=== PATIENT | male | born 1945 | race Two or more races ===

== ENCOUNTER 2020-07-13 09:01 | Emergency (ER) | payer MEDICARE, MEDICAID, SELFPAY ==
[2020-07-13 09:29] VITALS: BP 163/50; PULSE 65; RESP 15; TEMP 36.7; O2SAT 96; BMI 26.6
--- NOTE | 2020-07-13 09:41 | XR_ITS ---
EXAMINATION: XR CHEST CLINICAL INFORMATION: Dizziness, headache, cough COMPARISON: Chest radiographs 03/25/2019, 03/11/2019, 10/22/2018 TECHNIQUE: Portable upright AP view of the chest was obtained. FINDINGS: Patient is slightly lordotically positioned. The lungs appear clear with no vascular congestion, airspace consolidation, or definite groundglass opacity. There is tapering at the cardiac apex similar to prior studies likely related to areolar tissue. The cardiac and hilar contours are similar to previous exams. No acute bony abnormality. XR/XR chest 1V IMPRESSION: Unremarkable examination.
--- NOTE | 2020-07-13 09:41 | CT_ITS ---
EXAMINATION: CT HEAD WITHOUT CONTRAST CLINICAL INFORMATION: Dizziness and headache x 2 days COMPARISON: None TECHNIQUE: Contiguous axial imaging was performed from the skull base to vertex without intravenous administration of contrast. This CT examination was performed using dose optimization techniques as appropriate, variously including the following: *Automated exposure control *Adjustment of mA and/or kV according to patient size (this includes techniques or standardized protocols for targeted exams where dose is matched to indication/reason for exam; i.e. extremities or head) *Use of iterative reconstruction technique DLP: 642 mGy-cm FINDINGS: There is no evidence of acute intracranial hemorrhage or territorial infarction. No abnormal mass effect or midline shift is seen. Rodriguez to white matter differentiation is well preserved. No extra-axial fluid collections are identified. The lateral ventricles are symmetrical in size and configuration with mild enlargement. The osseous structures and soft tissues are normal. The mastoid air cells and visualized portions of the paranasal sinuses are well aerated. CT/CT head/brain wo con IMPRESSION: No acute intracranial process seen.
[2020-07-13] MEDS: Acetaminophen 325 MG TABLET 650 MG PO (10:09)
--- NOTE | 2020-07-13 10:27 | ED_ITS ---
HPI - Dizziness General Chief Complaint: Dizziness Stated Complaint: GÓMEZ,BODY ACHES,COUGH Time Seen by Provider: 07/13/20 09:24 Source: patient Mode of arrival: ambulatory Limitations: language barrier (Estonian speaking) History of Present Illness HPI Narrative: 74yoM c PMHx of DM, asthma and renal failure requiring dialysis which he reports has resolved x 9 years presenting to the ED c c/o dizziness, headache and intermittent productive cough x 2 days. denies recent fall, changes in vision, nausea / vomiting, chest pain, shortness of breath, palpitations, abdominal pain, diarrhea, urinary symptoms or leg swelling. Patient denies any other symptoms complaints or concerns at this time. Denies recent travel or sick contacts. Related Data Previous Rx's Medication Instructions Recorded acetaminophen [Tylenol] 650 mg PO Q6H PRN #14 tab 07/13/20 azithromycin See Rx Instructions .ROUTE 07/13/20 .COMPLEX #6 tab cyclobenzaprine 10 mg PO TID PRN #10 tab 07/13/20 Allergies Allergy/AdvReac Type Severity Reaction Status Date / Time No Known Allergies Allergy Unverified 06/04/20 14:47 [No Known Allergies*] Review of Systems Review of Systems: Constitutional : No Weight loss, No Fever, No Chills, No Night Sweats, No Fatigue, No Malaise ENT/Mouth : No Hearing loss, No Ear Pain, No Nasal Congestion, No Sinus Pain, No Hoarseness, No sore throat, No Rhinorrhea, No Swallowing Difficulty Eyes: No Eye Pain, No Swelling, No Redness, No Foreign Body, No Discharge, No Vision Changes Cardiovascular : No Chest Pain, No SOB, No Dyspnea on Exertion, No Orthopnea, No Edema, No Palpitations Respiratory : + Cough, + Sputum, No Wheezing, No Smoke Exposure, No Dyspnea Gastrointestinal : No Nausea, No Vomiting, No Diarrhea, No Constipation, No abdominal Pain, No Hematochezia, No Melena Genitourinary : no irregular bleeding, No Dysuria, No Urinary Frequency, No Hematuria, No Urinary Incontinence, No Urgency, No Flank Pain, No Urinary Flow Changes, No Hesitancy Musculoskeletal : No joint pain, No Myalgias, No Joint Swelling Skin : No Skin Lesions, No rash Neuro : No Weakness, No Numbness, No Paresthesias, No Loss of Consciousness, + Dizziness, + Headache Psych : No Anxiety/Panic, No Depression, No SI/HI/AH/VH, No Social Issues, Heme/Lymph: No Bruising, No Bleeding,No Lymphadenopathy Endocrine : No Polyuria, No Polydipsia, No Temperature Intolerance Yes all other systems are reviewed and are negative [facility] Past Medical History Attestation statement: The following information was validated with the patient. Medical History Asthma History of renal dialysis IDDM (insulin dependent diabetes mellitus) Renal failure Social History Social History Smoking Status: Never smoker Use of substances other than those prescribed or required for medical reasons: No Advance Directives: No Advance Directives Information Provided: No Physical Exam Vital Signs: Vital Signs: Vital Signs Temp Pulse Resp BP Pulse Ox 07/13/20 16:02 98.1 F 57 18 161/57 H 98 07/13/20 13:55 97.8 F 65 16 153/59 H 07/13/20 09:29 98.0 F 65 15 163/50 H 96 Body Mass Index 26.6 vital signs have been reviewed as normal and appeared to be correct. Blood pressure normal. Heart rate normal. Respiration rate normal. Temperature normal. Oxygen saturation normal. Appearance: Alert. Oriented X3. No acute distress. Head: Normal external exam. Normocephalic. Atraumatic. Able to rotate head bilaterally. Eyes: PERRLA. EOMI. No nystagmus noted. Conjunctiva and sclera normal. Eyelids normal. Corneal reflex normal. ENT: EAC normal. TM's Normal. Hearing normal. Pharynx normal. Uvula midline. tongue midline. Moist mucous membranes. No trismus noted. No drooling noted. No muffled voice noted. Neck: Normal inspection. Neck supple. FROM. No adenopathy. Thyroid Normal. No meningeal signs. No neck mass noted. CVS: Normal heart rate and rhythm. Heart sound normal. No murmurs noted. Pulses normal throughout. Respiratory: No respiratory distress. Painless inspiration. Breath sounds normal. No wheezes/rales/rhonchi noted. Chest nontender. No accessory muscle usage noted or decreased air movement noted. Abdomen: Soft and nontender. Bowel sounds normal in all 4 quadrants. No distention noted. No organomegaly noted. No visible injury noted. Back: No CVA tenderness. Full range of motion noted. Skin: Skin warm and dry. Normal skin color. Normal skin turgor. No rashes/lesions/lacerations noted. Extremities: No lower extremity edema. Extremities exhibit normal range of motion. Extremities nontender. Able to shrug shoulders bilaterally and keep up against resistance. Neuro: Oriented X 3. No motor deficit. No sensory deficit. Reflexes normal. Moving all extremities. No focal motor deficits. Cranial nerves II-XI intact bilaterally. Facial strength normal. Normal cognition. Speech normal. Gait normal. Strength 5/5 throughout. No pronator drift. No tremor noted. No fasciculations noted. Muscle tone normal throughout. No asterixis noted. Prqjhc-xs-[id number] test normal. Heel to montano test normal. Tandem gait normal. Does not sway with eyes open. Round bur test negative. Rapid alternating movement upper extremity normal. Rapid alternating movement lower extremity normal. Escobar d drop from overhead-Mrs. face. No rigidity noted. NIHSS score 0. Course Course Course Narrative: 9:40am 74yoM c PMHx of DM, asthma and renal failure requiring dialysis which he reports has resolved x 9 years presenting to the ED c c/o dizziness, headache and intermittent productive cough x 2 days. denies recent fall, changes in vision, nausea / vomiting, chest pain, shortness of breath, palpitations, abdominal pain, diarrhea, urinary symptoms or leg swelling. Patient denies any other symptoms complaints or concerns at this time. Denies recent travel or sick contacts. - Concern for CVA vs orthostatic hypotension vs ACS vs Electrolyte abnormality. - Plan: Labs, Orthostatic vitals, EKG, CT scan of brain, chest x-ray. Provide Tylenol for the patient's headache as he requested then re-evaluate. Reevaluation(s) Reevaluation #1: patient has an elevated troponin at 10.8 therefore a repeat troponin was ordered for 3 hours later although patient refused when they went to draw the troponin 3 hours later and is requesting to leave against medical advice. All other labs are within normal limits. EKG normal sinus rhythm no acute ischemic changes. Chest x-ray and CT scan of brain all within normal limits. Will discharge patient against medical advice and DC home with symptomatic treatment along with instructions return if any new or worsening symptoms to follow with primary care provider. Patient understands agrees the plan. Time: 16:10 [facility] Medical Records Attestation: I reviewed the patient's medical records. Lab Data Attestation: I reviewed the patient's lab results. Result diagrams: 07/13/20 11:33 07/13/20 11:33 Labs: Lab Results 07/13/20 07/13/20 07/13/20 Range/Units 11:33 11:33 11:33 WBC 8.3 (4.8-10.8) X10*3/uL RBC 4.42 L (4.60-5.80) X10*6/uL Hgb 14.8 (14.0-18.0) g/dl Hct 43.3 (42-52) % MCV 98.0 (80-98) fL MCH 33.5 H (27.0-33.0) pg MCHC 34.2 (31.0-36.0) g/dl RDW 12.8 (11.0-16.0) % Plt Count 138 L (160-400) X10*3/uL MPV 9.8 (9.4-12.4) fL Immature Gran % (Auto) 0.4 (0.0-0.4) % Neut % (Auto) 80.7 H (45-73) % Lymph % (Auto) 12.3 L (20-40) % [place] % (Auto) 5.8 (2-11) % Eos % (Auto) 0.6 (0-4) % Baso % (Auto) 0.2 (0-2) % Lymph # (Auto) 1.0 L (1.2-4.9) X10*3/uL [place] # (Auto) 0.5 (0.1-1.2) X10*3/uL Eos # (Auto) 0.1 (0.0-0.4) X10*3/uL Baso # (Auto) 0.0 (0.0-0.2) X10*3/uL Abs Immat Gran (auto) 0.03 (0.00-0.03) X10*3/uL Absolute Neuts (auto) 6.7 (2.0-8.3) X10*3/uL Absolute Nucleated RBC 0.000 (0.0-0.012) X10*3/uL Nucleated RBC % (auto) 0.0 (0.0-0.2) /100WBC PT 13.0 (10.8-13.0) SEC INR 1.1 (0.9-1.1) Sodium 138 (135-145) mmol/L Potassium 4.9 (3.3-5.1) mmol/l Chloride 107 (96-108) mmol/L Carbon Dioxide 23 (22-29) mmol/L Anion Gap 13 (12-20) BUN 21 H (9-16) mg/dL Creatinine 1.30 (0.5-1.4) mg/dL Estim Creat Clear Calc 42.7 Estimated GFR 54 Random Glucose 93 (60-115) mg/dL Calcium 8.6 (8.4-10.2) mg/dL Magnesium (1.6-2.6) mg/dL Total Bilirubin 0.6 (0.0-1.0) mg/dL Direct Bilirubin 0.2 (0.0-0.5) mg/dL AST 27 (5-37) U/L ALT 34 (0-40) U/L Alkaline Phosphatase 61 (39-117) U/L Troponin I High Sens (<3.5-35.0) ng/L B-Natriuretic Peptide (<100) pg/mL Total Protein 6.6 (6.5-8.0) g/dL Albumin 4.4 (3.5-5.0) g/dL 07/13/20 07/13/20 Range/Units 11:33 11:33 WBC (4.8-10.8) X10*3/uL RBC (4.60-5.80) X10*6/uL Hgb (14.0-18.0) g/dl Hct (42-52) % MCV (80-98) fL MCH (27.0-33.0) pg MCHC (31.0-36.0) g/dl RDW (11.0-16.0) % Plt Count (160-400) X10*3/uL MPV (9.4-12.4) fL Immature Gran % (Auto) (0.0-0.4) % Neut % (Auto) (45-73) % Lymph % (Auto) (20-40) % [place] % (Auto) (2-11) % Eos % (Auto) (0-4) % Baso % (Auto) (0-2) % Lymph # (Auto) (1.2-4.9) X10*3/uL [place] # (Auto) (0.1-1.2) X10*3/uL Eos # (Auto) (0.0-0.4) X10*3/uL Baso # (Auto) (0.0-0.2) X10*3/uL Abs Immat Gran (auto) (0.00-0.03) X10*3/uL Absolute Neuts (auto) (2.0-8.3) X10*3/uL Absolute Nucleated RBC (0.0-0.012) X10*3/uL Nucleated RBC % (auto) (0.0-0.2) /100WBC PT (10.8-13.0) SEC INR (0.9-1.1) Sodium (135-145) mmol/L Potassium (3.3-5.1) mmol/l Chloride (96-108) mmol/L Carbon Dioxide (22-29) mmol/L Anion Gap (12-20) BUN (9-16) mg/dL Creatinine (0.5-1.4) mg/dL Estim Creat Clear Calc Estimated GFR Random Glucose (60-115) mg/dL Calcium (8.4-10.2) mg/dL Magnesium 2.0 (1.6-2.6) mg/dL Total Bilirubin (0.0-1.0) mg/dL Direct Bilirubin (0.0-0.5) mg/dL AST (5-37) U/L ALT (0-40) U/L Alkaline Phosphatase (39-117) U/L Troponin I High Sens 10.8 (<3.5-35.0) ng/L B-Natriuretic Peptide 125 H (<100) pg/mL Total Protein (6.5-8.0) g/dL Albumin (3.5-5.0) g/dL Imaging Data Chest x-ray: Attestation: I personally reviewed and interpreted this imaging study as follows: Radiologist's impression: FINDINGS: Patient is slightly lordotically positioned. The lungs appear clear with no vascular congestion, airspace consolidation, or definite groundglass opacity. There is tapering at the cardiac apex similar to prior studies likely related to areolar tissue. The cardiac and hilar contours are similar to previous exams. No acute bony abnormality. XR/XR chest 1V IMPRESSION: Unremarkable examination. CT scan - head: Attestation: I personally reviewed and interpreted this imaging study as follows: Radiologist's impression: FINDINGS: There is no evidence of acute intracranial hemorrhage or territorial infarction. No abnormal mass effect or midline shift is seen. Rodriguez to white matter differentiation is well preserved. No extra-axial fluid collections are identified. The lateral ventricles are symmetrical in size and configuration with mild enlargement. The osseous structures and soft tissues are normal. The mastoid air cells and visualized portions of the paranasal sinuses are well aerated. CT/CT head/brain wo con IMPRESSION: No acute intracranial process seen. ECG Data Attestation: I personally reviewed and interpreted this ECG as follows: ECG interpretation date: 07/13/20 ECG interpretation time: 10:53 Prior ECG tracings: available for review Interpretation: Sinus bradycardia with 1st degree AV block with a normal VT interval with a normal QRS and normal QT / QTC interval. No acute ischemic changes. Similar when compared to 03/25/2019 EKG. Discharge Plan Discharge Clinical Impression: Dizziness, Bronchitis, Headache, Nausea, Elevated troponin Patient Disposition: Left Against Medical Advice Instructions: Acute Headache (ED), Dizziness (ED), Against Medical Advice (ED), High Troponin Levels (ED) Additional Instructions: Bas?ndonos en laci s?ntomas e historia, hemos enviado un COVID-19. Aunque bardales resultado es PENDIENTE en kenya momento. LOS RESULTADOS deben regresar en un plazo de 72 horas. En kenya momento se le contactar? con resultados NEGATIVOS O POSITIVOS. -Por favor, espere hasta que nos pongamos en contacto con usted para laci resultados. En kenya momento usted estar? bryan para el jerica. Por favor, planifique la cuarentena autom?li por un m?ximo de 14 d?as. No te expongas a los dem?s. No puedes ir a trabajar. Si las pruebas vuelven negativas, puede volver a las actividades siempre y cuando ya no tenga s?ntomas riaz al menos 3 d?as. Por favor, siga las instrucciones en fr?o y l?vese las arturo con frecuencia. Puede kayleigh Tylenol seg?n las instrucciones del biber?n para el dolor o la fiebre. Paciente atendido en el servicio de urgencias el 03/13/2020 y debe ser eximido del trabajo hasta los resultados negativos de la prueba Y hasta que hayan pasado 72 horas sin s?ntomas Y hayan pasado al menos 10 d?as desde que aparecieron los s?ntomas por primera vez o desde la ?ltima exposici?n al paciente positivo COVID-19 Directrices de los CDC para el aislamiento en el hogar: - Mant?ngase alejado de los dem?s - USAR DAPHNE MASCARA si usted est? enfermo Y ESTANCIA HOGAR - C?brase la boca y la nariz con un pa?uelo de papel al toser o estornudar. Deseche los pa?uelos en daphne papelera forrada y l?vese las arturo inmediatamente con agua y jab?n riaz al menos 20 segundos. Si no hay agua y jab?n disp onibles, limpie las arturo con desinfectante de arturo a base de alcohol que contenga al menos 60% de alcohol. - L?mpiarse las arturo a menudo con agua y jab?n riaz al menos 20 segundos - Evite tocarse los ojos, la nariz y la boca con las arturo sin odilon - No comparta platos, vasos, tazas, utensilios para comer, toallas o ropa de cama con otras personas en bardales hogar. Despu?s de usar estos art?culos, l?velos bryan con agua y jab?n o p?ngalos en el lav[place]illas. - Limpie las superficies de alto contacto en bardales ?stan de aislamiento ( habitaci?n de enfermos y ba?o) todos los d?as; permitir que el cuidador limpie y desinfecte las superficies de alto contacto en otras ?reas del hogar. Limpie el ?stan o el art?culo con agua y jab?n u otro detergente si est? sucio. Luego, usa un desinfectante dom?stico. - Limitar el contacto con mascotas y animales: Si debe cuidar de daphne mascota, l?vese las arturo antes y despu?s de interactuar con ellos). Based on your symptoms and history we have sent a COVID-19. Although your RESULT IS PENDING at this time. RESULTS should return within 72 hours. At this time you will be contacted with either NEGATIVE OR POSITIVE results. -Please wait until we contact you for your results. At this time you will be okay for discharge. Please plan for self quarantine for up to 14 days. Do not expose yourself to others. You may not go to work. If test ing does come back negative you may return to activities as long as you are no longer having any symptoms for at least 3 days. Please continue to follow cold instructions and wash your hands frequently. You may take Tylenol as directed on the bottle for pain or fever. Patient seen in the emergency department on 07/13/2020 and should be excused from work until negative test results AND until 72 hours without any symptoms AND at least 10 days have passed since symptoms first appeared or since last exposure to COVID-19 positive patient CDC Guidelines for home isolation: - Stay away from others - WEAR A MASK if you are sick AND STAY HOME - Cover your mouth and nose with a tissue when you cough or sneeze. Dispose of tissues in a lined trash can and wash your hands immediately with soap and water for at least 20 seconds. If soap and water are not available, clean hands with alcohol-based hand blogs manager that contains at least 60% alcohol. - Clean your hands often with soap and water for at least 20 seconds - Avoid touching your eyes, nose and mouth with unwashed hands - Do not share dishes, drinking glasses, cups, eating utensils, towels, or bedding with other people in your home. After using these items, wash them thoroughly with soap and water or put in the oncology rep specialist. - Clean high-touch surfaces in your isolation area ( sick room and bathroom) every day; let a caregiver clean and disinfect high-touch surfaces in other areas of the home. Clean the area or item with soap and water or another detergent if it is dirty. Then, use a household disinfectant. - Limit contact with pets and animals: If you must care for a pet, wash your hands before and after interacting with them). Prescriptions: New azithromycin 250 mg tablet See Rx Instructions .ROUTE .COMPLEX Qty: 6 RF: 0 cyclobenzaprine 10 mg tablet 10 mg PO TID PRN (Reason: muscle spasm) Qty: 10 RF: 0 acetaminophen [Tylenol] 325 mg tablet 650 mg PO Q6H PRN (Reason: fever or pain) Qty: 14 RF: 0 Referrals: Jessie Smith MD [Primary Care Provider] - 2 days Print Language: Estonian
--- NOTE | 2020-07-13 10:32 | ECG_ITS ---
Test Reason : WEAKNESS Blood Pressure : / mmHG Vent. Rate : 057 BPM Atrial Rate : 057 BPM P-R Int : 256 ms QRS Dur : 096 ms QT Int : 436 ms P-R-T Axes : 058 -01 027 degrees QTc Int : 424 ms Sinus bradycardia with 1st degree A-V block Minimal voltage criteria for LVH, may be normal variant Borderline ECG When compared with ECG of 25-MAR-2019 13:23, No significant change was found Referred By: Aruna Aquino Electronically Signed By:YAEL GONZALEZ MD
[2020-07-13 11:38] LABS: MANUAL DIFF FLAG NO
[2020-07-13 11:41] LABS: Basophils Percent Auto 0.2 % (0-2); Eosinophils Absolute Auto 0.1 X10*3/uL (0.0-0.4); Eosinophils Percent Auto 0.6 % (0-4); Hematocrit 43.3 % (42-52); Hemoglobin 14.8 g/dl (14.0-18.0); Imm Gran Abs Auto 0.03 X10*3/uL (0.00-0.03); Imm Gran Pct Auto 0.4 % (0.0-0.4); Lymphocytes Percent Auto 12.3 % (20-40); Mean Corpuscular HGB Conc 34.2 g/dl (31.0-36.0); Mean Corpuscular Hemoglobin 33.5 pg (27.0-33.0); Mean Platelet Volume 9.8 fL (9.4-12.4); Monocytes Absolute Auto 0.5 X10*3/uL (0.1-1.2); Monocytes Percent Auto 5.8 % (2-11); Neutrophils Absolute Auto 6.7 X10*3/uL (2.0-8.3); Neutrophils Percent Auto 80.7 % (45-73); Platelet Count 138 X10*3/uL (160-400); Red Blood Count 4.42 X10*6/uL (4.60-5.80); Red Cell Distribution Width 12.8 % (11.0-16.0); White Blood Count 8.3 X10*3/uL (4.8-10.8)
[2020-07-13 11:45] LABS: INTERNATIONAL NORM RATIO 1.1 (0.9-1.1)
[2020-07-13 12:13] LABS: B Type Natriuretic Peptide 125 pg/mL (<100); Troponin-I High Sensitivity 10.8 ng/L (<3.5-35.0)
[2020-07-13 12:19] LABS: Alanine Aminotransferase 34 U/L (0-40); Albumin Level 4.4 g/dL (3.5-5.0); Alkaline Phosphatase 61 U/L (39-117); Anion Gap 13 (12-20); Aspartate Amino Transferase 27 U/L (5-37); Bilirubin Direct 0.2 mg/dL (0.0-0.5); Bilirubin Total 0.6 mg/dL (0.0-1.0); Blood Urea Nitrogen 21 mg/dL (9-16); Calcium 8.6 mg/dL (8.4-10.2); Carbon Dioxide 23 mmol/L (22-29); Chloride 107 mmol/L (96-108); Creatinine Clr Calc Pharmacy 42.7; Estimated Glomerular Filt Rate 54; Glucose Random 93 mg/dL (60-115); Potassium 4.9 mmol/l (3.3-5.1); Sodium 138 mmol/L (135-145); Total Protein 6.6 g/dL (6.5-8.0)
[2020-07-13] MEDS: 0.9 % Sodium Chloride 1,000 ML 999 ML IVCONT (13:29)
[2020-07-13 13:55] VITALS: BP 153/59; BP 154/56; PULSE 57; PULSE 65; RESP 16; TEMP 36.6
[2020-07-13 16:02] VITALS: BP 161/57; PULSE 57; RESP 18; TEMP 36.7; O2SAT 98
== END 2020-07-13 16:20 | disposition left against medical advice (07) ==
PROVIDERS: Physician Assistant Medical; Emergency Provider Emergency Medicine; PCP Family Medicine
DX: J20.9 Acute bronchitis, unspecified (principal); R42 Dizziness and giddiness; R79.89 Other specified abnormal findings of blood chemistry; E11.9 Type 2 diabetes mellitus without complications; R05 Cough; Z20.828 Contact with and (suspected) exposure to other viral communicable diseases
CPT/HCPCS: 36415; 70450; 71045; 80048; 80076; 83735; 83880; 84484; 85025; 85610; 87635; 93005; 96360; 99284

== ENCOUNTER 2020-08-05 13:42 | Emergency (ER) | payer MEDICARE, MEDICAID, SELFPAY ==
[2020-08-05 13:49] VITALS: BP 135/89; BP 138/52; PULSE 72; PULSE 74; RESP 16; TEMP 36.8; O2SAT 96; O2SAT 98; BMI 27.6
--- NOTE | 2020-08-05 13:52 | XR_ITS ---
EXAMINATION: XR CHEST CLINICAL INFORMATION: Cough. COMPARISON: 07/13/2020 chest radiograph. TECHNIQUE: Frontal view of the chest was obtained. FINDINGS: Previously seen pleural reflection at the left lung base is less pronounced. The lungs are otherwise clear. There is persistent mild elevation of the right hemidiaphragm without significant change. The heart and mediastinal structures are unremarkable. Mild thoracic scoliosis and multilevel degenerative changes are unchanged. XR/XR chest 1V IMPRESSION: No acute cardiopulmonary process.
[2020-08-05 14:46] LABS: Influenza A PCR NEGATIVE (Negative); Influenza B PCR NEGATIVE (Negative); Resp Syncy Virus RNA Qual PCR NEGATIVE (Negative); SARS COV2 PCR INHOUSE NEGATIVE (Negative)
--- NOTE | 2020-08-05 15:01 | ED_ITS ---
HPI - General Adult General Chief complaint: Fever Stated complaint: COUGH,FEVER 96.8 Time Seen by Provider: 08/05/20 13:52 Source: patient Mode of arrival: ambulatory Limitations: no limitations History of Present Illness HPI narrative: PATIENT PRESENTS TO THE ED FOR VIRAL-LIKE SYNDROME since yesterday. PATIENT STATES COUGHING, WHITE PHLEGM, BODY ACHES, CHILLS, night sweats AND SUBJECTIVE FEVER. PATIENT DENIES ANY CHEST PAIN, SHORTNESS OF BREATH, calf pain, pain on inspiration, coughing up blood OR SWELLING OF LOWER EXTREMITies. PATIENT UNKNOWN OF EXPOSURE TO COVID. Related Data Previous Rx's Medication Instructions Recorded acetaminophen [Tylenol] 650 mg PO Q6H PRN #14 tab 07/13/20 azithromycin See Rx Instructions .ROUTE 07/13/20 .COMPLEX #6 tab cyclobenzaprine 10 mg PO TID PRN #10 tab 07/13/20 insulin glargine 100 unit/mL (3 22 unit SUBCUT DAILY 30 Days #15 ml 07/31/20 mL) subcutaneous pen Allergies Allergy/AdvReac Type Severity Reaction Status Date / Time No Known Allergies Allergy Unverified 06/04/20 14:47 [No Known Allergies*] Review of Systems Review of Systems: Yes all other systems are reviewed and are negative Constitutional: Constitutional: Reports as per HPI, Reports no additional constitutional complaints, Reports body ache(s), Reports chills, Reports fatigue, Reports fever(s) ( SUBJECTIVE) and Reports malaise Eyes: Eyes: Reports as per HPI and Reports no additional eye complaints ENT: Reports system reviewed and no additional complaints, except as documented and Reports as per HPI Cardiovascular: Cardiovascular: Denies chest pain, Denies chest pain at rest, Denies dyspnea, Denies dyspnea on exertion, Denies orthopnea and Denies paroxysmal nocturnal dyspnea Respiratory: Respiratory: Reports as per HPI, Reports cough, Reports excessive phlegm production (WHITE), Denies dyspnea and Denies dyspnea on exertion Gastrointestinal: Gastrointestinal: Reports as per HPI and Reports no additional gastrointestinal complaints Musculoskeletal: Musculoskeletal: Reports no additional musculoskeletal comp laints and Reports as per HPI Neurologic: Reports system reviewed and no additional complaints, except as documented, Reports as per HPI and Reports Abnormal speech present Psychiatric: Psychiatric: Reports no additional psychiatric complaints and Reports as per HPI Endocrine: Endocrine: Reports fatigue [facility] Past Medical History Medical History (Updated 08/05/20 @ 15:15 by VIVIANE Lopez) Asthma Diabetes type 2, controlled History of renal dialysis IDDM (insulin dependent diabetes mellitus) Renal failure Social History Social History Alcohol intake: former Smoking Status: Former smoker Advance Directives: No Advance Directives Information Provided: No Physical Exam Vital Signs: Vital Signs: Last Vital Signs Temp 98.2 F 08/05/20 13:49 Pulse 74 08/05/20 13:49 Resp 16 08/05/20 13:49 BP 138/52 L 08/05/20 13:49 Pulse Ox 98 08/05/20 13:49 Body Mass Index 27.6 Const: General: cooperative, healthy appearing, comfortable, no acute distress, well developed, alert and awake HENMT: Head: Yes normal to inspection, No No palpable skull fracture present, No Ibanez's sign, No contusion, No hematoma, No laceration, No palpable skull fracture and No raccoon eyes Eyes: General: appearance normal, both eyes and all related structures Neck: Neck: Yes normal visual inspection and Yes full ROM Chest: Chest palpation & inspection: normal inspection of the chest and normal palpation of entire chest wall Resp: Effort & Inspection: normal respiratory effort, able to speak in complete sentences, normal respiratory pattern, no audible wheezes and no cough Auscultation: clear to auscultation bilaterally, no crackles, no rales, no rhonchi and no wheezes Cardio: Jugular venous distension: no JVD Heart sounds: S1 normal heart sound present and S2 normal heart sound present GI: Inspection: Yes normal to inspection and No abdominal wall ecchymosis Palpation (GI): Soft to palpation, not firm, nontender, no guarding and not rigid : General: No CVA tenderness and Yes no CVA tenderness Back/Spine/Pelvis: Back: no CVA tenderness, No CVA tenderness and No back tenderness Skin: General skin exam: no rashes or lesions noted Neuro: General: patient oriented x3, gait normal, tone normal and CN's II-XI intact bilaterally Cranial nerves: Yes CN's II-XII intact bilaterally Speech: Abnormal speech present Extrem: Other: LOWER EXTREMITY NEGATIVE FOR ANY PITTING EDEMA, CALF TENDERNESS, REDNESS, OR SWELLING. General: Yes normal to inspection and Yes full ROM Psych: Appearance: grossly normal, well kempt and not disheveled Course Course Course Narrative: PATIENT DOES NOT WANT ANY BLOOD WORK. PATIENT JUST WANTS TO BE TESTED FOR COVID-19. NOT SUSPECTING CARDIAC ETIOLOGY or PE PRESENTLY IN THE ED. PATIENT STATES HE HAS NOT BEEN ON DIALYSIS FOR 7 YEARS AND KIDNEY FUNCTION IS NORMAL. HISTORY PHYSICAL EXAM INDICATES MORE VIRAL SYNDROME. WILL HAVE CHEST X-RAY TO RULE OUT PNEUMONIA. PATIENT ALSO HAVE COVID AND FLU SWAB SENT. PATIENT IS NOT TOXIC APPEARING Reevaluation(s) Reevaluation #1: PATIENT'S CHEST X-RAY CAME BACK NORMAL. PATIENT FLU AND COVID RESsults CAME BACK NEGATIVE. PATIENT INFORMED ALTHOUGH HIS COVID SWAB IS NEGATIVE THAT DOES NOT MEAN HE DOES NOT HAVE COVID. PATIENT'S WAS INFORMED SYMPTOMS JUST STARTED YESTERDAY AND VERY EARLY so he may not have a high enough viral load. PATIENT INFORMED IF he CONTINUE TO HAVE symptoms or worsened HE SHOULD ISOLATE AND GET RETESTED. PATIENT INFORMED if he is HAVING CHEST PAIN, SHORTNESS OF BREATH, COUGHING UP BLOOD, or WEAKNESS HE SHOULD RETURN TO THE ED IMMEDIATELY. Time: 15:11 Medical Decision Making MDM Narrative Medical decision making narrative: VIRAL SYNDROME Lab Data Labs: Lab Results 08/05/20 Range/Units 14:03 Coronavirus (PCR) NEGATIVE (Negative) Influenza Type A (PCR) NEGATIVE (Negative) Influenza Type B (PCR) NEGATIVE (Negative) RSV RNA Qual (PCR) NEGATIVE (Negative) Discharge Plan Discharge Clinical Impression: Acute viral syndrome, URI (upper respiratory infection) Patient Disposition: Home, Self-Care Instructions: Upper Respiratory Infection (ED), Viral Syndrome (ED) Additional Instructions: RETURN TO THE ED IMMEDIATELY FOR ANY WEAKNESS, CHEST PAIN, SHORTNESS OF BREATH, COUGHING UP BLOOD, INTRACTABLE FEVER, CHILLS, SWELLING OF LOWER EXTREMITIES, CALF PAIN, OR ANY OTHER CONCERNING SYMPTOMS. INITIAL COVID SWAB RESULTS ARE NEGATIVE. IF YOU CONTINUE TO HAVE SYMPTOMS OR THEY WORSEN PLEASE PRACTICE SELF- ISOLATION AND GET RETESTED IF INDICATED. PLEASE FOLLOW-UP WITH THE PCP Prescriptions: No Action Lantus Solostar U-100 Insulin 100 unit/mL (3 mL) insulin pen 22 unit subcut DAILY 30 Days Qty: 15 RF: 4 azithromycin 250 mg tablet See Rx Instructions .ROUTE .COMPLEX Qty: 6 RF: 0 cyclobenzaprine 10 mg tablet 10 mg PO TID PRN (Reason: muscle spasm) Qty: 10 RF: 0 acetaminophen [Tylenol] 325 mg tablet 650 mg PO Q6H PRN (Reason: fever or pain) Qty: 14 RF: 0 Interventions: ED Discharge Assessment Last Done: 08/05/20 16:24 Discharge Date/Time: 08/05/20 16:24 Print Language: Peruvian
== END 2020-08-05 16:24 | disposition home or self-care (01) ==
PROVIDERS: Physician Assistant; Emergency Provider Emergency Medicine
DX: J06.9 Acute upper respiratory infection, unspecified (principal); B34.9 Viral infection, unspecified; R50.9 Fever, unspecified; R05 Cough; Z20.828 Contact with and (suspected) exposure to other viral communicable diseases; Z79.899 Other long term (current) drug therapy
CPT/HCPCS: 0241U; 71045; 99283

== ENCOUNTER → 2020-09-09 13:02 | Outpatient (BNVA) | payer MEDICARE, MEDICAID, SELFPAY | PROVIDERS: PCP Family Medicine; Referring Provider Family Medicine; Visit Provider Surgery | DX: K59.09 Other constipation (principal) | CPT/HCPCS: 99212 ==

== ENCOUNTER → 2020-11-09 12:53 | Outpatient (BNVA) | payer MEDICARE, SELFPAY | PROVIDERS: PCP Family Medicine; Visit Provider Internal Medicine Endocrinology, Diabetes & Metabolism | DX: E11.21 Type 2 diabetes mellitus with diabetic nephropathy (principal); E11.42 Type 2 diabetes mellitus with diabetic polyneuropathy; Z79.4 Long term (current) use of insulin; E78.5 Hyperlipidemia, unspecified; I10 Essential (primary) hypertension | CPT/HCPCS: 82947; 99212 ==

== ENCOUNTER → 2021-01-13 12:59 | Outpatient (BNVA) | payer MEDICARE, SELFPAY | PROVIDERS: PCP Family Medicine; Visit Provider Urology | DX: N40.1 Benign prostatic hyperplasia with lower urinary tract symptoms (principal); R35.1 Nocturia | CPT/HCPCS: 81002; 99212 ==

== ENCOUNTER → 2021-02-03 13:01 | Outpatient (BNVA) | payer MEDICARE, SELFPAY | PROVIDERS: PCP Family Medicine; Visit Provider Nurse Practitioner Gerontology | DX: E11.21 Type 2 diabetes mellitus with diabetic nephropathy (principal); I10 Essential (primary) hypertension; Z79.4 Long term (current) use of insulin | CPT/HCPCS: 82947; 99212 ==

== ENCOUNTER → 2021-02-17 12:55 | Outpatient (BNVA) | payer MEDICARE, SELFPAY | PROVIDERS: PCP Family Medicine; Visit Provider Internal Medicine Endocrinology, Diabetes & Metabolism | DX: E11.21 Type 2 diabetes mellitus with diabetic nephropathy (principal); E11.42 Type 2 diabetes mellitus with diabetic polyneuropathy; I10 Essential (primary) hypertension; E78.5 Hyperlipidemia, unspecified; Z79.4 Long term (current) use of insulin | CPT/HCPCS: 82947; 99212 ==

== ENCOUNTER 2021-04-01 13:24 | Outpatient (REF) | payer MEDICARE, SELFPAY ==
--- NOTE | ~2021-04-01 | XR_ITS ---
EXAMINATION: XR FOOT, LEFT CLINICAL INFORMATION: Left foot pain. COMPARISON: Left foot radiographs dated 04/04/2017 TECHNIQUE: AP, lateral, and oblique views of the left foot. FINDINGS: First metatarsophalangeal hallux valgus angulation is unchanged. First metatarsophalangeal and hallux sesamoid joint space narrowing with marginal osteophytes, unchanged. No osseous erosion. Plantar calcaneal spur. 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 Redemonstration of a plantar calcaneal spur.
[2021-04-01 14:21] LABS: Imm Gran Abs Auto 0.03 X10*3/uL (0.00-0.03); Imm Gran Pct Auto 0.5 % (0.0-0.4); Mean Platelet Volume 10.3 fL (9.4-12.4)
[2021-04-01 14:23] LABS: Basophils Percent Auto 0.3 % (0-2); Eosinophils Absolute Auto 0.1 X10*3/uL (0.0-0.4); Eosinophils Percent Auto 1.4 % (0-4); Hematocrit 39.7 % (42-52); Hemoglobin 13.7 g/dl (14.0-18.0); Lymphocytes Absolute Auto 1.5 X10*3/uL (1.2-4.9); Lymphocytes Percent Auto 26.3 % (20-40); Mean Corpuscular HGB Conc 34.5 g/dl (31.0-36.0); Mean Corpuscular Hemoglobin 33.2 pg (27.0-33.0); Mean Corpuscular Volume 96.1 fL (80-98); Monocytes Absolute Auto 0.5 X10*3/uL (0.1-1.2); Monocytes Percent Auto 7.8 % (2-11); Neutrophils Absolute Auto 3.7 X10*3/uL (2.0-8.3); Neutrophils Percent Auto 63.7 % (45-73); Platelet Count 140 X10*3/uL (160-400); Red Blood Count 4.13 X10*6/uL (4.60-5.80); White Blood Count 5.8 X10*3/uL (4.8-10.8)
[2021-04-01 14:27] LABS: MANUAL DIFF FLAG NO
[2021-04-01 14:45] LABS: Anion Gap 13 (12-20); Blood Urea Nitrogen 30 mg/dL (9-16); Calcium 8.8 mg/dL (8.4-10.2); Carbon Dioxide 23 mmol/L (22-29); Chloride 114 mmol/L (96-108); Estimated Glomerular Filt Rate 36; Potassium 5.4 mmol/L (3.3-5.1); Sodium 145 mmol/L (135-145)
== END 2021-04-01 13:25 | disposition home or self-care (01) ==
LOC: HO.LAB 13:24
PROVIDERS: Absent Provider Family Medicine; PCP Family Medicine; Visit Provider Internal Medicine Nephrology
DX: I12.9 Hypertensive chronic kidney disease with stage 1 through stage 4 chronic kidney disease, or unspecified chronic kidney disease (principal); N18.32 Chronic kidney disease, stage 3b; M79.672 Pain in left foot
CPT/HCPCS: 36415; 73630; 80051; 82310; 82565; 84520; 85025

== ENCOUNTER 2021-07-12 13:02 | Outpatient (REF) | payer MEDICARE, SELFPAY ==
[2021-07-12 14:11] LABS: Alanine Aminotransferase 23 U/L (0-40); Albumin Level 4.6 g/dL (3.5-5.0); Alkaline Phosphatase 68 U/L (39-117); Anion Gap 13 (12-20); Aspartate Amino Transferase 22 U/L (5-37); Bilirubin Total 0.7 mg/dL (0.0-1.0); Blood Urea Nitrogen 21 mg/dL (9-16); Calcium 10.2 mg/dL (8.4-10.2); Carbon Dioxide 27 mmol/L (22-29); Chloride 105 mmol/L (96-108); Cholesterol 112 mg/dL; Estimated Glomerular Filt Rate 41; Glucose Fasting 113 mg/dL (60-99); HDL Cholesterol 43 mg/dL; LDL Cholesterol Calculated 50 mg/dl; Sodium 140 mmol/L (135-145); Total Protein 6.9 g/dL (6.5-8.0); Triglycerides 96 mg/dL
[2021-07-12 14:31] LABS: Prostate Specific Antigen 3.09 ng/mL (<0.05-4.0); Thyroid Stimulating Hormone 0.94 uIU/mL (0.32-4.0)
[2021-07-12 14:33] LABS: Free T4 (Free Thyroxine) 0.96 ng/dL (0.71-1.85)
[2021-07-12 14:38] LABS: Vitamin B12 297 pg/mL (200-900)
[2021-07-13 06:12] LABS: LDL Cholesterol Direct 43 mg/dL (<100)
== END 2021-07-12 13:03 | disposition home or self-care (01) ==
LOC: HO.LAB 13:02
PROVIDERS: Urology; Visit Provider Internal Medicine Endocrinology, Diabetes & Metabolism
DX: Z12.5 Encounter for screening for malignant neoplasm of prostate (principal); N40.0 Benign prostatic hyperplasia without lower urinary tract symptoms; E11.21 Type 2 diabetes mellitus with diabetic nephropathy
CPT/HCPCS: 36415; 80053; 80061; 82607; 83721; 84153; 84439; 84443

== ENCOUNTER → 2021-07-14 13:27 | Outpatient (BNVA) | payer MEDICARE, SELFPAY | PROVIDERS: PCP Family Medicine; Visit Provider Urology ==

== ENCOUNTER → 2021-07-21 13:08 | Outpatient (BNVA) | payer MEDICARE, SELFPAY | PROVIDERS: PCP Family Medicine; Visit Provider Nurse Practitioner Gerontology | DX: E11.42 Type 2 diabetes mellitus with diabetic polyneuropathy (principal); E11.21 Type 2 diabetes mellitus with diabetic nephropathy; E78.5 Hyperlipidemia, unspecified; I10 Essential (primary) hypertension; Z79.4 Long term (current) use of insulin | CPT/HCPCS: 82947; 83036; 99212 ==

== ENCOUNTER 2021-07-23 12:50 | Outpatient (REF) | payer MEDICARE, SELFPAY ==
[2021-07-23 14:50] LABS: Microalbum/Creatinine Ratio Ur 159.3 ug/mg cr
== END 2021-07-23 12:51 | disposition home or self-care (01) ==
LOC: HO.LAB 12:50
PROVIDERS: PCP Family Medicine; Visit Provider Nurse Practitioner Gerontology
DX: E11.21 Type 2 diabetes mellitus with diabetic nephropathy (principal)
CPT/HCPCS: 82043

== ENCOUNTER → 2021-09-22 12:57 | Outpatient (BNVA) | payer MEDICARE, SELFPAY | PROVIDERS: PCP Family Medicine; Visit Provider Urology | DX: Z13.89 Encounter for screening for other disorder (principal) | CPT/HCPCS: Q3014 ==

== ENCOUNTER 2021-11-08 14:28 | Emergency (ER) | payer MEDICARE, SELFPAY ==
--- NOTE | ~2021-11-08 | XR_ITS ---
EXAMINATION: LEFT FOOT AND ANKLE X-RAYS CLINICAL INFORMATION: Pain COMPARISON: Left foot x-ray March 2021 TECHNIQUE: 3 views of the left foot and 3 views of the left ankle FINDINGS: Left foot: There is hallux valgus deformity and mild arthritis at the first MTP joint. No fracture or dislocation is seen. There is a plantar calcaneal spur. Left ankle: Bone alignment is normal. No acute fracture or dislocation is seen. There is question of trauma to the ankle. The ankle mortise is normal. There is soft tissue ossification in the interosseous ligament. XR/XR ankle LT 2V IMPRESSION: Left foot: Hallux valgus deformity and arthritis at the first MTP joint. Plantar calcaneal spur. Left ankle: Question of old trauma otherwise unremarkable exam.
--- NOTE | ~2021-11-08 | XR_ITS ---
EXAMINATION: LEFT FOOT AND ANKLE X-RAYS CLINICAL INFORMATION: Pain COMPARISON: Left foot x-ray March 2021 TECHNIQUE: 3 views of the left foot and 3 views of the left ankle FINDINGS: Left foot: There is hallux valgus deformity and mild arthritis at the first MTP joint. No fracture or dislocation is seen. There is a plantar calcaneal spur. Left ankle: Bone alignment is normal. No acute fracture or dislocation is seen. There is question of trauma to the ankle. The ankle mortise is normal. There is soft tissue ossification in the interosseous ligament. XR/XR foot LT 2V IMPRESSION: Left foot: Hallux valgus deformity and arthritis at the first MTP joint. Plantar calcaneal spur. Left ankle: Question of old trauma otherwise unremarkable exam.
[2021-11-08 15:28] VITALS: BP 154/67; PULSE 64; RESP 18; TEMP 36.3; O2SAT 97; BMI 26.0
--- NOTE | 2021-11-08 16:33 | ED.EXTPRO ---
HPI - Extremity Problem General Chief complaint: Extremity Injury, Lower Stated complaint: l foot pain Time Seen by Provider: 11/08/21 16:30 Source: patient Mode of arrival: ambulatory Limitations: no limitations History of Present Illness HPI Narrative: Patient history of diabetes CKD complaining of pain in the left greater toe for last 3 days no injury this slight swelling of the greater toe. Patient does have history of arthritis no history of known gout Related Data Home Medications Medication Instructions Recorded Confirmed albuterol sulfate 90 mcg/actuation 2 puff INHALATION Q4-6H PRN 09/09/20 07/21/21 aerosol inhaler (Ventolin HFA) atorvastatin 10 mg tablet 10 mg PO BEDTIME 09/09/20 07/21/21 aspirin 81 mg tablet,delayed 81 mg PO QAM 07/14/21 07/21/21 release bictegravir 50 mg-emtricitabine 1 tab PO BEDTIME 07/14/21 07/21/21 200 mg-tenofovir alafenam 25 mg tablet (Biktarvy) blood sugar diagnostic (FreeStyle #10 ea 07/14/21 07/21/21 Lite Strips) cholecalciferol (vitamin D3) 25 25 mcg PO QAM 07/14/21 07/21/21 mcg (1,000 unit) tablet lancets 33 gauge (TRUEplus Lancets) #100 ea 07/14/21 07/21/21 Previous Rx's Medication Instructions Recorded acetaminophen 325 mg tablet 650 mg PO Q6H PRN #14 tab 07/13/20 (Tylenol) azithromycin 250 mg tablet See Rx Instructions .ROUTE 07/13/20 .COMPLEX #6 tab cyclobenzaprine 10 mg tablet 10 mg PO TID PRN #10 tab 07/13/20 docusate sodium 100 mg capsule 100 mg PO DAILY #30 cap 09/09/20 (Colace) psyllium husk 3.4 gram/5.4 gram 1 tbsp PO DAILY #660 g 09/09/20 oral powder (Metamucil) insulin syringe-needle U-100 0.5 #200 ea 02/17/21 mL 31 gauge x 5/16 (BD Insulin Syringe Ultra-Fine) doxazosin 4 mg tablet 4 mg PO BEDTIME 90 Days #90 tab 09/22/21 losartan 25 mg tablet 25 mg PO DAILY 90 Days #90 tab 10/05/21 dulaglutide 3 mg/0.5 mL 3 mg (0.5 mL) SUBCUT QWEEK 90 Days 10/25/21 subcutaneous pen injector #6.5 ml (Trulicity) insulin glargine 100 unit/mL 20 unit (0.2 mL) SUBCUT BID 90 10/29/21 subcutaneous solution (Lantus Days #40 ml U-100 Insulin) acetaminophen 300 mg-codeine 30 mg 1 tab PO Q8H PRN #20 tab 11/08/21 tablet Allergies Allergy/AdvReac Type Severity Reaction Status Date / Time No Known Allergies Allergy Verified 09/22/21 12:58 [No Known Allergies*] Review of Systems Review of Systems: Yes all other systems are reviewed and are negative PMFSH Past Medical History Medical History Asthma BPH (benign prostatic hyperplasia) BPH loc w urin obs/LUTS Chronic constipation Diabetes type 2, controlled Diabetes type 2, controlled Diabetic nephropathy associated with type 2 diabetes mellitus Diabetic polyneuropathy associated with type 2 diabetes mellitus Dyslipidemia History of renal dialysis HIV (human immunodeficiency virus infection) Hypertension IDDM (insulin dependent diabetes mellitus) 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 Tenderness left MTP joint slight erythema good range of movement of the ankle joint and L MTP joint MDM - Extremity (Nontraumatic) MDM Narrative Medical decision making narrative: X-ray negative for any acute pathology clinically patient has gout patient refused to take prednisone as that will increase his blood sugar , could not give him colchicine and NSAID because of kidney problems. Will discharge patient on Tylenol No. 3 Discharge Plan Discharge Clinical Impression: Gout Patient Disposition: Home, Self-Care Instructions: Gout (ED) Additional Instructions: Take pain medication as prescribed Follow with the kidney specialist Prescriptions: New acetaminophen-codeine 300-30 mg tablet 1 tab PO Q8H PRN (Reason: pain) Qty: 20 0RF No Action losartan 25 mg tablet 25 mg PO DAILY 90 Days Qty: 90 1RF Trulicity 3 mg/0.5 mL pen injector 3 mg subcut QWEEK 90 Days Qty: 6.5 1RF Rx Instructions: dose increased. Lantus U-100 Insulin 100 unit/mL solution 20 unit subcut BID 90 Days Qty: 40 1RF azithromycin 250 mg tablet See Rx Instructions .ROUTE .COMPLEX Qty: 6 0RF Rx Instructions: take 500 mg today (day 1), then 250 mg for 4 days (days 2-5) cyclobenzaprine 10 mg tablet 10 mg PO TID PRN (Reason: muscle spasm) Qty: 10 0RF acetaminophen [Tylenol] 325 mg tablet 650 mg PO Q6H PRN (Reason: fever or pain) Qty: 14 0RF atorvastatin 10 mg tablet 10 mg PO BEDTIME 0RF docusate sodium [Colace] 100 mg capsule 100 mg PO DAILY Qty: 30 2RF Metamucil 3.4 gram/5.4 gram powder 1 tbsp PO DAILY Qty: 660 2RF Rx Instructions: mix into at least 8 oz of water or juice before administering albuterol sulfate [Ventolin HFA] 90 mcg/actuation HFA aerosol inhaler 2 puff inhalation Q4-6H PRN0RF (DME) insulin syringe-needle U-100 [BD Insulin Syringe Ultra-Fine] 0.5 mL 31 gauge x 5/16 syringe See Rx Instructions .ROUTE .MEDSUPPLY Qty: 200 3RF Rx Instructions: Twice a day (DME) FreeStyle Lite Strips Strip See Rx Instructions ea Not Applicable TID Qty: 10 0RF Rx Instructions: As directed aspirin 81 mg tablet,delayed release (DR/EC) 81 mg PO QAM 0RF cholecalciferol (vitamin D3) 25 mcg (1,000 unit) tablet 25 mcg PO QAM 0RF (DME) lancets [TRUEplus Lancets] 33 gauge misc See Rx Instructions ea Not Applicable TID Qty: 100 0RF Rx Instructions: As directed Biktarvy 50-200-25 mg tablet 1 tab PO BEDTIME 0RF doxazosin 4 mg tablet 4 mg PO BEDTIME 90 Days Qty: 90 3RF Interventions: ED Discharge Assessment Last Done: 11/08/21 16:59 Discharge Date/Time: 11/08/21 17:00 Print Language: Citizen [place]
[2021-11-08] MEDS: traMADoL HCL 50 MG TABLET PO (16:41)
--- NOTE | 2021-11-08 16:48 | PC.NURSE ---
administered meds with the use of medical center director . patient stated I don't want to take prenisone because it makes my sugar to high patient refused prednisone . Provider aware .
== END 2021-11-08 17:00 | disposition home or self-care (01) ==
PROVIDERS: Emergency Provider Internal Medicine; PCP Family Medicine
DX: M10.9 Gout, unspecified (principal); M79.672 Pain in left foot; I12.9 Hypertensive chronic kidney disease with stage 1 through stage 4 chronic kidney disease, or unspecified chronic kidney disease; E11.22 Type 2 diabetes mellitus with diabetic chronic kidney disease; N18.9 Chronic kidney disease, unspecified; Z79.899 Other long term (current) drug therapy; Z79.4 Long term (current) use of insulin
CPT/HCPCS: 73600; 73620; 99283

== ENCOUNTER → 2021-11-17 13:04 | Outpatient (BNVA) | payer MEDICARE, SELFPAY | PROVIDERS: PCP Family Medicine; Visit Provider Nurse Practitioner Gerontology | DX: E11.21 Type 2 diabetes mellitus with diabetic nephropathy (principal); E11.42 Type 2 diabetes mellitus with diabetic polyneuropathy; I10 Essential (primary) hypertension; E78.5 Hyperlipidemia, unspecified; Z79.4 Long term (current) use of insulin | CPT/HCPCS: 82947; 83036; 95250; 99212 ==

== ENCOUNTER → 2021-12-01 12:58 | Outpatient (BNVA) | payer MEDICARE, SELFPAY | PROVIDERS: PCP Family Medicine; Visit Provider Nurse Practitioner Gerontology | DX: E11.21 Type 2 diabetes mellitus with diabetic nephropathy (principal); E11.42 Type 2 diabetes mellitus with diabetic polyneuropathy; E78.5 Hyperlipidemia, unspecified; I10 Essential (primary) hypertension; Z79.4 Long term (current) use of insulin | CPT/HCPCS: Q3014 ==

== ENCOUNTER 2022-05-07 02:09 | Emergency (ER) | payer MEDICARE, SELFPAY ==
--- NOTE | ~2022-05-07 | XR_ITS ---
EXAMINATION: XR CHEST CLINICAL INFORMATION: Chest pain COMPARISON: 08/05/2020 TECHNIQUE: Frontal view of the chest was obtained. FINDINGS: Cardiac leads overlie the chest. The lungs are well expanded. There is no focal consolidation, edema, or effusion. No pneumothorax. The cardiomediastinal silhouette is within normal limits. No acute osseous abnormality. Degenerative changes at both shoulders. XR/XR chest 1V IMPRESSION: No acute pulmonary finding.
[2022-05-07 02:14] VITALS: BP 180/96; PULSE 90; O2SAT 99
[2022-05-07 02:25] VITALS: BP 180/67; PULSE 52; RESP 15; TEMP 36.9; O2SAT 97; BMI 22.6
--- NOTE | 2022-05-07 03:05 | ECG_ITS ---
Test Reason : CHEST PAIIN Blood Pressure : / mmHG Vent. Rate : 050 BPM Atrial Rate : 050 BPM P-R Int : 392 ms QRS Dur : 104 ms QT Int : 474 ms P-R-T Axes : 054 010 049 degrees QTc Int : 432 ms Sinus bradycardia with 1st degree A-V block Otherwise normal ECG When compared with ECG of 13-JUL-2020 10:53, No significant change was found Referred By: Matias Riddle Electronically Signed By:COOKIE PABON
[2022-05-07 03:24] LABS: Basophils Percent Auto 0.3 % (0-2); Mean Corpuscular HGB Conc 34.5 g/dl (31.0-36.0); Mean Corpuscular Hemoglobin 32.3 pg (27.0-33.0); PLT CLUMP 1; SCAN SMEAR FLAG 1
[2022-05-07 03:26] LABS: Eosinophils Absolute Auto 0.1 X10*3/uL (0.0-0.4); Hematocrit 35.1 % (42.0-52.0); Hemoglobin 12.1 g/dl (14.0-18.0); Imm Gran Abs Auto 0.07 X10*3/uL (0.00-0.03); Imm Gran Pct Auto 1.2 % (0.0-0.4); Lymphocytes Absolute Auto 1.3 X10*3/uL (1.2-4.9); Lymphocytes Percent Auto 21.7 % (20-40); Mean Corpuscular Volume 93.6 fL (80.0-98.0); Mean Platelet Volume 9.5 fL (9.4-12.4); Monocytes Absolute Auto 0.6 X10*3/uL (0.1-1.2); Monocytes Percent Auto 9.6 % (2-11); Neutrophils Percent Auto 65.2 % (45-73); Red Blood Count 3.75 X10*6/uL (4.60-5.80); Red Cell Distribution Width 13.8 % (11.0-16.0)
[2022-05-07 03:28] LABS: MANUAL DIFF FLAG NO; Platelet Count 121 X10*3/uL (160-400); White Blood Count 6.1 X10*3/uL (4.8-10.8)
[2022-05-07 03:32] LABS: INTERNATIONAL NORM RATIO 1.1 (0.9-1.1); Prothrombin Time 13.2 SEC (10.0-13.1)
[2022-05-07 03:40] LABS: Alanine Aminotransferase 21 U/L (0-40); Albumin Level 3.7 g/dL (3.5-5.0); Alkaline Phosphatase 56 U/L (39-117); Anion Gap 13 (12-20); Aspartate Amino Transferase 16 U/L (5-37); Bilirubin Total 0.6 mg/dL (0.0-1.0); Blood Urea Nitrogen 23 mg/dL (9-16); Calcium 8.3 mg/dL (8.4-10.2); Carbon Dioxide 24 mmol/L (22-29); Chloride 108 mmol/L (96-108); Estimated Glomerular Filt Rate 47; Glucose Random 143 mg/dL (60-115); Potassium 4.2 mmol/L (3.3-5.1); Sodium 141 mmol/L (135-145); Total Protein 5.6 g/dL (6.5-8.0)
[2022-05-07 03:43] LABS: Troponin-I High Sensitivity 17.9 ng/L (<3.5-35.0)
--- NOTE | 2022-05-07 03:53 | ED.CHESTPAIN ---
HPI - Chest Pain General Chief Complaint: Chest Pain Stated Complaint: cp Time Seen by Provider: 05/07/22 03:05 Source: patient Mode of arrival: EMS Limitations: no limitations History of Present Illness HPI narrative: Patient's with hx of diabetes hypertension notice mid sternal chest tightness feeling for last 2 days got worse at 19:00 today also complaining of increased depression not suicidal has a poor sleep no prior history of coronary artery disease also patient has been coughing , mostly dry Related Data Home Medications Medication Instructions Recorded Confirmed albuterol sulfate 90 mcg/actuation 2 puff inhalation Q4-6H PRN 09/09/20 12/01/21 aerosol inhaler (Ventolin HFA) atorvastatin 10 mg tablet 10 mg PO BEDTIME 09/09/20 12/01/21 aspirin 81 mg tablet,delayed 81 mg PO QAM 07/14/21 12/01/21 release bictegravir 50 mg-emtricitabine 1 tab PO BEDTIME 07/14/21 12/01/21 200 mg-tenofovir alafenam 25 mg tablet (Biktarvy) blood sugar diagnostic (FreeStyle #10 ea 07/14/21 12/01/21 Lite Strips) cholecalciferol (vitamin D3) 25 25 mcg PO QAM 07/14/21 12/01/21 mcg (1,000 unit) tablet lancets 33 gauge (TRUEplus Lancets) #100 ea 07/14/21 12/01/21 Previous Rx's Medication Instructions Recorded acetaminophen 325 mg tablet 650 mg PO Q6H PRN fever or pain 07/13/20 (Tylenol) #14 tabs azithromycin 250 mg tablet See Rx Instructions PO .COMPLEX #6 07/13/20 tabs cyclobenzaprine 10 mg tablet 10 mg PO TID PRN muscle spasm #10 07/13/20 tabs docusate sodium 100 mg capsule 100 mg PO DAILY #30 caps 09/09/20 (Colace) psyllium husk 3.4 gram/5.4 gram 1 tbsp PO DAILY #660 grams 09/09/20 oral powder (Metamucil) doxazosin 4 mg tablet 4 mg PO BEDTIME 90 days #90 tabs 09/22/21 acetaminophen 300 mg-codeine 30 mg 1 tab PO Q8H PRN pain #20 tabs 11/08/21 tablet insulin glargine 100 unit/mL 18 unit (0.18 mL) subcut BID 90 12/01/21 subcutaneous solution (Lantus days #40 mL U-100 Insulin) blood-glucose meter (FreeStyle #1 ea 12/03/21 Lite Meter kit) insulin syringe-needle U-100 0.5 #200 ea 02/02/22 mL 31 gauge x 5/16 (BD Insulin Syringe Ultra-Fine) losartan 25 mg tablet 25 mg PO DAILY 90 days #90 tabs 03/25/22 dulaglutide 3 mg/0.5 mL 3 mg (0.5 mL) subcut QWEEK 90 days 04/15/22 subcutaneous pen injector #6.5 mL (Trulicity) lorazepam 1 mg tablet (Ativan) 1 mg PO BEDTIME PRN sleep #10 tabs 05/07/22 Allergies Allergy/AdvReac Type Severity Reaction Status Date / Time No Known Allergies Allergy Verified 05/07/22 02:14 [No Known Allergies*] Review of Systems Review of Systems: Yes all other systems are reviewed and are negative PMFSH Past Medical History Medical History Asthma BPH (benign prostatic hyperplasia) BPH loc w urin obs/LUTS Chronic constipation Diabetes type 2, controlled Diabetes type 2, controlled Diabetic nephropathy associated with type 2 diabetes mellitus Diabetic polyneuropathy associated with type 2 diabetes mellitus Dyslipidemia History of renal dialysis HIV (human immunodeficiency virus infection) Hypertension IDDM (insulin dependent diabetes mellitus) 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 Nocturia Renal failure Surgical History History of appendectomy History of colonoscopy History of foot surgery Family History Family History Son History of diabetes mellitus Social History Social History Household Members: None Alcohol intake: former Patient Tobacco Use Status: Former Tobacco user Use of substances other than those prescribed or required for medical reasons: No Advance Directives: No Physical Exam Vital Signs: Vital Signs: Last Vital Signs Temp 97.7 F 05/07/22 05:00 Pulse 52 05/07/22 05:00 Resp 20 05/07/22 05:00 BP 163/60 H 05/07/22 05:00 Pulse Ox 93 05/07/22 05:00 O2 Del Method 05/07/22 05:00 BMI result Body Mass Index 22.6 Appearance: Alert. Oriented X3. No acute distress. Eyes: No pallor/ icterus ENT: Pharynx normal. Oral Mucosa moist Neck: Normal inspection. Neck supple. CVS: Normal heart rate and rhythm. Pulses normal. Respiratory: No respiratory distress. Equal air entry bilateral, no wheezing/rales/rhonchi Abdomen: Soft and nontender. Bowel sounds are present, no mass palpable, no CVA tenderness Skin: Skin warm and dry. Normal skin color. Normal skin turgor. Extremities: No lower extremity edema. No calf tenderness Neuro: Oriented X 3. No motor deficit. No sensory deficit. MDM - Chest Pain MDM Narrative Medical decision making narrative: Patient with anxiety with atypical chest pain 2 sets of cardiac enzymes negative EKG without any ischemic change will discharge patient home patient felt better after Ativan Medical Records Data Attestation: I reviewed the patient's medical records. Lab Data Attestation: I reviewed the patient's lab results. Result diagrams: 05/07/22 03:17 05/07/22 03:17 Labs: Lab Results 05/07/22 05/07/22 05/07/22 Range/Units 03:17 03:17 03:17 WBC 6.1 (4.8-10.8) X10*3/uL RBC 3.75 L (4.60-5.80) X10*6/uL Hgb 12.1 L (14.0-18.0) g/dl Hct 35.1 L (42.0-52.0) % MCV 93.6 (80.0-98.0) fL MCH 32.3 (27.0-33.0) pg MCHC 34.5 (31.0-36.0) g/dl RDW 13.8 (11.0-16.0) % Plt Count 121 L (160-400) X10*3/uL MPV 9.5 (9.4-12.4) fL Immature Gran % (Auto) 1.2 H (0.0-0.4) % Neut % (Auto) 65.2 (45-73) % Lymph % (Auto) 21.7 (20-40) % Stewart % (Auto) 9.6 (2-11) % Eos % (Auto) 2.0 (0-4) % Baso % (Auto) 0.3 (0-2) % Lymph # (Auto) 1.3 (1.2-4.9) X10*3/uL Stewart # (Auto) 0.6 (0.1-1.2) X10*3/uL Eos # (Auto) 0.1 (0.0-0.4) X10*3/uL Baso # (Auto) 0.0 (0.0-0.2) X10*3/uL Abs Immat Gran (auto) 0.07 H (0.00-0.03) X10*3/uL Absolute Neuts (auto) 4.0 (2.0-8.3) x10*3/uL Absolute Nucleated RBC 0.000 (0.0-0.012) X10*3/uL Nucleated RBC % (auto) 0.0 (0.0-0.2) /100WBC PT 13.2 H (10.0-13.1) SEC INR 1.1 (0.9-1.1) Sodium 141 (135-145) mmol/L Potassium 4.2 (3.3-5.1) mmol/L Chloride 108 (96-108) mmol/L Carbon Dioxide 24 (22-29) mmol/L Anion Gap 13 (12-20) BUN 23 H (9-16) mg/dL Creatinine 1.46 H (0.5-1.4) mg/dL Estim Creat Clear Calc 38.0 Estimated GFR 47 Random Glucose 143 H D (60-115) mg/dL Calcium 8.3 L D (8.4-10.2) mg/dL Total Bilirubin 0.6 (0.0-1.0) mg/dL AST 16 (5-37) U/L ALT 21 (0-40) U/L Alkaline Phosphatase 56 (39-117) U/L Troponin I High Sens (<3.5-35.0) ng/L Total Protein 5.6 L (6.5-8.0) g/dL Albumin 3.7 (3.5-5.0) g/dL COVID-19 ([facility]) (Negative) COVID-19 Clin Com 05/07/22 05/07/22 05/07/22 Range/Units 03:17 04:34 04:34 WBC (4.8-10.8) X10*3/uL RBC (4.60-5.80) X10*6/uL Hgb (14.0-18.0) g/dl Hct (42.0-52.0) % MCV (80.0-98.0) fL MCH (27.0-33.0) pg MCHC (31.0-36.0) g/dl RDW (11.0-16.0) % Plt Count (160-400) X10*3/uL MPV (9.4-12.4) fL Immature Gran % (Auto) (0.0-0.4) % Neut % (Auto) (45-73) % Lymph % (Auto) (20-40) % Stewart % (Auto) (2-11) % Eos % (Auto) (0-4) % Baso % (Auto) (0-2) % Lymph # (Auto) (1.2-4.9) X10*3/uL Stewart # (Auto) (0.1-1.2) X10*3/uL Eos # (Auto) (0.0-0.4) X10*3/uL Baso # (Auto) (0.0-0.2) X10*3/uL Abs Immat Gran (auto) (0.00-0.03) X10*3/uL Absolute Neuts (auto) (2.0-8.3) x10*3/uL Absolute Nucleated RBC (0.0-0.012) X10*3/uL Nucleated RBC % (auto) (0.0-0.2) /100WBC PT (10.0-13.1) SEC INR (0.9-1.1) Sodium (135-145) mmol/L Potassium (3.3-5.1) mmol/L Chloride (96-108) mmol/L Carbon Dioxide (22-29) mmol/L Anion Gap (12-20) BUN (9-16) mg/dL Creatinine (0.5-1.4) mg/dL Estim Creat Clear Calc Estimated GFR Random Glucose (60-115) mg/dL Calcium (8.4-10.2) mg/dL Total Bilirubin (0.0-1.0) mg/dL AST (5-37) U/L ALT (0-40) U/L Alkaline Phosphatase (39-117) U/L Troponin I High Sens 17.9 16.9 (<3.5-35.0) ng/L Total Protein (6.5-8.0) g/dL Albumin (3.5-5.0) g/dL COVID-19 ([facility]) Negative (Negative) COVID-19 Clin Com See Note ECG Data ECG #1: Attestation: I personally reviewed and interpreted this ECG as follows: Interpretation: Sinus bradycardia heart rate 50 beats per minute normal axis first-degree heart block no acute ST wave changes no acute ischemia Discharge Plan Discharge Clinical Impression: Chest pain, Anxiety Patient Disposition: Home, Self-Care Instructions: Chest Pain (ED), Anxiety (ED) Additional Instructions: Continue to take baby aspirin Medication to relax and sleep in the night time Follow with PCP Prescriptions: New lorazepam [Ativan] 1 mg tablet 1 mg PO BEDTIME PRN (Reason: sleep) Qty: 10 0RF No Action (DME) blood-glucose meter [FreeStyle Lite Meter] Kit See Rx Instructions .Route Qty: 1 0RF Rx Instructions: As directed (DME) insulin syringe-needle U-100 [BD Insulin Syringe Ultra-Fine] 0.5 mL 31 gauge x 5/16 syringe See Rx Instructions .ROUTE .MEDSUPPLY Qty: 200 3RF Rx Instructions: Twice a day losartan 25 mg tablet 25 mg PO DAILY 90 Days Qty: 90 1RF Trulicity 3 mg/0.5 mL pen injector 3 mg subcut QWEEK 90 Days Qty: 6.5 1RF Rx Instructions: dose increased. azithromycin 250 mg tablet See Rx Instructions .ROUTE .COMPLEX Qty: 6 0RF Rx Instructions: take 500 mg today (day 1), then 250 mg for 4 days (days 2-5) cyclobenzaprine 10 mg tablet 10 mg PO TID PRN (Reason: muscle spasm) Qty: 10 0RF acetaminophen [Tylenol] 325 mg tablet 650 mg PO Q6H PRN (Reason: fever or pain) Qty: 14 0RF acetaminophen-codeine 300-30 mg tablet 1 tab PO Q8H PRN (Reason: pain) Qty: 20 0RF atorvastatin 10 mg tablet 10 mg PO BEDTIME docusate sodium [Colace] 100 mg capsule 100 mg PO DAILY Qty: 30 2RF Metamucil 3.4 gram/5.4 gram powder 1 tbsp PO DAILY Qty: 660 2RF Rx Instructions: mix into at least 8 oz of water or juice before administering albuterol sulfate [Ventolin HFA] 90 mcg/actuation HFA aerosol inhaler 2 puff inhalation Q4-6H PRN (DME) FreeStyle Lite Strips Strip See Rx Instructions Not Applicable TID Qty: 10 Rx Instructions: As directed aspirin 81 mg tablet,delayed release (DR/EC) 81 mg PO QAM cholecalciferol (vitamin D3) 25 mcg (1,000 unit) tablet 25 mcg PO QAM (DME) lancets [TRUEplus Lancets] 33 gauge misc See Rx Instructions Not Applicable TID Qty: 100 Rx Instructions: As directed Biktarvy 50-200-25 mg tablet 1 tab PO BEDTIME doxazosin 4 mg tablet 4 mg PO BEDTIME 90 Days Qty: 90 3RF Lantus U-100 Insulin 100 unit/mL solution 18 unit subcut BID 90 Days Qty: 40 1RF Interventions: ED Discharge Assessment Last Done: 05/07/22 05:51 Discharge Date/Time: 05/07/22 06:00 Print Language: Georgian
[2022-05-07] MEDS: Albuterol/Iprat 2.5/0.5MG 3 ML AMPUL.NEB INHALE (04:40)
[2022-05-07 04:42] VITALS: PULSE 52; RESP 21; O2SAT 96
[2022-05-07 04:53] LABS: COVID-19 Test Negative (Negative)
[2022-05-07 04:57] LABS: Troponin-I High Sensitivity 16.9 ng/L (<3.5-35.0)
[2022-05-07 05:00] VITALS: BP 163/60; PULSE 52; RESP 20; TEMP 36.5; O2SAT 93
[2022-05-07] MEDS: LORazepam 1 MG TABLET PO (05:02)
== END 2022-05-07 06:00 | disposition home or self-care (01) ==
PROVIDERS: Emergency Provider Internal Medicine; PCP Family Medicine
DX: R07.9 Chest pain, unspecified (principal); F41.9 Anxiety disorder, unspecified; Z20.822 Contact with and (suspected) exposure to COVID-19; E11.9 Type 2 diabetes mellitus without complications; I10 Essential (primary) hypertension; E78.5 Hyperlipidemia, unspecified; B20 Human immunodeficiency virus [HIV] disease; Z87.891 Personal history of nicotine dependence; Z79.4 Long term (current) use of insulin; Z79.899 Other long term (current) drug therapy; Z79.02 Long term (current) use of antithrombotics/antiplatelets; Z79.82 Long term (current) use of aspirin
CPT/HCPCS: 36415; 71045; 80053; 84484; 85025; 85610; 87635; 93005; 94640; 99284

== ENCOUNTER 2022-08-20 20:17 | Inpatient (IN) | payer OTHER, SELFPAY ==
--- NOTE | ~2022-08-20 | US_ITS ---
EXAMINATION: US VENOUS ULTRASOUND WITH DOPPLER LOWER EXTREMITY, LEFT CLINICAL INFORMATION: Swelling, erythema, rule out DVT COMPARISON: None TECHNIQUE: Ultrasound of the deep veins is performed from the hip to the calf with compression sonography and color and pulse Doppler assessment. Spectral analysis with color-flow imaging is performed. FINDINGS: There is normal venous compression and respiratory variation and augmented flow. The visualized common femoral vein, superficial femoral vein, profunda femoral vein, popliteal vein, and the trifurcation region shows no evidence of deep venous thrombosis. There is turbulent flow in the deep femoral vein, of uncertain clinical significance. There is no significant popliteal fossa cyst. US/US venous duplex LE LT IMPRESSION: No DVT identified in the left lower extremity. If the patient's symptoms persist, followup ultrasound in 5 days 7 days might be of value to exclude proximal propagation from a non-visualized calf vein
--- NOTE | ~2022-08-20 | MR_ITS ---
EXAMINATION: MRI OF THE LEFT FOOT WITH AND WITHOUT CONTRAST CLINICAL INFORMATION: Second toe ulcer. Question osteomyelitis. COMPARISON: Radiograph dated 08/20/2022 TECHNIQUE: Multiplanar MR imaging was obtained through the left foot on a 1.5 Niru magnet before and after intravenous administration of 7.5 mL Gadavist. FINDINGS: At the distal margin of the 2nd toe distal phalanx, there is an ill-defined soft tissue ulceration measuring approximately 1 x 1.5 cm in area (AP x transverse) extending to the depth of the bone at the distal phalanx. The distal phalanx is diffusely edematous with complete replacement of normal fat signal intensity on T1-weighted images as well as diffuse enhancement, consistent with osteomyelitis. There is marked flexion of the 2nd toe distal phalanx at the DIP joint. No surrounding abscess is identified. There is [id number] osteoarthritis of the 1st MTP joint with nonuniform cartilage loss, marginal osteophytes, and subchondral cystic change as well as hallux valgus. There is lateral subluxation of the sesamoids at the 1st metatarsal head. Minimal osteoarthritis is evident within the other MTP joints and interphalangeal joints. Imaged portion of the midfoot appears relatively well-preserved. No fractures or stress reactions. There is diffuse fatty replacement of the intrinsic foot musculature with increased signal intensity on T2-weighted images, most typical of denervation change related to diabetic neuropathy. There is diffuse soft tissue swelling with subcutaneous edema, most pronounced dorsally. MR/MR foot LT wo/w con IMPRESSION: 1. Soft tissue ulceration at the distal margin of the 2nd toe distal phalanx with underlying osteomyelitis of the 2nd toe distal phalanx. No abscess. 2. 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
--- NOTE | ~2022-08-20 | US_ITS ---
EXAMINATION: US ARTERIAL DUPLEX LOWER EXTREMITY LEFT CLINICAL INFORMATION: Ulcer. Evaluate for peripheral vascular disease. COMPARISON: Radiographs of the foot from 08/20/2022 TECHNIQUE: Duplex Doppler imaging of major vessels of left lower extremities performed using a high-resolution linear 12 MHz transducer. Grayscale images and color Doppler images with spectral waveforms are reviewed. FINDINGS: The Doppler imaging examination is performed from level of the common femoral artery to the posterior tibial and peroneal arteries at the mid to lower leg. There is visible atherosclerotic plaque of the femoral artery. No evidence of occlusion of the femoral or popliteal artery. The evaluation of the smaller vessels below the knee is more difficult. Normal triphasic waveforms are observed within the common femoral, profunda femoris, superficial femoral and popliteal arteries. However, the waveforms are above baseline (monophasic) in the posterior tibial and peroneal arteries. The peak systolic velocities (cm/s) are measured as follows: Common femoral artery, 155 Proximal profunda femoris artery, 158 Proximal SFA, 129 Mid SFA, 160 Distal SFA, 167 cm/s, then increasing to 323 cm/s (image 18/35), thereafter 96 cm/s Popliteal, 125 Posterior tibial, 58 cm/s at mid leg and 81 cm/s distally Peroneal 130 cm/s proximal leg, 48 cm/s at mid leg and 66 cm/s distally US/US arterial duplex LE LT IMPRESSION: * There is atherosclerosis of the femoral artery and velocity elevation is observed in the distal SFA, consistent with presence of a hemodynamically significant distal SFA stenosis. * No significant findings within the popliteal artery, which has triphasic waveform and no significant stenosis. * The monophasic waveforms of the peroneal and posterior tibial arteries are consistent with hemodynamically significant stenosis below the level of the knee. For a more complete anatomic assessment of the peripheral vessels, CT angiography-runoff examination could be performed. Alternatively, to further evaluate the severity of peripheral vascular disease, PEG measurements and pulse volume recordings may be obtained at a dedicated vascular lab.
--- NOTE | ~2022-08-20 | IR_ITS ---
PROCEDURE: IR INSERTION OF TUNNEL CATHETER CLINICAL INFORMATION: Foot infection. Long-term IV antibiotic requirement. COMPARISON: None TECHNIQUE: Procedure and risks and benefits including bleeding, infection and pneumothorax were discussed with the patient through an dust operator and informed consent was obtained. All elements of maximal sterile barrier technique followed including use of cap, mask, sterile gown, sterile gloves, a sterile full body drape and hand hygiene. Also followed skin preparation with 2% chlorhexidine for cutaneous antisepsis, and sterile ultrasound preparation with sterile gel and probe cover when applicable. The right neck and upper chest were prepped and draped in the usual sterile fashion. The skin and soft tissues of the right lower neck were anesthetized with 1% lidocaine plain. A small incision was made. Using ultrasound guidance and a 5 [place] micropuncture system, right internal jugular vein access was obtained. Over a 0.018 wire, a 5 [place] dilator was positioned in the SVC. The skin and soft tissues of the right upper anterior chest were anesthetized with 1% lidocaine plain. A small incision was made. A subcutaneous tunnel from the chest to the neck incision was anesthetized with 1% lidocaine plain. Using a tunneler, a 5 [place] single-lumen ProLine catheter was tunneled from the chest to the neck incision. A 0.018 guidewire was advanced through the 5 [place] dilator into the SVC. 5 [place] dilator was exchanged for a small peel-away sheath. Using bent wire technique, catheter length was estimated and the catheter was cut. Catheter length is 23 cm. The catheter was fed through the peel-away sheath. The neck incision was closed using a 4-0 absorbable subcuticular suture. The chest incision was closed using a 3-0 absorbable mattress suture. The port had good blood return, flushed easily and was flushed with 5 mL heparin 100 unit per mL solution. Real-time ultrasound guidance was used to document vein patency and for needle entry. A formal ultrasound picture was recorded. Conscious sedation time 20 minutes. Conscious sedation was provided by a registered nurse under my direct supervision with continuous hemodynamic monitoring and 20 minute [id number] contact. The patient received Versed 0.5 mg and fentanyl 25 mcg intravenously during the procedure. TOTAL SEDATION TIME: 20 minutes DAP: 119 cGy-cm2 FLUOROSCOPY TIME: 0.4 minutes IMAGES: One saved fluoroscopic image and one saved ultrasound image. FINDINGS: There is a right internal jugular ProLine catheter with tip projecting over the SVC. IR/IR cvc insert central tunnel IMPRESSION: Right internal jugular 5 [place] single-lumen ProLine catheter placement.
--- NOTE | ~2022-08-20 | XR_ITS ---
EXAMINATION: XR FOOT, LEFT CLINICAL INFORMATION: Second toe ulcer, rule out osteomyelitis COMPARISON: 11/08/2021 TECHNIQUE: AP, lateral, and oblique views of the left foot. FINDINGS: There is soft tissue swelling at the tip of the second digit with underlying cortical irregularity/erosion at the tip of the distal phalanx, suspicious for osteomyelitis. Articular alignment throughout the foot is anatomic. No acute fracture is seen. Plantar calcaneal spur is noted. Redemonstrated degenerative change at the first MTP joint with hallux valgus deformity. XR/XR foot LT 2V IMPRESSION: Soft tissue swelling at the tip of the second digit with underlying cortical irregularity/erosion at the tip of the distal phalanx, suspicious for osteomyelitis.
--- NOTE | ~2022-08-20 | XR_ITS ---
EXAMINATION: XR CHEST CLINICAL INFORMATION: Dyspnea. COMPARISON: Chest radiograph 05/07/2022. TECHNIQUE: Frontal view of the chest was obtained. FINDINGS: Normal appearance of the cardiomediastinal structures. Pleura diffuse pulmonary vascular indistinctness is noted. No focal pulmonary consolidation is identified. Diffuse osteopenia. No lobar consolidation. XR/XR chest 1V IMPRESSION: Finding suspicious for mild pulmonary vascular congestion. No focal pulmonary consolidation.
--- NOTE | ~2022-08-20 | IR_ITS ---
PROCEDURE: IR INSERTION OF TUNNEL CATHETER CLINICAL INFORMATION: Foot infection. Long-term IV antibiotic requirement. COMPARISON: None TECHNIQUE: Procedure and risks and benefits including bleeding, infection and pneumothorax were discussed with the patient through an hot strip finisher and informed consent was obtained. All elements of maximal sterile barrier technique followed including use of cap, mask, sterile gown, sterile gloves, a sterile full body drape and hand hygiene. Also followed skin preparation with 2% chlorhexidine for cutaneous antisepsis, and sterile ultrasound preparation with sterile gel and probe cover when applicable. The right neck and upper chest were prepped and draped in the usual sterile fashion. The skin and soft tissues of the right lower neck were anesthetized with 1% lidocaine plain. A small incision was made. Using ultrasound guidance and a 5 [place] micropuncture system, right internal jugular vein access was obtained. Over a 0.018 wire, a 5 [place] dilator was positioned in the SVC. The skin and soft tissues of the right upper anterior chest were anesthetized with 1% lidocaine plain. A small incision was made. A subcutaneous tunnel from the chest to the neck incision was anesthetized with 1% lidocaine plain. Using a tunneler, a 5 [place] single-lumen ProLine catheter was tunneled from the chest to the neck incision. A 0.018 guidewire was advanced through the 5 [place] dilator into the SVC. 5 [place] dilator was exchanged for a small peel-away sheath. Using bent wire technique, catheter length was estimated and the catheter was cut. Catheter length is 23 cm. The catheter was fed through the peel-away sheath. The neck incision was closed using a 4-0 absorbable subcuticular suture. The chest incision was closed using a 3-0 absorbable mattress suture. The port had good blood return, flushed easily and was flushed with 5 mL heparin 100 unit per mL solution. Real-time ultrasound guidance was used to document vein patency and for needle entry. A formal ultrasound picture was recorded. Conscious sedation time 20 minutes. Conscious sedation was provided by a registered nurse under my direct supervision with continuous hemodynamic monitoring and 20 minute [id number] contact. The patient received Versed 0.5 mg and fentanyl 25 mcg intravenously during the procedure. TOTAL SEDATION TIME: 20 minutes DAP: 119 cGy-cm2 FLUOROSCOPY TIME: 0.4 minutes IMAGES: One saved fluoroscopic image and one saved ultrasound image. FINDINGS: There is a right internal jugular ProLine catheter with tip projecting over the SVC. IR/IR us guide venous access IMPRESSION: Right internal jugular 5 [place] single-lumen ProLine catheter placement.
[2022-08-20 20:36] VITALS: BP 197/74; BP 200/80; PULSE 65; PULSE 66; RESP 17; TEMP 37.2; O2SAT 100; O2SAT 98; BMI 24.2
--- NOTE | 2022-08-20 21:05 | ED.LOWEXIN ---
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 Patient states the pain started gradually 5 days prior. He did not have any injury. He states the pain is a constant dull ache which is 7/10 at its worst. He states this is 1st episode of this type of pain. He states that he was applying an ointment to his leg but this did not improve his pain. He did not take any other pain medications. He denied fever, but he does report chills. He denied rhinorrhea, sore throat, cough, chest pain, shortness of breath, dyspnea exertion, nausea, vomiting or diarrhea. Past medical history obtained from endocrinology note 12/01/2021: DM2 hypothyroidism, HIV, hypertension, hyperlipidemia, left ventricular hypertrophy, carotid artery stenosis status post left carotid endarterectomy, cognitive disorder. CKD, He was on dialysis after rhabdomyolysis , was on HD for 5 years. Micro and macrovascular complications: Nephropathy, PVD, CVA Patient was seen in the emergency department on 11/08/2021 for left great toe pain consistent with gout. MD complaint: other (Left lower extremity pain) Type of Injury: other (Denies injury) Severity: moderate Severity scale (1-10): 7 Relieving factors: nothing Exacerbating factors: nothing Related Data Home Medications Medication Instructions Recorded Confirmed albuterol sulfate 90 mcg/actuation 2 puff inhalation Q4-6H PRN 09/09/20 12/01/21 aerosol inhaler (Ventolin HFA) atorvastatin 10 mg tablet 10 mg PO BEDTIME 09/09/20 12/01/21 aspirin 81 mg tablet,delayed 81 mg PO QAM 07/14/21 12/01/21 release bictegravir 50 mg-emtricitabine 1 tab PO BEDTIME 07/14/21 12/01/21 200 mg-tenofovir alafenam 25 mg tablet (Biktarvy) blood sugar diagnostic (FreeStyle #10 ea 07/14/21 12/01/21 Lite Strips) cholecalciferol (vitamin D3) 25 25 mcg PO QAM 07/14/21 12/01/21 mcg (1,000 unit) tablet lancets 33 gauge (TRUEplus Lancets) #100 ea 07/14/21 12/01/21 Previous Rx's Medication Instructions Recorded acetaminophen 325 mg tablet 650 mg PO Q6H PRN fever or pain 07/13/20 (Tylenol) #14 tabs azithromycin 250 mg tablet See Rx Instructions PO .COMPLEX #6 07/13/20 tabs cyclobenzaprine 10 mg tablet 10 mg PO TID PRN muscle spasm #10 07/13/20 tabs docusate sodium 100 mg capsule 100 mg PO DAILY #30 caps 09/09/20 (Colace) psyllium husk 3.4 gram/5.4 gram 1 tbsp PO DAILY #660 grams 09/09/20 oral powder (Metamucil) doxazosin 4 mg tablet 4 mg PO BEDTIME 90 days #90 tabs 09/22/21 acetaminophen 300 mg-codeine 30 mg 1 tab PO Q8H PRN pain #20 tabs 11/08/21 tablet blood-glucose meter (FreeStyle #1 ea 12/03/21 Lite Meter kit) insulin syringe-needle U-100 0.5 #200 ea 02/02/22 mL 31 gauge x 5/16 (BD Insulin Syringe Ultra-Fine) losartan 25 mg tablet 25 mg PO DAILY 90 days #90 tabs 03/25/22 dulaglutide 3 mg/0.5 mL 3 mg (0.5 mL) subcut QWEEK 90 days 04/15/22 subcutaneous pen injector #6.5 mL (Trulicity) lorazepam 1 mg tablet (Ativan) 1 mg PO BEDTIME PRN sleep #10 tabs 05/07/22 insulin glargine 100 unit/mL 18 unit (0.18 mL) subcut BID 90 06/20/22 subcutaneous solution (Lantus days #40 mL U-100 Insulin) Allergies Allergy/AdvReac Type Severity Reaction Status Date / Time No Known Allergies Allergy Verified 05/07/22 02:14 [No Known Allergies*] Review of Systems Review of Systems: Yes all other systems are reviewed and are negative [facility] Past Medical History [facility] Narrative: Social history: Patient states that he is . He lives alone. He was a former tobacco user but stop smoking 10 years prior. He denies alcohol use. He denies drug use. Medical History Asthma BPH (benign prostatic hyperplasia) BPH loc w urin obs/LUTS Chronic constipation Diabetes type 2, controlled Diabetes type 2, controlled Diabetic nephropathy associated with type 2 diabetes mellitus Diabetic polyneuropathy associated with type 2 diabetes mellitus Dyslipidemia History of renal dialysis HIV (human immunodeficiency virus infection) Hypertension IDDM (insulin dependent diabetes mellitus) residential (current) use of insulin Nocturia Renal failure Surgical History History of appendectomy History of colonoscopy History of foot surgery Family History Family History Son History of diabetes mellitus Social History Social History Household Members: None Alcohol intake: never Patient Tobacco Use Status: Former Tobacco user Smoked in Last 30 Days: No Use of substances other than those prescribed or required for medical reasons: No Advance Directives: No Advance Directives Information Provided: No Physical Exam Vital Signs: Vital Signs: Last Vital Signs Temp 98.9 F 08/20/22 20:36 Pulse 69 08/20/22 21:28 Resp 17 08/20/22 20:36 BP 153/64 H 08/20/22 21:28 Pulse Ox 98 08/20/22 21:28 O2 Del Method 08/20/22 21:28 BMI result Body Mass Index 24.2 Const: General: cooperative and no acute distress Orientation/consciousness: oriented to person and oriented to place Limitations: no limitations HEENT: Head: Yes normal to inspection, Yes normocephalic and Yes atraumatic Ears: external ears normal General nose exam: Normal external nose present Face and sinus: Yes normal facial exam Mouth: Normal oral and palatal mucosa present Throat: Yes posterior oropharynx normal Eyes: General: appearance normal, both eyes and all related structures Pupils: Equal, round and reactive pupils present Neck: Neck: Yes normal visual inspection, Yes no lymphadenopathy, Yes trachea midline and Yes supple Chest: Chest palpation & inspection: normal inspection of the chest and normal palpation of entire chest wall Resp: Effort & Inspection: normal respiratory effort and able to speak in complete sentences Auscultation: clear to auscultation bilaterally Cardio: Rate: regular rate Rhythm: regular rhythm Heart sounds: S1 normal heart sound present, S2 normal heart sound present and no murmurs GI: Inspection: Yes normal to inspection Palpation (GI): Soft to palpation, nontender and no guarding Auscultation: normal bowel sounds : General: Yes no CVA tenderness Back/Spine/Pelvis: Back: no CVA tenderness Skin: General skin exam: no rashes or lesions noted Neuro: General: oriented to person and oriented to place Cranial nerves: Yes CN's II-XII intact bilaterally and Yes Equal, round and reactive pupils present Cognition (Neuro): normal cognition Motor exam (neuro): 5/5 motor strength present throughout Extrem: Other: Patient's left arm has an AV fistula, patient previous dialysis patient. Patient's left foot is erythematous, warm to the touch and swollen compared to the right from the foot to the mid calf. The patient does have a ulcer to the dorsal surface of the distal phalanx of the 2nd toe. Please see images. Psych: Appearance: grossly normal Speech and movement: Normal speech and movement present Affect: normal affect Attitude: cooperative Thought process: Normal thought process present Thought content: Normal thought content present Course Course Course Narrative: 76-year-old male with history of diabetes mellitus with peripheral neuropathy , peripheral vascular disease, HIV who presents emergency department for evaluation of 5 days of left lower extremity pain, swelling and discoloration. Vital signs revealed an elevated blood pressure of 197/74 otherwise unremarkable. Physical examination is concerning for cellulitis of the left lower extremity from the foot to the mid ankle, patient also has breakdown the skin and an ulcer to the dorsal aspect of the distal phalanx of the 2nd toe which is most likely the source of his infection. Nursing notes report that the patient has had a DVT in the past but patient denies this. I did order laboratory evaluation to include CBC, CMP, ESR, CRP, lactic acid, lipase, PT/INR, PTT, blood cultures x2. I will obtain an x-ray to evaluate for possible osteomyelitis with I will also obtain a lower extremity duplex ultrasound to evaluate for DVT. Patient was ordered to get cefazolin 2 g IV. 2319: Laboratory evaluation: WBC normal 9300, platelets low 141,000-chronic. ESR normal 11. CRP normal at 0.43. BUN and creatinine 36 and 1.91-above baseline. COVID-19 and influenza negative. Radiology evaluation: Left foot x-ray-on my review the is concerned for osteomyelitis of the and 2nd toe distal phalanx, radiology reading pending. Duplex ultrasound left lower extremity no DVT, question decreased flow through profundal pain. I will discuss admission with the covering hospitalist. 2347: Radiology reading of the patient's left foot x-rays as follows: IMPRESSION: Soft tissue swelling at the tip of the second digit with underlying cortical irregularity/erosion at the tip of the distal phalanx, suspicious for osteomyelitis. ?Dictated By: Sonu Rosa MD I did discuss admission over tiger text with the covering hospitalist, Dr. Carroll and the patient will be admitted for further treatment. Medications Administered Discontinued Medications Generic Name Dose Route Start Last Admin Trade Name Freq PRN Reason Stop Dose Admin Sodium Chloride 1,000 mls @ 999 mls/hr 08/20/22 21:00 08/20/22 21:35 Ns IV 08/20/22 22:00 999 mls/hr .Q1H1M STA Administration Cefazolin Sodium 2 gm/ Sodium 50 mls @ 100 mls/hr 08/20/22 21:07 08/20/22 22:33 Chloride IV 08/20/22 21:36 Infused ONCE ONE Infusion Morphine Sulfate 4 mg 08/20/22 21:00 08/20/22 21:32 Morphine Sulfate 4 Mg/Ml Cartridge IVPUSH 08/20/22 21:01 4 mg ONCE STA Administration Protocol MDM - Extremity Injury (Lower) Lab Data Result diagrams: 08/20/22 21:36 08/20/22 21:36 Labs: Lab Results 08/20/22 08/20/22 08/20/22 Range/Units 21:36 21:36 21:36 WBC 9.3 (4.8-10.8) X10*3/uL RBC 3.99 L (4.60-5.80) X10*6/uL Hgb 13.0 L (14.0-18.0) g/dl Hct 37.8 L (42.0-52.0) % MCV 94.7 (80.0-98.0) fL MCH 32.6 (27.0-33.0) pg MCHC 34.4 (31.0-36.0) g/dl RDW 13.2 (11.0-16.0) % Plt Count 141 L (160-400) X10*3/uL MPV 10.4 (9.4-12.4) fL Immature Gran % (Auto) 0.3 (0.0-0.4) % Neut % (Auto) 71.0 (45-73) % Lymph % (Auto) 17.2 L (20-40) % [place] % (Auto) 8.5 (2-11) % Eos % (Auto) 2.7 (0-4) % Baso % (Auto) 0.3 (0-2) % Lymph # (Auto) 1.6 (1.2-4.9) X10*3/uL [place] # (Auto) 0.8 (0.1-1.2) X10*3/uL Eos # (Auto) 0.3 (0.0-0.4) X10*3/uL Baso # (Auto) 0.0 (0.0-0.2) X10*3/uL Abs Immat Gran (auto) 0.03 (0.00-0.03) X10*3/uL Absolute Neuts (auto) 6.6 (2.0-8.3) x10*3/uL Absolute Nucleated RBC 0.000 (0.0-0.012) X10*3/uL Nucleated RBC % (auto) 0.0 (0.0-0.2) /100WBC ESR 11 (0-15) MM/HR PT 13.0 (10.0-13.1) SEC INR 1.1 (0.9-1.1) APTT 31.8 (26.0-36.4) SEC Sodium (135-145) mmol/L Potassium (3.3-5.1) mmol/L Chloride (96-108) mmol/L Carbon Dioxide (22-29) mmol/L Anion Gap (12-20) BUN (9-16) mg/dL Creatinine (0.5-1.4) mg/dL Estim Creat Clear Calc Estimated GFR Random Glucose (60-115) mg/dL Lactic Acid (0.5-2.0) mmol/L Calcium (8.4-10.2) mg/dL AST (5-37) U/L ALT (0-40) U/L Alkaline Phosphatase (39-117) U/L Total Creatine Kinase (38-174) U/L C-Reactive Protein (< or = 0.50) mg/dL Total Protein (6.5-8.0) g/dL Albumin (3.5-5.0) g/dL Lipase (8-78) U/L COVID-19 ([facility]ENCE) (Negative) COVID-19 Clin Com Influenza Type A (DEBBIE) (Negative) Influenza Type B (DEBBIE) (Negative) Influenza A & B Note 08/20/22 08/20/22 08/20/22 Range/Units 21:36 21:36 21:36 WBC (4.8-10.8) X10*3/uL RBC (4.60-5.80) X10*6/uL Hgb (14.0-18.0) g/dl Hct (42.0-52.0) % MCV (80.0-98.0) fL MCH (27.0-33.0) pg MCHC (31.0-36.0) g/dl RDW (11.0-16.0) % Plt Count (160-400) X10*3/uL MPV (9.4-12.4) fL Immature Gran % (Auto) (0.0-0.4) % Neut % (Auto) (45-73) % Lymph % (Auto) (20-40) % [place] % (Auto) (2-11) % Eos % (Auto) (0-4) % Baso % (Auto) (0-2) % Lymph # (Auto) (1.2-4.9) X10*3/uL [place] # (Auto) (0.1-1.2) X10*3/uL Eos # (Auto) (0.0-0.4) X10*3/uL Baso # (Auto) (0.0-0.2) X10*3/uL Abs Immat Gran (auto) (0.00-0.03) X10*3/uL Absolute Neuts (auto) (2.0-8.3) x10*3/uL Absolute Nucleated RBC (0.0-0.012) X10*3/uL Nucleated RBC % (auto) (0.0-0.2) /100WBC ESR (0-15) MM/HR PT (10.0-13.1) SEC INR (0.9-1.1) APTT (26.0-36.4) SEC Sodium 143 (135-145) mmol/L Potassium 4.7 (3.3-5.1) mmol/L Chloride 109 H (96-108) mmol/L Carbon Dioxide 21 L (22-29) mmol/L Anion Gap 18 (12-20) BUN 36 H D (9-16) mg/dL Creatinine 1.91 H (0.5-1.4) mg/dL Estim Creat Clear Calc 29.2 Estimated GFR 34 Random Glucose 146 H (60-115) mg/dL Lactic Acid 1.2 (0.5-2.0) mmol/L Calcium 9.0 D (8.4-10.2) mg/dL AST 20 (5-37) U/L ALT 18 (0-40) U/L Alkaline Phosphatase 78 D (39-117) U/L Total Creatine Kinase 73 (38-174) U/L C-Reactive Protein 0.43 (< or = 0.50) mg/dL Total Protein 6.3 L (6.5-8.0) g/dL Albumin 4.0 (3.5-5.0) g/dL Lipase 56 (8-78) U/L COVID-19 ([facility]) (Negative) COVID-19 Clin Com Influenza Type A (DEBBIE) Negative (Negative) Influenza Type B (DEBBIE) Negative (Negative) Influenza A & B Note See Note 08/20/22 Range/Units 21:36 WBC (4.8-10.8) X10*3/uL RBC (4.60-5.80) X10*6/uL Hgb (14.0-18.0) g/dl Hct (42.0-52.0) % MCV (80.0-98.0) fL MCH (27.0-33.0) pg MCHC (31.0-36.0) g/dl RDW (11.0-16.0) % Plt Count (160-400) X10*3/uL MPV (9.4-12.4) fL Immature Gran % (Auto) (0.0-0.4) % Neut % (Auto) (45-73) % Lymph % (Auto) (20-40) % [place] % (Auto) (2-11) % Eos % (Auto) (0-4) % Baso % (Auto) (0-2) % Lymph # (Auto) (1.2-4.9) X10*3/uL [place] # (Auto) (0.1-1.2) X10*3/uL Eos # (Auto) (0.0-0.4) X10*3/uL Baso # (Auto) (0.0-0.2) X10*3/uL Abs Immat Gran (auto) (0.00-0.03) X10*3/uL Absolute Neuts (auto) (2.0-8.3) x10*3/uL Absolute Nucleated RBC (0.0-0.012) X10*3/uL Nucleated RBC % (auto) (0.0-0.2) /100WBC ESR (0-15) MM/HR PT (10.0-13.1) SEC INR (0.9-1.1) APTT (26.0-36.4) SEC Sodium (135-145) mmol/L Potassium (3.3-5.1) mmol/L Chloride (96-108) mmol/L Carbon Dioxide (22-29) mmol/L Anion Gap (12-20) BUN (9-16) mg/dL Creatinine (0.5-1.4) mg/dL Estim Creat Clear Calc Estimated GFR Random Glucose (60-115) mg/dL Lactic Acid (0.5-2.0) mmol/L Calcium (8.4-10.2) mg/dL AST (5-37) U/L ALT (0-40) U/L Alkaline Phosphatase (39-117) U/L Total Creatine Kinase (38-174) U/L C-Reactive Protein (< or = 0.50) mg/dL Total Protein (6.5-8.0) g/dL Albumin (3.5-5.0) g/dL Lipase (8-78) U/L COVID-19 ([facility]ENCE) Negative (Negative) COVID-19 Clin Com See Note Influenza Type A (DEBBIE) (Negative) Influenza Type B (DEBBIE) (Negative) Influenza A & B Note
[2022-08-20 21:28] VITALS: BP 153/64; PULSE 69; O2SAT 98
[2022-08-20] MEDS: Morphine Sulfate 4 MG/ML CARTRIDGE IVPUSH (21:32)
[2022-08-20] MEDS: 0.9 % Sodium Chloride 1,000 ML 999 ML IV (21:35)
[2022-08-20 21:46] LABS: MANUAL DIFF FLAG NO
[2022-08-20 21:50] LABS: Basophils Percent Auto 0.3 % (0-2); Eosinophils Absolute Auto 0.3 X10*3/uL (0.0-0.4); Eosinophils Percent Auto 2.7 % (0-4); Hematocrit 37.8 % (42.0-52.0); Imm Gran Abs Auto 0.03 X10*3/uL (0.00-0.03); Imm Gran Pct Auto 0.3 % (0.0-0.4); Lymphocytes Absolute Auto 1.6 X10*3/uL (1.2-4.9); Lymphocytes Percent Auto 17.2 % (20-40); Mean Corpuscular HGB Conc 34.4 g/dl (31.0-36.0); Mean Corpuscular Hemoglobin 32.6 pg (27.0-33.0); Mean Corpuscular Volume 94.7 fL (80.0-98.0); Mean Platelet Volume 10.4 fL (9.4-12.4); Monocytes Absolute Auto 0.8 X10*3/uL (0.1-1.2); Monocytes Percent Auto 8.5 % (2-11); Neutrophils Absolute Auto 6.6 x10*3/uL (2.0-8.3); Platelet Count 141 X10*3/uL (160-400); Red Blood Count 3.99 X10*6/uL (4.60-5.80); Red Cell Distribution Width 13.2 % (11.0-16.0); White Blood Count 9.3 X10*3/uL (4.8-10.8)
[2022-08-20 21:57] LABS: INTERNATIONAL NORM RATIO 1.1 (0.9-1.1)
[2022-08-20 22:00] LABS: Partial Thromboplastin Time 31.8 SEC (26.0-36.4)
[2022-08-20 22:04] LABS: COVID-19 Test Negative (Negative); IDNOW Serial# 16C4AD1C; IDNOW Serial# BCCEAD1C; Influenza A Negative (Negative); Influenza B2 Negative (Negative); Lactic Acid 1.2 mmol/L (0.5-2.0)
[2022-08-20 22:09] LABS: Alanine Aminotransferase 18 U/L (0-40); Alkaline Phosphatase 78 U/L (39-117); Anion Gap 18 (12-20); Aspartate Amino Transferase 20 U/L (5-37); Blood Urea Nitrogen 36 mg/dL (9-16); C Reactive Protein 0.43 mg/dL (< or = 0.50); Carbon Dioxide 21 mmol/L (22-29); Chloride 109 mmol/L (96-108); Creatinine Clr Calc Pharmacy 29.2; Estimated Glomerular Filt Rate 34; Glucose Random 146 mg/dL (60-115); Lipase 56 U/L (8-78); Potassium 4.7 mmol/L (3.3-5.1); Sodium 143 mmol/L (135-145); Total Protein 6.3 g/dL (6.5-8.0)
[2022-08-20 23:00] LABS: Erythrocyte Sedimentation Rate 11 MM/HR (0-15)
--- NOTE | 2022-08-20 23:26 | PC.NURSE ---
pt resting comfortably on left side at this time
[2022-08-20 23:53] LABS: Bilirubin Total 0.3 mg/dL (0.0-1.0)
[2022-08-21] VITALS (7 sets, daily range): BP systolic 143–167; BP diastolic 49–76; PULSE 44–65; RESP 11–20; TEMP 36.1–36.8; O2SAT 96–98; BMI 25.0
--- NOTE | 2022-08-21 00:03 | P.HPHOSP_ITS ---
History of Present Illness Date of Service: 08/21/22 Chief Complaint: left foot wound This is a 76-year-old male with pertinent history of insulin-dependent diabetes mellitus, chronic kidney disease, HIV, generalized anxiety disorder, essential hypertension, mixed hyperlipidemia who presents to the ER for evaluation of left toe pain, swelling and discharge x5 days. Patient denies any trauma to the foot. States has been having constant pain, worse with ambulation and no relieving factors. Never had similar complaints before. Also has been having associated fever and chills with intermittent purulent discharge from the left toe. Patient denied chest discomfort, palpitations, shortness of breath, abdominal pain, changes in urinary or bowel habits. Patient states he is compliant with his medications for chronic medical conditions. HIV with unknown viral load/CD4 count. In the emergency department, x-ray was concerning for osteomyelitis. Review of Systems Constitutional: Constitutional: Reports chills and Reports fever(s) Cardiovascular: Cardiovascular: Reports no additional cardiovascular complaints Respiratory: Respiratory: Reports no additional respiratory complaints Gastrointestinal: Gastrointestinal: Reports no additional gastrointestinal complaints Genitourinary: Genitourinary: Reports no additional male genitourinary complaints Musculoskeletal: Musculoskeletal: Reports arthralgias and Reports joint swelling [facility] Medical History (Updated 08/21/22 @ 00:13 by Kristian Carroll MD) Asthma BPH (benign prostatic hyperplasia) BPH loc w urin obs/LUTS Chronic constipation Diabetes type 2, controlled Diabetes type 2, controlled Diabetic nephropathy associated with type 2 diabetes mellitus Diabetic polyneuropathy associated with type 2 diabetes mellitus Dyslipidemia History of renal dialysis HIV (human immunodeficiency virus infection) Hypertension IDDM (insulin dependent diabetes mellitus) 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 Nocturia Renal failure Family History Son History of diabetes mellitus Surgical History History of appendectomy History of colonoscopy History of foot surgery Social History Household Members: None Alcohol intake: never Patient Tobacco Use Status: Former Tobacco user Smoked in Last 30 Days: No Use of substances other than those prescribed or required for medical reasons: No Advance Directives: No Advance Directives Information Provided: No Meds Allergies Allergy/AdvReac Type Severity Reaction Status Date / Time No Known Allergies Allergy Verified 05/07/22 02:14 [No Known Allergies*] Active Medications: Current Medications Acetaminophen (Acetaminophen 325 Mg Tablet) 650 mg PO Q6H PRN PRN Reason: Pain, Mild (Pain Scale 1-3) Dextrose (Dextrose 50 % 25 Gm/50 Ml Syringe) 25 gm IVPUSH Q15M PRN; Protocol PRN Reason: per Hypoglycemia Standing Ord. Enoxaparin Sodium (Enoxaparin Sodium 40 Mg/0.4 Ml Syringe) 40 mg SUBCUT Q24H FRED Glucose (Glucose Gel 15 Gm Gel..Gram.) 15 gm PO Q15M PRN; Protocol PRN Reason: per Hypoglycemia Standing Ord. Vancomycin HCl 1,500 mg/ (Sodium Chloride) 500 mls @ 333.333 mls/hr IV ONCE ONE Stop: 08/21/22 01:25 Cefepime HCl 1 gm/ Sodium (Chloride) 50 mls @ 100 mls/hr IV Q12H [facility] Insulin Glargine (Insulin Glargine,Hum.Rec.Anlog 100 Unit/Ml 10 Ml Vial) 15 unit SUBCUT ONCE ONE Stop: 08/21/22 00:01 Insulin Human Lispro (Insulin Lispro 100 Unit/Ml 3 Ml Vial) 0 unit SUBCUT QIDACHS [facility]; Protocol Melatonin (Melatonin 3 Mg Tablet) 6 mg PO BEDTIME PRN PRN Reason: Insomnia Morphine Sulfate (Morphine Sulfate 4 Mg/Ml Cartridge) 4 mg IVPUSH Q4H PRN; Protocol PRN Reason: Pain, Severe (Pain Scale 7-10) Ondansetron HCl (Ondansetron Hcl 4 Mg/2 Ml Vial) 4 mg IVPUSH Q8H PRN PRN Reason: Nausea and Vomiting Pharmacy Consult (Consult Rx Perform Med Rec) 1 each MISCELLANE ONCE PRN PRN Reason: Consult order Pharmacy Consult (Consult Rx Vancomycin Dosing) 1 each MISCELLANE DAILY PRN PRN Reason: Consult order Sodium Chloride (0.9 % Sodium Chloride Flush 3 Ml Syringe) 3 ml IVFLUSH QSHIFT [facility] Home Medications Medication Instructions Recorded Confirmed Last Taken Type albuterol sulfate 90 mcg/actuation 2 puff inhalation Q4-6H PRN Pain 09/09/20 08/20/22 Unknown History aerosol inhaler (Ventolin HFA) atorvastatin 10 mg tablet 10 mg PO BEDTIME 09/09/20 08/20/22 Unknown History aspirin 81 mg tablet,delayed 81 mg PO QAM 07/14/21 08/20/22 Unknown History release bictegravir 50 mg-emtricitabine 1 tab PO BEDTIME 07/14/21 08/20/22 Unknown History 200 mg-tenofovir alafenam 25 mg tablet (Biktarvy) blood sugar diagnostic (FreeStyle #10 ea 07/14/21 12/01/21 Unknown History Lite Strips) cholecalciferol (vitamin D3) 25 25 mcg PO QAM 07/14/21 08/20/22 Unknown History mcg (1,000 unit) tablet lancets 33 gauge (TRUEplus Lancets) #100 ea 07/14/21 12/01/21 Unknown History Physical Exam Vital Signs and Narrative: Vital Signs: Last Vital Signs Temp 98.9 F 08/20/22 20:36 Pulse 69 08/20/22 21:28 Resp 17 08/20/22 20:36 BP 153/64 H 08/20/22 21:28 Pulse Ox 98 08/20/22 21:28 O2 Del Method 08/20/22 21:28 BMI result Body Mass Index 24.2 Middle-aged male lying in bed in no distress Neck supple, no JVD Regular rate and rhythm, S1-S2 heard Regular breath sounds bilaterally, no wheezing or crackles appreciated Abdomen soft nontender, no guarding, no rigidity Patient is awake, alert and oriented to self, place, time and person ; no focal motor deficit Extremity: See pictures below Psych: Normal mood No pedal edema Extrem: Other: Patient's left arm has an AV fistula, patient previous dialysis patient. Patient's left foot is erythematous, warm to the touch and swollen compared to the right from the foot to the mid calf. The patient does have a ulcer to the dorsal surface of the distal phalanx of the 2nd toe. Please see images. Results Labs CBC and Chem 7: 08/20/22 21:36 08/20/22 21:36 Labs: Laboratory Results - last 24 hr 08/20/22 08/20/22 08/20/22 21:36 21:36 21:36 MCV 94.7 MCH 32.6 MCHC 34.4 RDW 13.2 Plt Count 141 L MPV 10.4 Immature Gran % (Auto) 0.3 Neut % (Auto) 71.0 Lymph % (Auto) 17.2 L [place] % (Auto) 8.5 Eos % (Auto) 2.7 Baso % (Auto) 0.3 Lymph # (Auto) 1.6 [place] # (Auto) 0.8 Eos # (Auto) 0.3 Baso # (Auto) 0.0 Abs Immat Gran (auto) 0.03 Absolute Neuts (auto) 6.6 Absolute Nucleated RBC 0.000 Nucleated RBC % (auto) 0.0 ESR 11 PT 13.0 INR 1.1 APTT 31.8 Anion Gap Estim Creat Clear Calc Estimated GFR Random Glucose Lactic Acid Calcium Total Bilirubin AST ALT Alkaline Phosphatase Total Creatine Kinase C-Reactive Protein Total Protein Albumin Lipase COVID-19 (TERENCE) COVID-19 Clin Com Influenza Type A (DEBBIE) Influenza Type B (DEBBIE) Influenza A & B Note 08/20/22 08/20/22 08/20/22 21:36 21:36 21:36 MCV MCH MCHC RDW Plt Count MPV Immature Gran % (Auto) Neut % (Auto) Lymph % (Auto) [place] % (Auto) Eos % (Auto) Baso % (Auto) Lymph # (Auto) [place] # (Auto) Eos # (Auto) Baso # (Auto) Abs Immat Gran (auto) Absolute Neuts (auto) Absolute Nucleated RBC Nucleated RBC % (auto) ESR PT INR APTT Anion Gap 18 Estim Creat Clear Calc 29.2 Estimated GFR 34 Random Glucose 146 H Lactic Acid 1.2 Calcium 9.0 D Total Bilirubin 0.3 AST 20 ALT 18 Alkaline Phosphatase 78 D Total Creatine Kinase 73 C-Reactive Protein 0.43 Total Protein 6.3 L Albumin 4.0 Lipase 56 COVID-19 (TERENCE) COVID-19 Clin Com Influenza Type A (DEBBIE) Negative Influenza Type B (DEBBIE) Negative Influenza A & B Note See Note 08/20/22 21:36 MCV MCH MCHC RDW Plt Count MPV Immature Gran % (Auto) Neut % (Auto) Lymph % (Auto) [place] % (Auto) Eos % (Auto) Baso % (Auto) Lymph # (Auto) [place] # (Auto) Eos # (Auto) Baso # (Auto) Abs Immat Gran (auto) Absolute Neuts (auto) Absolute Nucleated RBC Nucleated RBC % (auto) ESR PT INR APTT Anion Gap Estim Creat Clear Calc Estimated GFR Random Glucose Lactic Acid Calcium Total Bilirubin AST ALT Alkaline Phosphatase Total Creatine Kinase C-Reactive Protein Total Protein Albumin Lipase COVID-19 (TERENCE) Negative COVID-19 Clin Com See Note Influenza Type A (DEBBIE) Influenza Type B (DEBBIE) Influenza A & B Note Imaging Radiologist's Impressions: Impressions Venous Duplex 08/20/22 22:20 IMPRESSION: No DVT identified in the left lower extremity. If the patient's symptoms persist, followup ultrasound in 5 days 7 days might be of value to exclude proximal propagation from a non-visualized calf vein Foot X-Ray 08/20/22 22:48 IMPRESSION: Soft tissue swelling at the tip of the second digit with underlying cortical irregularity/erosion at the tip of the distal phalanx, suspicious for osteomyelitis. 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 #. Left leg cellulitis with concern for left 2nd toe osteomyelitis -will obtain MRI of the left foot. Initiating IV empiric broad-spectrum antibiotics. Consulting Infectious Disease, appreciate assistance. Follow blood cultures #. Insulin-dependent type 2 diabetes mellitus -reduce home basal regimen. Initiate Accu-Cheks with sliding scale insulin before meals and at bedtime #. HIV -continue Biktarvy #. Elevated creatinine -acute kidney injury stage I on chronic kidney disease versus progression of CKD. -resuscitated with IV crystalloids in the ER. Monitor creatinine and urine output. Avoid nephrotoxins #. BPH -continue doxazosin #. Essential hypertension -on losartan #. Peripheral vascular disease -on aspirin and statin Med rec pending DVT prophylaxis: Lovenox 30 mg daily Diet: Diabetic diet Full code Admit as inpatient and will require two night minimum hospital stay for IV antibiotics. Quality Stroke Does the patient have a stroke diagnosis?: No VTE Prior VTE?: No VTE Risk Level:: Medical - moderate - high VTE Device Contraindication: Treatment Not Indicated VTE Drug Contraindication: N/A - Med Ordered
--- NOTE | 2022-08-21 01:30 | PC.NURSE ---
this rn called pharmacy for verification of medications
[2022-08-21] MEDS: Insulin Glargine,Hum.rec.anlog 100 UNIT/ML 10 ML VIAL 15 UNIT SUBCUT (01:53)
[2022-08-21] MEDS: Enoxaparin Sodium 30 MG/0.3 ML SYRINGE SUBCUT ×2 (01:53→21:05)
--- NOTE | 2022-08-21 01:58 | PC.NURSE ---
this rn attempted to medicate pt according to mar. iv infiltrated. iv removed at this time
--- NOTE | 2022-08-21 01:59 | PC.NURSE ---
pt is content fluids was given, and urinal for the urine to be colllected, also a tuna sandwich was given,
[2022-08-21 02:00] LABS: Appearance Urine Clear; Color Urine Yellow; Glucose Urine UA Negative (Negative); Leukocyte Esterase Urine Negative (Negative); Nitrite Urine Negative (Negative); PH 5.5 (5.0-9.0); Specific Gravity - Urine 1.015 (1.005-1.025); UMIC TRIGGER UACC YES; Urine Blood Negative (Negative); Urine Ketones Negative (Negative); Urine Protein 100 (2+) mg/dL (Neg-Trace)
[2022-08-21 02:05] LABS: Bacteria Urine None Seen (None Seen); Hyaline Casts Urine 0-2 /LPF (0-2); RBC Urine 0-2 /HPF (0-2); Squamous Epithelial Cell Urine 0-2 /HPF (0-2); WBC Urine 0-5 /HPF (0-5)
--- NOTE | 2022-08-21 02:09 | PC.NURSE ---
iv antibiotics and fluids behind. verification from pharmacy delayed. once medications verified. IV infiltrated
[2022-08-21] MEDS: cefEPime HCl 1 GM in 0.9 % Sodium Chloride 50 ML IV ×2 (02:24→14:34)
[2022-08-21] MEDS: 0.9 % Sodium Chloride Flush 3 ML SYRINGE IVFLUSH ×3 (02:24→21:00)
[2022-08-21 06:13] LABS: MANUAL DIFF FLAG NO
[2022-08-21 06:21] LABS: Basophils Percent Auto 0.5 % (0-2); Eosinophils Absolute Auto 0.3 X10*3/uL (0.0-0.4); Eosinophils Percent Auto 4.3 % (0-4); Hematocrit 38.9 % (42.0-52.0); Imm Gran Abs Auto 0.02 X10*3/uL (0.00-0.03); Imm Gran Pct Auto 0.3 % (0.0-0.4); Lymphocytes Absolute Auto 1.8 X10*3/uL (1.2-4.9); Lymphocytes Percent Auto 28.2 % (20-40); Mean Corpuscular HGB Conc 33.4 g/dl (31.0-36.0); Mean Corpuscular Hemoglobin 32.6 pg (27.0-33.0); Mean Corpuscular Volume 97.5 fL (80.0-98.0); Mean Platelet Volume 10.8 fL (9.4-12.4); Monocytes Absolute Auto 0.7 X10*3/uL (0.1-1.2); Monocytes Percent Auto 11.6 % (2-11); Neutrophils Absolute Auto 3.5 x10*3/uL (2.0-8.3); Neutrophils Percent Auto 55.1 % (45-73); Platelet Count 139 X10*3/uL (160-400); Red Blood Count 3.99 X10*6/uL (4.60-5.80); Red Cell Distribution Width 13.2 % (11.0-16.0); White Blood Count 6.3 X10*3/uL (4.8-10.8)
[2022-08-21 06:46] LABS: Anion Gap 17 (12-20); Blood Urea Nitrogen 31 mg/dL (9-16); Calcium 8.3 mg/dL (8.4-10.2); Carbon Dioxide 19 mmol/L (22-29); Chloride 112 mmol/L (96-108); Creatinine Clr Calc Pharmacy 34.4; Estimated Glomerular Filt Rate 42; Glucose Random 124 mg/dL (60-115); Potassium 4.5 mmol/L (3.3-5.1); Sodium 143 mmol/L (135-145)
[2022-08-21 07:52] LABS: Glucose, Whole Blood 122 mg/dL (60-115)
--- NOTE | 2022-08-21 09:06 | PHA.MEDREC ---
Pharmacy Consult ? Medication Reconciliation Pharmacy has completed the medication reconciliation.
[2022-08-21] MEDS: Aspirin Enteric Coated 81 MG TABLET.DR PO (10:21)
[2022-08-21] MEDS: Losartan Potassium 25 MG TABLET PO (10:23)
[2022-08-21] MEDS: Docusate Sodium 100 MG CAPSULE PO (10:23)
[2022-08-21] MEDS: Insulin Glargine,Hum.rec.anlog 100 UNIT/ML 10 ML VIAL 18 UNIT SUBCUT ×2 (10:23→20:59)
[2022-08-21] MEDS: Cholecalciferol (Vitamin D3) 25 MCG TABLET PO (10:23)
--- NOTE | 2022-08-21 10:24 | PHA.PROG ---
Admission Date/Time: August 20, 2022 23:54 Indication: Skin Weight in k.5 kg Adjusted body weight in K.48 [place] body weight in K.8 Obesity Dosing Indication % IBW: not obese Serum Creatinine - Last 168 Hours 08/20/22 08/21/22 21:36 06:08 Creatinine 1.91 H 1.62 H Estimated CrCl and GFR - Last 168 Hours 08/20/22 08/21/22 21:36 06:08 Estim Creat Clear Calc 29.2 34.4 Estimated GFR 34 42 Vancomycin Loading Dose: 1750 mg Current Vancomycin Dosing Regimen: 1000 mg Q24H Vancomycin Monitoring using AUC goal of 400 - 600 range with trough as surrogate marker: 552 mg/L/hr Date and Time for next Vancomycin Level to be drawn: 08/23 @0500 Pharmacist Comments on Vancomycin Plan: Patient received proper load. Q24H dosing due to patients age. Will follow up with level 08/23 @0500. Pharmacy to monitor renal function daily Vancomycin dosing will take advantage of [employer] as a clinical decision support tool that uses Bayesian modeling to calculate individual patient's pharmacokinetic parameters and forecast the patient's drug concentration time course with the target goal AUC 24 range of 400 - 600 mg/L/hr.
[2022-08-21 11:22] LABS: Glucose, Whole Blood 122 mg/dL (60-115)
--- NOTE | 2022-08-21 14:57 | PM.EVENT ---
Event Note Date of Service: 08/21/22 Event Note: day hospitalist update S toe pain controlled O Temp Pulse Resp BP Pulse Ox O2 Del Method 97.0 F 54 20 167/71 H 97 08/21/22 08:00 08/21/22 08:00 08/21/22 08:00 08/21/22 08:00 08/21/22 08:00 08/21/22 08:00 Gen: in no acute distress HEENT: sclera anicteric, moist mucus membranes Neck: supple Lungs: clear to auscultation bilaterally Heart: regular rate and rhythm, no murmurs Abd: soft, non-tender, non-distended Ext: no edema Skin: warm/well-perfused, ulcer to the dorsal surface of the distal phalanx of the 2nd toe Neuro: alert and oriented x3, no focal findings Psych: appropriate affect A/P d#1 76yo M with DM2, CKD3, HIV, BPH, HTN presenting with L toe pain/swelling/discharge x5d, concern of osteomyelitis # L foot DM ulcer with infection concerning for osteomyelitis - MRI tomorrow, continue vanco + cefepime, follor BCx, ID consultation # PAD - Vascular Surgery consult. continue ASA + statin # RONAK/CKD3 - improved with IV fluids. avoid nephrotoxins # HTN - continue losartan # HIV - continue Biktarvy # DM2 - basal-bolus insulin # BPH -continue doxazosin # VTE ppx: LMWH # dispo: anticipate home with VNA In my clinical judgment, the patient requires continued inpatient hospitalization for the following reasons: IV ABX
[2022-08-21 15:49] LABS: Glucose, Whole Blood 89 mg/dL (60-115)
[2022-08-21 19:47] LABS: Glucose, Whole Blood 87 mg/dL (60-115)
[2022-08-21] MEDS: Doxazosin Mesylate 2 MG TABLET 4 MG PO (20:58)
[2022-08-21] MEDS: Bictegrav/Emtricit/Tenofov Ala TABLET 1 TAB PO (20:59)
[2022-08-21] MEDS: Atorvastatin Calcium 10 MG TABLET PO (20:59)
[2022-08-22] MEDS: cefEPime HCl 1 GM in 0.9 % Sodium Chloride 50 ML IV ×2 (01:57→14:44)
[2022-08-22 04:00] VITALS: BP 164/75; PULSE 67; RESP 20; TEMP 36.3; O2SAT 97
[2022-08-22] MEDS: vancomycin HCL 1,000 MG in 0.9 % Sodium Chloride 250 ML 270 MG IV (06:18)
[2022-08-22] MEDS: 0.9 % Sodium Chloride Flush 3 ML SYRINGE IVFLUSH ×2 (06:23→16:28)
[2022-08-22 07:37] LABS: Glucose, Whole Blood 68 mg/dL (60-115)
[2022-08-22 08:00] VITALS: BP 166/73; PULSE 64; RESP 18; TEMP 36.2; O2SAT 98
[2022-08-22 08:04] LABS: Anion Gap 11 (12-20); Blood Urea Nitrogen 19 mg/dL (9-16); Calcium 8.9 mg/dL (8.4-10.2); Carbon Dioxide 24 mmol/L (22-29); Chloride 111 mmol/L (96-108); Creatinine Clr Calc Pharmacy 48.1; Estimated Glomerular Filt Rate > 60; Glucose Random 64 mg/dL (60-115); Potassium 4.2 mmol/L (3.3-5.1); Sodium 142 mmol/L (135-145)
--- NOTE | 2022-08-22 10:08 | MHC.CM.PN ---
Addendum entered by Dinorah Kaminski RN 08/22/22 10:14: THIS RECREATIONAL VEHICLE REPAIRER ASKED PATIENT IF HE HAS A HCP DOCUMENTATION. HCP EXPLAINED HE DENIES HAVING ONE AND DENIES WANTING TO COMPLETE ONE Original Note: CASE MANAGEMENT ASSESSMENT DONE WITH HELP FROM [employer]. PATIENT LIVES ALONE. HE HAS BEEN COVID VACCINATED X 4 RELIES ON A WALKER FOR AMBULATING. 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 HE IS ASKING TO GO HOME. IMM 08/22 IN CHART
--- NOTE | 2022-08-22 10:16 | HE.PHANOTE ---
CHELLY CAREY CONTINUE CURRENT DOSE, NEXT TROUGH DUE 12-6 @0500 Fidelina
[2022-08-22] MEDS: Aspirin Enteric Coated 81 MG TABLET.DR PO (11:02)
[2022-08-22] MEDS: Cholecalciferol (Vitamin D3) 25 MCG TABLET PO (11:03)
[2022-08-22] MEDS: Insulin Glargine,Hum.rec.anlog 100 UNIT/ML 10 ML VIAL 18 UNIT SUBCUT ×2 (11:03→21:12)
[2022-08-22] MEDS: Losartan Potassium 25 MG TABLET PO (11:03)
[2022-08-22] MEDS: Docusate Sodium 100 MG CAPSULE PO (11:03)
[2022-08-22 11:32] LABS: Glucose, Whole Blood 82 mg/dL (60-115)
--- NOTE | 2022-08-22 12:12 | HO.PM.IMPN ---
Subjective Subjective Date of Service: 08/22/22 Interval History: This history was taken in [place] from the patient. No fever/chills Toe pain controlled US shows arterial occlusive disease Review of Systems Review of Systems: Yes all other systems are reviewed and are negative Physical Exam Vital Signs: Vital Signs: Last Vital Signs Temp 97.2 F 08/22/22 08:00 Pulse 64 08/22/22 08:00 Resp 18 08/22/22 08:00 BP 166/73 H 08/22/22 08:00 Pulse Ox 98 08/22/22 08:00 O2 Del Method 08/22/22 08:00 BMI result Body Mass Index 25.0 Gen: in no acute distress HEENT: sclera anicteric, moist mucus membranes Neck: supple Lungs: clear to auscultation bilaterally Heart: regular rate and rhythm, no murmurs Abd: soft, non-tender, non-distended Ext: no edema Skin: warm/well-perfused, ulcer to the dorsal surface of the distal phalanx of the 2nd toe Neuro: alert and oriented x3, no focal findings Psych: appropriate affect Objective Data Active Medications Acetaminophen (Acetaminophen 325 Mg Tablet) 650 mg PO Q6H PRN PRN Reason: Pain, Mild (Pain Scale 1-3) Aspirin (Aspirin Enteric Coated 81 Mg Tablet.) 81 mg PO DAILY [facility] Last Admin: 08/22/22 11:02 Dose: 81 mg Documented By: JACQUELINE Atorvastatin Calcium (Atorvastatin Calcium 10 Mg Tablet) 10 mg PO BEDTIME [facility] Last Admin: 08/21/22 20:59 Dose: 10 mg Documented By: CLAY Bictegravir/Emtricitabine/Tenofovir (Bictegrav/Emtricit/Tenofov Ala Tablet) 1 tab PO BEDTIME [facility] Last Admin: 08/21/22 20:59 Dose: 1 tab Documented By: CLAY Dextrose (Dextrose 50 % 25 Gm/50 Ml Syringe) 25 gm IVPUSH Q15M PRN; Protocol PRN Reason: per Hypoglycemia Standing Ord. Docusate Sodium (Docusate Sodium 100 Mg Capsule) 100 mg PO DAILY [facility] Last Admin: 08/22/22 11:03 Dose: 100 mg Documented By: JACQUELINE Doxazosin Mesylate (Doxazosin Mesylate 2 Mg Tablet) 4 mg PO BEDTIME [facility]; Protocol Last Admin: 08/21/22 20:58 Dose: 4 mg Documented By: CLAY Enoxaparin Sodium (Enoxaparin Sodium 30 Mg/0.3 Ml Syringe) 30 mg SUBCUT 2200 [facility] Last Admin: 08/21/22 21:05 Dose: 30 mg Documented By: CLAY Glucose (Glucose Gel 15 Gm Gel..Gram.) 15 gm PO Q15M PRN; Protocol PRN Reason: per Hypoglycemia Standing Ord. Cefepime HCl 1 gm/ Sodium (Chloride) 50 mls @ 100 mls/hr IV Q12H [facility] Last Infusion: 08/22/22 02:45 Dose: 0 mls/hr Documented By: CLAY Vancomycin HCl 1,000 mg/ (Sodium Chloride) 270 mls @ 270 mls/hr IV Q24H [facility] Last Infusion: 08/22/22 07:27 Dose: 0 mls/hr Documented By: CLAY Insulin Glargine (Insulin Glargine,Hum.Rec.Anlog 100 Unit/Ml 10 Ml Vial) 18 unit SUBCUT BID [facility] Last Admin: 08/22/22 11:03 Dose: 18 unit Documented By: JACQUELINE Insulin Human Lispro (Insulin Lispro 100 Unit/Ml 3 Ml Vial) 0 unit SUBCUT QIDACHS [facility]; Protocol Last Admin: 08/22/22 11:05 Dose: Not Given Documented By: JOHN Non-Admin Reason: No Insulin Coverage Lorazepam (Lorazepam 1 Mg Tablet) 1 mg PO BEDTIME PRN PRN Reason: sleep Losartan Potassium (Losartan Potassium 25 Mg Tablet) 25 mg PO DAILY [facility]; Protocol Last Admin: 08/22/22 11:03 Dose: 25 mg Documented By: JACQUELINE Melatonin (Melatonin 3 Mg Tablet) 6 mg PO BEDTIME PRN PRN Reason: Insomnia Morphine Sulfate (Morphine Sulfate 4 Mg/Ml Cartridge) 4 mg IVPUSH Q4H PRN; Protocol PRN Reason: Pain, Severe (Pain Scale 7-10) Ondansetron HCl (Ondansetron Hcl 4 Mg/2 Ml Vial) 4 mg IVPUSH Q8H PRN PRN Reason: Nausea and Vomiting Pharmacy Consult (Consult Rx Perform Med Rec) 1 each MISCELLANE ONCE PRN PRN Reason: Consult order Pharmacy Consult (Consult Rx Vancomycin Dosing) 1 each MISCELLANE DAILY PRN PRN Reason: Consult order Sodium Chloride (0.9 % Sodium Chloride Flush 3 Ml Syringe) 3 ml IVFLUSH QSHIFT [facility] Last Admin: 08/22/22 06:23 Dose: 3 ml Documented By: CLAY Vitamin D (Cholecalciferol (Vitamin D3) 25 Mcg Tablet) 25 mcg PO DAILY [facility] Last Admin: 08/22/22 11:03 Dose: 25 mcg Documented By: JACQUELINE Labs CBC & Chem 7: 08/21/22 06:08 08/22/22 06:06 Labs: Laboratory Results - last 24 hr 08/21/22 08/21/22 08/22/22 15:37 19:30 06:06 Anion Gap 11 L Estim Creat Clear Calc 48.1 Estimated GFR > 60 POC Glucose 89 87 Random Glucose 64 D Calcium 8.9 D 08/22/22 08/22/22 07:32 11:23 Anion Gap Estim Creat Clear Calc Estimated GFR POC Glucose 68 82 Random Glucose Calcium Microbiology Microbiology Results: Microbiology 08/20/22 21:36 Blood Culture - Preliminary Blood - Venous No growth after 24 hours. 08/20/22 21:36 Blood Culture - Preliminary Blood - Venous No growth after 24 hours. Assessment and Plan (1) Diabetic toe ulcer: Status: Acute (2) Osteomyelitis of second toe of left foot: Status: Acute Plan d#2 76yo M with DM2, CKD3, HIV, BPH, HTN presenting with L toe pain/swelling/discharge x5d, concern of osteomyelitis # L foot DM ulcer with infection concerning for osteomyelitis - MRI today, d#2 vanco + cefepime, follow BCx, ID consultation pending # PAD - Vascular Surgery consult pending. suspect will need antiogram.? continue ASA + statin for now # RONAK/CKD3 - RONAK resolved with IV fluids. avoid nephrotoxins # HTN - continue losartan # HIV - continue Biktarvy # DM2 - basal-bolus insulin # BPH -continue doxazosin # VTE ppx: LMWH # dispo: anticipate home with VNA eventually In my clinical judgment, the patient requires continued inpatient hospitalization for the following reasons: IV ABX, vascular surgery consultation Quality Stroke Does the patient have a stroke diagnosis?: No VTE Prior VTE?: No VTE Risk Level:: Medical - moderate - high VTE Device Contraindication: Treatment Not Indicated VTE Drug Contraindication: N/A - Med Ordered
[2022-08-22 15:29] VITALS: BP 178/64; PULSE 64; RESP 20; TEMP 36.3; O2SAT 95
--- NOTE | 2022-08-22 15:31 | P.CNID_ITS ---
History of Present Illness Data of Consult Service Date: 08/22/22 Requesting physician: Amarjit Reynolds Primary Care Provider: Unknown Physician HPI Reason for consult: left second toe ulcer He presents with five days discomfort left second toe and redness and clear drainage. He has no fever or chills and denies injury. XR shows erosion tip concern for osteomyelitis. He has ESR of 11. Review of Systems Review of Systems: Yes all other systems are reviewed and are negative PMFSH Past Medical History Medical History Asthma BPH (benign prostatic hyperplasia) BPH loc w urin obs/LUTS Chronic constipation Diabetes type 2, controlled Diabetes type 2, controlled Diabetic nephropathy associated with type 2 diabetes mellitus Diabetic polyneuropathy associated with type 2 diabetes mellitus Dyslipidemia History of renal dialysis HIV (human immunodeficiency virus infection) Hypertension IDDM (insulin dependent diabetes mellitus) [facility] (current) use of insulin Nocturia Renal failure Family History Family History Son History of diabetes mellitus Family history: reviewed and not pertinent Surgical History Surgical History History of appendectomy History of colonoscopy History of foot surgery Social History Social History Household Members: None Housing: Apartment Do you presently have visiting nurse or other home services: No Alcohol intake: never Patient Tobacco Use Status: Former Tobacco user e-Cigarette/Vaping Use: Never Used Second Hand Smoke Exposure: No service: No Current occupational status: retired [employer] Allergies Allergy/AdvReac Type Severity Reaction Status Date / Time No Known Allergies Allergy Verified 05/07/22 02:14 [No Known Allergies*] Active Medications: Current Medications Acetaminophen (Acetaminophen 325 Mg Tablet) 650 mg PO Q6H PRN PRN Reason: Pain, Mild (Pain Scale 1-3) Aspirin (Aspirin Enteric Coated 81 Mg Tablet.) 81 mg PO DAILY [facility] Last Admin: 08/22/22 11:02 Dose: 81 mg Atorvastatin Calcium (Atorvastatin Calcium 10 Mg Tablet) 10 mg PO BEDTIME [facility] Last Admin: 08/21/22 20:59 Dose: 10 mg Bictegravir/Emtricitabine/Tenofovir (Bictegrav/Emtricit/Tenofov Ala Tablet) 1 tab PO BEDTIME [facility] Last Admin: 08/21/22 20:59 Dose: 1 tab Dextrose (Dextrose 50 % 25 Gm/50 Ml Syringe) 25 gm IVPUSH Q15M PRN; Protocol PRN Reason: per Hypoglycemia Standing Ord. Docusate Sodium (Docusate Sodium 100 Mg Capsule) 100 mg PO DAILY [facility] Last Admin: 08/22/22 11:03 Dose: 100 mg Doxazosin Mesylate (Doxazosin Mesylate 2 Mg Tablet) 4 mg PO BEDTIME [facility]; Protocol Last Admin: 08/21/22 20:58 Dose: 4 mg Enoxaparin Sodium (Enoxaparin Sodium 30 Mg/0.3 Ml Syringe) 30 mg SUBCUT 2200 [facility] Last Admin: 08/21/22 21:05 Dose: 30 mg Glucose (Glucose Gel 15 Gm Gel..Gram.) 15 gm PO Q15M PRN; Protocol PRN Reason: per Hypoglycemia Standing Ord. Cefepime HCl 1 gm/ Sodium (Chloride) 50 mls @ 100 mls/hr IV Q12H [facility] Last Admin: 08/22/22 14:44 Dose: 100 mls/hr Vancomycin HCl 1,000 mg/ (Sodium Chloride) 270 mls @ 270 mls/hr IV Q24H [facility] Last Infusion: 08/22/22 07:27 Dose: Infused Insulin Glargine (Insulin Glargine,Hum.Rec.Anlog 100 Unit/Ml 10 Ml Vial) 18 unit SUBCUT BID [facility] Last Admin: 08/22/22 11:03 Dose: 18 unit Insulin Human Lispro (Insulin Lispro 100 Unit/Ml 3 Ml Vial) 0 unit SUBCUT QIDACHS [facility]; Protocol Last Admin: 08/22/22 11:05 Dose: Not Given Lorazepam (Lorazepam 1 Mg Tablet) 1 mg PO BEDTIME PRN PRN Reason: sleep Losartan Potassium (Losartan Potassium 25 Mg Tablet) 25 mg PO DAILY [facility]; Protocol Last Admin: 08/22/22 11:03 Dose: 25 mg Melatonin (Melatonin 3 Mg Tablet) 6 mg PO BEDTIME PRN PRN Reason: Insomnia Morphine Sulfate (Morphine Sulfate 4 Mg/Ml Cartridge) 4 mg IVPUSH Q4H PRN; Protocol PRN Reason: Pain, Severe (Pain Scale 7-10) Ondansetron HCl (Ondansetron Hcl 4 Mg/2 Ml Vial) 4 mg IVPUSH Q8H PRN PRN Reason: Nausea and Vomiting Pharmacy Consult (Consult Rx Perform Med Rec) 1 each MISCELLANE ONCE PRN PRN Reason: Consult order Pharmacy Consult (Consult Rx Vancomycin Dosing) 1 each MISCELLANE DAILY PRN PRN Reason: Consult order Sodium Chloride (0.9 % Sodium Chloride Flush 3 Ml Syringe) 3 ml IVFLUSH QSHIFT [facility] Last Admin: 08/22/22 06:23 Dose: 3 ml Vitamin D (Cholecalciferol (Vitamin D3) 25 Mcg Tablet) 25 mcg PO DAILY [facility] Last Admin: 08/22/22 11:03 Dose: 25 mcg Home Medications Medication Instructions Recorded Confirmed Last Taken Type albuterol sulfate 90 mcg/actuation 2 puff inhalation Q4-6H PRN Pain 09/09/20 08/20/22 Unknown History aerosol inhaler (Ventolin HFA) atorvastatin 10 mg tablet 10 mg PO BEDTIME 09/09/20 08/20/22 Unknown History aspirin 81 mg tablet,delayed 81 mg PO QAM 07/14/21 08/20/22 Unknown History release bictegravir 50 mg-emtricitabine 1 tab PO BEDTIME 07/14/21 08/20/22 Unknown History 200 mg-tenofovir alafenam 25 mg tablet (Biktarvy) blood sugar diagnostic (FreeStyle #10 ea 07/14/21 12/01/21 Unknown History Lite Strips) cholecalciferol (vitamin D3) 25 25 mcg PO QAM 07/14/21 08/20/22 Unknown History mcg (1,000 unit) tablet lancets 33 gauge (TRUEplus Lancets) #100 ea 07/14/21 12/01/21 Unknown History Physical Exam Vital Signs: Vital Signs: Last Vital Signs Temp 97.2 F 08/22/22 08:00 Pulse 64 08/22/22 08:00 Resp 18 08/22/22 08:00 BP 166/73 H 08/22/22 08:00 Pulse Ox 98 08/22/22 08:00 O2 Del Method 08/22/22 08:00 BMI result Body Mass Index 25.0 Const: General: cooperative HEENT: Head: Yes normal to inspection Face and sinus: Yes normal facial exam Mouth: Normal oral and palatal mucosa present Teeth and gingiva: dentition normal Eyes: General: appearance normal, both eyes and all related structures Pupils: Equal, round and reactive pupils present Resp: Effort & Inspection: normal respiratory effort Cardio: Rate: regular rate Rhythm: regular rhythm GI: Palpation (GI): Soft to palpation and nontender : General: Yes no CVA tenderness Back/Spine/Pelvis: Back: no CVA tenderness Skin: General skin exam: no rashes or lesions noted Neuro: General: moves all extremities Cranial nerves: Yes Equal, round and reactive pupils present Extrem: Other: tip second toe swelling and mild open red area at tip Psych: Appearance: grossly normal Results Labs CBC & Chem 7: 08/21/22 06:08 08/22/22 06:06 Labs: BMP 08/22/22 06:06 Sodium 142 Potassium 4.2 Chloride 111 H Carbon Dioxide 24 BUN 19 H Creatinine 1.16 Calcium 8.9 D Microbiology Microbiology Results: Microbiology 08/20/22 21:36 Blood - Venous Blood Culture - Preliminary No growth after 24 hours. 08/20/22 21:36 Blood - Venous Blood Culture - Preliminary No growth after 24 hours. Assessment and Plan (1) Diabetic toe ulcer: Qualifiers: Laterality: left Non-pressure ulcer stage: with fat layer exposed Status: Acute (2) HIV (human immunodeficiency virus infection): Status: Acute stable and continue HHART (3) CKD (chronic kidney disease): Status: Acute (4) Osteomyelitis of second toe of left foot: Status: Acute He has probable osteomyelitis but looks as though it is at least subacute since ESR is only 11 and no WBC elevation or fever. Plan Continue Vancomycin and Cefepime/ Await cultures Probable IV Ertapenem for six weeks or Doxycycline 100 mg bid for two months if amputation of affected toe not desired. Vascular to see
[2022-08-22 16:08] LABS: Glucose, Whole Blood 65 mg/dL (60-115)
[2022-08-22 19:18] VITALS: BP 149/57; PULSE 68; RESP 20; TEMP 36.2; O2SAT 95
[2022-08-22 19:48] LABS: Glucose, Whole Blood 115 mg/dL (60-115)
[2022-08-22] MEDS: Doxazosin Mesylate 2 MG TABLET 4 MG PO (21:06)
[2022-08-22] MEDS: Atorvastatin Calcium 10 MG TABLET PO (21:06)
[2022-08-22] MEDS: Enoxaparin Sodium 30 MG/0.3 ML SYRINGE SUBCUT (21:07)
[2022-08-22] MEDS: Bictegrav/Emtricit/Tenofov Ala TABLET 1 TAB PO (21:13)
[2022-08-23] MEDS: cefEPime HCl 1 GM in 0.9 % Sodium Chloride 50 ML IV ×2 (02:35→14:20)
[2022-08-23] MEDS: 0.9 % Sodium Chloride Flush 3 ML SYRINGE IVFLUSH ×3 (02:37→14:20)
[2022-08-23 04:00] VITALS: BP 171/74; PULSE 57; RESP 17; TEMP 37.2; O2SAT 96
[2022-08-23] MEDS: vancomycin HCL 1,000 MG in 0.9 % Sodium Chloride 250 ML 270 MG IV (06:11)
[2022-08-23 07:07] LABS: Vancomycin Trough 8.3 mcg/mL (10.0-20.0)
--- NOTE | 2022-08-23 07:23 | HE.PHANOTE ---
CHELLY CAREY INCREASING DOSE TO 1250MG Q24 H. SINCE TODAYS DOSE WAS HUNG BEFORE DOSE WAS CHANGED, GIVING 500MG X1. NEXT LEVEL 08/25 @0500 Johnny
[2022-08-23 07:35] LABS: Creatinine Clr Calc Pharmacy 43.6; Estimated Glomerular Filt Rate 54
[2022-08-23 07:38] LABS: Glucose, Whole Blood 87 mg/dL (60-115)
[2022-08-23 08:00] VITALS: BP 162/68; PULSE 67; RESP 18; TEMP 36.2; O2SAT 98
[2022-08-23] MEDS: Aspirin Enteric Coated 81 MG TABLET.DR PO (08:18)
[2022-08-23] MEDS: Docusate Sodium 100 MG CAPSULE PO (08:18)
[2022-08-23] MEDS: Cholecalciferol (Vitamin D3) 25 MCG TABLET PO (08:18)
[2022-08-23] MEDS: Losartan Potassium 25 MG TABLET PO (08:18)
[2022-08-23] MEDS: vancomycin HCL 500 MG in 0.9 % Sodium Chloride 100 ML 110 MG IV (08:19)
[2022-08-23] MEDS: Insulin Glargine,Hum.rec.anlog 100 UNIT/ML 10 ML VIAL 18 UNIT SUBCUT ×2 (08:31→20:12)
--- NOTE | 2022-08-23 11:16 | P.PNIM_ITS ---
Subjective Subjective Date of Service: 08/23/22 Interval History: Pain controlled no fever Review of Systems Review of Systems: Yes all other systems are reviewed and are negative Physical Exam Vital Signs: Vital Signs: Last Vital Signs Temp 97.2 F 08/23/22 08:00 Pulse 67 08/23/22 08:00 Resp 18 08/23/22 08:00 BP 162/68 H 08/23/22 08:00 Pulse Ox 98 08/23/22 08:00 O2 Del Method 08/23/22 08:00 BMI result Body Mass Index 25.0 Gen: in no acute distress HEENT: sclera anicteric, moist mucus membranes Neck: supple Lungs: clear to auscultation bilaterally Heart: regular rate and rhythm, no murmurs Abd: soft, non-tender, non-distended Ext: no edema Skin: warm/well-perfused, ulcer to the dorsal surface of the distal phalanx of the 2nd toe Neuro: alert and oriented x3, no focal findings Psych: appropriate affect Objective Data Active Medications Acetaminophen (Acetaminophen 325 Mg Tablet) 650 mg PO Q6H PRN PRN Reason: Pain, Mild (Pain Scale 1-3) Aspirin (Aspirin Enteric Coated 81 Mg Tablet.) 81 mg PO DAILY [facility] Last Admin: 08/23/22 08:18 Dose: 81 mg Documented By: CLAY Atorvastatin Calcium (Atorvastatin Calcium 10 Mg Tablet) 10 mg PO BEDTIME [facility] Last Admin: 08/22/22 21:06 Dose: 10 mg Documented By: JAZMINE Bictegravir/Emtricitabine/Tenofovir (Bictegrav/Emtricit/Tenofov Ala Tablet) 1 tab PO BEDTIME [facility] Last Admin: 08/22/22 21:13 Dose: 1 tab Documented By: JAZMINE Dextrose (Dextrose 50 % 25 Gm/50 Ml Syringe) 25 gm IVPUSH Q15M PRN; Protocol PRN Reason: per Hypoglycemia Standing Ord. Docusate Sodium (Docusate Sodium 100 Mg Capsule) 100 mg PO DAILY [facility] Last Admin: 08/23/22 08:18 Dose: 100 mg Documented By: CLAY Doxazosin Mesylate (Doxazosin Mesylate 2 Mg Tablet) 4 mg PO BEDTIME [facility]; Protocol Last Admin: 08/22/22 21:06 Dose: 4 mg Documented By: JAZMINE Enoxaparin Sodium (Enoxaparin Sodium 30 Mg/0.3 Ml Syringe) 30 mg SUBCUT 2200 [facility] Last Admin: 08/22/22 21:07 Dose: 30 mg Documented By: JAZMINE Glucose (Glucose Gel 15 Gm Gel..Gram.) 15 gm PO Q15M PRN; Protocol PRN Reason: per Hypoglycemia Standing Ord. Cefepime HCl 1 gm/ Sodium (Chloride) 50 mls @ 100 mls/hr IV Q12H [facility] Last Infusion: 08/23/22 06:22 Dose: 0 mls/hr Documented By: JAZMINE Vancomycin HCl 1,250 mg/ (Sodium Chloride) 250 mls @ 166.667 mls/hr IV Q24H [facility] Insulin Glargine (Insulin Glargine,Hum.Rec.Anlog 100 Unit/Ml 10 Ml Vial) 18 un it SUBCUT BID [facility] Last Admin: 08/23/22 08:31 Dose: 18 unit Documented By: CLAY Insulin Human Lispro (Insulin Lispro 100 Unit/Ml 3 Ml Vial) 0 unit SUBCUT QIDACHS [facility]; Protocol Last Admin: 08/23/22 08:25 Dose: Not Given Documented By: CLAY Non-Admin Reason: No Insulin Coverage Lorazepam (Lorazepam 1 Mg Tablet) 1 mg PO BEDTIME PRN PRN Reason: sleep Losartan Potassium (Losartan Potassium 25 Mg Tablet) 25 mg PO DAILY [facility]; Protocol Last Admin: 08/23/22 08:18 Dose: 25 mg Documented By: CLAY Melatonin (Melatonin 3 Mg Tablet) 6 mg PO BEDTIME PRN PRN Reason: Insomnia Morphine Sulfate (Morphine Sulfate 4 Mg/Ml Cartridge) 4 mg IVPUSH Q4H PRN; Protocol PRN Reason: Pain, Severe (Pain Scale 7-10) Ondansetron HCl (Ondansetron Hcl 4 Mg/2 Ml Vial) 4 mg IVPUSH Q8H PRN PRN Reason: Nausea and Vomiting Pharmacy Consult (Consult Rx Perform Med Rec) 1 each MISCELLANE ONCE PRN PRN Reason: Consult order Pharmacy Consult (Consult Rx Vancomycin Dosing) 1 each MISCELLANE DAILY PRN PRN Reason: Consult order Sodium Chloride (0.9 % Sodium Chloride Flush 3 Ml Syringe) 3 ml IVFLUSH QSHIFT [facility] Last Admin: 08/23/22 07:19 Dose: 3 ml Documented By: CLAY Vitamin D (Cholecalciferol (Vitamin D3) 25 Mcg Tablet) 25 mcg PO DAILY [facility] Last Admin: 08/23/22 08:18 Dose: 25 mcg Documented By: CLAY Labs CBC & Chem 7: 08/21/22 06:08 08/23/22 05:52 Labs: Laboratory Results - last 24 hr 08/22/22 08/22/22 08/22/22 11:23 15:34 19:22 Estim Creat Clear Calc Estimated GFR POC Glucose 82 65 115 Vancomycin Trough 08/23/22 08/23/22 08/23/22 05:52 05:52 07:32 Estim Creat Clear Calc 43.6 Estimated GFR 54 POC Glucose 87 Vancomycin Trough 8.3 L Impressions Foot MRI 08/22/22 20:40 IMPRESSION: 1. Soft tissue ulceration at the distal margin of the 2nd toe distal phalanx with underlying osteomyelitis of the 2nd toe distal phalanx. No abscess. 2. 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 Microbiology Microbiology Results: Microbiology 08/20/22 21:36 Blood Culture - Preliminary Blood - Venous No growth after 48 hours. 08/20/22 21:36 Blood Culture - Preliminary Blood - Venous No growth after 48 hours. Assessment and Plan (1) Diabetic toe ulcer: Status: Acute (2) Osteomyelitis of second toe of left foot: Status: Acute Plan d#3 76yo M with DM2, CKD3, HIV, BPH, HTN presenting with L toe pain/swelling/discharge x5d, found to have osteomyelitis # L foot DM ulcer with osteomyelitis - d#3 vanco + cefepime, follow BCx, ID consulted, to discuss with Vasc Surgery re: amputation for source control vs 6 wk of IV therapy # PAD - Vascular Surgery consult pending. suspect will need angiogram tomorrow.? continue ASA + statin # RONAK/CKD3 - RONAK resolved with IV fluids. avoid nephrotoxins # HTN - continue losartan # HIV - continue Biktarvy # DM2 - basal-bolus insulin # BPH -continue doxazosin # VTE ppx: LMWH # dispo: anticipate home with VNA eventually In my clinical judgment, the patient requires continued inpatient hospitalization for the following reasons: IV ABX, vascular surgery consultation Quality Stroke Does the patient have a stroke diagnosis?: No VTE Prior VTE?: No VTE Risk Level:: Medical - moderate - high VTE Device Contraindication: Treatment Not Indicated VTE Drug Contraindication: N/A - Med Ordered
[2022-08-23 11:33] LABS: Glucose, Whole Blood 94 mg/dL (60-115)
--- NOTE | 2022-08-23 13:07 | P.CONGS_ITS ---
History of Present Illness Consult details Consult date: 08/23/22 Reason for consult: wound care Narrative: Very pleasant 76-year-old gentleman with a history of diabetes and chronic kidney disease presents with nonhealing left 2nd toe ulcer. This has been going on for some time. He now presents for vascular evaluation. Of note on admission he had noninvasive arterial testing. Review of Systems Review of Systems: Yes all other systems are reviewed and are negative Constitutional: Constitutional: Reports no additional constitutional complaints ENT: Reports Normal hearing present Cardiovascular: Cardiovascular: Denies chest pain, Denies chest pain at rest, Denies chest pain with activity and Denies pedal edema Respiratory: Respiratory: Denies cough Gastrointestinal: Gastrointestinal: Denies abdominal pain Musculoskeletal: Musculoskeletal: Denies abnormal gait, Denies muscle cramps and Denies radiating pain into limb Integumentary/Breasts: Skin/Breast: Denies skin ulcer and Denies wounds Neurologic: Reports Normal hearing present and Denies abnormal gait Psychiatric: Psychiatric: Reports no additional psychiatric complaints PMFSH Past Medical History Medical History Asthma BPH (benign prostatic hyperplasia) BPH loc w urin obs/LUTS Chronic constipation Diabetes type 2, controlled Diabetes type 2, controlled Diabetic nephropathy associated with type 2 diabetes mellitus Diabetic polyneuropathy associated with type 2 diabetes mellitus Dyslipidemia History of renal dialysis HIV (human immunodeficiency virus infection) Hypertension IDDM (insulin dependent diabetes mellitus) 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 Nocturia Renal failure Family History Family History Son History of diabetes mellitus Family history: reviewed and not pertinent Surgical History Surgical History History of appendectomy History of colonoscopy History of foot surgery Social History Social History Household Members: None Housing: Apartment Do you presently have visiting nurse or other home services: No Alcohol intake: never Patient Tobacco Use Status: Former Tobacco user e-Cigarette/Vaping Use: Never Used Second Hand Smoke Exposure: No service: No Current occupational status: retired Meds Allergies Allergy/AdvReac Type Severity Reaction Status Date / Time No Known Allergies Allergy Verified 05/07/22 02:14 [No Known Allergies*] Active Medications: Current Medications Acetaminophen (Acetaminophen 325 Mg Tablet) 650 mg PO Q6H PRN PRN Reason: Pain, Mild (Pain Scale 1-3) Aspirin (Aspirin Enteric Coated 81 Mg Tablet.Dr) 81 mg PO DAILY [facility] Last Admin: 08/23/22 08:18 Dose: 81 mg Atorvastatin Calcium (Atorvastatin Calcium 10 Mg Tablet) 10 mg PO BEDTIME [facility] Last Admin: 08/22/22 21:06 Dose: 10 mg Bictegravir/Emtricitabine/Tenofovir (Bictegrav/Emtricit/Tenofov Ala Tablet) 1 tab PO BEDTIME [facility] Last Admin: 08/22/22 21:13 Dose: 1 tab Dextrose (Dextrose 50 % 25 Gm/50 Ml Syringe) 25 gm IVPUSH Q15M PRN; Protocol PRN Reason: per Hypoglycemia Standing Ord. Docusate Sodium (Docusate Sodium 100 Mg Capsule) 100 mg PO DAILY [facility] Last Admin: 08/23/22 08:18 Dose: 100 mg Doxazosin Mesylate (Doxazosin Mesylate 2 Mg Tablet) 4 mg PO BEDTIME [facility]; Protocol Last Admin: 08/22/22 21:06 Dose: 4 mg Enoxaparin Sodium (Enoxaparin Sodium 30 Mg/0.3 Ml Syringe) 30 mg SUBCUT 2200 [facility] Last Admin: 08/22/22 21:07 Dose: 30 mg Glucose (Glucose Gel 15 Gm Gel..Gram.) 15 gm PO Q15M PRN; Protocol PRN Reason: per Hypoglycemia Standing Ord. Cefepime HCl 1 gm/ Sodium (Chloride) 50 mls @ 100 mls/hr IV Q12H [facility] Last Infusion: 08/23/22 06:22 Dose: Infused Vancomycin HCl 1,250 mg/ (Sodium Chloride) 250 mls @ 166.667 mls/hr IV Q24H [facility] Insulin Glargine (Insulin Glargine,Hum.Rec.Anlog 100 Unit/Ml 10 Ml Vial) 18 unit SUBCUT BID [facility] Last Admin: 08/23/22 08:31 Dose: 18 unit Insulin Human Lispro (Insulin Lispro 100 Unit/Ml 3 Ml Vial) 0 unit SUBCUT QIDACHS [facility]; Protocol Last Admin: 08/23/22 11:47 Dose: Not Given Lorazepam (Lorazepam 1 Mg Tablet) 1 mg PO BEDTIME PRN PRN Reason: sleep Losartan Potassium (Losartan Potassium 25 Mg Tablet) 25 mg PO DAILY [facility]; Prot ocol Last Admin: 08/23/22 08:18 Dose: 25 mg Melatonin (Melatonin 3 Mg Tablet) 6 mg PO BEDTIME PRN PRN Reason: Insomnia Morphine Sulfate (Morphine Sulfate 4 Mg/Ml Cartridge) 4 mg IVPUSH Q4H PRN; Protocol PRN Reason: Pain, Severe (Pain Scale 7-10) Ondansetron HCl (Ondansetron Hcl 4 Mg/2 Ml Vial) 4 mg IVPUSH Q8H PRN PRN Reason: Nausea and Vomiting Pharmacy Consult (Consult Rx Perform Med Rec) 1 each MISCELLANE ONCE PRN PRN Reason: Consult order Pharmacy Consult (Consult Rx Vancomycin Dosing) 1 each MISCELLANE DAILY PRN PRN Reason: Consult order Sodium Chloride (0.9 % Sodium Chloride Flush 3 Ml Syringe) 3 ml IVFLUSH QSHIFT [facility] Last Admin: 08/23/22 07:19 Dose: 3 ml Vitamin D (Cholecalciferol (Vitamin D3) 25 Mcg Tablet) 25 mcg PO DAILY [facility] Last Admin: 08/23/22 08:18 Dose: 25 mcg Home Medications Medication Instructions Recorded Confirmed Last Taken Type albuterol sulfate 90 mcg/actuation 2 puff inhalation Q4-6H PRN Pain 09/09/20 08/20/22 Unknown History aerosol inhaler (Ventolin HFA) atorvastatin 10 mg tablet 10 mg PO BEDTIME 09/09/20 08/20/22 Unknown History aspirin 81 mg tablet,delayed 81 mg PO QAM 07/14/21 08/20/22 Unknown History release bictegravir 50 mg-emtricitabine 1 tab PO BEDTIME 07/14/21 08/20/22 Unknown H istory 200 mg-tenofovir alafenam 25 mg tablet (Biktarvy) blood sugar diagnostic (FreeStyle #10 ea 07/14/21 12/01/21 Unknown History Lite Strips) cholecalciferol (vitamin D3) 25 25 mcg PO QAM 07/14/21 08/20/22 Unknown History mcg (1,000 unit) tablet lancets 33 gauge (TRUEplus Lancets) #100 ea 07/14/21 12/01/21 Unknown History Physical Exam Vital Signs: Vital Signs: Last Vital Signs Temp 97.2 F 08/23/22 08:00 Pulse 67 08/23/22 08:00 Resp 18 08/23/22 08:00 BP 162/68 H 08/23/22 08:00 Pulse Ox 98 08/23/22 08:00 O2 Del Method 08/23/22 08:00 BMI result Body Mass Index 25.0 Const: General: cooperative, healthy appearing and comfortable Orientation/consciousness: oriented to person, oriented to place and oriented to time HEENT: Head: Yes normal to inspection Neck: Neck: Yes normal visual inspection Carotids: no bruits Chest: Chest palpation & inspection: normal inspection of the chest Resp: Effort & Inspection: normal respiratory effort and able to speak in complete sentences Auscultation: clear to auscultation bilaterally, no crackles, no rales, no rhonchi and no wheezes Cardio: Rate: regular rate Rhythm: regular rhythm Heart sounds: S1 normal heart sound present and S2 normal heart sound present Bruits: no carotid bruits Peripheral pulses: dorsalis pedis present (Bilateral DP signals) GI: Inspection: Yes normal to inspection Skin: Wounds: wounds noted (Left 2nd toe tip) Hair: normal Neuro: General: oriented to person, oriented to place and oriented to time Cranial nerves: Yes CN's II-XII intact bilaterally and Yes Normal hearing present Cognition (Neuro): normal cognition Motor exam (neuro): 5/5 motor strength present throughout Extrem: Other: venous exam: No significant superficial varicosities or spider telangiectasias, minimal edema General: No clubbing, No cyanosis and No edema Psych: Appearance: grossly normal Mental Status: mental status grossly normal Speech and movement: Normal speech and movement present Results Labs Result diagrams: 08/21/22 06:08 08/23/22 05:52 Labs: Abnormal lab results 08/23/22 Range/Units 05:52 Vancomycin Trough 8.3 L (10.0-20.0) mcg/mL BMP 08/23/22 05:52 Creatinine 1.28 Urine 08/21/22 Range/Units 01:54 Urine Color Yellow Urine Appearance Clear Urine pH 5.5 (5.0-9.0) Ur Specific [place] 1.015 (1.005-1.025) Urine Protein 100 (2+) H (Neg-Trace) mg/dL Urine Glucose (UA) Negative (Negative) mg/dL All other labs normal. Assessment and Plan (1) PAD (peripheral artery disease): Status: Acute Plan Patient notes nonhealing left 2nd toe ulcer. I have discussed the pathophysiology of peripheral vascular disease with the patient. I have also discussed risk factor modification. I have reviewed the patient's arterial testing which reveals left SFA and tibial disease. the patient would benefit from a left leg endovascular peripheral angiogram with possible angioplasty, stent, and/or atherectomy. This has been discussed in detail with the patient along with risks, benefits, and complications. This includes but is not limited to bleeding, infection, heart attack, need for emergent surgical repair, limb ischemia, blood vessel damage, bleeding, puncture, kidney injury, bruising, allergic reaction, and skin reaction. The patient demonstrates a clear understanding. We will schedule for the next appropriate time. Thank you for allowing us to assist in this patient's care. Procedures Date of Service Date of Service: 08/23/22
[2022-08-23 15:31] VITALS: BP 206/83; PULSE 85; RESP 20; TEMP 36.9; O2SAT 95
[2022-08-23 15:50] VITALS: BP 190/65
[2022-08-23 16:31] LABS: Glucose, Whole Blood 179 mg/dL (60-115)
[2022-08-23] MEDS: Insulin Lispro 100 UNIT/ML 3 ML VIAL SUBCUT (16:56)
[2022-08-23 18:37] VITALS: BP 175/70; PULSE 72; RESP 20; TEMP 37.8; O2SAT 95
[2022-08-23 19:46] LABS: Glucose, Whole Blood 96 mg/dL (60-115)
[2022-08-23] MEDS: Doxazosin Mesylate 2 MG TABLET 4 MG PO (20:10)
[2022-08-23] MEDS: Atorvastatin Calcium 10 MG TABLET PO (20:10)
[2022-08-23] MEDS: Bictegrav/Emtricit/Tenofov Ala TABLET 1 TAB PO (20:10)
[2022-08-23] MEDS: Enoxaparin Sodium 30 MG/0.3 ML SYRINGE SUBCUT (20:11)
[2022-08-24] VITALS (10 sets, daily range): BP systolic 123–194; BP diastolic 58–73; PULSE 73–98; RESP 16–20; TEMP 36.9–37.5; O2SAT 86–100
[2022-08-24] MEDS: 0.9 % Sodium Chloride Flush 3 ML SYRINGE IVFLUSH ×2 (00:19→16:10)
[2022-08-24] MEDS: cefEPime HCl 1 GM in 0.9 % Sodium Chloride 50 ML IV ×2 (02:43→16:00)
[2022-08-24 06:11] LABS: Creatinine Clr Calc Pharmacy 33.4; Estimated Glomerular Filt Rate 40
[2022-08-24] MEDS: vancomycin HCL 1,250 MG in 0.9 % Sodium Chloride 250 ML 166.67 MG IV (06:23)
--- NOTE | 2022-08-24 07:55 | HE.PHANOTE ---
Vancomycin dosing Addendum Renal function increasing. Increase from 1.28 to 1.67. Trough is scheduled to be drawn prior to next dose, which can evaluate for safety. Valeri Orona, JahairaD
[2022-08-24 08:02] LABS: Glucose, Whole Blood 89 mg/dL (60-115)
--- NOTE | 2022-08-24 11:16 | P.PNIM_ITS ---
Subjective Subjective Date of Service: 08/24/22 Interval History: NPO for revascularization today pain controlled no fever Review of Systems Review of Systems: Yes all other systems are reviewed and are negative Physical Exam Vital Signs: Vital Signs: Last Vital Signs Temp 98.5 F 08/24/22 08:31 Pulse 84 08/24/22 08:31 Resp 19 08/24/22 08:31 BP 150/65 H 08/24/22 08:31 Pulse Ox 93 08/24/22 08:31 O2 Del Method 08/24/22 08:31 O2 Flow Rate 98 08/23/22 15:31 BMI result Body Mass Index 25.0 Gen: in no acute distress HEENT: sclera anicteric, moist mucus membranes Neck: supple Lungs: clear to auscultation bilaterally Heart: regular rate and rhythm, no murmurs Abd: soft, non-tender, non-distended Ext: no edema Skin: warm/well-perfused, ulcer to the dorsal surface of the distal phalanx of the 2nd toe Neuro: alert and oriented x3, no focal findings Psych: appropriate affect Objective Data Active Medications Acetaminophen (Acetaminophen 325 Mg Tablet) 650 mg PO Q6H PRN PRN Reason: Pain, Mild (Pain Scale 1-3) Aspirin (Aspirin Enteric Coated 81 Mg Tablet.Dr) 81 mg PO DAILY [facility] Last Admin: 08/24/22 09:35 Dose: Not Given Documented By: MIKE Non-Admin Reason: NPO Atorvastatin Calcium (Atorvastatin Calcium 10 Mg Tablet) 10 mg PO BEDTIME [facility] Last Admin: 08/23/22 20:10 Dose: 10 mg Documented By: PATRICE Bictegravir/Emtricitabine/Tenofovir (Bictegrav/Emtricit/Tenofov Ala Tablet) 1 tab PO BEDTIME [facility] Last Admin: 08/23/22 20:10 Dose: 1 tab Documented By: PATRICE Dextrose (Dextrose 50 % 25 Gm/50 Ml Syringe) 25 gm IVPUSH Q15M PRN; Protocol PRN Reason: per Hypoglycemia Standing Ord. Docusate Sodium (Docusate Sodium 100 Mg Capsule) 100 mg PO DAILY [facility] Last Admin: 08/24/22 09:36 Dose: Not Given Documented By: MIKE Non-Admin Reason: NPO Doxazosin Mesylate (Doxazosin Mesylate 2 Mg Tablet) 4 mg PO BEDTIME [facility]; Protocol Last Admin: 08/23/22 20:10 Dose: 4 mg Documented By: PATRICE Enoxaparin Sodium (Enoxaparin Sodium 30 Mg/0.3 Ml Syringe) 30 mg SUBCUT 2200 [facility] Last Admin: 08/23/22 20:11 Dose: 30 mg Documented By: PATRICE Glucose (Glucose Gel 15 Gm Gel..Gram.) 15 gm PO Q15M PRN; Protocol PRN Reason: per Hypoglycemia Standing Ord. Cefepime HCl 1 gm/ Sodium (Chloride) 50 mls @ 100 mls/hr IV Q12H [facility] Last Infusion: 08/24/22 03:25 Dose: 0 mls/hr Documented By: PATRICE Vancomycin HCl 1,250 mg/ (Sodium Chloride) 250 mls @ 166.667 mls/hr IV Q24H [facility] Last Infusion: 08/24/22 10:24 Dose: 0 mls/hr Documented By: MIKE Sodium Chloride (Ns) 1,000 mls @ 100 mls/hr IVCONT .Q10H [facility] Last Admin: 08/24/22 10:16 Dose: Not Given Documented By: MIKE Non-Admin Reason: antibiotic still running, pt kept unplugging Insulin Glargine (Insulin Glargine,Hum.Rec.Anlog 100 Unit/Ml 10 Ml Vial) 18 unit SUBCUT BID [facility] Last Admin: 08/24/22 09:36 Dose: Not Given Documented By: MIKE Non-Admin Reason: NPO Insulin Human Lispro (Insulin Lispro 100 Unit/Ml 3 Ml Vial) 0 unit SUBCUT QIDACHS [facility]; Protocol Last Admin: 08/24/22 07:25 Dose: Not Given Documented By: MIKE Non-Admin Reason: No Insulin Coverage Lorazepam (Lorazepam 1 Mg Tablet) 1 mg PO BEDTIME PRN PRN Reason: sleep Losartan Potassium (Losartan Potassium 25 Mg Tablet) 25 mg PO DAILY [facility]; Protocol Last Admin: 08/24/22 10:17 Dose: Not Given Documented By: MIKE Non-Admin Reason: NPO Melatonin (Melatonin 3 Mg Tablet) 6 mg PO BEDTIME PRN PRN Reason: Insomnia Morphine Sulfate (Morphine Sulfate 4 Mg/Ml Cartridge) 4 mg IVPUSH Q4H PRN; Protocol PRN Reason: Pain, Severe (Pain Scale 7-10) Ondansetron HCl (Ondansetron Hcl 4 Mg/2 Ml Vial) 4 mg IVPUSH Q8H PRN PRN Reason: Nausea and Vomiting Pharmacy Consult (Consult Rx Perform Med Rec) 1 each MISCELLANE ONCE PRN PRN Reason: Consult order Pharmacy Consult (Consult Rx Vancomycin Dosing) 1 each MISCELLANE DAILY PRN PRN Reason: Consult order Sodium Chloride (0.9 % Sodium Chloride Flush 3 Ml Syringe) 3 ml IVFLUSH QSHIFT [facility] Last Admin: 08/24/22 07:48 Dose: Not Given Documented By: MIKE Non-Admin Reason: IV Running Vitamin D (Cholecalciferol (Vitamin D3) 25 Mcg Tablet) 25 mcg PO DAILY [facility] Last Admin: 08/24/22 09:35 Dose: Not Given Documented By: MIKE Non-Admin Reason: NPO Labs CBC & Chem 7: 08/21/22 06:08 08/24/22 05:11 Labs: Laboratory Results - last 24 hr 08/23/22 08/23/22 08/23/22 11:23 15:37 18:41 Estim Creat Clear Calc Estimated GFR POC Glucose 94 179 H 96 08/24/22 08/24/22 05:11 07:17 Estim Creat Clear Calc 33.4 Estimated GFR 40 POC Glucose 89 Assessment and Plan (1) Diabetic toe ulcer: Status: Acute (2) Osteomyelitis of second toe of left foot: Status: Acute Plan d#4 76yo M with DM2, CKD3, HIV, BPH, HTN presenting with L toe pain/swelling/discharge x5d, found to have osteomyelitis # L foot DM ulcer with osteomyelitis - d#4 vanco + cefepime, BCx negative, pt wishes to preserve toe- will place P ICC and plan 6 wk of IV ertapenem per ID # PAD - angiography today. continue ASA + statin # RONAK/CKD3 - RONAK resolved with IV fluids. avoid nephrotoxins # HTN - continue losartan # HIV - continue Biktarvy # DM2 - basal-bolus insulin # BPH -continue doxazosin # VTE ppx: LMWH # dispo: anticipate home with VNA after PICC In my clinical judgment, the patient requires continued inpatient hospit alization for the following reasons: IV ABX, operative intervention Quality Stroke Does the patient have a stroke diagnosis?: No VTE Prior VTE?: No VTE Risk Level:: Medical - moderate - high VTE Device Contraindication: Treatment Not Indicated VTE Drug Contraindication: N/A - Med Ordered
[2022-08-24 11:45] LABS: Glucose, Whole Blood 90 mg/dL (60-115)
--- NOTE | 2022-08-24 13:36 | P.OP_ITS ---
Operative Note Operative Note Date of Service: 08/24/22 Narrative: Angiogram report from [facility] Preoperative diagnosis: Atherosclerosis of left lower extremity with nonhealing ulcer Postoperative diagnosis: Same Procedure: 1. Ultrasound-guided right common femoral access 2. Aortogram with left lower extremity runoff 3. Surgeon:Wellington Monreal M.D., FACS, RPVI Avionics Test Technician:None Anesthesia: Local with moderate conscious sedation. Total intraservice moderate sedation time was 38 minutes. I monitored the patient's level of consciousness and physiologic status continuously throughout the procedure. Specimens:none Drains:none Estimated blood loss: Less than 10 ml Implant: None Indications: 76-year-old diabetic gentleman with a history nonhealing left 2nd toe ulcer presents for endovascular intervention The patient has signed the informed consent after reviewing risks, complications, benefits, and alternatives previously discussed with the patient. The patient was given the opportunity to ask any additional questions or voice any concerns. All q uestions were answered to the patient's satisfaction. Procedure in detail: Patient was brought to the angiography suite prior to which a time-out was called for patient identification and site verification. Bilateral groins were prepped and draped in the standard surgical fashion. Under ultrasound guidance right common femoral was punctured with micro puncture needle and wire. Subsequently a precision 4 [place] sheath was then placed. [employer] wire was advanced to the level of the aorta. 4 [place] Flush catheter was brought up and parked at the level of the renal arteries. Aortogram was t hen undertaken. Catheter was brought down to the level of the iliac bifurcation. Iliacs were subsequently imaged. Catheter was then brought in up and over to the left side SFA. Runoff study was then undertaken. It was recognized that he had tibial disease which reconstituted via collaterals. We were unable to traverse this lesion. Procedure was terminated. Catheter wire sheath was removed. Direct pressure was held for 10 minutes. Patient tolerated the procedure well. Interpretation of films: 1. Ultrasound demonstrates appropriate femoral puncture. Image of which was saved. 2. Aortogram demonstrates appropriate caliber aorta. Minimal disease. Appropriate take-off of the renals. 3. Iliac images demonstrate no significant disease 4. Left Leg Common femoral artery: No significant disease Profundus Femoris: No significant disease Superficial femoral artery: Patent all the way with no disease noted throughout the SFA Popliteal artery (p1,p2,p3): Patent Anterior tibial artery: Patent origin then a completely occludes and has tenuous reconstitution via collaterals Peroneal artery: Occludes and reconstitutes via collaterals and is the more dominant runoff Posterior tibial artery: Occluded Dorsalis pedis/plantar arch: In complete Conclusion: 1. Successful diagnostic angiogram. 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 Would continue with medical management. High risk for limb loss 2. Anticoagulation status: No change This note is constructed using voice recognition software. While every effort has been made to ensure accuracy, manager engagement errors may have been included. Thank you for allowing me to participate in the care of your patient. Yours sincerely, Wellington Monreal MD, FACS, R.P.V.I.
--- NOTE | 2022-08-24 14:46 | MHC.CM.PN ---
NO AMP PLANNED. P[TOY IS FOR PICC 08/25/22 AND HOME ON 6 WEEKS IV ERTAPENEM. REFERRALS TO [facility] AND [facility] CM FOLLOWING FOR ANY CHANGE OF MED OR SCHEDULE CHANGE
[2022-08-24 15:45] LABS: Glucose, Whole Blood 89 mg/dL (60-115)
[2022-08-24] MEDS: Losartan Potassium 25 MG TABLET PO (15:54)
[2022-08-24] MEDS: LORazepam 1 MG TABLET PO (16:07)
[2022-08-24] MEDS: 0.9 % Sodium Chloride 1,000 ML 100 ML IVCONT (16:09)
[2022-08-24] MEDS: Albuterol Sulfate (0.083%) 2.5 MG/3 ML VIAL.NEB INHALE (16:32)
[2022-08-24 20:55] LABS: Glucose, Whole Blood 110 mg/dL (60-115)
[2022-08-24] MEDS: Doxazosin Mesylate 2 MG TABLET 4 MG PO (21:50)
[2022-08-24] MEDS: Atorvastatin Calcium 10 MG TABLET PO (21:50)
[2022-08-24] MEDS: Bictegrav/Emtricit/Tenofov Ala TABLET 1 TAB PO (21:50)
[2022-08-24] MEDS: Insulin Glargine,Hum.rec.anlog 100 UNIT/ML 10 ML VIAL 18 UNIT SUBCUT (21:50)
--- NOTE | 2022-08-24 23:25 | PC.NURSE ---
SWAPNIL Mott checked vitals signs as per protocol after aortogram but did not documented,vitals were normal,right groin drsg intact
[2022-08-25] MEDS: Albuterol Sulfate (0.083%) 2.5 MG/3 ML VIAL.NEB INHALE ×2 (01:29→18:28)
[2022-08-25 01:30] VITALS: PULSE 87; RESP 18; O2SAT 97
[2022-08-25] MEDS: cefEPime HCl 1 GM in 0.9 % Sodium Chloride 50 ML IV ×2 (01:46→13:11)
[2022-08-25] MEDS: 0.9 % Sodium Chloride 1,000 ML 100 ML IVCONT ×2 (01:46→11:48)
[2022-08-25 03:30] VITALS: BP 166/70; PULSE 80; RESP 18; TEMP 37.1; O2SAT 94
[2022-08-25 06:15] LABS: Hematocrit 34.5 % (42.0-52.0); Hemoglobin 11.6 g/dl (14.0-18.0); Mean Corpuscular HGB Conc 33.6 g/dl (31.0-36.0); Mean Corpuscular Hemoglobin 32.3 pg (27.0-33.0); Mean Corpuscular Volume 96.1 fL (80.0-98.0); Mean Platelet Volume 10.4 fL (9.4-12.4); Platelet Count 109 X10*3/uL (160-400); Red Blood Count 3.59 X10*6/uL (4.60-5.80); Red Cell Distribution Width 13.3 % (11.0-16.0); White Blood Count 7.6 X10*3/uL (4.8-10.8)
[2022-08-25 06:25] LABS: INTERNATIONAL NORM RATIO 1.4 (0.9-1.1); Prothrombin Time 15.9 SEC (10.0-13.1)
[2022-08-25 06:27] LABS: Partial Thromboplastin Time 29.9 SEC (26.0-36.4)
[2022-08-25 06:29] LABS: Vancomycin Random 10.6 mcg/mL (15-20)
[2022-08-25 06:32] LABS: Anion Gap 12 (12-20); Blood Urea Nitrogen 22 mg/dL (9-16); Carbon Dioxide 22 mmol/L (22-29); Chloride 112 mmol/L (96-108); Estimated Glomerular Filt Rate 48; Glucose Random 102 mg/dL (60-115); Potassium 4.2 mmol/L (3.3-5.1); Sodium 142 mmol/L (135-145)
--- NOTE | 2022-08-25 06:42 | HE.PHANOTE ---
RE CHERRY CONTINUING CURRENT DOSE. PER NOTE, PATIENT TO HAVE PICC LINE AND 6 WEEKS ERTAPENEM. CULTURES STILL NEGATIVE. WILL CONTINUE. IF PLN CHANGES, MAY NEED TO INCREASE TO Q12 FREQUENCY DOSING (750 Q12?). NEXT RANDOM LEVEL 08/27 @0500 ARTEMIO
[2022-08-25 07:45] LABS: Glucose, Whole Blood 79 mg/dL (60-115)
[2022-08-25] MEDS: Cholecalciferol (Vitamin D3) 25 MCG TABLET PO (08:42)
[2022-08-25] MEDS: Docusate Sodium 100 MG CAPSULE PO (08:42)
[2022-08-25] MEDS: vancomycin HCL 1,250 MG in 0.9 % Sodium Chloride 250 ML 166.67 MG IV (08:43)
[2022-08-25] MEDS: 0.9 % Sodium Chloride Flush 3 ML SYRINGE IVFLUSH ×2 (08:43→19:44)
[2022-08-25] MEDS: Losartan Potassium 25 MG TABLET PO (08:43)
[2022-08-25 11:34] LABS: Glucose, Whole Blood 103 mg/dL (60-115)
--- NOTE | 2022-08-25 14:32 | MHC.CM.PN ---
[facility]IA[facility] VISITED WITH [facility]. FOLLOWING VISIT, SHE FEELS PATIENT WILL NEED DAILY VNA SERVICES, HE IS NOT COMFORTABLE SELF-ADMINISTERING HIS ABX. CM ATTEMPTING TO SECURE THESE TYPE OF VISITS
[2022-08-25 15:19] VITALS: BP 145/70; PULSE 79; RESP 18; TEMP 37.2; O2SAT 98
--- NOTE | 2022-08-25 15:46 | HO.PM.IMPN ---
Subjective Subjective Date of Service: 08/25/22 Interval History: postop day #1 denies pain no fever Review of Systems Review of Systems: Yes all other systems are reviewed and are negative Physical Exam Vital Signs: Vital Signs: Last Vital Signs Temp 99.0 F 08/25/22 15:19 Pulse 79 08/25/22 15:19 Resp 18 08/25/22 15:19 BP 145/70 H 08/25/22 15:19 Pulse Ox 98 08/25/22 15:19 O2 Del Method 08/25/22 15:19 O2 Flow Rate 2.0 08/25/22 15:19 BMI result Body Mass Index 25.0 Gen: in no acute distress HEENT: sclera anicteric, moist mucus membranes Neck: supple Lungs: clear to auscultation bilaterally Heart: regular rate and rhythm, no murmurs Abd: soft, non-tender, non-distended Ext: no edema Skin: warm/well-perfused, ulcer to the dorsal surface of the distal phalanx of the 2nd toe Neuro: alert and oriented x3, no focal findings Psych: appropriate affect Objective Data Active Medications Acetaminophen (Acetaminophen 325 Mg Tablet) 650 mg PO Q6H PRN PRN Reason: Pain, Mild (Pain Scale 1-3) Albuterol Sulfate (Albuterol Sulfate (0.083%) 2.5 Mg/3 Ml Vial.Neb) 2.5 mg INHALE Q2H PRN PRN Reason: Shortness of Breath/Wheezing Last Admin: 08/25/22 01:29 Dose: 2.5 mg Documented By: CINTHIA Aspirin (Aspirin Enteric Coated 81 Mg Tablet.) 81 mg PO DAILY [facility] Last Admin: 08/24/22 09:35 Dose: Not Given Documented By: MIKE Non-Admin Reason: NPO Atorvastatin Calcium (Atorvastatin Calcium 10 Mg Tablet) 10 mg PO BEDTIME [facility] Last Admin: 08/24/22 21:50 Dose: 10 mg Documented By: MI Bictegravir/Emtricitabine/Tenofovir (Bictegrav/Emtricit/Tenofov Ala Tablet) 1 tab PO BEDTIME [facility] Last Admin: 08/24/22 21:50 Dose: 1 tab Documented By: MI Dextrose (Dextrose 50 % 25 Gm/50 Ml Syringe) 25 gm IVPUSH Q15M PRN; Protocol PRN Reason: per Hypoglycemia Standing Ord. Docusate Sodium (Docusate Sodium 100 Mg Capsule) 100 mg PO DAILY [facility] Last Admin: 08/25/22 08:42 Dose: 100 mg Documented By: AGUILAR Doxazosin Mesylate (Doxazosin Mesylate 2 Mg Tablet) 4 mg PO BEDTIME [facility]; Protocol Last Admin: 08/24/22 21:50 Dose: 4 mg Documented By: MI Enoxaparin Sodium (Enoxaparin Sodium 30 Mg/0.3 Ml Syringe) 30 mg SUBCUT 2200 [facility] Last Admin: 08/23/22 20:11 Dose: 30 mg Documented By: PATRICE Glucose (Glucose Gel 15 Gm Gel..Gram.) 15 gm PO Q15M PRN; Protocol PRN Reason: per Hypoglycemia Standing Ord. Cefepime HCl 1 gm/ Sodium (Chloride) 50 mls @ 100 mls/hr IV Q12H [facility] Last Infusion: 08/25/22 13:42 Dose: 100 mls/hr Documented By: AGUILAR Vancomycin HCl 1,250 mg/ (Sodium Chloride) 250 mls @ 166.667 mls/hr IV Q24H [facility] Last Infusion: 08/25/22 10:31 Dose: 166.67 mls/hr Documented By: AGUILAR Sodium Chloride (Ns) 1,000 mls @ 100 mls/hr IVCONT .Q10H [facility] Last Admin: 08/25/22 11:48 Dose: 100 mls/hr Documented By: AGUILAR Insulin Glargine (Insulin Glargine,Hum.Rec.Anlog 100 Unit/Ml 10 Ml Vial) 18 unit SUBCUT BID [facility] Last Admin: 08/25/22 10:00 Dose: Not Given Documented By: AGUILAR Non-Admin Reason: ref breakfast Insulin Human Lispro (Insulin Lispro 100 Unit/Ml 3 Ml Vial) 0 unit SUBCUT QIDACHS [facility]; Protocol Last Admin: 08/25/22 11:47 Dose: Not Given Documented By: AGUILAR Non-Admin Reason: No Insulin Coverage Lorazepam (Lorazepam 1 Mg Tablet) 1 mg PO BEDTIME PRN PRN Reason: sleep Last Admin: 08/24/22 16:07 Dose: 1 mg Documented By: IM Losartan Potassium (Losartan Potassium 25 Mg Tablet) 25 mg PO DAILY [facility]; Protocol Last Admin: 08/25/22 08:43 Dose: 25 mg Documented By: AGUILAR Melatonin (Melatonin 3 Mg Tablet) 6 mg PO BEDTIME PRN PRN Reason: Insomnia Morphine Sulfate (Morphine Sulfate 4 Mg/Ml Cartridge) 4 mg IVPUSH Q4H PRN; Protocol PRN Reason: Pain, Severe (Pain Scale 7-10) Ondansetron HCl (Ondansetron Hcl 4 Mg/2 Ml Vial) 4 mg IVPUSH Q8H PRN PRN Reason: Nausea and Vomiting Pharmacy Consult (Consult Rx Perform Med Rec) 1 each MISCELLANE ONCE PRN PRN Reason: Consult order Pharmacy Consult (Consult Rx Vancomycin Dosing) 1 each MISCELLANE DAILY PRN PRN Reason: Consult order Sodium Chloride (0.9 % Sodium Chloride Flush 3 Ml Syringe) 3 ml IVFLUSH QSHIFT [facility] Last Admin: 08/25/22 15:20 Dose: Not Given Documented By: MI Non-Admin Reason: IV Running Vitamin D (Cholecalciferol (Vitamin D3) 25 Mcg Tablet) 25 mcg PO DAILY [facility] Last Admin: 08/25/22 08:42 Dose: 25 mcg Documented By: AGUILAR Labs CBC & Chem 7: 08/25/22 05:52 08/25/22 05:52 Labs: Laboratory Results - last 24 hr 08/24/22 08/25/22 08/25/22 19:23 05:52 05:52 MCV 96.1 MCH 32.3 MCHC 33.6 RDW 13.3 Plt Count 109 L MPV 10.4 Absolute Nucleated RBC 0.000 Nucleated RBC % (auto) 0.0 PT INR APTT Anion Gap Estim Creat Clear Calc Estimated GFR POC Glucose 110 Random Glucose Calcium Random Vancomycin 10.6 L 08/25/22 08/25/22 08/25/22 05:52 05:52 07:28 MCV MCH MCHC RDW Plt Count MPV Absolute Nucleated RBC Nucleated RBC % (auto) PT 15.9 H INR 1.4 H APTT 29.9 Anion Gap 12 Estim Creat Clear Calc 39.0 Estimated GFR 48 POC Glucose 79 Random Glucose 102 Calcium 8.0 L D Random Vancomycin 08/25/22 11:24 MCV MCH MCHC RDW Plt Count MPV Absolute Nucleated RBC Nucleated RBC % (auto) PT INR APTT Anion Gap Estim Creat Clear Calc Estimated GFR POC Glucose 103 Random Glucose Calcium Random Vancomycin Assessment and Plan (1) Diabetic toe ulcer: Status: Acute (2) Osteomyelitis of second toe of left foot: Status: Acute Plan d#5 76yo M with DM2, CKD3, HIV, BPH, HTN presenting with L toe pain/swelling/discharge x5d, found to have osteomyelitis # L foot DM ulcer with osteomyelitis - d#5 vanco + cefepime, BCx negative, pt wishes to preserve toe- will place Trevino and plan 6 wk of IV ertapenem per ID # PAD - angiography done 08/[address] Monreal; showed severe [id number] disease that was unreconstructable: ?Anterior tibial artery:? Patent origin then a completely occludes and has tenuous reconstitution via collaterals ?Peroneal artery:? Occludes and reconstitutes via collaterals and is the more dominant runoff ?Posterior tibial artery:? Occluded # RONAK/CKD3 - RONAK resolved with IV fluids. avoid nephrotoxins # HTN - continue losartan # HIV - continue Biktarvy # DM2 - basal-bolus insulin # BPH -continue doxazosin # VTE ppx: LMWH # dispo: anticipate home with VNA after Trevino In my clinical judgment, the patient requires continued inpatient hospitalization for the following reasons: IV ABX, operative intervention Quality Stroke Does the patient have a stroke diagnosis?: No VTE Prior VTE?: No VTE Risk Level:: Medical - moderate - high VTE Device Contraindication: Treatment Not Indicated VTE Drug Contraindication: N/A - Med Ordered
[2022-08-25 16:25] LABS: Glucose, Whole Blood 87 mg/dL (60-115)
[2022-08-25 18:29] VITALS: PULSE 88; RESP 18; O2SAT 94
[2022-08-25 19:21] VITALS: BP 161/70; PULSE 81; RESP 18; TEMP 37.1; O2SAT 98
[2022-08-25] MEDS: Doxazosin Mesylate 2 MG TABLET 4 MG PO (19:43)
[2022-08-25] MEDS: Melatonin 3 MG TABLET 6 MG PO (19:44)
[2022-08-25] MEDS: Atorvastatin Calcium 10 MG TABLET PO (19:44)
[2022-08-25] MEDS: Bictegrav/Emtricit/Tenofov Ala TABLET 1 TAB PO (19:44)
[2022-08-25 20:05] LABS: Glucose, Whole Blood 109 mg/dL (60-115)
[2022-08-25] MEDS: Insulin Glargine,Hum.rec.anlog 100 UNIT/ML 10 ML VIAL 18 UNIT SUBCUT (20:55)
[2022-08-26] VITALS (14 sets, daily range): BP systolic 140–210; BP diastolic 50–95; PULSE 65–101; RESP 18–32; TEMP 36.2–37.4; O2SAT 90–98
[2022-08-26] MEDS: cefEPime HCl 1 GM in 0.9 % Sodium Chloride 50 ML IV (01:15)
[2022-08-26] MEDS: Albuterol Sulfate (0.083%) 2.5 MG/3 ML VIAL.NEB INHALE (01:41)
[2022-08-26] MEDS: Morphine Sulfate 2 MG/ML CARTRIDGE 1 MG IVPUSH (02:16)
--- NOTE | 2022-08-26 03:35 | PC.NURSE ---
Pt was noted at start of the shift with LS dim and scattered Rhonchi and crackles, seen RT gave prn Albuterol neb, pt felt some relief, slept at intervals. Revisited pt at 1am, pt still SOB with audible crackles and wheezing, O2 sats 90% RA and 92% with O2 at 2L/min via NC, RR on the high 20s, respiratory paged for neb, Dr. Carroll was notified, CXR urgent ordered, neb was given but no effect, RR went to the 30s, HR 100s, O2 sats at 93% at 2L/min O2 via NC, updated, Morphine 1 mg IVgiven, ptstill sob after, made aware, XR tech called and came after 3am, made aware.
[2022-08-26] MEDS: vancomycin HCL 1,250 MG in 0.9 % Sodium Chloride 250 ML 166.67 MG IV (06:17)
[2022-08-26 07:57] LABS: Glucose, Whole Blood 113 mg/dL (60-115)
--- NOTE | 2022-08-26 09:15 | PC.NURSE ---
Report received from Dianne Blair RN. pt does not have IV access and attempts made. per Dr. Monreal IV access can be obtained to left hand, as patient has non-working left arm fistula. IV #20 to left hand obtained by this RN. Dianne Blair RN aware.
[2022-08-26] MEDS: methylPREDNISolone Sod Succ 125 MG/2 ML VIAL IVPUSH (10:51)
[2022-08-26 11:20] LABS: Glucose, Whole Blood 111 mg/dL (60-115)
[2022-08-26] MEDS: Albuterol/Iprat 2.5/0.5MG 3 ML AMPUL.NEB INHALE ×3 (11:56→19:55)
--- NOTE | 2022-08-26 14:23 | HO.PM.IMPN ---
Subjective Subjective Date of Service: 08/26/22 Interval History: no foot pain no fever NPO for Trevino developed wheezing and dyspnea Review of Systems Review of Systems: Yes all other systems are reviewed and are negative Physical Exam Vital Signs: Vital Signs: Last Vital Signs Temp 98.9 F 08/26/22 08:00 Pulse 67 08/26/22 11:58 Resp 20 08/26/22 11:58 BP 164/71 H 08/26/22 10:12 Pulse Ox 98 08/26/22 10:12 O2 Del Method 08/26/22 10:12 O2 Flow Rate 2 08/26/22 08:00 BMI result Body Mass Index 25.0 Gen: in no acute distress HEENT: sclera anicteric, moist mucus membranes Neck: supple Lungs: diffuse expiratory wheezing Heart: regular rate and rhythm, no murmurs Abd: soft, non-tender, non-distended Ext: no edema Skin: warm/well-perfused, ulcer to the dorsal surface of the distal phalanx of the 2nd toe Neuro: alert and oriented x3, no focal findings Psych: appropriate affect Objective Data Active Medications Acetaminophen (Acetaminophen 325 Mg Tablet) 650 mg PO Q6H PRN PRN Reason: Pain, Mild (Pain Scale 1-3) Albuterol Sulfate (Albuterol Sulfate (0.083%) 2.5 Mg/3 Ml Vial.Neb) 2.5 mg INHALE Q2H PRN PRN Reason: Shortness of Breath/Wheezing Last Admin: 08/26/22 01:41 Dose: 2.5 mg Documented By: MALINI Albuterol/Ipratropium (Albuterol/Iprat 2.5/0.5mg 3 Ml Ampul.Neb) 3 ml INHALE RQ4H WHILE AWAKE [facility] Last Admin: 08/26/22 11:56 Dose: 3 ml Documented By: GRANT Aspirin (Aspirin Enteric Coated 81 Mg Tablet.Dr) 81 mg PO DAILY [facility] Last Admin: 08/24/22 09:35 Dose: Not Given Documented By: MIKE Non-Admin Reason: NPO Atorvastatin Calcium (Atorvastatin Calcium 10 Mg Tablet) 10 mg PO BEDTIME [facility] Last Admin: 08/25/22 19:44 Dose: 10 mg Documented By: SCOTT Bictegravir/Emtricitabine/Tenofovir (Bictegrav/Emtricit/Tenofov Ala Tablet) 1 tab PO BEDTIME [facility] Last Admin: 08/25/22 19:44 Dose: 1 tab Documented By: SCOTT Dextrose (Dextrose 50 % 25 Gm/50 Ml Syringe) 25 gm IVPUSH Q15M PRN; Protocol PRN Reason: per Hypoglycemia Standing Ord. Docusate Sodium (Docusate Sodium 100 Mg Capsule) 100 mg PO DAILY [facility] Last Admin: 08/26/22 12:21 Dose: Not Given Documented By: AGUILAR Non-Admin Reason: NPO Doxazosin Mesylate (Doxazosin Mesylate 2 Mg Tablet) 4 mg PO BEDTIME [facility]; Protocol Last Admin: 08/25/22 19:43 Dose: 4 mg Documented By: SCOTT Comments: OE=430/70 H=81 Enoxaparin Sodium (Enoxaparin Sodium 30 Mg/0.3 Ml Syringe) 30 mg SUBCUT 2200 [facility] Last Admin: 08/23/22 20:11 Dose: 30 mg Documented By: PATRICE Glucose (Glucose Gel 15 Gm Gel..Gram.) 15 gm PO Q15M PRN; Protocol PRN Reason: per Hypoglycemia Standing Ord. Meropenem 1 gm/ Sodium (Chloride) 100 mls @ 200 mls/hr IV Q12H [facility] Last Infusion: 08/26/22 12:23 Dose: 200 mls/hr Documented By: AGUILAR Insulin Glargine (Insulin Glargine,Hum.Rec.Anlog 100 Unit/Ml 10 Ml Vial) 18 unit SUBCUT BID [facility] Last Admin: 08/26/22 12:22 Dose: Not Given Documented By: AGUILAR Non-Admin Reason: NPO Insulin Human Lispro (Insulin Lispro 100 Unit/Ml 3 Ml Vial) 0 unit SUBCUT QIDACHS [facility]; Protocol Last Admin: 08/26/22 12:42 Dose: Not Given Documented By: AGUILAR Non-Admin Reason: No Insulin Coverage Lorazepam (Lorazepam 1 Mg Tablet) 1 mg PO BEDTIME PRN PRN Reason: sleep Last Admin: 08/24/22 16:07 Dose: 1 mg Documented By: MI Losartan Potassium (Losartan Potassium 25 Mg Tablet) 25 mg PO DAILY [facility]; Protocol Last Admin: 08/26/22 12:23 Dose: Not Given Documented By: AGUILAR Non-Admin Reason: NPO Melatonin (Melatonin 3 Mg Tablet) 6 mg PO BEDTIME PRN PRN Reason: Insomnia Last Admin: 08/25/22 19:44 Dose: 6 mg Documented By: SCOTT Methylprednisolone Sodium Succinate (Methylprednisolone Sod Succ 40 Mg/Ml Vial) 40 mg IVPUSH Q12H [facility] Ondansetron HCl (Ondansetron Hcl 4 Mg/2 Ml Vial) 4 mg IVPUSH Q8H PRN PRN Reason: Nausea and Vomiting Pharmacy Consult (Consult Rx Perform Med Rec) 1 each MISCELLANE ONCE PRN PRN Reason: Consult order Sodium Chloride (0.9 % Sodium Chloride Flush 3 Ml Syringe) 3 ml IVFLUSH QSHIFT [facility] Last Admin: 08/26/22 08:48 Dose: Not Given Documented By: AGUILAR Non-Admin Reason: No Access Vitamin D (Cholecalciferol (Vitamin D3) 25 Mcg Tablet) 25 mcg PO DAILY [facility] Last Admin: 08/26/22 12:21 Dose: Not Given Documented By: AGUILAR Non-Admin Reason: NPO Labs CBC & Chem 7: 08/25/22 05:52 08/25/22 05:52 Labs: Laboratory Results - last 24 hr 08/25/22 08/25/22 08/26/22 16:21 20:01 07:43 POC Glucose 87 109 113 08/26/22 11:13 POC Glucose 111 Microbiology Microbiology Results: Microbiology 08/20/22 21:36 Blood Culture - Final Blood - Venous No growth after 5 days. 08/20/22 21:36 Blood Culture - Final Blood - Venous No growth after 5 days. Assessment and Plan (1) Diabetic toe ulcer: Status: Acute (2) Osteomyelitis of second toe of left foot: Status: Acute Plan d#6 76yo M with DM2, CKD3, HIV, BPH, HTN presenting with L toe pain/swelling/discharge x5d, found to have osteomyelitis # mild intermittent asthma with acute exacerbation - give IV methylprednisolone and nebulized bronchodilators # L foot DM ulcer with osteomyelitis - got 5d vanco + cefepime, BCx negative, pt wishes to preserve toe- will place Trevino and plan 6 wk of IV ertapenem per ID [meropenem while inpt at this point- start today]; outpt ID f/u with weekly labs # PAD - angiography done 08/[address] Monreal; showed severe [id number]-[id number] disease that was unreconstructable: ?Anterior tibial artery:? Patent origin then a completely occludes and has tenuous reconstitution via collaterals ?Peroneal artery:? Occludes and reconstitutes via collaterals and is the more dominant runoff ?Posterior tibial artery:? Occluded # RONAK/CKD3 - RONAK resolved with IV fluids. avoid nephrotoxins # HTN - continue losartan # HIV - continue Biktarvy # DM2 - basal-bolus insulin # BPH -continue doxazosin # VTE ppx: LMWH # dispo: anticipate home with VNA after Trevino; need VNA agency that can see him daily In my clinical judgment, the patient requires continued inpatient hospitalization for the following reasons: IV ABX, Hickmann, search for VNA services Quality Stroke Does the patient have a stroke diagnosis?: No VTE Prior VTE?: No VTE Risk Level:: Medical - moderate - high VTE Device Contraindication: Treatment Not Indicated VTE Drug Contraindication: N/A - Med Ordered
--- NOTE | 2022-08-26 14:35 | MHC.CM.PN ---
Addendum entered by Dinorah Kaminski RN 08/29/22 10:01: CORRECTION - ERWIN 08/29/22 Addendum entered by Dinorah Kaminski RN 08/26/22 14:43: PER RN, PLAN WILL BE ERWIN ON Monday08/26/22 PENDING MEDICAL STABILITY [facility] AND [facility] MADE AWARE Original Note: PER CONVERSATION WITH RN, PATIENT MAY NOT GET HIS ERWIN TODAY. [facility] MADE AWARE. [facility] ALSO MADE AWARE IF DC OVER WEEKEND, PLEASE CALL [facility] AT [phone] FOR DELIVERY.
[2022-08-26] MEDS: Losartan Potassium 25 MG TABLET PO (14:45)
[2022-08-26] MEDS: Cholecalciferol (Vitamin D3) 25 MCG TABLET PO (14:45)
[2022-08-26] MEDS: 0.9 % Sodium Chloride Flush 3 ML SYRINGE IVFLUSH (15:46)
[2022-08-26 16:12] LABS: Glucose, Whole Blood 171 mg/dL (60-115)
[2022-08-26] MEDS: Insulin Lispro 100 UNIT/ML 3 ML VIAL SUBCUT ×2 (16:28→19:57)
[2022-08-26] MEDS: Doxazosin Mesylate 2 MG TABLET 4 MG PO (19:42)
[2022-08-26] MEDS: Bictegrav/Emtricit/Tenofov Ala TABLET 1 TAB PO (19:42)
[2022-08-26] MEDS: Atorvastatin Calcium 10 MG TABLET PO (19:42)
[2022-08-26] MEDS: methylPREDNISolone Sod Succ 40 MG/ML VIAL IVPUSH (19:43)
[2022-08-26] MEDS: Insulin Glargine,Hum.rec.anlog 100 UNIT/ML 10 ML VIAL 18 UNIT SUBCUT (19:57)
[2022-08-26 19:58] LABS: Glucose, Whole Blood 343 mg/dL (60-115)
[2022-08-26] MEDS: LORazepam 1 MG TABLET PO (19:58)
[2022-08-27] VITALS (8 sets, daily range): BP systolic 158–200; BP diastolic 65–81; PULSE 66–83; RESP 17–22; TEMP 36.3–36.6; O2SAT 94–99
[2022-08-27] MEDS: 0.9 % Sodium Chloride Flush 3 ML SYRINGE IVFLUSH ×3 (00:29→16:56)
--- NOTE | 2022-08-27 03:50 | PC.NURSE ---
Notified MD Glen via [employer] of BP 180/81, and that patient has been hypertensive the last few days. No new orders. replied thats fine for now .
[2022-08-27] MEDS: Albuterol Sulfate (0.083%) 2.5 MG/3 ML VIAL.NEB INHALE (04:07)
[2022-08-27 07:44] LABS: Glucose, Whole Blood 231 mg/dL (60-115)
[2022-08-27] MEDS: Albuterol/Iprat 2.5/0.5MG 3 ML AMPUL.NEB INHALE ×4 (08:07→20:21)
[2022-08-27] MEDS: Insulin Glargine,Hum.rec.anlog 100 UNIT/ML 10 ML VIAL 18 UNIT SUBCUT ×2 (08:14→21:39)
[2022-08-27] MEDS: Losartan Potassium 25 MG TABLET PO (08:14)
[2022-08-27] MEDS: Insulin Lispro 100 UNIT/ML 3 ML VIAL SUBCUT ×3 (08:14→21:40)
[2022-08-27] MEDS: Cholecalciferol (Vitamin D3) 25 MCG TABLET PO (08:14)
[2022-08-27] MEDS: methylPREDNISolone Sod Succ 40 MG/ML VIAL IVPUSH (08:14)
[2022-08-27] MEDS: Docusate Sodium 100 MG CAPSULE PO (08:15)
[2022-08-27 11:34] LABS: Glucose, Whole Blood 98 mg/dL (60-115)
--- NOTE | 2022-08-27 11:44 | HO.PM.IMPN ---
Subjective Subjective Date of Service: 08/27/22 Interval History: This history was taken in Yoruba from the patient. foot pain controlled breathing improved Review of Systems Review of Systems: Yes all other systems are reviewed and are negative Physical Exam Vital Signs: Vital Signs: Last Vital Signs Temp 97.4 F 08/27/22 08:00 Pulse 74 08/27/22 08:08 Resp 22 H 08/27/22 08:08 BP 200/80 H 08/27/22 08:00 Pulse Ox 98 08/27/22 08:00 O2 Del Method 08/27/22 08:00 O2 Flow Rate 2 08/26/22 08:00 BMI result Body Mass Index 25.0 Gen: in no acute distress HEENT: sclera anicteric, moist mucus membranes Neck: supple Lungs: diffuse expiratory wheezing Heart: regular rate and rhythm, no murmurs Abd: soft, non-tender, non-distended Ext: no edema Skin: warm/well-perfused, ulcer to the dorsal surface of the distal phalanx of the 2nd toe Neuro: alert and oriented x3, no focal findings Psych: appropriate affect Objective Data Active Medications Acetaminophen (Acetaminophen 325 Mg Tablet) 650 mg PO Q6H PRN PRN Reason: Pain, Mild (Pain Scale 1-3) Albuterol Sulfate (Albuterol Sulfate (0.083%) 2.5 Mg/3 Ml Vial.Neb) 2.5 mg INHALE Q2H PRN PRN Reason: Shortness of Breath/Wheezing Last Admin: 08/27/22 04:07 Dose: 2.5 mg Documented By: MALINI Albuterol/Ipratropium (Albuterol/Iprat 2.5/0.5mg 3 Ml Ampul.Neb) 3 ml INHALE RQ4H WHILE AWAKE ON LICENSE OF [facility] Last Admin: 08/27/22 08:07 Dose: 3 ml Documented By: NESHA Aspirin (Aspirin Enteric Coated 81 Mg Tablet.) 81 mg PO DAILY [facility] OF [facility] Last Admin: 08/24/22 09:35 Dose: Not Given Documented By: MIKE Non-Admin Reason: NPO Atorvastatin Calcium (Atorvastatin Calcium 10 Mg Tablet) 10 mg PO BEDTIME [facility] Last Admin: 08/26/22 19:42 Dose: 10 mg Documented By: MI Bictegravir/Emtricitabine/Tenofovir (Bictegrav/Emtricit/Tenofov Ala Tablet) 1 tab PO BEDTIME [facility] Last Admin: 08/26/22 19:42 Dose: 1 tab Documented By: MI Dextrose (Dextrose 50 % 25 Gm/50 Ml Syringe) 25 gm IVPUSH Q15M PRN; Protocol PRN Reason: per Hypoglycemia Standing Ord. Docusate Sodium (Docusate Sodium 100 Mg Capsule) 100 mg PO DAILY [facility] Last Admin: 08/27/22 08:15 Dose: 100 mg Documented By: NE Doxazosin Mesylate (Doxazosin Mesylate 2 Mg Tablet) 4 mg PO BEDTIME [facility]; Protocol Last Admin: 08/26/22 19:42 Dose: 4 mg Documented By: MI Enoxaparin Sodium (Enoxaparin Sodium 30 Mg/0.3 Ml Syringe) 30 mg SUBCUT 2200 [facility] Last Admin: 08/23/22 20:11 Dose: 30 mg Documented By: PATRICE Glucose (Glucose Gel 15 Gm Gel..Gram.) 15 gm PO Q15M PRN; Protocol PRN Reason: per Hypoglycemia Standing Ord. Meropenem 1 gm/ Sodium (Chloride) 100 mls @ 200 mls/hr IV Q12H [facility] Last Infusion: 08/27/22 01:01 Dose: 0 mls/hr Documented By: DOMINICK Insulin Glargine (Insulin Glargine,Hum.Rec.Anlog 100 Unit/Ml 10 Ml Vial) 18 unit SUBCUT BID [facility] Last Admin: 08/27/22 08:14 Dose: 18 unit Documented By: NE Insulin Human Lispro (Insulin Lispro 100 Unit/Ml 3 Ml Vial) 0 unit SUBCUT QIDACHS ON LICENSE OF [facility]; Protocol Last Admin: 08/27/22 11:43 Dose: Not Given Documented By: NE Non-Admin Reason: No Insulin Coverage Lorazepam (Lorazepam 1 Mg Tablet) 1 mg PO BEDTIME PRN PRN Reason: sleep Last Admin: 08/26/22 19:58 Dose: 1 mg Documented By: MI Losartan Potassium (Losartan Potassium 25 Mg Tablet) 25 mg PO DAILY [facility]; Protocol Last Admin: 08/27/22 08:14 Dose: 25 mg Documented By: NE Melatonin (Melatonin 3 Mg Tablet) 6 mg PO BEDTIME PRN PRN Reason: Insomnia Last Admin: 08/25/22 19:44 Dose: 6 mg Documented By: SCOTT Methylprednisolone Sodium Succinate (Methylprednisolone Sod Succ 40 Mg/Ml Vial) 40 mg IVPUSH Q12H [facility] Last Admin: 08/27/22 08:14 Dose: 40 mg Documented By: NE Ondansetron HCl (Ondansetron Hcl 4 Mg/2 Ml Vial) 4 mg IVPUSH Q8H PRN PRN Reason: Nausea and Vomiting Pharmacy Consult (Consult Rx Perform Med Rec) 1 each MISCELLANE ONCE PRN PRN Reason: Consult order Sodium Chloride (0.9 % Sodium Chloride Flush 3 Ml Syringe) 3 ml IVFLUSH QSHIFT ON [facility] OF [facility] Last Admin: 08/27/22 08:15 Dose: 3 ml Documented By: NE Vitamin D (Cholecalciferol (Vitamin D3) 25 Mcg Tablet) 25 mcg PO DAILY [facility] Last Admin: 08/27/22 08:14 Dose: 25 mcg Documented By: NE Labs CBC & Chem 7: 08/25/22 05:52 08/25/22 05:52 Labs: Laboratory Results - last 24 hr 08/26/22 08/26/22 08/27/22 15:52 19:49 07:35 POC Glucose 171 H 343 H 231 H 08/27/22 11:30 POC Glucose 98 Assessment and Plan (1) Diabetic toe ulcer: Status: Acute (2) Osteomyelitis of second toe of left foot: Status: Acute Plan d#7 76yo M with DM2, CKD3, HIV, BPH, HTN presenting with L toe pain/swelling/discharge x5d, found to have osteomyelitis # mild intermittent asthma with acute exacerbation - d#2 of steroids, continue nebulized bronchodilators # L foot DM ulcer with osteomyelitis - got 5d vanco + cefepime, BCx negative - pt wishes to preserve toe- will place Trevino on 08/29 [pt has L AV fistula not in use- Trevino canceled on 08/26 due to asthma flare] and plan 6 wk of IV ertapenem per ID [meropenem while inpt at this point- started 08/26]; outpt ID f/u with weekly labs # PAD - angiography done 08/[address] Monreal; showed severe [id number]-gmhe disease that was unreconstructable: ?Anterior tibial artery:? Patent origin then a completely occludes and has tenuous reconstitution via collaterals ?Peroneal artery:? Occludes and reconstitutes via collaterals and is the more dominant runoff ?Posterior tibial artery:? Occluded # RONAK/CKD3 - RONAK resolved with IV fluids. avoid nephrotoxins # HTN - continue losartan # HIV - continue Biktarvy # DM2 - basal-bolus insulin # BPH -continue doxazosin # VTE ppx: LMWH # dispo: anticipate home with VNA after Trevino; need VNA agency that can see him daily, though- CM working on this In my clinical judgment, the patient requires continued inpatient hospitalization for the following reasons: IV ABX, Hickmann, search for VNA services Time Spent With Patient Time: Total time managing care of this patient today ____ minutes. Quality Stroke Does the patient have a stroke diagnosis?: No VTE Prior VTE?: No VTE Risk Level:: Medical - moderate - high VTE Device Contraindication: Treatment Not Indicated VTE Drug Contraindication: N/A - Med Ordered
--- NOTE | 2022-08-27 12:21 | PC.NURSE ---
Pt refusing IV meropenum. This RN attempted to educate the need to continue the full course of the antibiotic. Pt still refusing stating that he is done with the antibiotic and doesn't want it anymore Dr Reynolds made aware.
[2022-08-27 16:30] LABS: Glucose, Whole Blood 241 mg/dL (60-115)
[2022-08-27 20:18] LABS: Glucose, Whole Blood 196 mg/dL (60-115)
[2022-08-27] MEDS: Atorvastatin Calcium 10 MG TABLET PO (21:41)
[2022-08-27] MEDS: Doxazosin Mesylate 2 MG TABLET 4 MG PO (21:41)
[2022-08-27] MEDS: Bictegrav/Emtricit/Tenofov Ala TABLET 1 TAB PO (21:41)
--- NOTE | 2022-08-28 00:15 | PC.NURSE ---
patient refusing merepenem despite education and denied my entry into his room. He states he is going home monday and he wants to sleep.
--- NOTE | 2022-08-28 02:31 | PC.NURSE ---
patient refused care at shift change approximately 2330. I made this patient high risk yesterday due to instability and using furniture for balance. Patient is now documented low risk, unable to reassess due to refusal. Patient refused midnight antibiotic as well as any nursing assessment.
[2022-08-28 03:04] VITALS: BP 166/72; PULSE 69; RESP 18; TEMP 37; O2SAT 96
[2022-08-28 08:27] VITALS: BP 199/80; PULSE 60; RESP 18; TEMP 36; O2SAT 94
[2022-08-28 08:36] LABS: Glucose, Whole Blood 85 mg/dL (60-115)
[2022-08-28] MEDS: predniSONE 20 MG TABLET 40 MG PO (09:23)
[2022-08-28] MEDS: Docusate Sodium 100 MG CAPSULE PO (09:23)
[2022-08-28] MEDS: Cholecalciferol (Vitamin D3) 25 MCG TABLET PO (09:23)
[2022-08-28] MEDS: Losartan Potassium 25 MG TABLET PO ×2 (09:23→13:12)
[2022-08-28] MEDS: 0.9 % Sodium Chloride Flush 3 ML SYRINGE IVFLUSH ×4 (09:24→23:17)
[2022-08-28 11:25] LABS: Glucose, Whole Blood 87 mg/dL (60-115)
[2022-08-28] MEDS: Albuterol/Iprat 2.5/0.5MG 3 ML AMPUL.NEB INHALE ×2 (11:26→16:14)
[2022-08-28 11:27] VITALS: PULSE 62; RESP 18; O2SAT 95
--- NOTE | 2022-08-28 12:10 | P.PNIM_ITS ---
Subjective Subjective Date of Service: 08/28/22 Interval History: Offers no acute complaints sitting comfortably eating breakfast according to RN patient refused his meropenem last night and again this morning, no fevers no chills tolerating diet with no nausea no vomiting no abdominal pain, no other acute issues, denies shortness of breath, no chest pain good pain control. Review of Systems Review of Systems: Yes all other systems are reviewed and are negative Physical Exam Vital Signs: Vital Signs: Last Vital Signs Temp 96.8 F 08/28/22 08:27 Pulse 62 08/28/22 11:27 Resp 18 08/28/22 11:27 BP 199/80 H 08/28/22 08:27 Pulse Ox 94 08/28/22 08:27 O2 Del Method 08/28/22 08:27 O2 Flow Rate 2 08/26/22 08:00 BMI result Body Mass Index 25.0 Const: Other: Gen: Awake alert x3, in no acute distress HEENT: sclera anicteric, moist mucus membranes Neck: supple Lungs: diffuse expiratory wheezing Heart: regular rate and rhythm, no murmurs Abd: soft, non-tender, non-distended Ext: no edema Skin: warm/well-perfused, ulcer to the dorsal surface of the distal phalanx of the 2nd toe, no drainage Neuro: alert and oriented x3, no focal findings Psych: appropriate affect ? Objective Data Active Medications Acetaminophen (Acetaminophen 325 Mg Tablet) 650 mg PO Q6H PRN PRN Reason: Pain, Mild (Pain Scale 1-3) Albuterol Sulfate (Albuterol Sulfate (0.083%) 2.5 Mg/3 Ml Vial.Neb) 2.5 mg INHALE Q2H PRN PRN Reason: Shortness of Breath/Wheezing Last Admin: 08/27/22 04:07 Dose: 2.5 mg Documented By: MALINI Albuterol/Ipratropium (Albuterol/Iprat 2.5/0.5mg 3 Ml Ampul.Neb) 3 ml INHALE RQ4H WHILE AWAKE [facility] Last Admin: 08/28/22 11:26 Dose: 3 ml Documented By: NESHA Aspirin (Aspirin Enteric Coated 81 Mg Tablet.) 81 mg PO DAILY [facility] Last Admin: 08/24/22 09:35 Dose: Not Given Documented By: MIKE Non-Admin Reason: NPO Atorvastatin Calcium (Atorvastatin Calcium 10 Mg Tablet) 10 mg PO BEDTIME [facility] Last Admin: 08/27/22 21:41 Dose: 10 mg Documented By: BAILEY Bictegravir/Emtricitabine/Tenofovir (Bictegrav/Emtricit/Tenofov Ala Tablet) 1 tab PO BEDTIME [facility] Last Admin: 08/27/22 21:41 Dose: 1 tab Documented By: BAILEY Dextrose (Dextrose 50 % 25 Gm/50 Ml Syringe) 25 gm IVPUSH Q15M PRN; Protocol PRN Reason: per Hypoglycemia Standing Ord. Docusate Sodium (Docusate Sodium 100 Mg Capsule) 100 mg PO DAILY [facility] Last Admin: 08/28/22 09:23 Dose: 100 mg Documented By: NE Doxazosin Mesylate (Doxazosin Mesylate 2 Mg Tablet) 4 mg PO BEDTIME [facility]; Protocol Last Admin: 08/27/22 21:41 Dose: 4 mg Documented By: BAILEY Enoxaparin Sodium (Enoxaparin Sodium 30 Mg/0.3 Ml Syringe) 30 mg SUBCUT 2200 [facility] Last Admin: 08/23/22 20:11 Dose: 30 mg Documented By: PATRICE Glucose (Glucose Gel 15 Gm Gel..Gram.) 15 gm PO Q15M PRN; Protocol PRN Reason: per Hypoglycemia Standing Ord. Meropenem 1 gm/ Sodium (Chloride) 100 mls @ 200 mls/hr IV Q12H [facility] Last Admin: 08/28/22 00:15 Dose: Not Given Documented By: DOMINICK Non-Admin Reason: Patient Refused Insulin Glargine (Insulin Glargine,Hum.Rec.Anlog 100 Unit/Ml 10 Ml Vial) 18 unit SUBCUT BID [facility] Last Admin: 08/28/22 09:24 Dose: Not Given Documented By: NE Non-Admin Reason: No Insulin Coverage Insulin Human Lispro (Insulin Lispro 100 Unit/Ml 3 Ml Vial) 0 unit SUBCUT QIDACHS [facility]; Protocol Last Admin: 08/28/22 11:41 Dose: Not Given Documented By: NE Non-Admin Reason: No Insulin Coverage Lorazepam (Lorazepam 1 Mg Tablet) 1 mg PO BEDTIME PRN PRN Reason: sleep Last Admin: 08/26/22 19:58 Dose: 1 mg Documented By: MI Losartan Potassium (Losartan Potassium 25 Mg Tablet) 25 mg PO DAILY [facility]; Protocol Last Admin: 08/28/22 09:23 Dose: 25 mg Documented By: NE Melatonin (Melatonin 3 Mg Tablet) 6 mg PO BEDTIME PRN PRN Reason: Insomnia Last Admin: 08/25/22 19:44 Dose: 6 mg Documented By: SCOTT Ondansetron HCl (Ondansetron Hcl 4 Mg/2 Ml Vial) 4 mg IVPUSH Q8H PRN PRN Reason: Nausea and Vomiting Pharmacy Consult (Consult Rx Perform Med Rec) 1 each MISCELLANE ONCE PRN PRN Reason: Consult order Prednisone (Prednisone 20 Mg Tablet) 40 mg PO DAILY [facility] Last Admin: 08/28/22 09:23 Dose: 40 mg Documented By: NE Sodium Chloride (0.9 % Sodium Chloride Flush 3 Ml Syringe) 3 ml IVFLUSH QSHIFT [facility] Last Admin: 08/28/22 09:24 Dose: 3 ml Documented By: NE Vitamin D (Cholecalciferol (Vitamin D3) 25 Mcg Tablet) 25 mcg PO DAILY [facility] Last Admin: 08/28/22 09:23 Dose: 25 mcg Documented By: NE Labs CBC & Chem 7: 08/25/22 05:52 08/25/22 05:52 Labs: Laboratory Results - last 24 hr 08/27/22 08/27/22 08/28/22 16:24 20:11 08:27 POC Glucose 241 H 196 H 85 08/28/22 11:18 POC Glucose 87 Assessment and Plan (1) Diabetic toe ulcer: Status: Acute (2) Osteomyelitis of second toe of left foot: Status: Acute Plan d#7 76yo M with DM2, CKD3, HIV, BPH, HTN presenting with L toe pain/swellin g/discharge x5d, found to have osteomyelitis # mild intermittent asthma with acute exacerbation Improving denies shortness of breath or chest tightness - d#3 of steroids, continue bronchodilators # L foot DM ulcer with osteomyelitis - got 5d vanco + cefepime, BCx negative - pt wishes to preserve toe- Trevino is scheduled on 08/29 [pt has L AV fistula not in use- Trevino canceled on 08/26 due to asthma flare] and plan 6 wk of IV ertapenem per ID [meropenem while inpt at this point- started 08/26]; outpt ID f/u with weekly labs # PAD - angiography done 08/[address] Monreal; showed severe pyzyr-lfb-grlf disease that was unreconstructable: ?Anterior tibial artery:? Patent origin then a completely occludes and has tenuous reconstitution via collaterals ?Peroneal artery:? Occludes and reconstitutes via collaterals and is the more dominant runoff ?Posterior tibial artery:? Occluded # RONAK/CKD3 - RONAK resolved with IV fluids. avoid nephrotoxins # HTN - elevated blood pressure on losartan 25 mg, will increase dose to 50 mg daily # HIV - continue Biktarvy # DM2 - blood sugar low this morning 87 will hold morning Lantus, continue to monitor blood sugars closely,on basal and bolus insulin, will lower dose of Lantus to 15 units b.i.d. home dose 18 units b.i.d. # BPH -continue doxazosin # VTE ppx: LMWH # dispo: anticipate home with VNA after Trevino; need VNA agency that can see him daily, though- CM working on this In my clinical judgment, the patient requires continued inpatient hospitalization for the following reasons: IV ABX, Hickmann, search for VNA services Time Spent With Patient Time: Total time managing care of this patient today ____ minutes. Quality Stroke Does the patient have a stroke diagnosis?: No VTE Prior VTE?: No VTE Risk Level:: Medical - moderate - high VTE Device Contraindication: Treatment Not Indicated VTE Drug Contraindication: N/A - Med Ordered
[2022-08-28 15:25] VITALS: BP 142/86; PULSE 62; RESP 17; TEMP 36.3; O2SAT 98
[2022-08-28 15:37] LABS: Glucose, Whole Blood 162 mg/dL (60-115)
[2022-08-28 16:15] VITALS: PULSE 62; RESP 17; O2SAT 98
[2022-08-28] MEDS: Insulin Lispro 100 UNIT/ML 3 ML VIAL SUBCUT ×2 (16:43→21:08)
[2022-08-28 19:28] VITALS: BP 156/78; PULSE 67; RESP 16; TEMP 36.5; O2SAT 97
[2022-08-28 19:40] LABS: Glucose, Whole Blood 144 mg/dL (60-115)
[2022-08-28] MEDS: Atorvastatin Calcium 10 MG TABLET PO (21:02)
[2022-08-28] MEDS: LORazepam 1 MG TABLET PO (21:05)
[2022-08-28] MEDS: Bictegrav/Emtricit/Tenofov Ala TABLET 1 TAB PO (21:05)
[2022-08-28] MEDS: Doxazosin Mesylate 2 MG TABLET 4 MG PO (21:05)
[2022-08-28] MEDS: Insulin Glargine,Hum.rec.anlog 100 UNIT/ML 10 ML VIAL 15 UNIT SUBCUT (21:08)
[2022-08-29 03:31] VITALS: BP 138/88; PULSE 66; RESP 18; TEMP 36.3; O2SAT 96
[2022-08-29 06:26] LABS: Hematocrit 37.2 % (42.0-52.0); Hemoglobin 12.9 g/dl (14.0-18.0); Mean Corpuscular HGB Conc 34.7 g/dl (31.0-36.0); Mean Corpuscular Hemoglobin 31.8 pg (27.0-33.0); Mean Corpuscular Volume 91.6 fL (80.0-98.0); Mean Platelet Volume 10.3 fL (9.4-12.4); Platelet Count 153 X10*3/uL (160-400); Red Blood Count 4.06 X10*6/uL (4.60-5.80); Red Cell Distribution Width 13.6 % (11.0-16.0); White Blood Count 7.4 X10*3/uL (4.8-10.8)
[2022-08-29 06:35] LABS: INTERNATIONAL NORM RATIO 1.2 (0.9-1.1); Prothrombin Time 13.3 SEC (10.0-13.1)
[2022-08-29 06:38] LABS: Partial Thromboplastin Time 27.4 SEC (26.0-36.4)
[2022-08-29 07:02] LABS: Anion Gap 11 (12-20); Blood Urea Nitrogen 23 mg/dL (9-16); C Reactive Protein 2.88 mg/dL (< or = 0.50); Calcium 8.5 mg/dL (8.4-10.2); Carbon Dioxide 26 mmol/L (22-29); Chloride 108 mmol/L (96-108); Creatinine Clr Calc Pharmacy 46.5; Estimated Glomerular Filt Rate 59; Glucose Random 46 mg/dL (60-115); Potassium 3.8 mmol/L (3.3-5.1); Sodium 141 mmol/L (135-145)
[2022-08-29] MEDS: Dextrose 50 % 25 GM/50 ML SYRINGE IVPUSH (07:04)
[2022-08-29 07:11] LABS: Glucose, Whole Blood 125 mg/dL (60-115)
--- NOTE | 2022-08-29 07:11 | MHC.PIE ---
p; critical lab random glucose 46. i; d50 iv given i; dr gandhi notified e; poc now 120's will cont to moiot[facility]
[2022-08-29 07:27] LABS: Erythrocyte Sedimentation Rate 16 MM/HR (0-15)
[2022-08-29 08:00] VITALS: BP 166/55; PULSE 58; RESP 24; TEMP 36.3; O2SAT 94
[2022-08-29 08:32] LABS: Glucose, Whole Blood 122 mg/dL (60-115)
[2022-08-29] MEDS: Docusate Sodium 100 MG CAPSULE PO (09:21)
[2022-08-29] MEDS: Losartan Potassium 50 MG TABLET PO (09:21)
[2022-08-29] MEDS: predniSONE 20 MG TABLET 40 MG PO (09:22)
[2022-08-29] MEDS: Cholecalciferol (Vitamin D3) 25 MCG TABLET PO (09:22)
--- NOTE | 2022-08-29 11:47 | HO.RADPN ---
RADIOLOGY Narrative Narrative: RIJ 5 fr single lumen Proline catheter placed. Tip in SVC. Catheter length 23 cm.
[2022-08-29 12:00] VITALS: BP 171/68; PULSE 60; RESP 16; TEMP 36.4; O2SAT 97
[2022-08-29 12:15] VITALS: BP 164/68; PULSE 57; RESP 16; TEMP 36.4; O2SAT 97
[2022-08-29 12:30] VITALS: BP 162/54; PULSE 60; RESP 20; O2SAT 97
[2022-08-29 12:40] LABS: Glucose, Whole Blood 75 mg/dL (60-115)
[2022-08-29] MEDS: Ertapenem Sodium 1 GM in 0.9 % Sodium Chloride 50 ML IV (12:51)
--- NOTE | 2022-08-29 13:50 | PM.EVENT ---
Event Note Date of Service: 08/29/22 Event Note: ertapenem for 6 weeks total abx Time Spent With Patient Time: Total time managing care of this patient today ____ minutes.
--- NOTE | 2022-08-29 14:12 | MHC.CM.PN ---
CASE MANAGEMENT ATTEMPTING TO SECURE DAILY VNA SERVICES WILL UPDATE THIS NOTE WITH ANY PROGRESS.
--- NOTE | 2022-08-29 14:53 | MHC.CM.PN ---
Addendum entered by Dinorah Kaminski RN 08/29/22 15:16: [facility] TO SEE TOMORROW, ALTHOUGH THEY ARE NOT CERTAIN P[ATIENT CAN ADMINISTER HIS IV ABX. MESSAGE LEFT FOR PATRICIA ([employer]/FRIEND) @ [phone] TO CALL THIS [employer] MOUNTER BACK. 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 HE REFUSES TO STAY HERE UNTIL A PLAN CAN BE SECURED. CM IS UNABLE TO SECURE DAILY [facility]. [place] REF[place] [facility] UNTIL COMPLETION OF HIS IV ABX. PATIENT FEELS HE CAN ADMINISTER HIS OWN IV ABX. HIS ENTERPRISE PROJECT MANAGER WILL BE HOME ON MONDAY (ACCORDING TO PATIENT AND GERMINIA/FRIEND @ PHONE NUMBER ON FILE) PATIENT AWARE OF RISKS OF NOT COMPLYING WITH HIS IV ABX REGIMEN. CM STILL FOLLOWING
[2022-08-29 15:33] VITALS: BP 190/92; PULSE 65; RESP 19; TEMP 36.6; O2SAT 96
--- NOTE | 2022-08-29 16:13 | P.DS_ITS ---
DS: Providers Provider Date of Service: 08/29/22 Date of admission: 08/20/22 23:54 Primary care physician: Jessie Smith MD Consults: 08/21/22 00:10 Consult to Infectious Diseases Routine Consulting Provider: Eugenia Orr Reason for consultation: osteomyelitis 08/21/22 15:02 Consult to Vascular Surgery Routine Consulting Provider: Wellington Monreal Reason for consultation: DM foot ulcer, PAD 08/29/22 12:32 Consult to Infectious Diseases Routine Consulting Provider: Eugenia Orr Reason for consultation: osteo going home need i dose from vick Has provider been notified: Yes DS: Diagnosis Discharge Diagnosis (1) Diabetic toe ulcer: Status: Acute (2) Osteomyelitis of second toe of left foot: Status: Acute DS: Summary Hospital Course Hospital Course: History of presenting illness Date of Service: 08/21/22 Chief Complaint: left foot wound This is a 76-year-old male with pertinent history of insulin-dependent diabetes mellitus, chronic kidney disease, HIV, generalized anxiety disorder, essential hypertension, mixed hyperlipidemia who presents to the ER for evaluation of left toe pain, swelling and discharge x5 days.? Patient denies any trauma to the foot.? States has been having constant pain, worse with ambulation and no relieving factors.? Never had similar complaints before.? Also has been having associated fever and chills with intermittent purulent discharge from the left toe.? Patient denied chest discomfort, palpitations, shortness of breath, abdominal pain, changes in urinary or bowel habits.? Patient states he is compliant with his medications for chronic medical conditions.? HIV with unknown viral load/CD4 count. In the emergency department, x-ray was concerning for osteomyelitis. Hospital course: 76yo M with DM2, CKD3, HIV, BPH, HTN presenting with L toe pain/swelling/discharge x5d, found to have osteomyelitis # Left foot diabetic ulcer with osteomyelitis, patient treated with 5 days of IV vancomycin and cefepime blood cultures x2 are negative patient wishes to preserve toe therefore Vick catheter was placed today patient has left AV fistula not in use, patient seen by infectious disease Dr. Orr she recommend 6 weeks of IV ertapenem patient is being discharged home with [facility] services on 6 weeks of IV ertapenem end date October 01 will have weekly labs by [facility]NA services, recommend to keep left 2nd toe dry and clean with daily dressing as per VNA # peripheral arterial disease patient seen by Dr. Monreal underwent angiography done 08/24 that showed severe [id number] disease that was unreconstructable, ?Anterior tibial artery:? Patent origin then a completely occludes and has tenuous reconstitution via collaterals ?Peroneal artery:? Occludes and reconstitutes via collaterals and is the more dominant runoff ? Posterior tibial artery:? Occluded # mild intermittent asthma with acute exacerbation resolved no further episodes of shortness of breath or chest tightness patient is being discharged on tapering dose of steroids and recommend to continue bronchodilators ? # RONAK/CKD3 RONAK resolved with IV fluids.? # HTN noted to have elevated blood pressure on losartan 25 mg, therefore dose of losartan increased to 50 mg daily # HIV - continue Biktarvy # DM2 recommend to resume home medications noted to have low blood sugars in house since patient did not like hospital food # BPH -continue doxazosin Time Spent with Patient Time attestation: Total time managing care of this patient today ____ minutes. Discharge coordination time: Greater than 30 minutes Quality: Safe Use of Opioids Does Pt have an Active Cancer Diagnosis on the Problem List?: No Quality: Stroke Does the patient have a stroke diagnosis?: No Physical Exam Vital Signs: Vital Signs: Last Vital Signs Temp 97.8 F 08/29/22 15:33 Pulse 65 08/29/22 15:33 Resp 19 08/29/22 15:33 BP 190/92 H 08/29/22 15:33 Pulse Ox 96 08/29/22 15:33 O2 Del Method 08/29/22 15:33 O2 Flow Rate 2 08/26/22 08:00 BMI result Body Mass Index 25.0 Const: Other: Gen:? Awake alert x3, in no acute distress HEENT: sclera anicteric, moist mucus membranes Neck: supple Lungs: diffuse expiratory wheezing Heart: regular rate and rhythm, no murmurs Abd: soft, non-tender, non-distended Ext: no edema Skin: warm/well-perfused, ulcer to the dorsal surface of the distal phalanx of the 2nd toe, no drainage Neuro: alert and oriented x3, no focal findings Psych: appropriate affect DS: Data Data Completed and Pending Labs on day of discharge: Laboratory Results - last 24 hr 1208/29/22 08/29/22 19:31 05:23 05:23 WBC 7.4 RBC 4.06 L Hgb 12.9 L Hct 37.2 L MCV 91.6 MCH 31.8 MCHC 34.7 RDW 13.6 Plt Count 153 L D MPV 10.3 Absolute Nucleated RBC 0.000 Nucleated RBC % (auto) 0.0 ESR 16 H PT INR APTT Sodium Potassium Chloride Carbon Dioxide Anion Gap BUN Creatinine Estim Creat Clear Calc Estimated GFR POC Glucose 144 H Random Glucose Calcium C-Reactive Protein 08/29/22 08/29/22 08/29/22 05:23 05:23 07:07 WBC RBC Hgb Hct MCV MCH MCHC RDW Plt Count MPV Absolute Nucleated RBC Nucleated RBC % (auto) ESR PT 13.3 H INR 1.2 H APTT 27.4 Sodium 141 Potassium 3.8 Chloride 108 Carbon Dioxide 26 Anion Gap 11 L BUN 23 H Creatinine 1.20 Estim Creat Clear Calc 46.5 Estimated GFR 59 POC Glucose 125 H Random Glucose 46 L* Calcium 8.5 D C-Reactive Protein 2.88 H 08/29/22 08/29/22 08:09 12:31 WBC RBC Hgb Hct MCV MCH MCHC RDW Plt Count MPV Absolute Nucleated RBC Nucleated RBC % (auto) ESR PT INR APTT Sodium Potassium Chloride Carbon Dioxide Anion Gap BUN Creatinine Estim Creat Clear Calc Estimated GFR POC Glucose 122 H 75 Random Glucose Calcium C-Reactive Protein Discharge Plan Discharge Anticipated Discharge Date/Time: 08/29/22 15:29 Patient Disposition: Home Health Service Discharge Diagnosis: Left foot diabetic ulcer with osteomyelitis Peripheral arterial disease Acute on chronic kidney disease stage 3 Diabetes mellitus type 2 Referrals: Darnell FOX [Outside] - 1 Week Jessie Smith MD [Primary Care Provider] - 1 Week Discharge Medications: New losartan 50 mg Tablet 50 mg PO DAILY Qty: 30 0RF Protocol: Hold for SBP< HOLD for SBP < : 90 prednisone 20 mg tablet 20 mg PO DAILY Qty: 5 0RF Continued (DME) blood-glucose meter [FreeStyle Lite Meter] Kit See Rx Instructions .Route Qty: 1 0RF Rx Instructions: As directed (DME) insulin syringe-needle U-100 [BD Insulin Syringe Ultra-Fine] 0.5 mL 31 gauge x 5/16 syringe See Rx Instructions .ROUTE .MEDSUPPLY Qty: 200 3RF Rx Instructions: Twice a day Trulicity 3 mg/0.5 mL pen injector 3 mg subcut QWEEK 90 Days Qty: 6.5 1RF Rx Instructions: dose increased. Lantus U-100 Insulin 100 unit/mL solution 18 unit subcut BID 90 Days Qty: 40 0RF acetaminophen [Tylenol] 325 mg tablet 650 mg PO Q6H PRN (Reason: fever or pain) Qty: 14 0RF lorazepam [Ativan] 1 mg tablet 1 mg PO BEDTIME PRN (Reason: sleep) Qty: 10 0RF atorvastatin 10 mg tablet 10 mg PO BEDTIME docusate sodium [Colace] 100 mg capsule 100 mg PO DAILY Qty: 30 2RF albuterol sulfate [Ventolin HFA] 90 mcg/actuation HFA aerosol inhaler 2 puff inhalation Q4-6H PRN (Reason: Pain) (DME) FreeStyle Lite Strips Strip See Rx Instructions Not Applicable TID Qty: 10 Rx Instructions: As directed aspirin 81 mg tablet,delayed release (DR/EC) 81 mg PO QAM cholecalciferol (vitamin D3) 25 mcg (1,000 unit) tablet 25 mcg PO QAM (DME) lancets [TRUEplus Lancets] 33 gauge misc See Rx Instructions Not Applicable TID Qty: 100 Rx Instructions: As directed Biktarvy 50-200-25 mg tablet 1 tab PO BEDTIME doxazosin 4 mg tablet 4 mg PO BEDTIME 90 Days Qty: 90 3RF Discontinued losartan 25 mg tablet 25 mg PO DAILY 90 Days Qty: 90 1RF Discharge Orders: Discharge Order (Routine); Ordered 08/29/22 Ordered By: Shirley Obrien Diet: Diabetic diet Activity on Discharge: As tolerated Stand Alone Forms: Patient Portal Discharge page Care Plan Goals: Take IV ertapenem 1 gm daily end date October 01 with weekly labs patient is being discharged home with [facility] services 3 times per week patient's [employer] will receive teachings from [facility]NA to administer IV antibiotics Patient has been instructed to follow diabetic diet and monitor blood sugar closely Right IJ single lumen Prolene catheter in place catheter and 23 cm Take prednisone 20 mg daily for 5 more days Dose of losartan increased to 50 mg Health Concerns: Take all home medications as before Plan of Treatment: Outpatient follow-up with Dr. Orr from Infectious Disease in 1 week, call for appointment, weekly labs ordered Assessment: As above
== END 2022-08-29 16:25 | disposition home health service (06) | DRG 300 ==
LOC: HO.ED 23:24 → HO.EDOVER 23:59 → HO.S3 08-21 05:30
PROVIDERS: Family Medicine; Radiology Diagnostic Radiology; Surgery Vascular Surgery; Admitting Provider Student in an Organized Health Care Education/Training Program; Emergency Provider Emergency Medicine Emergency Medical Services; PCP Family Medicine; Visit Provider Hospitalist
PROC: B41D0ZZ Fluoroscopy of Aorta and Bilateral Lower Extremity Arteries using High Osmolar Contrast (ICD-10-PCS; principal; 2022-08-24 11:00)
PROC: 0JH63XZ Insertion of Tunneled Vascular Access Device into Chest Subcutaneous Tissue and Fascia, Percutaneous Approach (ICD-10-PCS; principal; 2022-08-29 10:30)
DX: E11.51 Type 2 diabetes mellitus with diabetic peripheral angiopathy without gangrene (principal); J45.21 Mild intermittent asthma with (acute) exacerbation; L03.116 Cellulitis of left lower limb; N17.9 Acute kidney failure, unspecified; M86.272 Subacute osteomyelitis, left ankle and foot; L97.529 Non-pressure chronic ulcer of other part of left foot with unspecified severity; I70.245 Atherosclerosis of native arteries of left leg with ulceration of other part of foot; N40.1 Benign prostatic hyperplasia with lower urinary tract symptoms; E03.9 Hypothyroidism, unspecified; E11.69 Type 2 diabetes mellitus with other specified complication; F41.1 Generalized anxiety disorder; E78.5 Hyperlipidemia, unspecified; I12.9 Hypertensive chronic kidney disease with stage 1 through stage 4 chronic kidney disease, or unspecified chronic kidney disease; N18.30 Chronic kidney disease, stage 3 unspecified; E11.22 Type 2 diabetes mellitus with diabetic chronic kidney disease; Z21 Asymptomatic human immunodeficiency virus [HIV] infection status; R35.1 Nocturia; Z20.822 Contact with and (suspected) exposure to COVID-19; Z86.73 Personal history of transient ischemic attack (TIA), and cerebral infarction without residual deficits; Z87.891 Personal history of nicotine dependence; Z79.4 Long term (current) use of insulin; Z79.82 Long term (current) use of aspirin; Z79.899 Other long term (current) drug therapy
CPT/HCPCS: 36247; 36415; 36558; 71045; 73620; 73720; 75630; 76937; 80048; 80053; 80202; 81001; 81003; 82550; 82565; 82947; 83605; 83690; 85025; 85027; 85610; 85652; 85730; 86140; 87040; 87502; 87635; 93926; 93971; 94640; 99152; 99153; 99285; A9585; C1751; C1769; C1887; J0690; J0692; J1335; J1650; J2185; J2270; J2920; J2930; J3370

== ENCOUNTER 2022-09-01 12:42 | Outpatient (REF) | payer OTHER, SELFPAY ==
[2022-09-01 12:51] LABS: Hematocrit 40.3 % (42.0-52.0); Hemoglobin 13.5 g/dl (14.0-18.0); Mean Corpuscular HGB Conc 33.5 g/dl (31.0-36.0); Mean Corpuscular Hemoglobin 31.6 pg (27.0-33.0); Mean Corpuscular Volume 94.4 fL (80.0-98.0); Mean Platelet Volume 10.8 fL (9.4-12.4); Platelet Count 198 X10*3/uL (160-400); Red Blood Count 4.27 X10*6/uL (4.60-5.80); Red Cell Distribution Width 13.4 % (11.0-16.0); White Blood Count 6.8 X10*3/uL (4.8-10.8)
[2022-09-01 13:22] LABS: Band Neutrophils Percent 0 % (3-5); Eosinophils Absolute Manual 0.1 X10*3/uL (0.0-0.4); Eosinophils Percent Manual 1 % (0-4); Lymphocytes Percent Manual 14 % (20-40); Metamyelocytes Absolute 0.1 X10*3/uL; Metamyelocytes Percent 2 %; Monocytes Absolute Manual 0.7 X10*3/uL (0.1-1.2); Monocytes Percent Manual 11 % (2-11); Myelocytes Absolute 0.1 X10*/uL; Myelocytes Percent 2 %; Neutrophils Absolute Manual 4.8 X10*3/uL (2.0-8.3); Neutrophils Percent Manual 70 % (45-73)
[2022-09-01 13:24] LABS: Platelet Estimate NORMAL (NORMAL); Platelet Morphology Comment NORMAL
[2022-09-01 13:25] LABS: Burr Cells 1+ (0-2) /OIF; RBC Morphology NOTED
[2022-09-01 13:29] LABS: Blood Urea Nitrogen 16 mg/dL (9-16); Estimated Glomerular Filt Rate > 60
== END 2022-09-01 12:43 | disposition home or self-care (01) ==
LOC: HO.HVNA 12:42
PROVIDERS: Visit Provider Internal Medicine
DX: E11.621 Type 2 diabetes mellitus with foot ulcer (principal)
CPT/HCPCS: 36415; 82565; 84520; 85007; 85027

== ENCOUNTER → 2022-09-05 13:07 | Outpatient (BNVA) | payer OTHER, SELFPAY | PROVIDERS: PCP Family Medicine; Referring Provider Family Medicine; Visit Provider Internal Medicine | DX: I65.23 Occlusion and stenosis of bilateral carotid arteries (principal); I25.10 Atherosclerotic heart disease of native coronary artery without angina pectoris; I73.9 Peripheral vascular disease, unspecified; I10 Essential (primary) hypertension; E11.9 Type 2 diabetes mellitus without complications; E78.5 Hyperlipidemia, unspecified; B20 Human immunodeficiency virus [HIV] disease; Z92.89 Personal history of other medical treatment | CPT/HCPCS: 99202 ==

== ENCOUNTER → 2022-09-07 14:16 | Outpatient (BNVA) | payer OTHER, SELFPAY | PROVIDERS: Visit Provider Internal Medicine | DX: M86.9 Osteomyelitis, unspecified (principal) | CPT/HCPCS: 99212 ==

== ENCOUNTER → 2022-09-08 10:18 | Day surgery (SDC) | payer OTHER, SELFPAY ==
--- NOTE | ~2022-09-08 | IR_ITS ---
EXAMINATION: PROLINE CATHETER REMOVAL CLINICAL INFORMATION: No longer needed for IV antibiotic therapy. COMPARISON: 08/24/2022. TECHNIQUE: Removal of right internal jugular Pro-Line catheter. FINDINGS: Using sterile technique the indwelling right internal jugular tunneled Pro-Line catheter was blunt dissected out in its entirety. The catheter was 5 Albanian and 23 cm in length. IR/IR cvc remov tunnel wo prt/language assistant IMPRESSION: Right internal jugular Pro-Line catheter removal.
[2022-09-08] MEDS: Lidocaine HCl 1 % MPF 2 ML VIAL INFILTRATI (11:06)
== END ==
PROVIDERS: PCP Family Medicine; Visit Provider Internal Medicine
DX: E11.621 Type 2 diabetes mellitus with foot ulcer (principal); L97.526 Non-pressure chronic ulcer of other part of left foot with bone involvement without evidence of necrosis; E11.69 Type 2 diabetes mellitus with other specified complication; M86.8X7 Other osteomyelitis, ankle and foot; Z79.4 Long term (current) use of insulin; E11.21 Type 2 diabetes mellitus with diabetic nephropathy; E11.42 Type 2 diabetes mellitus with diabetic polyneuropathy; E11.22 Type 2 diabetes mellitus with diabetic chronic kidney disease; I12.9 Hypertensive chronic kidney disease with stage 1 through stage 4 chronic kidney disease, or unspecified chronic kidney disease; N18.9 Chronic kidney disease, unspecified; Z79.899 Other long term (current) drug therapy; Z87.891 Personal history of nicotine dependence
CPT/HCPCS: 36589

== ENCOUNTER → 2022-09-15 13:22 | Outpatient (REF) | payer OTHER, SELFPAY ==
--- NOTE | 2022-09-15 13:25 | CA_ITS ---
Transthoracic Echocardiogram Patient (Last, First, Middle): Husam Garcia, Gender: Male Date of : 1945 Age: 76 Procedure Date: 09/15/2022 Procedure Type: Transthoracic Echocardiogram Location: OP Height: 167.64 cm Weight: 68.04 kg BSA: 1.77 m2 Heart Rate: bpm BP: 110 / 50 mmHg [place]: TO Referring MD: Radhames Flores MD Payroll Representative: Leighton Mata MD Symptoms: I25.10 - Atherosclerotic heart disease of [place] coronary artery without... Study Quality: Fair ECG Rhythm: Sinus Conclusions: - 1. Normal LV systolic function with impaired relaxation filling pattern 2. Euyp-[id number] aortic stenosis with mild aortic regurgitation 3. Mildly dilated left atrium 4. Normal RV systolic pressure 5. No gross pericardial effusion Findings Left Ventricle Normal left ventricular size, thickness, and systolic function. The visually estimated ejection fraction is between 55-60%. Spectral Doppler is indicative of an impaired relaxation filling pattern. E/E prime ratio is between 8 and 15 consistent with indeterminate filling pressures. Wall Motion Rest Echo Findings The basal inferior and basal inferoseptal segments are akinetic. All other scored wall segments showed normal motion. Right Ventricle Normal right ventricular cavity size. There is normal right ventricular systolic function. Atria The left atrium is mildly dilated. There is no evidence of interatrial shunt. The right atrium is likely dilated. Aortic Valve There is mild calcification of the aortic valve. There is mild thickening of the aortic valve. There is mild to moderate aortic valve stenosis. The mean gradient is 12 mmHg. There is mild aortic valve regurgitation. Mitral Valve Normal mitral valve structure and function. There is trace mitral valve regurgitation. There is no mitral valve stenosis. Pulmonic Valve The pulmonic valve is likely normal. There is trace pulmonic valve regurgitation. Tricuspid Valve Normal tricuspid valve structure. There is mild tricuspid valve regurgitation. The right ventricular systolic pressure is normal. The right ventricular systolic pressure is 30 mmHg. Normal right atrial pressure. There is no evidence of pulmonary hypertension. Great Vessels All visible segments of the aorta are normal in size. The pulmonary artery was not well visualized. Venous The inferior vena cava is normal in size and collapses greater than 50% with inspiration. Pericardium/Pleural There is no evidence of pericardial effusion. Prior Study Comparison no previous study in the last 5 years for comparison Measurements 2D Linear Measurements IVSd: 1.16 0.6-0.9/0.6-1.0 cm LVIDd: 5.77 3.9-5.3/4.2-5.9 cm LVIDd Index: 3.26 2.4-3.2/2.2-3.1 cm/m2 LVIDs: 3.44 2.0-3.6 cm LVPWd: 0.98 0.7-1.1 cm LA Diam: 3.70 2.7-3.8/3.0-4.0 cm LAIDs Index: 2.09 1.5-2.3 cm/m2 LV Mass: 314.93 67-162/88-224 g LV Mass Index: 177.92 43-95/49-115 g/m2 LVOT Diam: 2.20 3.0+(-)1.3 cm 2D Systolic Function EF 4C: 56.20 >55% EF 2C: 55.40 >55% Mitral Valve MV Pk E: 0.63 MV PK A: 0.74 MV Decel Time: 203.00 E/A: 0.90 E'Lateral: 10.20 E'Medial: 6.74 E/E' Med: 9.30 E/E' Lat: 6.20 PHT: 60.00 MVA PHT: 3.67 Decel [place]: 3.10 Aortic Valve AoV Pk Felipe: 2.29 AoV Mn Felipe: 1.64 AoV VTI: 0.47 AoV Pk Grad: 21.00 Aov Mn Grad: 12.00 ANALISA Cont.VTI: 1.40 AI Pk Felipe: 3.66 AI [place]: 1.84 LVOT LVOT Pk Felipe: 0.75 LVOT Mn Felipe: 0.55 LVOT VTI: 0.17 LVOT Pk Grad: 2.00 LVOT Mn Grad: 1.00 LVOT Diam: 2.20 LVOT Area: 3.80 Diastolic Function MV Pk E: 0.63 MV Pk A: 0.74 E/A: 0.90 E'Medial: 6.74 E/E' Med: 9.30 E' Laterial: 10.20 E/E' Lat: 6.20 Right Ventricle TAPSE (mm): 12.20 TVS' Felipe: 8.16 Tricuspid Valve TR Pk Felipe: 2.32 TR Pk Grad: 22.00 RA Press: 8.00 RVSP: 30.00 Great Vessels Aorta Sinus of Valsalva: 3.72 2.0-3.5 cm Ao Asc: 3.40 2.1-3.4 cm Updated in Other Vendor System with Status of Final Leighton Mata MD electronically signed on 09/16/2022 3:47:13 PM with status of Final
== END ==
LOC: HO.CARD 13:22
PROVIDERS: PCP Family Medicine; Visit Provider Internal Medicine
DX: I25.10 Atherosclerotic heart disease of native coronary artery without angina pectoris (principal)
CPT/HCPCS: 93306

== ENCOUNTER 2022-09-21 12:22 | Outpatient (REF) | payer OTHER, SELFPAY ==
[2022-09-22 11:34] LABS: Free Prostate Spec Ag 1.3 ng/mL; Percent Free Prostate Spec Ag 25 % (calc) (>25); Prostate Specific Ag Total 5.1 ng/mL (< OR = 4.0)
== END 2022-09-21 12:23 | disposition home or self-care (01) ==
LOC: HO.LAB 12:22
PROVIDERS: PCP Family Medicine; Visit Provider Urology
DX: R35.1 Nocturia (principal); Z12.5 Encounter for screening for malignant neoplasm of prostate
CPT/HCPCS: 36415; 84153; 84154

== ENCOUNTER → 2022-09-28 13:21 | Outpatient (BNVA) | payer OTHER, SELFPAY | PROVIDERS: PCP Family Medicine; Visit Provider Urology | DX: R97.20 Elevated prostate specific antigen [PSA] (principal); N40.1 Benign prostatic hyperplasia with lower urinary tract symptoms; R35.1 Nocturia | CPT/HCPCS: 51798; 99212 ==

== ENCOUNTER → 2022-10-10 13:18 | Outpatient (BNVA) | payer OTHER, SELFPAY | PROVIDERS: PCP Family Medicine; Visit Provider Internal Medicine | DX: M86.9 Osteomyelitis, unspecified (principal) | CPT/HCPCS: 99212 ==

== ENCOUNTER → 2022-10-21 09:08 | Outpatient (REF) | payer OTHER, SELFPAY ==
--- NOTE | ~2022-10-21 | NM_ITS ---
Lexiscan Myocardial perfusion study Indication: Atherosclerotic cardio-vascular disease, assess for ischemia Technique: The patient was brought in for a Lexiscan perfusion study on 10/21/2022 and was injected 0.4 mg of Lexiscan intravenously. Within a minute of this injection 25 mCi of sestamibi was given intravenously. Images were obtained using the SPECT gamma camera interlaced with the gating device. Images were obtained in supine position. Resting perfusion study was performed on 10/24/2022. Patient was administered 25 mCi of sestamibi intravenously at rest. Images were then obtained in supine position. Total DLP 83mGy-cm. Images were processed with the software and compared side to side in short axis, horizontal long axis and vertical long axis views. Findings: Raw acquisition reviewed. The stress perfusion study showed diminished tracer uptake along the basal to mid inferior wall. Proximal basal inferior septum. There is improvement with CT attenuation correction and hence could indicate components of diaphragmatic attenuation artifact. The gated study shows normal LV systolic function with calculated LVEF of 64%. LV cavity is normal in size. The gated study shows diminished wall thickening and contractility in the basal to mid inferior wall. Resting study shows diminished tracer uptake along the inferior wall from basal to mid portions. Adjacent basal inferior septum. Gating at rest reveals diminished basal to mid inferior thickening with LVEF of 68%. The findings are consistent with fixed basal to mid inferior perfusion defect; basal inferior septal perfusion defect; in the midportion of inferior wall, slight reversibility. NM/NM cardiolite stress test Impression: 1. Myocardial perfusion imaging study shows mostly fixed inferior- inferior septal perfusion defect with slight reversible defect in the mid inferior wall. Could indicate prior infarct with minimal ischemia. Could also have components of diaphragmatic attenuation. 2. Gated LVEF is 64% during stress and rest. 3. Transient ischemic dilatation not present. EKG component of the test reported separately.
--- NOTE | 2022-10-21 09:11 | CA_ITS ---
Acquisition Time: 2022-10-21 09:31:52 Total Exercise Time: 00:19:07 Test Indications: Medications: Protocol: DOBUTAMINE Max HR: 118 BPM 83% of Pred: 142 BPM Max BP: 154/050 mmHG Max Work Load: 1.0 METS Pharmacological stress test with Dobutamine infusion to max of 40mcg/kg/min, briefly achieving heart rate 83% MPHR, without anginal symptoms, with second degree heart block type 1 and sinus tessa with 1st degree avb at baseline and in recovery, during infusion heart rate did gradually increase and second degree heart block type 1 improved, occassional PVCs noted, with normotensive response to infusion, with EKG changes that meet criteria for ischemia. Nuclear images pending. Test reviewed with Dr Lazar. Holter monitor applied. Pt allowed to leave cardiology department in stable condition, heart rate 66 at test end, rhythm secondf degree heart block type 1, BP148/66. Referred By: Radahmes Flores Overread By: MIKE OLIVEIRA
--- NOTE | 2022-10-21 11:19 | HM_ITS ---
* Total monitoring time 3 days. * Underlying rhythm is sinus. Average ventricular rate 50/Min. Range 29- 84/Min. * About 50% the time, rate less than 60/Min. * Mobitz type 1 Wenckebach type heart block noted, including during daytime hours; 2:1 block also noted. * Episode of transient complete heart block for about 3.5 seconds at 15:38. * Rare PVCs; rare PACs. * No patient symptoms in diary. MTDD
== END ==
LOC: HO.CARD 09:08
PROVIDERS: PCP Family Medicine; Visit Provider Internal Medicine
DX: I44.1 Atrioventricular block, second degree (principal); I25.10 Atherosclerotic heart disease of native coronary artery without angina pectoris
CPT/HCPCS: 78452; 93017; 93242; A9500; J0461; J1250

== ENCOUNTER → 2022-10-27 08:20 | Outpatient (BNVA) | payer OTHER, SELFPAY | PROVIDERS: PCP Family Medicine; Visit Provider Internal Medicine | DX: I25.10 Atherosclerotic heart disease of native coronary artery without angina pectoris (principal); I44.1 Atrioventricular block, second degree; I10 Essential (primary) hypertension; I73.9 Peripheral vascular disease, unspecified; E11.9 Type 2 diabetes mellitus without complications; E78.5 Hyperlipidemia, unspecified; B20 Human immunodeficiency virus [HIV] disease; Z92.89 Personal history of other medical treatment | CPT/HCPCS: 99212 ==

== ENCOUNTER → 2022-11-01 12:47 | Outpatient (BNVA) | payer OTHER, SELFPAY | PROVIDERS: PCP Family Medicine; Visit Provider Surgery Vascular Surgery | DX: I73.9 Peripheral vascular disease, unspecified (principal) | CPT/HCPCS: 99212 ==

== ENCOUNTER 2022-11-23 12:39 | Outpatient (REF) | payer OTHER, SELFPAY ==
--- NOTE | ~2022-11-23 | US_ITS ---
EXAMINATION: US EXTRACRANIAL CAROTID DUPLEX, BILATERAL CLINICAL INFORMATION: Carotid stenosis COMPARISON: Carotid ultrasound 03/06/2014. TECHNIQUE: Real-time ultrasound and Doppler techniques (integrating B-mode 2-D vascular images, Doppler spectral analysis and color-flow Doppler imaging) were utilized to interrogate the extracranial carotid arteries, the vertebral arteries and proximal subclavian arteries bilaterally. The degree of stenosis is determined by criteria similar to NASCET. FINDINGS: RIGHT SIDE: 1. There is moderate atherosclerotic plaque seen in the bifurcation/proximal ICA region. 2. The common carotid artery PSV proximally is 108 cm/s and distally 95 cm/s. 3. The proximal internal carotid artery velocities are 245 cm/s systolic and 30 cm/s diastolic (previously 117/45). 4. The proximal external carotid artery PSV is 132 cm/s. 5. The vertebral artery shows antegrade flow. 6. The subclavian artery waveforms are stenotic with a velocity of 250 cm/s. LEFT SIDE: 1. There is moderate atherosclerotic plaque seen in the bifurcation/proximal ICA region. 2. The common carotid artery PSV proximally is 132 cm/s and distally 96 cm/s. 3. The proximal internal carotid artery velocities are 127 cm/s systolic and 10 cm/s diastolic (previously 134/30). 4. The proximal external carotid artery PSV is 163 cm/s. 5. The vertebral artery shows antegrade flow. 6. The subclavian artery waveforms are stenotic with a velocity of 270 cm/s. US/US carotid duplex BI IMPRESSION: 1. RIGHT: Moderate, hemodynamically significant stenosis of the proximal right internal carotid artery corresponding to a 50-79% stenosis by velocity criteria. Since the prior study, velocities on the right have increased significantly increasing the disease category from 0-49% previously. 2. LEFT: Moderate, hemodynamically significant stenosis of the proximal left internal carotid artery corresponding to a 50-79% stenosis by velocity criteria. Since the prior study, velocities remain about the same and there is no change in the disease category. 3. Bilateral subclavian artery stenoses.
== END 2022-11-23 12:40 | disposition home or self-care (01) ==
LOC: HO.US 12:39
PROVIDERS: Visit Provider Internal Medicine
DX: I65.23 Occlusion and stenosis of bilateral carotid arteries (principal); I25.10 Atherosclerotic heart disease of native coronary artery without angina pectoris
CPT/HCPCS: 93880

== ENCOUNTER 2022-11-28 12:45 | Outpatient (REF) | payer OTHER, SELFPAY ==
[2022-11-28 13:00] LABS: MANUAL DIFF FLAG NO
[2022-11-28 13:28] LABS: Basophils Percent Auto 0.5 % (0-2); Eosinophils Absolute Auto 0.1 X10*3/uL (0.0-0.4); Eosinophils Percent Auto 2.2 % (0-4); Hematocrit 37.1 % (42.0-52.0); Hemoglobin 12.4 g/dl (14.0-18.0); Imm Gran Abs Auto 0.02 X10*3/uL (0.00-0.03); Imm Gran Pct Auto 0.3 % (0.0-0.4); Lymphocytes Absolute Auto 1.3 X10*3/uL (1.2-4.9); Lymphocytes Percent Auto 21.8 % (20-40); Mean Corpuscular HGB Conc 33.4 g/dl (31.0-36.0); Mean Corpuscular Hemoglobin 31.4 pg (27.0-33.0); Mean Corpuscular Volume 93.9 fL (80.0-98.0); Mean Platelet Volume 10.9 fL (9.4-12.4); Monocytes Absolute Auto 0.4 X10*3/uL (0.1-1.2); Monocytes Percent Auto 7.2 % (2-11); Neutrophils Absolute Auto 4.1 x10*3/uL (2.0-8.3); Platelet Count 120 X10*3/uL (160-400); Red Blood Count 3.95 X10*6/uL (4.60-5.80); Red Cell Distribution Width 14.4 % (11.0-16.0)
[2022-11-28 14:40] LABS: Anion Gap 13 (12-20); Blood Urea Nitrogen 25 mg/dL (9-16); Carbon Dioxide 24 mmol/L (22-29); Chloride 112 mmol/L (96-108); Estimated Glomerular Filt Rate 42; Phosphorus 3.2 mg/dL (2.7-4.5); Potassium 4.5 mmol/L (3.3-5.1); Sodium 144 mmol/L (135-145); Vitamin D 25-OH Total 21.9 ng/mL (>30)
[2022-11-29 14:54] LABS: Calcium (PTHI) 9.2 mg/dL (8.6-10.3); PTHI 100 pg/mL (16-77)
== END 2022-11-28 12:46 | disposition home or self-care (01) ==
LOC: HO.LAB 12:45
PROVIDERS: PCP Family Medicine; Visit Provider Internal Medicine Nephrology
DX: N18.32 Chronic kidney disease, stage 3b (principal)
CPT/HCPCS: 36415; 80051; 82306; 82310; 82565; 83970; 84100; 84520; 85025

== ENCOUNTER 2023-01-18 12:51 | Outpatient (REF) | payer OTHER, SELFPAY ==
--- NOTE | ~2023-01-18 | US_ITS ---
EXAMINATION: COLOR-FLOW DUPLEX IMAGING OF THE BILATERAL LOWER EXTREMITY ARTERIAL SYSTEM. VELOCITY MEASUREMENTS THROUGHOUT THE FEMORAL ARTERIES. CLINICAL INFORMATION: This is a 77 year-old and with peripheral vascular disease and a left superficial femoral artery and superficial femoral vein hemodialysis access graft. COMPARISON: Arterial duplex and left lower extremity angiography dated 08/21/2022. RIGHT FEMORAL RUNOFF VELOCITIES: The right common femoral artery peak systolic velocity is 162 cm/s. The waveform is biphasic. The right profunda femoral artery peak systolic velocity is 173 cm/s. The waveform is biphasic. The right proximal superficial femoral artery peak systolic velocity is 136 cm/s. The waveform is biphasic. At the junction of the proximal and mid right superficial femoral artery segments, there is a marked focal stenosis with peak systolic velocity of 253 cm/s. The right mid superficial femoral artery peak systolic velocity is 130 cm/s. The waveform is biphasic. The right distal superficial femoral artery peak systolic velocity is 119 cm/s. The waveform is biphasic. The right popliteal artery peak systolic velocity is 103 cm/s. The waveform is biphasic. The right posterior tibial artery peak systolic velocity is 101 cm/s. The waveform is biphasic. The right peroneal artery peak systolic velocity is 60 cm/s. The waveform is biphasic. LEFT FEMORAL RUNOFF VELOCITIES: The left common femoral artery peak systolic velocity is 173 cm/s. The waveform is triphasic. The left profunda femoral artery peak systolic velocity is 160 cm/s. The waveform is biphasic. The left proximal superficial femoral artery peak systolic velocity is 178 cm/s. The waveform is triphasic. The patient's left superficial femoral artery to superficial femoral vein hemodialysis access graft appears patent, with proximal turbulence. The left mid superficial femoral artery peak systolic velocity is 138 cm/s. The waveform is triphasic. The left distal superficial femoral artery peak systolic velocity is 180 cm/s. The waveform is triphasic. The left popliteal artery peak systolic velocity is 69 cm/s. The waveform is triphasic. The left posterior tibial artery peak systolic velocity is 45 cm/s. The waveform is monophasic. The left peroneal artery peak systolic velocity is 75 cm/s. The waveform is monophasic. The dorsalis pedis velocity measures 87 cm/s and is normal. US/US arterial duplex LE BI IMPRESSION: 1. There is a hemodynamically significant marked stenosis of the proximal to mid right superficial femoral artery. 2. There is a patent left superficial femoral artery and superficial femoral vein hemodialysis access graft, with proximal flow turbulence. 3. There is hemodynamically significant left popliteal and infrapopliteal arterial disease. EXAMINATION: NONINVASIVE ANKLE BRACHIAL INDICES OF BOTH LOWER EXTREMITIES CLINICAL INFORMATION: As above. COMPARISON: Arterial duplex dated 08/21/2022. TECHNIQUE: Ankle-brachial indices were calculated bilaterally and PVR tracings were performed at the level of the ankles. This study was performed at rest only. FINDINGS: a) AT REST: 1. The ankle-brachial indices are: Right 0.76 and left not obtained (hemodialysis access graft). >0.97-1.25 = normal - no significant arterial disease. 0.75-0.96 = mild peripheral arterial disease. 0.5-0.74 = moderate peripheral arterial disease. <0.50 = severe peripheral arterial disease. 2. PVR waveforms at ankle: Right unremarkable; left not obtained. IMPRESSION: 1. The right ankle-brachial index is consistent with mild peripheral arterial disease. 2. The left ankle-brachial index is not obtained.
== END 2023-01-18 12:52 | disposition home or self-care (01) ==
LOC: HO.US 12:51
PROVIDERS: PCP Family Medicine; Visit Provider Surgery Vascular Surgery
DX: I70.213 Atherosclerosis of native arteries of extremities with intermittent claudication, bilateral legs (principal)
CPT/HCPCS: 93923; 93925

== ENCOUNTER → 2023-01-24 12:46 | Outpatient (BNVA) | payer OTHER, SELFPAY | PROVIDERS: PCP Family Medicine; Visit Provider Surgery Vascular Surgery | DX: I73.9 Peripheral vascular disease, unspecified (principal) | CPT/HCPCS: 99212 ==

== ENCOUNTER → 2023-02-17 13:07 | Outpatient (BNVA) | payer OTHER, SELFPAY | PROVIDERS: PCP Family Medicine; Visit Provider Urology | DX: N40.1 Benign prostatic hyperplasia with lower urinary tract symptoms (principal); R35.1 Nocturia; R97.20 Elevated prostate specific antigen [PSA] | CPT/HCPCS: 51798; 99212 ==

== ENCOUNTER 2023-02-18 14:20 | Emergency (ER) | payer OTHER, SELFPAY ==
--- NOTE | ~2023-02-18 | XR_ITS ---
EXAMINATION: LEFT WRIST CLINICAL INFORMATION: Injury with pain COMPARISON: September 19, 2013 TECHNIQUE: 4 views of the left wrist including scaphoid view. FINDINGS: There is osteopenia visualized bones. No definite acute left wrist fractures identified. There is a 4 mm bony density about the dorsum of the wrist which may represent a nondisplaced avulsion triquetral fracture. There is soft tissue swelling overlying this region. There is degenerative change with narrowing and sclerosis of the triscaphe joint. There is triangular cartilage calcification. Prominent vascular calcifications are noted. There is a sclerotic line through the scaphoid which may be positional with overlying bone versus possible old healed fracture. XR/XR wrist LT w scaphoid IMPRESSION: Diffuse osteopenia. Suspicion of dorsal triquetral fracture with overlying soft tissue swelling.
[2023-02-18 14:26] VITALS: BP 128/62; PULSE 41; O2SAT 96
[2023-02-18 14:27] VITALS: BP 199/44; PULSE 41; RESP 18; TEMP 36.8; O2SAT 97; BMI 25.0
--- NOTE | 2023-02-18 14:29 | ED.GENADULT ---
HPI - General Adult General Chief complaint: Extremity Injury, Upper Stated complaint: FALL T-1,-LOC,L WRIST PAIN PER EMS Time Seen by Provider: 02/18/23 15:09 Source: patient Mode of arrival: ambulatory Limitations: no limitations History of Present Illness HPI narrative: 77-year-old mostly [place]er-speaking male with history of diabetes, neuropathy, HIV, CKD, PVD, history of osteomyelitis of the left toe, previously on dialysis with a left extremity fistula, HLD who presents to the ER for evaluation of left hand and wrist pain after he had a mechanical fall yesterday. Patient states that he was walking down the street, tripped on the sidewalk and fell on his left hand. He denies hitting his head or losing consciousness. He was able to get up with the assistance of to bystanders. He states he has had worsening pain and redness to the left hand and wrist. He has bruising to the area he also has redness to the back of his hand. He states it is worse with any movement or palpation. He denies any numbness, tingling. No fever or chills. No chest chest pain or shortness of breath. No dizziness or lightheadedness prior to falling. On arrival to the ER patient is bradycardic to 41. He is hypertensive 199 systolic. He has a history of hypertension and is on multiple antihypertensive medications. He has a history of sinus bradycardia as well as a history of 1st degree AV block. He is currently asymptomatic MD complaint: left wrist pain status post fall Onset (ago): day(s) (1) Location: left and upper extremity Radiation: distal Severity: moderate Severity scale (1-10): 7 Quality: aching Pain Consistency: constant Relieving factors: immobilization Exacerbating factors: movement Associated symptoms: denies other symptoms Treatments prior to arrival: none Related Data Home Medications Medication Instructions Recorded Confirmed albuterol sulfate 90 mcg/actuation 2 puff inhalation Q4-6H PRN Pain 09/09/20 02/17/23 aerosol inhaler (Ventolin HFA) aspirin 81 mg tablet,delayed 81 mg PO QAM 07/14/21 02/17/23 release bictegravir 50 mg-emtricitabine 1 tab PO BEDTIME 07/14/21 02/17/23 200 mg-tenofovir alafenam 25 mg tablet (Biktarvy) blood sugar diagnostic (FreeStyle #10 ea 10/27/21 06/02/23 Lite Strips) cholecalciferol (vitamin D3) 25 25 mcg PO QAM 07/14/21 02/17/23 mcg (1,000 unit) tablet lancets 33 gauge (TRUEplus Lancets) #100 ea 07/14/21 02/17/23 atorvastatin 20 mg tablet 20 mg PO DAILY 10/27/22 02/17/23 cyclobenzaprine 5 mg tablet 5 mg PO TID PRN 10/27/22 02/17/23 Previous Rx's Medication Instructions Recorded acetaminophen 325 mg tablet 650 mg PO Q6H PRN fever or pain 07/13/20 (Tylenol) #14 tabs docusate sodium 100 mg capsule 100 mg PO DAILY #30 caps 09/09/20 (Colace) blood-glucose meter (FreeStyle #1 ea 12/03/21 Lite Meter kit) insulin syringe-needle U-100 0.5 #200 ea 02/02/22 mL 31 gauge x 5/16 (BD Insulin Syringe Ultra-Fine) dulaglutide 3 mg/0.5 mL 3 mg (0.5 mL) subcut QWEEK 90 days 04/15/22 subcutaneous pen injector #6.5 mL ([facility]) lorazepam 1 mg tablet (Ativan) 1 mg PO BEDTIME PRN sleep #10 tabs 05/07/22 losartan 50 mg tablet 50 mg PO DAILY #30 tabs 08/29/22 prednisone 20 mg tablet 20 mg PO DAILY #5 tabs 08/29/22 insulin glargine 100 unit/mL 18 unit (0.18 mL) subcut BID 30 09/07/22 subcutaneous solution (Lantus days #10.8 mL U-100 Insulin) doxazosin 4 mg tablet 4 mg PO BEDTIME 90 days #90 tabs 09/20/22 finasteride 5 mg tablet 5 mg PO DAILY 90 days #90 tabs 09/29/22 doxycycline hyclate 100 mg tablet 100 mg PO BID 30 days #60 tabs 10/10/22 amoxicillin 875 mg-potassium 1 tab PO BID #14 tabs 02/18/23 clavulanate 125 mg tablet Allergies Allergy/AdvReac Type Severity Reaction Status Date / Time No Known Allergies Allergy Verified 02/18/23 14:26 [No Known Allergies*] Review of Systems Review of Systems: Yes all other systems are reviewed and are negative [facility] Past Medical History Medical History Asthma Atherosclerotic cardiovascular disease BPH (benign prostatic hyperplasia) BPH loc w urin obs/LUTS Chronic constipation CKD (chronic kidney disease) Diabetes type 2, controlled Diabetes type 2, controlled Diabetic nephropathy associated with type 2 diabetes mellitus Diabetic polyneuropathy associated with type 2 diabetes mellitus Dyslipidemia History of renal dialysis HIV (human immunodeficiency virus infection) Hypertension IDDM (insulin dependent diabetes mellitus) 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 Nocturia Renal failure Surgical History History of appendectomy History of colonoscopy History of foot surgery Family History Family History Son History of diabetes mellitus Social History Social History Household Members: None Housing: Apartment Do you presently have visiting nurse or other home services: No Alcohol intake: never Patient Tobacco Use Status: Former Tobacco user Smoked in Last 30 Days: No e-Cigarette/Vaping Use: Never Used Second Hand Smoke Exposure: No Use of substances other than those prescribed or required for medical reasons: No Advance Directives: Yes Advance Directives on File: Yes Advance Directives Date on File: 08/05/20 service: No Current occupational status: retired Physical Exam ED Vital Signs: Vital Signs - 24 hr 02/18/23 14:27 02/18/23 16:38 02/18/23 17:10 Temperature 98.2 F Pulse Rate 41 L 58 46 L Respiratory Rate 18 14 16 Blood Pressure 199/44 H 195/74 H 213/61 H Pulse Oximetry 97 96 Oxygen Delivery Method Room Air Room Air 02/18/23 18:05 Temperature Pulse Rate Respiratory Rate Blood Pressure 198/61 H Pulse Oximetry Oxygen Delivery Method BMI result Body Mass Index 25.0 Appearance: Alert. Oriented X3. No acute distress. HEENT: normal inspection CVS: Normal heart rate and rhythm. Pulses normal. Respiratory: No respiratory distress. Skin: Skin warm and dry. Normal skin color. Normal skin turgor. No rashes. Extremities: left upper extremity with dilated and or tortuous vascularity of the left forearm, palpable fistula with palpable thrill. Thrill extends into the radial artery, 2+ radial pulse. There is ecchymosis of the hypothenar area as well as the area over the 5th metacarpal. There is moderate diffuse erythema and warmth of the dorsum of the hand. No open wounds. The thenar eminence and palm have extensive bruising and superficial abrasions. Pain with hand grasp. Neurovascularly intact distally. Able to range all digits and wrist. Pain with range of motion of the wrist. He has snuffbox tenderness. Neuro: Oriented X 3. No motor deficit. No sensory deficit. Course Course Course Narrative: RME performed by Imelda Mohr PA-C. Patient is a 77 year old assigned male at presenting to the emergency department with left wrist pain. Patient states that yesterday he tripped and fell, did not hit his head, did not have any loss of consciousness, has left wrist pain. Imaging ordered. Patient placed back in the waiting room pending room availability and results. Medications Administered Discontinued Medications Generic Name Dose Route Start Last Admin Trade Name Freq PRN Reason Stop Dose Admin Acetaminophen 975 mg 02/18/23 16:32 02/18/23 16:39 Acetaminophen 325 Mg Tablet PO 02/18/23 16:33 975 mg ONCE ONE Administration Amlodipine Besylate 10 mg 02/18/23 16:31 02/18/23 16:39 Amlodipine Besylate 10 Mg Tablet PO 02/18/23 16:32 10 mg ONCE ONE Administration Protocol Amoxicillin/Clavulanate Potassium 875 mg 02/18/23 18:03 02/18/23 18:10 Amoxicillin/Potassium Clav 875 Mg Tablet PO 02/18/23 18:04 875 mg ONCE ONE Administration Medical Decision Making Medical Decision Making MDM Narrative: 77-year-old mostly [place]er-speaking male with history of diabetes, neuropathy, HIV, CKD, PVD, history of osteomyelitis of the left toe, previously on dialysis with a left extremity fistula, HLD who presents to the ER for evaluation of left hand and wrist pain after he had a mechanical fall yesterday. patient hypertensive and bradycardic on arrival. He is asymptomatic. He has history of the same. Basic labs were checked and seemed to be at his baseline. EKG reading AFib, do not agree. It appears to be either sinus arrhythmia or Mobitz type 1 which she has a history of. he has FOLFOX tenderness on examination. X-ray is showing a probable to cut tree 0 fracture. Case was discussed with orthopedics as well as Dr. Stephens. Orthopedics recommending splinting. Given the evidence of cellulitis on the dorsal aspect of the hand, will use a Velcro thumb spica splint that will also provide limited movement of the hand and wrist. will start on oral antibiotics for cellulitis. Will have him follow-up with his primary care doctor this week and observe closely. He will need to follow-up with orthopedics as well. Differential Diagnosis Differential Diagnoses: The differential diagnosis associated with the presentation includes hand cellulitis, broken wrist, broken hand, vascular injury Admission/Observation Consideration of admission/observation: Escalation of care including admission/observation considered multiple medical comorbidities Bradycardic, hypertensive, status post fall with cellulitic hand, considered admission Consult Healthcare Provider Management of the patient was discussed with: Bridge Gang Worker Juana from Orthopedics was consulted, recommend splinting Lab Data MDM Lab Attestation statement: I reviewed the patient's lab results. CKD, chronic thrombocytopenia 02/18/23 15:54 02/18/23 15:54 Labs: Lab Results 02/18/23 02/18/23 02/18/23 Range/Units 15:54 15:54 15:54 WBC 8.0 (4.8-10.8) X10*3/uL RBC 4.73 (4.60-5.80) X10*6/uL Hgb 14.4 (14.0-18.0) g/dl Hct 43.5 (42.0-52.0) % MCV 92.0 (80.0-98.0) fL MCH 30.4 (27.0-33.0) pg MCHC 33.1 (31.0-36.0) g/dl RDW 13.5 (11.0-16.0) % Plt Count 104 L (160-400) X10*3/uL MPV 11.3 (9.4-12.4) fL Immature Gran % (Auto) 0.2 (0.0-0.4) % Neut % (Auto) 73.1 H (45-73) % Lymph % (Auto) 14.5 L (20-40) % Cloud % (Auto) 10.5 (2-11) % Eos % (Auto) 1.5 (0-4) % Baso % (Auto) 0.2 (0-2) % Lymph # (Auto) 1.2 (1.2-4.9) X10*3/uL Cloud # (Auto) 0.8 (0.1-1.2) X10*3/uL Eos # (Auto) 0.1 (0.0-0.4) X10*3/uL Baso # (Auto) 0.0 (0.0-0.2) X10*3/uL Abs Immat Gran (auto) 0.02 (0.00-0.03) X10*3/uL Absolute Neuts (auto) 5.9 (2.0-8.3) x10*3/uL Absolute Nucleated RBC 0.000 (0.0-0.012) X10*3/uL Nucleated RBC % (auto) 0.0 (0.0-0.2) /100WBC PT 13.6 H (10.0-13.1) SEC INR 1.2 H (0.9-1.1) APTT 32.1 (26.0-36.4) SEC Sodium 145 (135-145) mmol/L Potassium 4.8 (3.3-5.1) mmol/L Chloride 114 H (96-108) mmol/L Carbon Dioxide 20 L (22-29) mmol/L Anion Gap 16 (12-20) BUN 25 H (9-16) mg/dL Creatinine 1.68 H (0.5-1.4) mg/dL Estim Creat Clear Calc 31.5 Estimated GFR 40 Random Glucose 156 H (60-115) mg/dL Calcium 9.0 (8.4-10.2) mg/dL Magnesium 1.9 (1.6-2.6) mg/dL Total Bilirubin 0.7 (0.0-1.0) mg/dL Direct Bilirubin 0.2 (0.0-0.5) mg/dL AST 26 (5-37) U/L ALT 50 H (0-40) U/L Alkaline Phosphatase 79 (39-117) U/L Total Protein 5.9 L (6.5-8.0) g/dL Albumin 3.6 (3.5-5.0) g/dL Independent Interpretation I performed an independent interpretation of an: EKG Interpretation: EKG with bradycardia, sinus arrhythmia, P waves are present, with being to be progressively longer OH intervals, possible trapped be, possible Mobitz type 1 degree AV block x-ray with positive duck poop sign consistent with triquetral fracture. agree with radiologist read Radiology Impression Discussion of test interpretation with radiology: I have reviewed the radiologist's reading. Radiologist Impression: XR/XR wrist LT w scaphoid IMPRESSION: Diffuse osteopenia. ? Suspicion of dorsal triquetral fracture with overlying soft tissue swelling External Record Review External record reviewed: Office record, Outpatient record, Prior outpatient labs and Prior outpatient radiology Prescription Management I considered prescription management with: Pain Medication and Antibiotic Chronic Conditions Patient?s care impacted by: Diabetes, Hypertension and Other ( HIV, PVD, PAD,) Discharge Plan Discharge Clinical Impression: Fracture of triquetral bone of left wrist, Cellulitis of hand, left Patient Disposition: Home, Self-Care Instructions: Hand Fracture (ED), Cellulitis (DC) Additional Instructions: Your x-ray showed a fractured bone your hand. Where the provided splint until you are seen by Orthopedics. Call the orthopedic office on Monday to make an appointment. Elevate and ice your hand several times per day. Take Tylenol around the clock as needed for pain. You're being started on antibiotics for possible cellulitis which is the redness of your hand. start the antibiotics 1st thing tomorrow morning. Your given 1st dose today in the emergency department. If the redness and swelling of the back of your left hand get worse despite antibiotics, call your doctor or 911 to come back to the ER for further evaluation. Tu radiograf?a mostr? un hueso fracturado en tu mano. Donde la f?hailey provista hasta que sea visto por [employer]. Llame a la oficina de [employer] el lunes para hacer daphne abhijeet. Eleve y ponga hielo en fuller mano varias veces al d?a. [place] Tylenol riaz todo el d?a seg?n sea necesario para el dolor. Est? comenzando con antibi?ticos para daphne posible celulitis, que es el enrojecimiento de la mano. comience los antibi?ticos a primera hora de la ma?adolfo. Fuller primera dosis stanislav hoy en el departamento de emergencias. Si el enrojecimiento y la hinchaz?n del dorso de la mano izquierda empeoran a pesar de los antibi?ticos, llame a fuller m?dico o al 911 para volver a la ulises de emergencias para daphne evaluaci?n adicional. Prescriptions: New amoxicillin-pot clavulanate 875-125 mg tablet 1 tab PO BID Qty: 14 0RF No Action (DME) blood-glucose meter [FreeStyle Lite Meter] Kit See Rx Instructions .Route Qty: 1 0RF Rx Instructions: As directed (DME) insulin syringe-needle U-100 [BD Insulin Syringe Ultra-Fine] 0.5 mL 31 gauge x 5/16 syringe See Rx Instructions .ROUTE .MEDSUPPLY Qty: 200 3RF Rx Instructions: Twice a day Trulicity 3 mg/0.5 mL pen injector 3 mg subcut QWEEK 90 Days Qty: 6.5 1RF Rx Instructions: dose increased. Lantus U-100 Insulin 100 unit/mL solution 18 unit subcut BID 30 Days Qty: 10.8 0RF Rx Instructions: future refills from pcp doxazosin 4 mg tablet 4 mg PO BEDTIME 90 Days Qty: 90 1RF finasteride 5 mg tablet 5 mg PO DAILY 90 Days Qty: 90 1RF acetaminophen [Tylenol] 325 mg tablet 650 mg PO Q6H PRN (Reason: fever or pain) Qty: 14 0RF lorazepam [Ativan] 1 mg tablet 1 mg PO BEDTIME PRN (Reason: sleep) Qty: 10 0RF losartan 50 mg Tablet 50 mg PO DAILY Qty: 30 0RF Protocol: Hold for SBP< HOLD for SBP < : 90 prednisone 20 mg tablet 20 mg PO DAILY Qty: 5 0RF docusate sodium [Colace] 100 mg capsule 100 mg PO DAILY Qty: 30 2RF albuterol sulfate [Ventolin HFA] 90 mcg/actuation HFA aerosol inhaler 2 puff inhalation Q4-6H PRN (Reason: Pain) (DME) FreeStyle Lite Strips Strip See Rx Instructions Not Applicable TID Qty: 10 Rx Instructions: As directed aspirin 81 mg tablet,delayed release (DR/EC) 81 mg PO QAM cholecalciferol (vitamin D3) 25 mcg (1,000 unit) tablet 25 mcg PO QAM (DME) lancets [TRUEplus Lancets] 33 gauge misc See Rx Instructions Not Applicable TID Qty: 100 Rx Instructions: As directed Biktarvy 50-200-25 mg tablet 1 tab PO BEDTIME doxycycline hyclate 100 mg tablet 100 mg PO BID 30 Days Qty: 60 0RF atorvastatin 20 mg tablet 20 mg PO DAILY cyclobenzaprine 5 mg tablet 5 mg PO TID PRN Referrals: [facility] [place] Orth[facility] Surgeons [Provider Group] ( Snuffbox tenderness, triquetral fracture) Jessie Smith MD [Primary Care Provider] - Interventions: ED Discharge Assessment Last Done: 02/18/23 18:15 Discharge Date/Time: 02/18/23 18:40 Print Language: [place]
--- NOTE | 2023-02-18 15:35 | ECG_ITS ---
Test Reason : BRADYCARDIA Blood Pressure : / mmHG Vent. Rate : 043 BPM Atrial Rate : 000 BPM P-R Int : 000 ms QRS Dur : 094 ms QT Int : 508 ms P-R-T Axes : 000 -10 062 degrees QTc Int : 429 ms Normal sinus rhythm with with 2nd degree SA block (Mobitz I) Incomplete right bundle branch block Moderate voltage criteria for LVH, may be normal variant ( Sokolow-[place] , [place] product ) Septal infarct , age undetermined Abnormal ECG When compared with ECG of 07-MAY-2022 02:11, Normal sinus rhythm with 2nd degree SA block (Mobitz I) has replaced Normal sinus rhythm with 1st degree A-V block Septal infarct is now Present Referred By: Nancy Kuo Electronically Signed By:CHARIS DONNELLY MD
[2023-02-18 16:20] LABS: MANUAL DIFF FLAG NO
[2023-02-18 16:23] LABS: Basophils Percent Auto 0.2 % (0-2); Eosinophils Absolute Auto 0.1 X10*3/uL (0.0-0.4); Eosinophils Percent Auto 1.5 % (0-4); Hematocrit 43.5 % (42.0-52.0); Hemoglobin 14.4 g/dl (14.0-18.0); Imm Gran Abs Auto 0.02 X10*3/uL (0.00-0.03); Imm Gran Pct Auto 0.2 % (0.0-0.4); Lymphocytes Absolute Auto 1.2 X10*3/uL (1.2-4.9); Lymphocytes Percent Auto 14.5 % (20-40); Mean Corpuscular HGB Conc 33.1 g/dl (31.0-36.0); Mean Corpuscular Hemoglobin 30.4 pg (27.0-33.0); Mean Platelet Volume 11.3 fL (9.4-12.4); Monocytes Absolute Auto 0.8 X10*3/uL (0.1-1.2); Monocytes Percent Auto 10.5 % (2-11); Neutrophils Absolute Auto 5.9 x10*3/uL (2.0-8.3); Neutrophils Percent Auto 73.1 % (45-73); Platelet Count 104 X10*3/uL (160-400); Red Blood Count 4.73 X10*6/uL (4.60-5.80); Red Cell Distribution Width 13.5 % (11.0-16.0)
--- NOTE | 2023-02-18 16:29 | PC.NURSE ---
pt a&ox4, bradycardic, hypertensive, other vss, EKG performed, teletypesetter monitor applied, pt reporting 2/10 left hand/wrist pain s/p fall - reports tripping on curb and placing hands out to catch fall, labs drawn, attempted IV placement but was unable to establish access. pt pending lab results.
[2023-02-18 16:35] LABS: INTERNATIONAL NORM RATIO 1.2 (0.9-1.1); Prothrombin Time 13.6 SEC (10.0-13.1)
[2023-02-18 16:37] LABS: Partial Thromboplastin Time 32.1 SEC (26.0-36.4)
[2023-02-18 16:38] VITALS: BP 195/74; PULSE 58; RESP 14; O2SAT 96
[2023-02-18] MEDS: Acetaminophen 325 MG TABLET 975 MG PO (16:39)
[2023-02-18] MEDS: amLODIPine Besylate 10 MG TABLET PO (16:39)
[2023-02-18 16:54] LABS: Alanine Aminotransferase 50 U/L (0-40); Albumin Level 3.6 g/dL (3.5-5.0); Alkaline Phosphatase 79 U/L (39-117); Anion Gap 16 (12-20); Aspartate Amino Transferase 26 U/L (5-37); Bilirubin Direct 0.2 mg/dL (0.0-0.5); Bilirubin Total 0.7 mg/dL (0.0-1.0); Blood Urea Nitrogen 25 mg/dL (9-16); Carbon Dioxide 20 mmol/L (22-29); Chloride 114 mmol/L (96-108); Creatinine Clr Calc Pharmacy 31.5; Estimated Glomerular Filt Rate 40; Glucose Random 156 mg/dL (60-115); Magnesium 1.9 mg/dL (1.6-2.6); Potassium 4.8 mmol/L (3.3-5.1); Sodium 145 mmol/L (135-145); Total Protein 5.9 g/dL (6.5-8.0)
[2023-02-18 17:10] VITALS: BP 213/61; PULSE 46; RESP 16
[2023-02-18 18:05] VITALS: BP 198/61
[2023-02-18] MEDS: Amoxicillin/Potassium Clav 875 MG TABLET PO (18:10)
--- NOTE | 2023-02-18 18:31 | PC.NURSE ---
reviewed discharge instruction w flower picker. attempted to contact ride for pt, d/c pending transportation home, pending ride from friend.
== END 2023-02-18 18:40 | disposition home or self-care (01) ==
PROVIDERS: Physician Assistant; Emergency Provider Emergency Medicine; PCP Family Medicine
DX: S62.102A Fracture of unspecified carpal bone, left wrist, initial encounter for closed fracture (principal); L03.114 Cellulitis of left upper limb; R00.1 Bradycardia, unspecified; W01.0XXA Fall on same level from slipping, tripping and stumbling without subsequent striking against object, initial encounter; Y93.9 Activity, unspecified; Y92.9 Unspecified place or not applicable; Y99.9 Unspecified external cause status; Z87.891 Personal history of nicotine dependence; Z79.899 Other long term (current) drug therapy
CPT/HCPCS: 36415; 73110; 80048; 80076; 83735; 85025; 85610; 85730; 93005; 99283; 99285

== ENCOUNTER 2023-03-13 12:36 | Outpatient (REF) | payer OTHER, SELFPAY ==
[2023-03-13 14:44] LABS: Prostate Specific Antigen 1.61 ng/mL (<0.05-4.0)
== END 2023-03-13 12:37 | disposition home or self-care (01) ==
LOC: HO.LAB 12:36
PROVIDERS: PCP Family Medicine; Visit Provider Urology
DX: N40.1 Benign prostatic hyperplasia with lower urinary tract symptoms (principal); Z12.5 Encounter for screening for malignant neoplasm of prostate
CPT/HCPCS: 36415; 84153

== ENCOUNTER 2023-03-29 12:44 | Outpatient (AMB) | payer OTHER, SELFPAY ==
--- NOTE | 2023-03-29 12:55 | A.OFFVIS_ITS ---
Intake Intake Visit Reasons: cysto/labs(set) Intake Note: Patient presents today for a CYSTO Procedure * Meds: None * Antibiotic: None * Blood Thinner: None * Urinalysis test clear for Cysto Disposible Uro-G Cystoscope Cannula * Lot: [id number] * Exp: 06/22/2025 Manager Resource Required: No Accompanied by: Self / Same As Patient Allergies No Known Allergies [No Known Allergies*] Allergy (Verified 03/29/23 12:56) HPI HPI Comments History of Present Illness Details Husam is a pleasant male. He is a patient of . He is seen for the following urologic condition - lower urinary tract symptoms - elevated PSA Italian translation provided by qualified medical records assistant Good response to finasteride with PSA drop Cystoscopy with grade 1/2 trabeculation, mild trilobar hypertrophy Would prefer to stay on medications Six month follow-up PVR Lower urinary tract symptoms Longstanding BPH Has nocturia x3 with some frequency Current medications Hytrin 4 mg with finasteride 04/09 Cystoscopy with grade 1/2 trabeculation, mild trilobar hypertrophy PSA 09/05 2.1, 09/07 3.1, 10/10 5.1 25%Free, 03/10 1.6 PFSH Medical History Asthma Atherosclerotic cardiovascular disease BPH (benign prostatic hyperplasia) BPH loc w urin obs/LUTS Chronic constipation CKD (chronic kidney disease) Diabetes type 2, controlled Diabetes type 2, controlled Diabetic nephropathy associated with type 2 diabetes mellitus Diabetic polyneuropathy associated with type 2 diabetes mellitus Dyslipidemia History of renal dialysis HIV (human immunodeficiency virus infection) Hypertension IDDM (insulin dependent diabetes mellitus) 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 Nocturia Renal failure Surgical History History of appendectomy History of colonoscopy History of foot surgery Family History Son History of diabetes mellitus Social History Household Members: None Housing: Apartment Do you presently have visiting nurse or other home services: No Alcohol intake: never Patient Tobacco Use Status: Former Tobacco user e-Cigarette/Vaping Use: Never Used Second Hand Smoke Exposure: No Advance Directives Date on File: 08/05/20 service: No Current occupational status: retired Review of Systems Const Denies chills and Denies fever(s) Card Reports no additional complaints and Denies syncope Resp Denies cough GI Denies abdominal pain and Denies heartburn Reports as per HPI and Denies change in libido Neuro Denies syncope Psych Denies change in libido Endo Denies change in libido Physical Exam Const General: cooperative, healthy appearing, comfortable and no acute distress Orientation/consciousness: patient oriented x3 HEENT Face and sinus: Yes normal facial exam Mouth: moist mucous membranes Neck Neck: Yes normal visual inspection, Yes full ROM and Yes trachea midline Chest Chest palpation & inspection: normal inspection of the chest Resp Effort & Inspection: normal respiratory effort, able to speak in complete sentences and no respiratory distress GI Inspection: Yes normal to inspection Back/Spine/Pelvis Cervical Spine: normal cervical lordosis Thoracic/Lumbar Spine: thoracic and lumbar spine normal to inspection Skin General skin exam: no rashes or lesions noted Neuro General: patient oriented x3, gait normal, tone normal and moves all extremities Extrem General: Yes normal to inspection and Yes capillary refill normal Office Procedures Cystoscopy Consent Discussed risk and benefit or proposed procedure with the patient. Information consent for procedure given to the patient. Discussed technical aspects, risks, benefits and alternatives in full. Addressed all of the patient's questions and concerns regarding the procedure. The patient demonstrated knowledge and understanding. They wish to proceed with this procedure. Preparation The patient was prepped in the usual manner. A percolator operator was present and in the room. Genitalia was prepped with betadine solution in a sterile manner. Lidocaine Jelly 2% was placed into the urethra and 16Fr flexible Olympus cystoscope was inserted into the meatus after adequate lubrication. Procedure Meatus uncircumcised Urethra anterior posterior urethra normal Prostatic Urethra mild trilobar hypertrophy Bladder examination with retroflexion of cystoscope Bladder Orifices normal shape and position Bladder Capacity medium Trabeculations grade 1/2 Cellule Formation - Diverticulum Formation - Mucosal Erythema - Bladder Tumor - [id number] Procedure code (CPT) selection complete Office Meds lidocaine HCl Performing Provider: Aurelio Foster MD Administered by: Kimberly Morales RN on 03/29/23 13:33 Dose Route Admin Location Lot Number Expiration Date NDC [place] 10 mL intra-urethral nitrofurantoin monohyd/m-cryst 100 mg Performing Provider: Aurelio Foster MD Administered by: Kimberly Morales RN on 03/29/23 13:33 Dose Route Admin Location Lot Number Expiration Date [place] [employer] [place] 100 mg PO Results AMB Urinalysis, Automated UA Leukoctes 0 Candice/uL Last Edit by Delia Owens Kristi on 03/29/23 13:22 UA Nitrite Negative Last Edit by [facility] on 03/29/23 13:22 UA Urobilinogen 0.2 mg/dL Last Edit by Delia [facility] on 03/29/23 13:2 2 UA Protein 300 mg/dL Last Edit by Delia [facility] on 03/29/23 13:22 3+ Delia Owens 03/29/23 13:22 UA pH 6.0 Last Edit by Delia [facility] on 03/29/23 13:22 UA Blood 0 Nakul/uL Last Edit by Delia [facility] on 03/29/23 13:22 UA Specific [place] 0 Last Edit by Delia [facility] on 03/29/23 13:22 UA Ketone Negative Last Edit by Delia [facility] on 03/29/23 13:22 UA Bilirubin 0 mg/dL Last Edit by Delia [facility] on 03/29/23 13:22 UA Glucose 0 mg/dL Last Edit by Delia [facility] on 03/29/23 13:22 Results Reviewed Results Reviewed: Laboratory Last Values Urine pH (Auto) 6.0 03/29/23 13:20 Specific [place] (Auto) 0 03/29/23 13:20 Urine Protein (Auto) 300 mg/dL 03/29/23 13:20 Glucose (UA)(Auto) 0 mg/dL 03/29/23 13:20 Urine Ketones (Auto) Negative 03/29/23 13:20 Urine Blood (Auto) 0 Nakul/uL 03/29/23 13:20 Urine Nitrite (Auto) Negative 03/29/23 13:20 Urine Bilirubin (Auto) 0 mg/dL 03/29/23 13:20 Urine Urobilinogen (Auto) 0.2 mg/dL 03/29/23 13:20 Leukocyte Esterase (Auto) 0 Candice/uL 03/29/23 13:20 Assessment & Plan Assessment & Plan (1) BPH loc w urin obs/LUTS: Code(s): N40.1 - Benign prostatic hyperplasia with lower urinary tract symptoms Plan Continue medications 6 month follow-up Orders: Orders AMB Cystoscopy Today N40.1 - Benign prostatic hyperplasia with lower urinary tract symptoms AMB Urinalysis Automated Today Z13.9 - Encounter for screening, unspecified Patient Instructions: Imaging studies, laboratory and physical exam results were discussed and reviewed in detail. No major barriers to patient understanding were identified. An opportunity to ask questions regarding the treatment plan was provided. All questions were answered. The patient expressed understanding and agreement with the above treatment plan. The patient is aware they should contact our office by phone for worsening of their current condition or the appearance of new urologic symptoms. Compliance is encouraged with any medications and followup testing that is ordered. It is a privilege to participate in the urologic care of your patient. If you have any questions or concerns regarding treatment for the above conditions, or other urologic issues, please do not hesitate to contact me. The office telephone contact is [phone]. This note is constructed using voice recognition software. While every effort has been made to ensure accuracy confidential secretary errors may have been included. Yours sincerely, Dr Aurelio Foster MD, [facility] - Urology Providers of Expert, Compassionate Care for the Genitourinary System Coding Level of Care Code Est Pt Level 3 (52322) Diagnoses BPH loc w urin obs/LUTS N40.1 CPT Codes Cystoscopy - CPT: 24180-[id number] ([id number])
== END 2023-03-29 13:59 | disposition home or self-care (01) ==
PROVIDERS: PCP Family Medicine; Visit Provider Urology
DX: N40.1 Benign prostatic hyperplasia with lower urinary tract symptoms (principal); R35.1 Nocturia; R97.20 Elevated prostate specific antigen [PSA]
CPT/HCPCS: 52000; 99213

== ENCOUNTER → 2023-03-29 12:44 | Outpatient (BNVA) | payer OTHER, SELFPAY | PROVIDERS: PCP Family Medicine; Visit Provider Urology | DX: N40.1 Benign prostatic hyperplasia with lower urinary tract symptoms (principal) | CPT/HCPCS: 52000; 99212 ==

== ENCOUNTER 2023-05-08 12:30 | Outpatient (AMB) | payer OTHER, SELFPAY ==
--- NOTE | 2023-05-08 12:48 | MHC.OFFVIS ---
Intake Vital Signs 05/08/23 12:51 Height 5 ft 5 in Weight 146 lb 13.246 oz BMI 24.4 BP 150/64 H Blood Pressure Location Rt brachial Position Sitting Pulse 51 Intake Visit Reasons: 6 mth f/up us Intake Note: 6 month follow up Supervisor Inspection And Testing Required: Yes Supervisor Inspection And Testing Language: Wiping Rag Washer Name: Petr [id number] Accompanied by: Self / Same As Patient Allergies No Known Allergies [No Known Allergies*] Allergy (Verified 05/08/23 12:52) Medication List - Last Reconciled 05/08/23 by Radhames Flores MD acetaminophen (Tylenol) 650 mg (2 x 325 mg) PO Q6H PRN albuterol sulfate 90 mcg/actuation (Ventolin HFA) 2 puffs inhalation Q4-6H PRN aspirin 81 mg PO QAM atorvastatin 20 mg PO DAILY cvxshveya-xaufeqrc-toopdez ala 50-200-25 mg (Biktarvy) 1 tab PO BEDTIME blood sugar diagnostic (FreeStyle Lite Strips) As directed blood-glucose meter (FreeStyle Lite Meter kit) As directed cholecalciferol (vitamin D3) 25 mcg PO QAM cyclobenzaprine 5 mg PO TID PRN docusate sodium (Colace) 100 mg PO DAILY doxazosin 4 mg PO BEDTIME 90 days doxycycline hyclate 100 mg PO BID 30 days dulaglutide (Trulicity) 3 mg (0.5 mL) subcut QWEEK 90 days finasteride 5 mg PO DAILY 90 days insulin glargine (Lantus U-100 Insulin) 18 units (0.18 mL) subcut BID 30 days insulin syringe-needle U-100 (BD Insulin Syringe Ultra-Fine) Twice a day lancets (TRUEplus Lancets) As directed lorazepam (Ativan) 1 mg PO BEDTIME PRN losartan 50 mg See Protocol PO DAILY prednisone 20 mg PO DAILY HPI HPI Comments History of Present Illness Details Husam returns for follow-up various cardiac issues. Multiple comorbidities including carotid vascular disease, suspected coronary disease, diabetes, hypertension, dyslipidemia, HIV. Overall, he states he is doing okay. No specific complaints like angina or shortness of breath or in fact anything cardiac sounding. Was supposed to get a repeat Holter and carotid ultrasound but he refused them. [facility] Medical History Asthma Atherosclerotic cardiovascular disease BPH (benign prostatic hyperplasia) BPH loc w urin obs/LUTS Chronic constipation CKD (chronic kidney disease) Diabetes type 2, controlled Diabetes type 2, controlled Diabetic nephropathy associated with type 2 diabetes mellitus Diabetic polyneuropathy associated with type 2 diabetes mellitus Dyslipidemia History of renal dialysis HIV (human immunodeficiency virus infection) Hypertension IDDM (insulin dependent diabetes mellitus) nursing home (current) use of insulin Nocturia Renal failure Surgical History History of appendectomy History of colonoscopy History of foot surgery Family History Son History of diabetes mellitus Social History Household Members: None Housing: Apartment Do you presently have visiting nurse or other home services: No Alcohol intake: never Patient Tobacco Use Status: Former Tobacco user e-Cigarette/Vaping Use: Never Used Second Hand Smoke Exposure: No Advance Directives Date on File: 08/05/20 service: No Current occupational status: retired Review of Systems Const Denies weakness ENT Denies dizziness Card Denies chest pain, Denies chest pain with activity, Denies syncope, Denies rapid heart rate, Denies pedal edema, Denies edema, Denies leg edema, Denies lightheadedness, Denies palpitations, Denies dyspnea, Denies dyspnea on exertion and Denies orthopnea Resp Denies cough, Denies dyspnea and Denies dyspnea on exertion GI Denies hematochezia and Denies change in stool character Musc Denies abnormal gait, Denies muscle cramps, Denies muscle weakness, Denies numbness, Denies radiating pain into limb and Denies tingling Neuro Denies Abnormal speech present, Denies abnormal gait, Denies dizziness, Denies syncope, Denies numbness, Denies tingling and Denies weakness Endo Denies palpitations Physical Exam Vital Signs: Last Vital Signs Pulse 51 05/08/23 12:51 BP 150/64 H 05/08/23 12:51 BMI result Body Mass Index 24.4 Const General: comfortable and no acute distress Orientation/consciousness: patient oriented x3 HEENT Other: Unremarkable Head: Yes normal to inspection Neck Neck: Yes normal visual inspection Chest Chest palpation & inspection: normal inspection of the chest Resp Auscultation: clear to auscultation bilaterally Cardio Palpation: normal PMI Heart sounds: S1 normal heart sound present, S2 normal heart sound present, no gallops, Murmur heart sound present systolic I/ and at the right sternal border and no rubs GI Palpation (GI): Soft to palpation Back/Spine/Pelvis Other: unremarkable Skin General skin exam: no rashes or lesions noted Neuro General: patient oriented x3 Speech: No Abnormal speech present Extrem General: Yes normal to inspection Psych Mental Status: mental status grossly normal Assessment & Plan Assessment & Plan (1) Atherosclerotic cardiovascular disease: Code(s): I25.10 - Atherosclerotic heart disease of [place] coronary artery without angina pectoris (2) Mobitz type 1 second degree AV block: Code(s): I44.1 - Atrioventricular block, second degree (3) Diabetes type 2, controlled: Code(s): E11.9 - Type 2 diabetes mellitus without complications (4) Hypertension: Code(s): I10 - Essential (primary) hypertension (5) Dyslipidemia: Code(s): E78.5 - Hyperlipidemia, unspecified (6) History of renal dialysis: Code(s): Z92.89 - Personal history of other medical treatment (7) HIV (human immunodeficiency virus infection): Code(s): B20 - Human immunodeficiency virus [HIV] disease (8) PAD (peripheral artery disease): Comment: 08/24/2022 - diagnostic angiogram Code(s): I73.9 - Peripheral vascular disease, unspecified Plan Cardiac studies reviewed EKG with sinus bradycardia 50/Min; AL prolongation to 392 millisecond; normal QT. Echocardiogram with LVEF 55-60%; basal inferior/inferior septal akinesis. Qtpq-bx-ldjksylf aortic stenosis. Dobutamine stress Mibi shows mostly fixed inferior/inferior septal defect with slight reversibility in the mid inferior wall. Probable infarct with minimal ischemia. Holter shows underlying sinus rhythm/primarily bradycardia with a heart rate of 50/Min. There is evidence of Mobitz type 1 heart block, transient complete heart block. Carotid ultrasound shows moderate hemodynamically seems stenosis in both the right as well as left internal carotid arteries. Overall, multiple medical comorbidities and established coronary/vascular disease. In the absence of symptoms, aggressive, secondary risk factor modification. Blood pressure seems to be on the higher side and he needs to check blood pressures at home. We discussed about this today. If needed, blood pressure medications preferably to be changed through his own PCP to avoid any confusion. Lipids are well controlled on the current regimen although nothing available from recent checks. Recommend repeating his Holter as well as carotid ultrasound. Previously refusing but now agreeable. Follow-up in 6 months. In the interim, he will call with concerns. Coding Level of Care Code Est Pt Level 4 (38283) Diagnoses Atherosclerotic cardiovascular disease I25.10 Mobitz type 1 second degree AV block I44.1 Diabetes type 2, controlled E11.9 Hypertension I10 Dyslipidemia E78.5 History of renal dialysis Z92.89 HIV (human immunodeficiency virus infection) B20 PAD (peripheral artery disease) I73.9
[2023-05-08 12:51] VITALS: BP 150/64; PULSE 51; BMI 24.4
== END 2023-05-08 13:21 | disposition home or self-care (01) ==
PROVIDERS: PCP Family Medicine; Referring Provider Family Medicine; Visit Provider Internal Medicine
DX: I25.10 Atherosclerotic heart disease of native coronary artery without angina pectoris (principal); I44.1 Atrioventricular block, second degree; E11.9 Type 2 diabetes mellitus without complications; I10 Essential (primary) hypertension; E78.5 Hyperlipidemia, unspecified; Z92.89 Personal history of other medical treatment; B20 Human immunodeficiency virus [HIV] disease; I73.9 Peripheral vascular disease, unspecified
CPT/HCPCS: 99214

== ENCOUNTER → 2023-05-08 12:30 | Outpatient (BNVA) | payer OTHER, SELFPAY | PROVIDERS: PCP Family Medicine; Referring Provider Family Medicine; Visit Provider Internal Medicine | DX: I25.10 Atherosclerotic heart disease of native coronary artery without angina pectoris (principal); I44.1 Atrioventricular block, second degree; I73.9 Peripheral vascular disease, unspecified; I12.0 Hypertensive chronic kidney disease with stage 5 chronic kidney disease or end stage renal disease; N18.6 End stage renal disease; N17.9 Acute kidney failure, unspecified; E11.9 Type 2 diabetes mellitus without complications; E78.5 Hyperlipidemia, unspecified; B20 Human immunodeficiency virus [HIV] disease; Z87.891 Personal history of nicotine dependence; Z92.89 Personal history of other medical treatment | CPT/HCPCS: 99212 ==

== ENCOUNTER 2023-05-25 10:48 | Outpatient (REF) | payer OTHER, SELFPAY ==
[2023-05-25 13:12] LABS: MANUAL DIFF FLAG NO
[2023-05-25 13:27] LABS: Basophils Percent Auto 0.5 % (0-2); Eosinophils Absolute Auto 0.1 X10*3/uL (0.0-0.4); Eosinophils Percent Auto 2.1 % (0-4); Hemoglobin 14.1 g/dl (14.0-18.0); Imm Gran Abs Auto 0.03 X10*3/uL (0.00-0.03); Imm Gran Pct Auto 0.5 % (0.0-0.4); Lymphocytes Absolute Auto 1.5 X10*3/uL (1.2-4.9); Mean Corpuscular HGB Conc 33.6 g/dl (31.0-36.0); Mean Corpuscular Hemoglobin 30.1 pg (27.0-33.0); Mean Corpuscular Volume 89.7 fL (80.0-98.0); Mean Platelet Volume 11.6 fL (9.4-12.4); Monocytes Absolute Auto 0.4 X10*3/uL (0.1-1.2); Monocytes Percent Auto 7.5 % (2-11); Neutrophils Absolute Auto 3.6 x10*3/uL (2.0-8.3); Neutrophils Percent Auto 63.4 % (45-73); Platelet Count 142 X10*3/uL (160-400); Red Blood Count 4.68 X10*6/uL (4.60-5.80); Red Cell Distribution Width 16.6 % (11.0-16.0); White Blood Count 5.7 X10*3/uL (4.8-10.8)
[2023-05-25 13:39] LABS: Appearance Urine Clear; Color Urine Yellow; Glucose Urine UA 100 mg/dL (Negative); Leukocyte Esterase Urine Negative (Negative); Nitrite Urine Negative (Negative); PH 5.5 (5.0-9.0); Urine Blood Negative (Negative); Urine Ketones Negative (Negative); Urine Protein >=1000 (4+) mg/dL (Neg-Trace)
[2023-05-25 13:48] LABS: Bacteria Urine None Seen (None Seen); RBC Urine 0-2 /HPF (0-2); Squamous Epithelial Cell Urine 0-2 /HPF (0-2); WBC Urine 0-5 /HPF (0-5)
[2023-05-25 13:49] LABS: Alanine Aminotransferase 22 U/L (0-40); Albumin Level 3.6 g/dL (3.5-5.0); Alkaline Phosphatase 81 U/L (39-117); Anion Gap 13 (12-20); Aspartate Amino Transferase 22 U/L (5-37); Bilirubin Total 0.6 mg/dL (0.0-1.0); Blood Urea Nitrogen 29 mg/dL (9-16); Calcium 8.9 mg/dL (8.4-10.2); Carbon Dioxide 21 mmol/L (22-29); Chloride 115 mmol/L (96-108); Estimated Glomerular Filt Rate 34; Glucose Random 136 mg/dL (60-115); Potassium 4.6 mmol/L (3.3-5.1); Sodium 144 mmol/L (135-145); Total Protein 6.1 g/dL (6.5-8.0)
[2023-05-27 22:17] LABS: TS Negative Control Passed; TS Panel A 0; TS Panel B 0; TS Positive Control Passed; TSpotTB Negative (Negative)
[2023-05-28 10:09] LABS: HIV RNA PCR Qn Copies 52 copies/mL (NOT DETECTED); HIV RNA PCR Qn Log Copies 1.72 (NOT DETECTED)
[2023-05-29 07:39] LABS: Absolute CD3 Count 1126 cells/uL (840-3060); Absolute CD4 Count 504 cells/uL (490-1740); Absolute CD8 Count 637 cells/uL (180-1170); Absolute Lymphocytes 1496 cells/uL (850-3900); CD4 CD8 Ratio 0.79 (0.86-5.00); Percent CD3 Cells 75 % (57-85); Percent CD4 Cells 34 % (30-61); Percent CD8 Cells 43 % (12-42)
[2023-05-29 15:07] LABS: RPR Rapid Plasma Reagin NON-REACTIVE (NON-REACTIVE)
== END 2023-05-25 10:49 | disposition home or self-care (01) ==
LOC: HO.HHCL 10:48
PROVIDERS: Visit Provider Internal Medicine
DX: B20 Human immunodeficiency virus [HIV] disease (principal)
CPT/HCPCS: 36415; 80053; 81001; 85025; 86359; 86360; 86481; 86592; 87536

== ENCOUNTER 2023-06-05 12:34 | Outpatient (REF) | payer OTHER, SELFPAY ==
[2023-06-05 14:46] LABS: Anion Gap 11 (12-20); Blood Urea Nitrogen 22 mg/dL (9-16); Calcium 9.3 mg/dL (8.4-10.2); Carbon Dioxide 26 mmol/L (22-29); Chloride 112 mmol/L (96-108); Estimated Glomerular Filt Rate 38; Potassium 4.7 mmol/L (3.3-5.1); Sodium 144 mmol/L (135-145)
[2023-06-05 15:06] LABS: Vitamin D 25-OH Total 24.2 ng/mL (>30)
== END 2023-06-05 12:35 | disposition home or self-care (01) ==
LOC: HO.LAB 12:34
PROVIDERS: PCP Family Medicine; Visit Provider Internal Medicine Nephrology
DX: N25.81 Secondary hyperparathyroidism of renal origin (principal); I12.9 Hypertensive chronic kidney disease with stage 1 through stage 4 chronic kidney disease, or unspecified chronic kidney disease; N18.32 Chronic kidney disease, stage 3b
CPT/HCPCS: 36415; 80051; 82306; 82310; 82565; 84520

== ENCOUNTER 2023-06-17 21:29 | Emergency (ER) | payer OTHER, SELFPAY ==
--- NOTE | ~2023-06-17 | XR_ITS ---
EXAMINATION: XR CHEST CLINICAL INFORMATION: Shortness of breath COMPARISON: Chest x-ray 08/26/2022. TECHNIQUE: Frontal view of the chest was obtained. FINDINGS: The lungs are expanded with coarse interstitial markings without acute pneumonic process. Heart size is borderline enlarged. Pulmonary vascularity is prominent. There is no pleural effusion. No gross bony abnormality... XR/XR chest 1V IMPRESSION: Borderline cardiomegaly with mild pulmonary vascular congestion. No pleural effusion seen.
--- NOTE | ~2023-06-17 | XR_ITS ---
EXAMINATION: XR HIP, RIGHT CLINICAL INFORMATION: Pain, fall COMPARISON: 06/07/2020 TECHNIQUE: Two views of the right hip. FINDINGS: Alignment across the hips is anatomic. There is moderate bilateral joint space narrowing of the hips. No acute fracture is seen. Sacroiliac joints and pubic symphysis are intact. XR/XR hip RT w PEL1V IMPRESSION: No acute findings identified.
--- NOTE | 2023-06-17 21:52 | ECG_ITS ---
Test Reason : FALL Blood Pressure : / mmHG Vent. Rate : 044 BPM Atrial Rate : 044 BPM P-R Int : 352 ms QRS Dur : 104 ms QT Int : 496 ms P-R-T Axes : 040 -02 060 degrees QTc Int : 424 ms Marked sinus bradycardia with 1st degree A-V block Left ventricular hypertrophy with repolarization abnormality ( R in aVL , Sokolow-Braswell , Miller product ) Abnormal ECG When compared with ECG of 18-FEB-2023 15:39, Sinus rhythm is no longer with 2nd degree SA block (Mobitz I) [place] interval has increased Criteria for Septal infarct are no longer Present Referred By: Saige Lomeli Electronically Signed By:COOKIE PABON
[2023-06-17 22:00] VITALS: BP 138/60; BP 180/78; PULSE 49; PULSE 87; RESP 18; TEMP 37.2; O2SAT 96; O2SAT 99; BMI 24.0
[2023-06-17 22:06] VITALS: BP 138/60; PULSE 49; RESP 18; TEMP 37.2; O2SAT 99
--- NOTE | 2023-06-17 22:19 | ED_ITS ---
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 He denies any associated dizziness or palpitations at that time and denies any head strike. Patient states that 2 people helped him to sit again and then when he attempted to get up and take the shuttle home he required further assistance from a bystander. Patient states he got home and had another fall onto his bottom and states that he was unable to stand and has pain at his right hip. He denies any fevers or chills, denies any urinary symptoms. Related Data Home Medications Medication Instructions Recorded Confirmed albuterol sulfate 90 mcg/actuation 2 puff inhalation Q4-6H PRN Pain 09/09/20 06/17/23 aerosol inhaler (Ventolin HFA) aspirin 81 mg tablet,delayed 81 mg PO QAM 07/14/21 06/17/23 release bictegravir 50 mg-emtricitabine 1 tab PO BEDTIME 07/14/21 06/17/23 200 mg-tenofovir alafenam 25 mg tablet (Biktarvy) blood sugar diagnostic (FreeStyle #10 ea 07/14/21 06/17/23 Lite Strips) cholecalciferol (vitamin D3) 25 25 mcg PO QAM 07/14/21 06/17/23 mcg (1,000 unit) tablet lancets 33 gauge (TRUEplus Lancets) #100 ea 07/14/21 06/17/23 atorvastatin 20 mg tablet 20 mg PO DAILY 10/27/22 06/17/23 cyclobenzaprine 5 mg tablet 5 mg PO TID PRN Breakthrough Pain, 10/27/22 06/17/23 Moderate Previous Rx's Medication Instructions Recorded acetaminophen 325 mg tablet 650 mg (2 x 325 mg) PO Q6H PRN 07/13/20 (Tylenol) fever or pain #14 tabs docusate sodium 100 mg capsule 100 mg PO DAILY #30 caps 09/09/20 (Colace) blood-glucose meter (FreeStyle #1 ea 12/03/21 Lite Meter kit) insulin syringe-needle U-100 0.5 #200 ea 02/02/22 mL 31 gauge x 5/16 (BD Insulin Syringe Ultra-Fine) lorazepam 1 mg tablet (Ativan) 1 mg PO BEDTIME PRN sleep #10 tabs 05/07/22 losartan 50 mg tablet 50 mg PO DAILY #30 tabs 08/29/22 prednisone 20 mg tablet 20 mg PO DAILY #5 tabs 08/29/22 insulin glargine 100 unit/mL 18 unit (0.18 mL) subcut BID 30 09/07/22 subcutaneous solution (Lantus days #10.8 mL U-100 Insulin) doxazosin 4 mg tablet 4 mg PO BEDTIME 90 days #90 tabs 03/17/23 finasteride 5 mg tablet 5 mg PO DAILY 90 days #90 tabs 03/17/23 Allergies Allergy/AdvReac Type Severity Reaction Status Date / Time No Known Allergies Allergy Verified 05/08/23 12:52 [No Known Allergies*] Review of Systems 2 Review of Systems: Pertinent positives and negatives as stated in [facility]PI [facility] Past Medical History Source: nursing notes reviewed Medical History Atherosclerotic cardiovascular disease CKD (chronic kidney disease) BPH loc w urin obs/LUTS BPH (benign prostatic hyperplasia) Nocturia HIV (human immunodeficiency virus infection) Diabetic polyneuropathy associated with type 2 diabetes mellitus Dyslipidemia Diabetic nephropathy associated with type 2 diabetes mellitus correction (current) use of insulin Chronic constipation Hypertension Diabetes type 2, controlled Diabetes type 2, controlled History of renal dialysis IDDM (insulin dependent diabetes mellitus) Asthma Renal failure Surgical History History of colonoscopy History of foot surgery History of appendectomy Family History Family History Son History of diabetes mellitus Social History Social History Household Members: None Housing: Apartment Do you presently have visiting nurse or other home services: No Alcohol intake: never Patient Tobacco Use Status: Former Tobacco user Smoked in Last 30 Days: No e-Cigarette/Vaping Use: Never Used Second Hand Smoke Exposure: No Use of substances other than those prescribed or required for medical reasons: No Advance Directives: Yes Advance Directives on File: Yes Advance Directives Date on File: 08/05/20 service: No Current occupational status: retired Physical Exam 2 Vital Signs: Vital Signs: Last Vital Signs Temp 98.9 F 06/17/23 22:06 Pulse 43 L 06/17/23 23:03 Resp 20 06/17/23 23:03 BP 190/53 H 06/17/23 23:03 Pulse Ox 96 06/17/23 23:03 O2 Del Method Room Air 06/17/23 23:03 BMI result Body Mass Index 24.0 VITAL SIGNS: Reviewed. GENERAL: Well developed, well nourished, in no acute distress. HEAD: Normocephalic/atraumatic EYES: PERRLA, EOMI EARS: Ext canals without abnormality NOSE: Nares patent bilateral OROPHARYNX: no oral lesions noted, posterior pharynx clear NECK: Supple, no adenopathy LUNGS: Normal breath sounds. No adventitious sounds or accessory muscle use. SpO2<96> CARDIOVASCULAR: Regular rate and rhythm without noted murmurs, no JVD or lower extremity edema. ABDOMEN: Soft, non-tender, non-distended with bowel sounds. PELVIS: Stable, there is some mild tenderness along the right iliac crest without overlying ecchymosis or erythema noted. There is no associated shortening of the right lower extremity and there is no external or internal rotation noted. MUSCULOSKELETAL: No tenderness, deformities, or effusions noted on gross inspection. EXTREMITIES: No cyanosis, clubbing or edema. LUE: There is an AV fistula that has a thrill in bruit SKIN: Inspection of the skin reveals no rashes, ulcerations, jaundice, pallor, or petechiae. NEUROLOGIC: Alert and oriented x 4. Strength and sensation to light touch were grossly intact x 4. Medications Administered Discontinued Medications Generic Name Dose Route Start Last Admin Trade Name Freq PRN Reason Stop Dose Admin Nitroglycerin 0.5 inch 06/17/23 21:52 06/17/23 22:09 Nitroglycerin 2 % Oint 1 Gm Packet TRANSDERMA 06/17/23 21:53 Not Given ONCE ONE Medical Decision Making Medical Decision Making MDM Narrative: 77-year-old male with history and clinical presentation, DDX: Mechanical fall but will rule out contributing factor such as infection, anemia, electrolyte abnormalities or arrhythmia. Reviewed all investigations and hematologic indices are without leukocytosis, there is a mild left shift and no thrombocytopenia and a chronically stable normocytic anemia. Coagulation studies are within normal limits. Chemistry indices are negative for acute electrolyte or liver enzyme abnormalities and patient has a chronically stable CKD. Urinalysis is negative for UTI or hematuria. Chest x-ray without infiltrate and otherwise my interpretation is in agreement with radiology's impression. Right hip and pelvic x-rays are negative for fracture or dislocation. EKG is without acute changes and is chronically stable with bradycardia and AV block with stable blood pressure. Patient was ambulated and demonstrated a steady gait without complaints of dizziness, shortness of breath or palpitations. He is otherwise discharged home in stable condition with instructions to follow-up with primary care doctor. Differential Diagnosis Differential Diagnoses: The differential diagnosis associated with the presentation includes Please see the discussion above Admission/Observation Consideration of admission/observation: Escalation of care including admission/observation considered Please see the discussion above Lab Data MDM Lab Attestation statement: I reviewed the patient's lab results. Please see the discussion above 06/17/23 22:43 06/17/23 22:43 Labs: Lab Results 06/17/23 06/17/23 Range/Units 22:43 23:39 WBC 8.6 (4.8-10.8) X10*3/uL RBC 4.36 L (4.60-5.80) X10*6/uL Hgb 13.6 L (14.0-18.0) g/dl Hct 40.2 L (42.0-52.0) % MCV 92.2 (80.0-98.0) fL MCH 31.2 (27.0-33.0) pg MCHC 33.8 (31.0-36.0) g/dl RDW 15.7 (11.0-16.0) % Plt Count 153 L (160-400) X10*3/uL MPV 10.4 (9.4-12.4) fL Immature Gran % (Auto) 0.5 H (0.0-0.4) % Neut % (Auto) 78.4 H (45-73) % Lymph % (Auto) 12.2 L (20-40) % [facility] % (Auto) 6.8 (2-11) % Eos % (Auto) 1.6 (0-4) % Baso % (Auto) 0.5 (0-2) % Lymph # (Auto) 1.1 L (1.2-4.9) X10*3/uL [facility] # (Auto) 0.6 (0.1-1.2) X10*3/uL Eos # (Auto) 0.1 (0.0-0.4) X10*3/uL Baso # (Auto) 0.0 (0.0-0.2) X10*3/uL Abs Immat Gran (auto) 0.04 H (0.00-0.03) X10*3/uL Absolute Neuts (auto) 6.7 (2.0-8.3) x10*3/uL Absolute Nucleated RBC 0.000 (0.0-0.012) X10*3/uL Nucleated RBC % (auto) 0.0 (0.0-0.2) /100WBC PT 13.5 H (11.1-13.3) SEC INR 1.1 (0.9-1.1) Sodium 143 (135-145) mmol/L Potassium 4.3 (3.3-5.1) mmol/L Chloride 112 H (96-108) mmol/L Carbon Dioxide 24 (22-29) mmol/L Anion Gap 11 L (12-20) BUN 37 H (9-16) mg/dL Creatinine 1.77 H (0.5-1.4) mg/dL Estim Creat Clear Calc 31.0 Estimated GFR 37 Random Glucose 139 H (60-115) mg/dL Lactic Acid 1.1 (0.5-2.0) mmol/L Calcium 8.9 (8.4-10.2) mg/dL Total Bilirubin 0.4 (0.0-1.0) mg/dL AST 26 (5-37) U/L ALT 23 (0-40) U/L Alkaline Phosphatase 84 (39-117) U/L Total Protein 6.1 L (6.5-8.0) g/dL Albumin 3.5 (3.5-5.0) g/dL Urine Color Yellow Urine Appearance Clear Urine pH 5.5 (5.0-9.0) Ur Specific [place] 1.020 (1.005-1.025) Urine Protein >=1000 (4+) H (Neg-Trace) mg/dL Urine Glucose (UA) 100 H (Negative) mg/dL Urine Ketones Negative (Negative) mg/dL Urine Blood Trace H (Negative) Urine Nitrite Negative (Negative) Ur Leukocyte Esterase Negative (Negative) Urine RBC 0-2 (0-2) /HPF Urine WBC 0-5 (0-5) /HPF Ur Squamous Epith Cells 0-2 (0-2) /HPF Urine Bacteria None Seen (None Seen) Hyaline Casts 0-2 (0-2) /LPF Independent Interpretation I performed an independent interpretation of an: EKG Interpretation: Bradycardia with first-degree AV block, HR -44, no STEMI, NV -352, QRS/QTC is within normal limits. Radiology Impression Discussion of test interpretation with radiology: I have reviewed the radiologist's reading. Radiologist Impression: Please see the discussion above External Record Review External record reviewed: Outpatient record, Prior outpatient labs and Prior outpatient radiology Chronic Conditions Patient?s care impacted by: Diabetes and Other CKD Critical Care Time Critical Care Time Critical Care Time: Yes Total Critical Care Time: 30 Attestation: I personally attest to this time spent taking care of the patient. Discharge Plan Discharge Clinical Impression: Fall, Hip pain, right, CKD (chronic kidney disease) Patient Disposition: Home, Self-Care Instructions: Chronic Kidney Disease (ED), Fall Prevention for Older Adults (ED), Hip Pain (ED) Additional Instructions: 1. Reanudar todos los medicamentos caseros seg?n lo recetado. 2. Tenga cuidado al cambiar de posici?n de sentado a de pie. 3. Evita un seguimiento con bardales m?dico de atenci?n primaria llamando al consultorio el lunes por la ma?adolfo y programando daphne abhijeet para daphne reevaluaci?n y un mayor tratamiento ambulatorio. Regrese a la ulises de emergencias si los s?ntomas empeoran. 1. Resume all home medications as prescribed. 2. Use caution when changing position from sitting to standing. 3. Follow-up with your primary care doctor by calling the office on Monday morning and setting up an appointment for re-evaluation and further outpatient management. Return to the ER for any worsening symptoms. Prescriptions: No Action (DME) blood-glucose meter [FreeStyle Lite Meter] Kit See Rx Instructions .Route Qty: 1 0RF Rx Instructions: As directed (DME) insulin syringe-needle U-100 [BD Insulin Syringe Ultra-Fine] 0.5 mL 31 gauge x 5/16 syringe See Rx Instructions .ROUTE .MEDSUPPLY Qty: 200 3RF Rx Instructions: Twice a day Lantus U-100 Insulin 100 unit/mL solution 18 unit subcut BID 30 Days Qty: 10.8 0RF Rx Instructions: future refills from pcp doxazosin 4 mg tablet 4 mg PO BEDTIME 90 Days Qty: 90 1RF finasteride 5 mg tablet 5 mg PO DAILY 90 Days Qty: 90 1RF acetaminophen [Tylenol] 325 mg tablet 650 mg PO Q6H PRN (Reason: fever or pain) Qty: 14 0RF lorazepam [Ativan] 1 mg tablet 1 mg PO BEDTIME PRN (Reason: sleep) Qty: 10 0RF losartan 50 mg Tablet 50 mg PO DAILY Qty: 30 0RF Protocol: Hold for SBP< HOLD for SBP < : 90 prednisone 20 mg tablet 20 mg PO DAILY Qty: 5 0RF docusate sodium [Colace] 100 mg capsule 100 mg PO DAILY Qty: 30 2RF albuterol sulfate [Ventolin HFA] 90 mcg/actuation HFA aerosol inhaler 2 puff inhalation Q4-6H PRN (Reason: Pain) (DME) FreeStyle Lite Strips Strip See Rx Instructions Not Applicable TID Qty: 10 Rx Instructions: As directed aspirin 81 mg tablet,delayed release (DR/EC) 81 mg PO QAM cholecalciferol (vitamin D3) 25 mcg (1,000 unit) tablet 25 mcg PO QAM (DME) lancets [TRUEplus Lancets] 33 gauge misc See Rx Instructions Not Applicable TID Qty: 100 Rx Instructions: As directed Biktarvy 50-200-25 mg tablet 1 tab PO BEDTIME atorvastatin 20 mg tablet 20 mg PO DAILY cyclobenzaprine 5 mg tablet 5 mg PO TID PRN (Reason: Breakthrough Pain, Moderate) Referrals: Jessie Smith MD [Primary Care Provider] - Print Language: Latvian
[2023-06-17 22:54] LABS: MANUAL DIFF FLAG NO
[2023-06-17 22:55] LABS: Basophils Percent Auto 0.5 % (0-2); Eosinophils Absolute Auto 0.1 X10*3/uL (0.0-0.4); Eosinophils Percent Auto 1.6 % (0-4); Hematocrit 40.2 % (42.0-52.0); Hemoglobin 13.6 g/dl (14.0-18.0); Imm Gran Abs Auto 0.04 X10*3/uL (0.00-0.03); Imm Gran Pct Auto 0.5 % (0.0-0.4); Lymphocytes Absolute Auto 1.1 X10*3/uL (1.2-4.9); Lymphocytes Percent Auto 12.2 % (20-40); Mean Corpuscular HGB Conc 33.8 g/dl (31.0-36.0); Mean Corpuscular Hemoglobin 31.2 pg (27.0-33.0); Mean Corpuscular Volume 92.2 fL (80.0-98.0); Mean Platelet Volume 10.4 fL (9.4-12.4); Monocytes Absolute Auto 0.6 X10*3/uL (0.1-1.2); Monocytes Percent Auto 6.8 % (2-11); Neutrophils Absolute Auto 6.7 x10*3/uL (2.0-8.3); Neutrophils Percent Auto 78.4 % (45-73); Platelet Count 153 X10*3/uL (160-400); Red Blood Count 4.36 X10*6/uL (4.60-5.80); Red Cell Distribution Width 15.7 % (11.0-16.0); White Blood Count 8.6 X10*3/uL (4.8-10.8)
[2023-06-17 23:00] LABS: INTERNATIONAL NORM RATIO 1.1 (0.9-1.1); Prothrombin Time 13.5 SEC (11.1-13.3)
[2023-06-17 23:03] VITALS: BP 190/53; PULSE 43; RESP 20; O2SAT 96
--- NOTE | 2023-06-17 23:05 | MHC.EDTECH ---
RN made aware of elevated BP of 190/52 and heart rate of 43. PT has a fistula on left arm no BP or Lab draws on left arm sign hung on monitor
[2023-06-17 23:06] LABS: Lactic Acid 1.1 mmol/L (0.5-2.0)
[2023-06-17 23:10] LABS: Alanine Aminotransferase 23 U/L (0-40); Albumin Level 3.5 g/dL (3.5-5.0); Alkaline Phosphatase 84 U/L (39-117); Anion Gap 11 (12-20); Aspartate Amino Transferase 26 U/L (5-37); Bilirubin Total 0.4 mg/dL (0.0-1.0); Blood Urea Nitrogen 37 mg/dL (9-16); Calcium 8.9 mg/dL (8.4-10.2); Carbon Dioxide 24 mmol/L (22-29); Chloride 112 mmol/L (96-108); Estimated Glomerular Filt Rate 37; Glucose Random 139 mg/dL (60-115); Potassium 4.3 mmol/L (3.3-5.1); Sodium 143 mmol/L (135-145); Total Protein 6.1 g/dL (6.5-8.0)
[2023-06-17 23:47] LABS: Appearance Urine Clear; Color Urine Yellow; Glucose Urine UA 100 mg/dL (Negative); Leukocyte Esterase Urine Negative (Negative); Nitrite Urine Negative (Negative); PH 5.5 (5.0-9.0); UMIC TRIGGER UACC YES; Urine Blood Trace (Negative); Urine Ketones Negative (Negative); Urine Protein >=1000 (4+) mg/dL (Neg-Trace)
[2023-06-17 23:52] LABS: Bacteria Urine None Seen (None Seen); Hyaline Casts Urine 0-2 /LPF (0-2); RBC Urine 0-2 /HPF (0-2); Squamous Epithelial Cell Urine 0-2 /HPF (0-2); WBC Urine 0-5 /HPF (0-5)
--- NOTE | 2023-06-18 01:17 | MHC.EDTECH ---
Ambulated PT per DR . Pt did well , no complaints and states he does not feel dizzy when walking .
--- NOTE | 2023-06-18 01:39 | MHC.EDTECH ---
call out to josephine at 0139 to book transport for pt back home, estimated eta given was by 033
[2023-06-18 01:44] VITALS: BP 183/49; PULSE 42; RESP 12; O2SAT 96
[2023-06-18 02:25] VITALS: BP 177/48; PULSE 39; RESP 15; TEMP 36.7; O2SAT 100
== END 2023-06-18 02:50 | disposition home or self-care (01) ==
PROVIDERS: Emergency Provider Student in an Organized Health Care Education/Training Program; PCP Family Medicine
DX: M25.551 Pain in right hip (principal); R29.6 Repeated falls; Z91.81 History of falling; E11.22 Type 2 diabetes mellitus with diabetic chronic kidney disease; I12.9 Hypertensive chronic kidney disease with stage 1 through stage 4 chronic kidney disease, or unspecified chronic kidney disease; N18.9 Chronic kidney disease, unspecified; I44.0 Atrioventricular block, first degree; R00.1 Bradycardia, unspecified; B20 Human immunodeficiency virus [HIV] disease; E78.5 Hyperlipidemia, unspecified; Z79.4 Long term (current) use of insulin; Z79.899 Other long term (current) drug therapy
CPT/HCPCS: 36415; 71045; 73502; 80053; 81001; 83605; 85025; 85610; 87040; 93005; 99285

== ENCOUNTER → 2023-07-03 12:40 | Outpatient (REF) | payer OTHER, SELFPAY ==
--- NOTE | 2023-07-03 12:43 | HM_ITS ---
Conclusion: 1. Patient was monitored for total period of 2 days and 21 hours 2. Baseline was normal sinus rhythm with first-degree AV block with average heart rate of 44 beats per minute 3. Frequent bradycardia noted with 83% of time heart rate below 60 beats per minute 4. Frequent Wenckebach phenomena noted with 2 is to 1 av block noted preceded by Mobitz type 1 second-degree AV block consistent with block at the AV barbara level. Most of these episodes happen during sleep hours 5. There is 1 episode of advanced AV block noted at 01:00 during sleep hours. 6. Occasional PACs and PVCs noted 7. No patient reported symptoms MTDD
== END ==
LOC: HO.CARD 12:40
PROVIDERS: Visit Provider Family Medicine
DX: I45.9 Conduction disorder, unspecified (principal)
CPT/HCPCS: 93242

== ENCOUNTER → 2023-07-03 12:43 | Outpatient (BNV) | payer OTHER, SELFPAY | PROVIDERS: Visit Provider Internal Medicine Cardiovascular Disease | DX: I44.1 Atrioventricular block, second degree (principal) | CPT/HCPCS: 93244 ==

== ENCOUNTER 2023-07-28 12:41 | Outpatient (AMB) | payer OTHER, SELFPAY ==
--- NOTE | 2023-07-28 12:46 | A.OFFVIS_ITS ---
Intake Vital Signs 07/28/23 12:47 Height 5 ft 6 in Weight 145 lb 8.081 oz BMI 23.5 BP 162/50 H Blood Pressure Location Rt brachial Position Sitting Pulse 51 Intake Visit Reasons: follow up holter Intake Note: follow up Heat Curer Required: Yes Heat Curer Language: Social Science Manager Name: Susana [id number] Accompanied by: Self / Same As Patient Allergies No Known Allergies [No Known Allergies*] Allergy (Verified 07/28/23 12:49) Medication List - Last Reconciled 07/28/23 by Radhames Flores MD acetaminophen (Tylenol) 650 mg (2 x 325 mg) PO Q6H PRN albuterol sulfate 90 mcg/actuation (Ventolin HFA) 2 puffs inhalation Q4-6H PRN amlodipine 2.5 mg PO DAILY aspirin 81 mg PO QAM atorvastatin 20 mg PO DAILY [id number]-wvtidjvm-tdgrumw ala 50-200-25 mg (Biktarvy) 1 tab PO BEDTIME blood sugar diagnostic (FreeStyle Lite Strips) As directed blood-glucose meter (FreeStyle Lite Meter kit) As directed cholecalciferol (vitamin D3) 25 mcg PO QAM cyclobenzaprine 5 mg PO TID PRN docusate sodium (Colace) 100 mg PO DAILY doxazosin 8 mg PO DAILY finasteride 5 mg PO DAILY 90 days insulin glargine (Lantus U-100 Insulin) 18 units (0.18 mL) subcut BID 30 days insulin syringe-needle U-100 (BD Insulin Syringe Ultra-Fine) Twice a day lancets (TRUEplus Lancets) As directed lorazepam (Ativan) 1 mg PO BEDTIME PRN losartan 50 mg See Protocol PO DAILY prednisone 20 mg PO DAILY HPI HPI Comments History of Present Illness Details Husam returns for follow-up various cardiac issues. Multiple comorbidities including carotid vascular disease, suspected coronary disease, diabetes, hypertension, dyslipidemia, HIV. Occasional dizziness but otherwise he states he generally okay. He has evidence of conduction system disease on EKG and underwent recent Holter that generally shows Mobitz type 1 second-degree heart block. He does not have any presyncope but occasional dizziness. [facility] Medical History Atherosclerotic cardiovascular disease CKD (chronic kidney disease) BPH loc w urin obs/LUTS BPH (benign prostatic hyperplasia) Nocturia HIV (human immunodeficiency virus infection) Diabetic polyneuropathy associated with type 2 diabetes mellitus Dyslipidemia Diabetic nephropathy associated with type 2 diabetes mellitus FCI (current) use of insulin Chronic constipation Hypertension Diabetes type 2, controlled Diabetes type 2, controlled History of renal dialysis IDDM (insulin dependent diabetes mellitus) Asthma Renal failure Surgical History History of colonoscopy History of foot surgery History of appendectomy Family History Son History of diabetes mellitus Social History Household Members: None Housing: Apartment Do you presently have visiting nurse or other home services: No Alcohol intake: never Patient Tobacco Use Status: Former Tobacco user e-Cigarette/Vaping Use: Never Used Second Hand Smoke Exposure: No Advance Directives Date on File: 08/05/20 service: No Current occupational status: retired Review of Systems Const All systems reviewed & are unremarkable except as noted in HPI and below Reports as per HPI and Reports no additional complaints Eyes Reports as per HPI and Denies no additional complaints ENT Denies no additional complaints and Reports as per HPI Card Reports as per HPI, Reports no additional complaints, Denies acrocyanosis, Denies chest pain, Denies leg edema, Denies lightheadedness, Denies palpitations and Denies dyspnea Resp Reports as per HPI, Denies no additional complaints and Denies dyspnea GI Reports as per HPI and Denies no additional complaints Reports no additional complaints and Reports as per HPI Musc Reports no additional complaints and Reports as per HPI Skin/Breast Reports system reviewed and no additional complaints, except as documented Neuro Reports no additional complaints and Reports as per HPI Psych Reports no additional complaints and Reports as per HPI Endo Reports no additional complaints, Reports as per HPI and Denies palpitations Chadd/Lymph Reports no additional complaints and Reports as per HPI Aller/Immun Reports no additional complaints and Reports as per HPI Physical Exam Vital Signs: Last Vital Signs Pulse 51 07/28/23 12:47 BP 162/50 H 07/28/23 12:47 BMI result Body Mass Index 23.5 Const General: comfortable and no acute distress Orientation/consciousness: patient oriented x3 HEENT Other: Unremarkable Head: Yes normal to inspection Neck Neck: Yes normal visual inspection Chest Chest palpation & inspection: normal inspection of the chest Resp Auscultation: clear to auscultation bilaterally Cardio Palpation: normal PMI Heart sounds: S1 normal heart sound present, S2 normal heart sound present, no gallops, no murmurs and no rubs GI Palpation (GI): Soft to palpation Back/Spine/Pelvis Other: unremarkable Skin General skin exam: no rashes or lesions noted Neuro General: patient oriented x3 Extrem General: Yes normal to inspection Psych Mental Status: mental status grossly normal Assessment & Plan Assessment & Plan (1) Atherosclerotic cardiovascular disease: Code(s): I25.10 - Atherosclerotic heart disease of [place] coronary artery without angina pectoris (2) Mobitz type 1 second degree AV block: Code(s): I44.1 - Atrioventricular block, second degree (3) Diabetes type 2, controlled: Code(s): E11.9 - Type 2 diabetes mellitus without complications (4) Hypertension: Code(s): I10 - Essential (primary) hypertension (5) Dyslipidemia: Code(s): E78.5 - Hyperlipidemia, unspecified (6) History of renal dialysis: Code(s): Z92.89 - Personal history of other medical treatment (7) HIV (human immunodeficiency virus infection): Code(s): B20 - Human immunodeficiency virus [HIV] disease (8) PAD (peripheral artery disease): Comment: 08/24/2022 - diagnostic angiogram Code(s): I73.9 - Peripheral vascular disease, unspecified Plan Cardiac studies reviewed EKG with sinus bradycardia 50/Min; DC prolongation to 392 millisecond; normal QT. Echocardiogram with LVEF 55-60%; basal inferior/inferior septal akinesis. Eqwj-lw-fauychrn aortic stenosis. Dobutamine stress Mibi shows mostly fixed inferior/inferior septal defect with slight reversibility in the mid inferior wall. Probable infarct with minimal ischemia. In the Holter monitor, underlying rhythm is sinus bradycardia with an average rate of 44/Min. 83% the time, rate less than 60/Min. Frequent second-degree heart block, Wenckebach type but mostly at nighttime. One episode of advanced heart block during sleep hours. Carotid ultrasound shows moderate hemodynamically seems stenosis in both the right as well as left internal carotid arteries. With regard to the conduction system disease, recommend EP evaluation for consideration pacemaker. Discussed with patient, gave him brochure as well as showed him a sample pacemaker. He is willing. With regard to blood pressure, still high. We will increase amlodipine to 10 mg daily. Statins. Target LDL should be no more than 60-70 mg dL. May follow through PCP. There is lot of confusion with changing his medications even with site interpreter. Explained numerous times today but not clear how much actually understood. Medications: New amlodipine 10 mg PO DAILY 90 tabs 3RF Coding Level of Care Code Est Pt Level 4 (37075) Diagnoses Atherosclerotic cardiovascular disease I25.10 Mobitz type 1 second degree AV block I44.1 Diabetes type 2, controlled E11.9 Hypertension I10 Dyslipidemia E78.5 History of renal dialysis Z92.89 HIV (human immunodeficiency virus infection) B20 PAD (peripheral artery disease) I73.9
[2023-07-28 12:47] VITALS: BP 162/50; PULSE 51; BMI 23.5
== END 2023-07-28 13:26 | disposition home or self-care (01) ==
PROVIDERS: PCP Family Medicine; Visit Provider Internal Medicine
DX: I25.10 Atherosclerotic heart disease of native coronary artery without angina pectoris (principal); I44.1 Atrioventricular block, second degree; E11.9 Type 2 diabetes mellitus without complications; I10 Essential (primary) hypertension; E78.5 Hyperlipidemia, unspecified; Z92.89 Personal history of other medical treatment; B20 Human immunodeficiency virus [HIV] disease; I73.9 Peripheral vascular disease, unspecified
CPT/HCPCS: 99214

== ENCOUNTER → 2023-07-28 12:41 | Outpatient (BNVA) | payer OTHER, SELFPAY | PROVIDERS: PCP Family Medicine; Visit Provider Internal Medicine | DX: I25.10 Atherosclerotic heart disease of native coronary artery without angina pectoris (principal); I44.1 Atrioventricular block, second degree; I10 Essential (primary) hypertension; E11.9 Type 2 diabetes mellitus without complications; E78.5 Hyperlipidemia, unspecified; I73.9 Peripheral vascular disease, unspecified; B20 Human immunodeficiency virus [HIV] disease; Z92.89 Personal history of other medical treatment | CPT/HCPCS: 99212 ==

== ENCOUNTER 2023-09-19 10:09 | Outpatient (REF) | payer OTHER, SELFPAY ==
[2023-09-19 11:44] LABS: Anion Gap 13 (12-20); Blood Urea Nitrogen 29 mg/dL (9-16); Calcium 9.2 mg/dL (8.4-10.2); Carbon Dioxide 26 mmol/L (22-29); Chloride 112 mmol/L (96-108); Estimated Glomerular Filt Rate 30; Glucose Random 120 mg/dL (60-115); Potassium 5.6 mmol/L (3.3-5.1); Sodium 145 mmol/L (135-145)
== END 2023-09-19 10:10 | disposition home or self-care (01) ==
LOC: HO.HHCL 10:09
PROVIDERS: Visit Provider Family Medicine
DX: I10 Essential (primary) hypertension (principal)
CPT/HCPCS: 36415; 80048

== ENCOUNTER 2023-09-29 12:42 | Outpatient (AMB) | payer OTHER, SELFPAY ==
--- NOTE | 2023-09-29 12:51 | A.OFFVIS_ITS ---
Intake Intake Visit Reasons: 6m/PVR Intake Note: Patient is Present for Follow Up PVR Urology Medication: finasteride, doxazosin Antibiotic Allergies: NKDA Blood Thinners: aspirin PVR: 0 Allergies No Known Allergies [No Known Allergies*] Allergy (Verified 09/29/23 12:54) Medication List - Last Reconciled 09/29/23 by Aurelio Foster MD acetaminophen (Tylenol) 650 mg (2 x 325 mg) PO Q6H PRN albuterol sulfate 90 mcg/actuation (Ventolin HFA) 2 puffs inhalation Q4-6H PRN amlodipine 10 mg PO DAILY aspirin 81 mg PO QAM atorvastatin 20 mg PO DAILY bgibecyyh-pcmzzoyb-ltzgukq ala 50-200-25 mg (Biktarvy) 1 tab PO BEDTIME blood sugar diagnostic (FreeStyle Lite Strips) As directed blood-glucose meter (FreeStyle Lite Meter kit) As directed cholecalciferol (vitamin D3) 25 mcg PO QAM cyclobenzaprine 5 mg PO TID PRN dapagliflozin propanediol (Farxiga) 10 mg PO DAILY docusate sodium (Colace) 100 mg PO DAILY doxazosin 8 mg PO DAILY dulaglutide (Trulicity) mg subcut finasteride 5 mg PO DAILY 90 days insulin glargine (Lantus U-100 Insulin) 18 units (0.18 mL) subcut BID 30 days insulin syringe-needle U-100 (BD Insulin Syringe Ultra-Fine) Twice a day lancets (TRUEplus Lancets) As directed lorazepam (Ativan) 1 mg PO BEDTIME PRN losartan 50 mg See Protocol PO DAILY prednisone 20 mg PO DAILY torsemide 20 mg PO BID HPI HPI Comments History of Present Illness0 Details Husam is a pleasant male. He is a patient of . He is seen for the following urologic condition - lower urinary tract symptoms - elevated PSA Lao translation provided by qualified medical education manager Good response to finasteride with PSA drop Cystoscopy with grade 1/2 trabeculation, mild trilobar hypertrophy Would prefer to stay on medications Six month follow-up PVR Lower urinary tract symptoms Longstanding BPH Has nocturia x3 with some frequency Current medications Hytrin 8 mg with finasteride 04/09 Cystoscopy with grade 1/2 trabecula tion, mild trilobar hypertrophy Background diabetes with HIV therapy PSA 09/05 2.1, 12/21 3.1, 10/10 5.1 25%Free, 03/10 1.6 [facility] Medical History Atherosclerotic cardiovascular disease CKD (chronic kidney disease) BPH loc w urin obs/LUTS BPH (benign prostatic hyperplasia) Nocturia HIV (human immunodeficiency virus infection) Diabetic polyneuropathy associated with type 2 diabetes mellitus Dyslipidemia Diabetic nephropathy associated with type 2 diabetes mellitus 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 Chronic constipation Hypertension Diabetes type 2, controlled Diabetes type 2, controlled History of renal dialysis IDDM (insulin dependent diabetes mellitus) Asthma Renal failure Surgical History History of colonoscopy History of foot surgery History of appendectomy Family History Son History of diabetes mellitus Social History Household Members: None Housing: Apartment Do you presently have visiting nurse or other home services: No Alcohol intake: never Patient Tobacco Use Status: Former Tobacco user e-Cigarette/Vaping Use: Never Used Second Hand Smoke Exposure: No Advance Directives Date on File: 08/05/20 service: No Current occupational status: retired Review of Systems Const Denies chills and Denies fever(s) Card Reports no additional complaints and Denies syncope Resp Denies cough GI Denies abdominal pain and Denies heartburn Reports as per HPI and Denies change in libido Neuro Denies syncope Psych Denies change in libido Endo Denies change in libido Physical Exam Const General: cooperative, healthy appearing, comfortable and no acute distress Orientation/consciousness: patient oriented x3 HEENT Face and sinus: Yes normal facial exam Mouth: moist mucous membranes Neck Neck: Yes normal visual inspection, Yes full ROM and Yes trachea midline Chest Chest palpation & inspection: normal inspection of the chest Resp Effort & Inspection: normal respiratory effort, able to speak in complete sentences and no respiratory distress GI Inspection: Yes normal to inspection Back/Spine/Pelvis Cervical Spine: normal cervical lordosis Thoracic/Lumbar Spine: thoracic and lumbar spine normal to inspection Skin General skin exam: no rashes or lesions noted Neuro General: patient oriented x3, gait normal, tone normal and moves all extremities Extrem General: Yes normal to inspection and Yes capillary refill normal Office Procedures Post Void Residual Post Residual Void Post Void Residual (PVR): 0 [id number] Void Residual by ultrasound Assessment & Plan Assessment & Plan (1) Elevated PSA: Code(s): R97.20 - Elevated prostate specific antigen [PSA] (2) BPH loc w urin obs/LUTS: Code(s): N40.1 - Benign prostatic hyperplasia with lower urinary tract symptoms Plan Six-month follow-up PSA Orders: Orders AMB Post Void Residual by ultrasound Today N40.1 - Benign prostatic hyperplasia with lower urinary tract symptoms Medications: Changed From doxazosin 8 mg PO DAILY R97.20 - Elevated prostate specific antigen [PSA] To doxazosin 8 mg PO DAILY 90 tabs 1RF 90 days R97.20 - Elevated prostate specific antigen [PSA] Patient Instructions: Imaging studies, laboratory and physical exam results were discussed and reviewed in detail. No major barriers to patient understanding were identified. An opportunity to ask questions regarding the treatment plan was provided. All questions were answered. The patient expressed understanding and agreement with the above treatment plan. The patient is aware they should contact our office by phone for worsening of their current condition or the appearance of new urologic symptoms. Compliance is encouraged with any medications and followup testing that is ordered. It is a privilege to participate in the urologic care of your patient. If you have any questions or concerns regarding treatment for the above conditions, or other urologic issues, please do not hesitate to contact me. The office telephone contact is [phone]. This note is constructed using voice recognition software. While every effort has been made to ensure accuracy paper cutter errors may have been included. Yours sincerely, Dr Aurelio Foster MD, [facility] - Urology Providers of Expert, Compassionate Care for the Genitourinary System Coding Level of Care Code Est Pt Level 3 (02324) Diagnoses Elevated PSA R97.20 BPH loc w urin obs/LUTS N40.1 CPT Codes Post Residual Void - PVR CPT Code: 71722-Uery Void Residual by ultrasound ([id number])
== END 2023-09-29 13:20 | disposition home or self-care (01) ==
LOC: HO.HUSH 12:42
PROVIDERS: PCP Family Medicine; Visit Provider Urology
DX: R97.20 Elevated prostate specific antigen [PSA] (principal); N40.1 Benign prostatic hyperplasia with lower urinary tract symptoms
CPT/HCPCS: 99213

== ENCOUNTER → 2023-09-29 12:42 | Outpatient (BNVA) | payer OTHER, SELFPAY | PROVIDERS: PCP Family Medicine; Visit Provider Urology | DX: R97.20 Elevated prostate specific antigen [PSA] (principal); N40.1 Benign prostatic hyperplasia with lower urinary tract symptoms; N13.8 Other obstructive and reflux uropathy | CPT/HCPCS: 51798; 99212 ==

== ENCOUNTER 2023-10-10 09:39 | Outpatient (REF) | payer OTHER, SELFPAY ==
[2023-10-10 13:25] LABS: Creatinine Urine 34.39 mg/dL
[2023-10-10 15:53] LABS: Alanine Aminotransferase 69 U/L (0-40); Albumin Level 4.1 g/dL (3.5-5.0); Alkaline Phosphatase 117 U/L (39-117); Anion Gap 13 (12-20); Aspartate Amino Transferase 37 U/L (5-37); Bilirubin Total 0.3 mg/dL (0.0-1.0); Blood Urea Nitrogen 70 mg/dL (9-16); Calcium 9.5 mg/dL (8.4-10.2); Carbon Dioxide 20 mmol/L (22-29); Chloride 110 mmol/L (96-108); Cholesterol 137 mg/dL (<200); Estimated Glomerular Filt Rate 25; Glucose Random 179 mg/dL (60-115); HDL Cholesterol 57 mg/dL (>40); LDL Cholesterol Calculated 55 mg/dL (<100); Potassium 4.7 mmol/L (3.3-5.1); Sodium 138 mmol/L (135-145); Triglycerides 125 mg/dL (<150)
[2023-10-10 16:02] LABS: Reflex LDLD? No
[2023-10-10 16:09] LABS: Thyroid Stimulating Hormone 1.93 uIU/mL (0.32-4.0)
== END 2023-10-10 09:40 | disposition home or self-care (01) ==
LOC: HO.HHCL 09:39
PROVIDERS: Visit Provider Family Medicine
DX: E11.22 Type 2 diabetes mellitus with diabetic chronic kidney disease (principal); I12.9 Hypertensive chronic kidney disease with stage 1 through stage 4 chronic kidney disease, or unspecified chronic kidney disease; N18.32 Chronic kidney disease, stage 3b; I45.9 Conduction disorder, unspecified; E78.5 Hyperlipidemia, unspecified; Z79.4 Long term (current) use of insulin
CPT/HCPCS: 36415; 80053; 80061; 82043; 82570; 84443

== ENCOUNTER 2023-11-08 12:56 | Outpatient (AMB) | payer OTHER, SELFPAY ==
--- NOTE | 2023-11-08 12:58 | A.OFFVIS_ITS ---
Intake Vital Signs 11/08/23 12:59 Height 5 ft 6 in Weight 147 lb 4.301 oz BMI 23.8 BP 126/56 L Blood Pressure Location Rt brachial Position Sitting Pulse 66 Intake Visit Reasons: 6 mth f/up Intake Note: 6 month follow up Alumni Relations Coordinator Required: Yes Alumni Relations Coordinator Language: Side Stitcher Name: Campbell [id number] Accompanied by: Self / Same As Patient Allergies No Known Allergies [No Known Allergies*] Allergy (Verified 11/08/23 13:00) Medication List - Last Reconciled 11/08/23 by Radhames Flores MD acetaminophen (Tylenol) 650 mg (2 x 325 mg) PO Q6H PRN albuterol sulfate 90 mcg/actuation (Ventolin HFA) 2 puffs inhalation Q4-6H PRN amlodipine 10 mg PO DAILY aspirin 81 mg PO QAM atorvastatin 20 mg PO DAILY mwyshtiwf-yvcdiaot-gabtnfa ala 50-200-25 mg (Biktarvy) 1 tab PO BEDTIME blood sugar diagnostic (FreeStyle Lite Strips) As directed blood-glucose meter (FreeStyle Lite Meter kit) As directed cholecalciferol (vitamin D3) 25 mcg PO QAM cyclobenzaprine 5 mg PO TID PRN dapagliflozin propanediol (Farxiga) 10 mg PO DAILY docusate sodium (Colace) 100 mg PO DAILY doxazosin 8 mg PO DAILY 90 days dulaglutide (Trulicity) mg subcut finasteride 5 mg PO DAILY 90 days insulin glargine (Lantus U-100 Insulin) 18 units (0.18 mL) subcut BID 30 days insulin syringe-needle U-100 (BD Insulin Syringe Ultra-Fine) Twice a day lancets (TRUEplus Lancets) As directed lorazepam (Ativan) 1 mg PO BEDTIME PRN losartan 50 mg See Protocol PO DAILY prednisone 20 mg PO DAILY torsemide 20 mg PO BID HPI HPI Comments History of Present Illness Details Husam returns for follow-up various cardiac issues. Multiple comorbidities including carotid vascular disease, suspected coronary disease, diabetes, hypertension, dyslipidemia, HIV. He is conduction system disease and was referred to EP. Not entirely clear what happened but it seems that he was transferred some how to [facility] and then underwent inpatient pacemaker placement. He has not really kept any follow-up appointments after the implant. States he is doing fine and has no complaints. PFSH Medical History Atherosclerotic cardiovascular disease CKD (chronic kidney disease) BPH loc w urin obs/LUTS BPH (benign prostatic hyperplasia) Nocturia HIV (human immunodeficiency virus infection) Diabetic polyneuropathy associated with type 2 diabetes mellitus Dyslipidemia Diabetic nephropathy associated with type 2 diabetes mellitus nursing home (current) use of insulin Chronic constipation Hypertension Diabetes type 2, controlled Diabetes type 2, controlled History of renal dialysis IDDM (insulin dependent diabetes mellitus) Asthma Renal failure Surgical History History of colonoscopy History of foot surgery History of appendectomy Family History Son History of diabetes mellitus Social History Household Members: None Housing: Apartment Do you presently have visiting nurse or other home services: No Alcohol intake: never Patient Tobacco Use Status: Former Tobacco user e-Cigarette/Vaping Use: Never Used Second Hand Smoke Exposure: No Advance Directives Date on File: 08/05/20 service: No Current occupational status: retired Review of Systems Const All systems reviewed & are unremarkable except as noted in HPI and below Reports as per HPI and Reports no additional complaints Eyes Reports as per HPI and Denies no additional complaints ENT Denies no additional complaints and Reports as per HPI Card Reports as per HPI, Reports no additional complaints, Denies acrocyanosis, Denies chest pain, Denies leg edema, Denies lightheadedness, Denies palpitations and Denies dyspnea Resp Reports as per HPI, Denies no additional complaints and Denies dyspnea GI Reports as per HPI and Denies no additional complaints Reports no additional complaints and Reports as per HPI Musc Reports no additional complaints and Reports as per HPI Skin/Breast Reports system reviewed and no additional complaints, except as documented Neuro Reports no additional complaints and Reports as per HPI Psych Reports no additional complaints and Reports as per HPI Endo Reports no additional complaints, Reports as per HPI and Denies palpitations Chadd/Lymph Reports no additional complaints and Reports as per HPI Aller/Immun Reports no additional complaints and Reports as per HPI Physical Exam Vital Signs: Last Vital Signs Pulse 66 11/08/23 12:59 BP 126/56 L 11/08/23 12:59 BMI result Body Mass Index 23.8 Const General: comfortable and no acute distress Orientation/consciousness: patient oriented x3 HEENT Other: Unremarkable Head: Yes normal to inspection Neck Neck: Yes normal visual inspection Chest Chest palpation & inspection: normal inspection of the chest Resp Auscultation: clear to auscultation bilaterally Cardio Palpation: normal PMI Heart sounds: S1 normal heart sound present, S2 normal heart sound present, no gallops, no murmurs and no rubs GI Palpation (GI): Soft to palpation Back/Spine/Pelvis Other: unremarkable Skin General skin exam: no rashes or lesions noted Neuro General: patient oriented x3 Extrem General: Yes normal to inspection Psych Mental Status: mental status grossly normal Assessment & Plan Assessment & Plan (1) Atherosclerotic cardiovascular disease: Code(s): I25.10 - Atherosclerotic heart disease of [place] coronary artery without angina pectoris (2) PAD (peripheral artery disease): Comment: 08/24/2022 - diagnostic angiogram Code(s): I73.9 - Peripheral vascular disease, unspecified (3) Normally functioning cardiac pacemaker present: Code(s): Z95.0 - Presence of cardiac pacemaker Plan Cardiac studies reviewed Echocardiogram with LVEF 55-60%; basal inferior/inferior septal akinesis. Qgwi-hr-xliigqum aortic stenosis. A more recent study from [facility] shows LVEF of 40-50% but wall motion abnormalities not identified. Dobutamine stress Mibi shows mostly fixed inferior/inferior septal defect with slight reversibility in the mid inferior wall. Probable infarct with minimal ischemia. Carotid ultrasound shows moderate hemodynamically seems stenosis in both the right as well as left internal carotid arteries. Overall, multiple vascular risk factors, established vascular disease, conduction system disease, status post recent pacemaker. Will bring him in for a formal pacemaker interrogation. Otherwise, mainly aggressive risk factor modification. He does not really have much insight into his medications extra and hence no major changes made today. Ideally, consolidate through his own PCP. In case of any clear-cut anginal-type symptoms, then will need a diagnostic catheterization but he already has CKD as well as history of dialysis and hence need to be very cautious. Explained in detail using locker room attendant. Coding Level of Care Code Est Pt Level 4 (97038) Diagnoses Atherosclerotic cardiovascular disease I25.10 PAD (peripheral artery disease) I73.9 Normally functioning cardiac pacemaker present Z95.0
[2023-11-08 12:59] VITALS: BP 126/56; PULSE 66; BMI 23.8
== END 2023-11-08 13:17 | disposition home or self-care (01) ==
PROVIDERS: PCP Family Medicine; Visit Provider Internal Medicine
DX: I25.10 Atherosclerotic heart disease of native coronary artery without angina pectoris (principal); I73.9 Peripheral vascular disease, unspecified; Z95.0 Presence of cardiac pacemaker
CPT/HCPCS: 99214

== ENCOUNTER → 2023-11-08 12:56 | Outpatient (BNVA) | payer OTHER, SELFPAY | PROVIDERS: PCP Family Medicine; Visit Provider Internal Medicine | DX: I25.10 Atherosclerotic heart disease of native coronary artery without angina pectoris (principal); I73.9 Peripheral vascular disease, unspecified; Z95.0 Presence of cardiac pacemaker | CPT/HCPCS: 99212 ==

== ENCOUNTER 2023-11-22 13:37 | Outpatient (AMB) | payer OTHER, SELFPAY ==
[2023-11-22 13:38] VITALS: BP 102/50; PULSE 67; O2SAT 97; BMI 24.6
--- NOTE | 2023-11-22 13:38 | HO.NEPHOV ---
HPI HPI Comments History of Present Illness Details I had the privilege of seeing Husam in follow-up of his chronic kidney disease and hypertension. According to him, his HIV viral load has been undetectable and his CD4 has been good. He has not had any medication changes. He continues to have a functioning AV fistula. He claims to have good urine output. He denies nausea, vomiting, diarrhea, chest pain, shortness of breath, proximal nocturnal dyspnea, orthopnea, pedal edema or urinary symptoms. He is maintained on ARB. His blood pressure has been at goal. He is on Trulicity as well as Lantus. He denies taking nonsteroidal anti-inflammatories. There were no other new complaints at the time of this office visit. [facility] Medical History Atherosclerotic cardiovascular disease CKD (chronic kidney disease) BPH loc w urin obs/LUTS BPH (benign prostatic hyperplasia) Nocturia HIV (human immunodeficiency virus infection) Diabetic polyneuropathy associated with type 2 diabetes mellitus Dyslipidemia Diabetic nephropathy associated with type 2 diabetes mellitus alf (current) use of insulin Chronic constipation Hypertension Diabetes type 2, controlled Diabetes type 2, controlled History of renal dialysis IDDM (insulin dependent diabetes mellitus) Asthma Renal failure Surgical History History of colonoscopy History of foot surgery History of appendectomy Family History Son History of diabetes mellitus Social History Household Members: None Housing: Apartment Do you presently have visiting nurse or other home services: No Alcohol intake: never Patient Tobacco Use Status: Former Tobacco user e-Cigarette/Vaping Use: Never Used Second Hand Smoke Exposure: No Advance Directives Date on File: 08/05/20 service: No Current occupational status: retired Vital Signs 11/22/23 13:38 Height 5 ft 6 in Weight 152 lb 4 oz BMI 24.6 BP 102/50 L Blood Pressure Location Rt brachial Position Sitting Pulse 67 Pulse Source Pulse Oximeter Pulse Oximetry (%) 97 Oxygen Delivery Method Room Air Physical Exam Vital Signs: Last Vital Signs Pulse 67 11/22/23 13:38 BP 102/50 L 11/22/23 13:38 Pulse Ox 97 11/22/23 13:38 Oxygen Delivery Method Room Air 11/22/23 13:38 BMI result Body Mass Index 24.6 Const General: comfortable and no acute distress Orientation/consciousness: patient oriented x3 HEENT Head: Yes normocephalic Mouth: Normal oral and palatal mucosa present Eyes EOM: EOMs intact bilaterally Neck Neck: Yes supple Resp Auscultation: clear to auscultation bilaterally Cardio Jugular venous distension: no JVD Rate: regular rate GI Palpation (GI): Soft to palpation Auscultation: normal bowel sounds General: Yes no CVA tenderness Back/Spine/Pelvis Back: no CVA tenderness Skin General skin exam: no rashes or lesions noted Neuro General: patient oriented x3 and moves all extremities Extrem Other: LUE AVF + General: Yes no pedal edema Assessment & Plan Assessment & Plan (1) Stage 3b chronic kidney disease: Code(s): N18.32 - Chronic kidney disease, stage 3b (2) Hypertension: Code(s): I10 - Essential (primary) hypertension Qualifiers: Hypertension type: primary hypertension Qualified Code(s): I10 - Essential (primary) hypertension Plan Husam was on dialysis for a long time. His GFR recovered and he came off dialysis. He continues to have AV fistula which is functioning. He claims to have good urine output. He is on angiotensin receptor tati and diuretics. If his serum creatinine rises, I intend to back off on diuretics as well as his losartan. His blood sugar needs to be maintained at goal. His blood pressure needs to be maintained at goal. He should avoid nonsteroidal anti-inflammatories. I explained all these to him and answered all his questions. I did not make any medication changes today. Follow-up appointment given. Orders: Orders Creatinine 11/22/23 N18.32 - Chronic kidney disease, stage 3b Electrolytes 11/22/23 N18.32 - Chronic kidney disease, stage 3b Phosphorus 11/22/23 N18.32 - Chronic kidney disease, stage 3b Complete Blood Count Auto Diff 11/22/23 N18.32 - Chronic kidney disease, stage 3b Blood Urea Nitrogen 11/22/23 N18.32 - Chronic kidney disease, stage 3b Calcium 11/22/23 N18.32 - Chronic kidney disease, stage 3b Parathyroid Hormone Intact 11/22/23 N18.32 - Chronic kidney disease, stage 3b IRON PROFILE 11/22/23 N18.32 - Chronic kidney disease, stage 3b Coding Level of Care Code Est Pt Level 4 (28012) Diagnoses Stage 3b chronic kidney disease N18.32 Primary hypertension I10 Hypertension type: primary hypertension Results Reviewed Nephrology Results: Sodium 138 mmol/L (135-145) 10/10/23 Potassium 4.7 mmol/L (3.3-5.1) 10/10/23 Chloride 110 mmol/L (96-108) H 10/10/23 Carbon Dioxide 20 mmol/L (22-29) L 10/10/23 BUN 70 mg/dL (9-16) H 10/10/23 Creatinine 2.50 mg/dL (0.5-1.4) H 10/10/23 Calcium 9.5 mg/dL (8.4-10.2) 10/10/23 Urine Creatinine 34.39 mg/dL 10/10/23
== END 2023-11-22 13:54 | disposition home or self-care (01) ==
PROVIDERS: PCP Family Medicine; Visit Provider Internal Medicine Nephrology
DX: N18.32 Chronic kidney disease, stage 3b (principal); I10 Essential (primary) hypertension
CPT/HCPCS: 99214

== ENCOUNTER → 2023-11-22 13:37 | Outpatient (BNVA) | payer OTHER, SELFPAY | PROVIDERS: PCP Family Medicine; Visit Provider Internal Medicine Nephrology | DX: I12.9 Hypertensive chronic kidney disease with stage 1 through stage 4 chronic kidney disease, or unspecified chronic kidney disease (principal); N18.32 Chronic kidney disease, stage 3b | CPT/HCPCS: 99212 ==

== ENCOUNTER 2023-11-27 12:44 | Outpatient (AMB) | payer OTHER, SELFPAY ==
--- NOTE | 2023-11-27 17:35 | MHC.OFFVIS ---
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 Chronic constipation Hypertension Diabetes type 2, controlled Diabetes type 2, controlled History of renal dialysis IDDM (insulin dependent diabetes mellitus) Asthma Renal failure Surgical History History of colonoscopy History of foot surgery History of appendectomy Family History Son History of diabetes mellitus Social History Household Members: None Housing: Apartment Do you presently have visiting nurse or other home services: No Alcohol intake: never Patient Tobacco Use Status: Former Tobacco user e-Cigarette/Vaping Use: Never Used Second Hand Smoke Exposure: No Advance Directives Date on File: 08/05/20 service: No Current occupational status: retired Office Procedures Cardiac Device Check Cardiac Device Check Details: Medtronic dual-chamber pacemaker interrogation today, low rate 60, upper tracking rate 130, battery 11.1 years, presenting rhythm /V paced, 60 6 beats per minute, V paced 99.9%, a paced 31.2%, 80/AF burden less than 0.1%, FFR W present during testing, atrial sensitivity increased to 0.4 mV, reduce the atrial lead from sensing FFR W, sensing P wave was 2.4 with change, right atrial threshold 0.5 volts at 0.4 milliseconds, RV threshold 0.75 volts at 0.4 milliseconds [id number] Cardiac Device Check, pacemaker dual lead Procedure code (CPT) selection complete Assessment & Plan Assessment & Plan (1) Normally functioning cardiac pacemaker present: Code(s): Z95.0 - Presence of cardiac pacemaker Plan: interrogation today Coding Level of Care Code Procedure Only Diagnoses Normally functioning cardiac pacemaker present Z95.0 CPT Codes Cardiac Device Check - Cardiac Device 2: [id number] Cardiac Device Check, pacemaker dual lead ([id number])
== END 2023-11-27 13:36 | disposition home or self-care (01) ==
PROVIDERS: PCP Family Medicine; Visit Provider Internal Medicine
DX: I44.1 Atrioventricular block, second degree (principal); Z95.0 Presence of cardiac pacemaker
CPT/HCPCS: 93280

== ENCOUNTER → 2023-11-27 12:44 | Outpatient (BNVA) | payer OTHER, SELFPAY | PROVIDERS: PCP Family Medicine; Visit Provider Internal Medicine | DX: Z45.018 Encounter for adjustment and management of other part of cardiac pacemaker (principal) | CPT/HCPCS: 93280 ==

== ENCOUNTER 2023-12-12 09:59 | Outpatient (REF) | payer OTHER, SELFPAY ==
[2023-12-12 12:07] LABS: MANUAL DIFF FLAG NO
[2023-12-12 12:16] LABS: Basophils Absolute Auto 0.1 X10*3/uL (0.0-0.2); Basophils Percent Auto 0.5 % (0-2); Eosinophils Absolute Auto 0.2 X10*3/uL (0.0-0.4); Eosinophils Percent Auto 1.6 % (0-4); Hematocrit 42.4 % (42.0-52.0); Imm Gran Abs Auto 0.15 X10*3/uL (0.00-0.03); Imm Gran Pct Auto 1.5 % (0.0-0.4); Lymphocytes Percent Auto 18.9 % (20-40); Mean Corpuscular Hemoglobin 31.4 pg (27.0-33.0); Mean Corpuscular Volume 95.1 fL (80.0-98.0); Mean Platelet Volume 10.2 fL (9.4-12.4); Monocytes Absolute Auto 0.6 X10*3/uL (0.1-1.2); Neutrophils Absolute Auto 7.4 x10*3/uL (2.0-8.3); Neutrophils Percent Auto 71.5 % (45-73); Platelet Count 193 X10*3/uL (160-400); Red Blood Count 4.46 X10*6/uL (4.60-5.80); Red Cell Distribution Width 12.9 % (11.0-16.0); White Blood Count 10.3 X10*3/uL (4.8-10.8)
[2023-12-12 12:46] LABS: Alanine Aminotransferase 37 U/L (0-40); Albumin Level 4.4 g/dL (3.5-5.0); Alkaline Phosphatase 94 U/L (39-117); Anion Gap 17 (12-20); Aspartate Amino Transferase 27 U/L (5-37); Bilirubin Total 0.4 mg/dL (0.0-1.0); Blood Urea Nitrogen 63 mg/dL (9-16); Calcium 9.8 mg/dL (8.4-10.2); Carbon Dioxide 26 mmol/L (22-29); Chloride 102 mmol/L (96-108); Estimated Glomerular Filt Rate 20; Glucose Random 178 mg/dL (60-115); Potassium 5.5 mmol/L (3.3-5.1); Sodium 139 mmol/L (135-145); Total Protein 7.6 g/dL (6.5-8.0)
[2023-12-12 13:03] LABS: HBS Num1 5.11 mIU/mL (0-7.99); HBc Num1 0.08 S/CO (0.00-0.79); HBsAGNum1 0.29 S/CO (0.00-0.99); Hepatitis B Core Antibody Nonreactive (Nonreactive); Hepatitis B Surface Antigen Negative (Negative); ~Hepatitis B Surface Antibody NONREACTIVE (Nonreactive)
[2023-12-13 13:53] LABS: Absolute CD3 Count 1384 cells/uL (840-3060); Absolute CD4 Count 629 cells/uL (490-1740); Absolute CD8 Count 735 cells/uL (180-1170); Absolute Lymphocytes 1869 cells/uL (850-3900); CD4 CD8 Ratio 0.86 (0.86-5.00); Percent CD3 Cells 74 % (57-85); Percent CD4 Cells 34 % (30-61); Percent CD8 Cells 39 % (12-42)
[2023-12-14 17:28] LABS: HIV RNA PCR Qn Copies <20 DETECTED copies/mL (NOT DETECTED); HIV RNA PCR Qn Log Copies <1.30 DETECTED (NOT DETECTED)
== END 2023-12-12 10:00 | disposition home or self-care (01) ==
LOC: HO.HHCL 09:59
PROVIDERS: Visit Provider Internal Medicine
DX: B20 Human immunodeficiency virus [HIV] disease (principal)
CPT/HCPCS: 36415; 80053; 85025; 86359; 86360; 86704; 86706; 87340; 87536

== ENCOUNTER 2023-12-25 12:44 | Outpatient (REF) | payer OTHER, SELFPAY ==
[2023-12-25 13:04] LABS: MANUAL DIFF FLAG NO
[2023-12-25 13:22] LABS: Basophils Percent Auto 0.5 % (0-2); Eosinophils Absolute Auto 0.3 X10*3/uL (0.0-0.4); Eosinophils Percent Auto 3.3 % (0-4); Hematocrit 39.7 % (42.0-52.0); Hemoglobin 13.5 g/dl (14.0-18.0); Imm Gran Abs Auto 0.07 X10*3/uL (0.00-0.03); Imm Gran Pct Auto 0.9 % (0.0-0.4); Lymphocytes Absolute Auto 1.8 X10*3/uL (1.2-4.9); Lymphocytes Percent Auto 23.5 % (20-40); Mean Corpuscular Hemoglobin 31.5 pg (27.0-33.0); Mean Corpuscular Volume 92.8 fL (80.0-98.0); Mean Platelet Volume 10.6 fL (9.4-12.4); Monocytes Absolute Auto 0.6 X10*3/uL (0.1-1.2); Monocytes Percent Auto 7.7 % (2-11); Neutrophils Percent Auto 64.1 % (45-73); Platelet Count 158 X10*3/uL (160-400); Red Blood Count 4.28 X10*6/uL (4.60-5.80); Red Cell Distribution Width 12.9 % (11.0-16.0); White Blood Count 7.8 X10*3/uL (4.8-10.8)
[2023-12-25 14:02] LABS: Anion Gap 17 (12-20); Blood Urea Nitrogen 66 mg/dL (9-16); Calcium 9.3 mg/dL (8.4-10.2); Carbon Dioxide 25 mmol/L (22-29); Chloride 101 mmol/L (96-108); Estimated Glomerular Filt Rate 23; Iron 80 mcg/dL (45-160); Percent Iron Saturation 31 % (15-50); Phosphorus 7.3 mg/dL (2.7-4.5); Potassium 5.3 mmol/L (3.3-5.1); Sodium 138 mmol/L (135-145); Total Iron Binding Capacity 256 mcg/dL (228-428); Unsaturated Iron Binding 176 ug/dL
[2023-12-25 14:07] LABS: Parathyroid Hormone Intact 427.2 pg/mL (8.7-77.1)
== END 2023-12-25 12:45 | disposition home or self-care (01) ==
LOC: HO.LAB 12:44
PROVIDERS: PCP Family Medicine; Visit Provider Internal Medicine Nephrology
DX: N18.32 Chronic kidney disease, stage 3b (principal)
CPT/HCPCS: 36415; 80051; 82310; 82565; 83540; 83970; 84100; 84520; 85025

== ENCOUNTER 2024-01-03 13:25 | Outpatient (AMB) | payer OTHER, SELFPAY ==
--- NOTE | 2024-01-03 13:31 | HO.NEPHOV ---
HPI HPI Comments History of Present Illness Details I had the privilege of seeing Husam in follow-up of his chronic kidney disease and hypertension. According to him, his HIV viral load has been undetectable and his CD4 has been good. He has not had any medication changes. He continues to have a functioning AV fistula. He claims to have good urine output. He denies nausea, vomiting, diarrhea, chest pain, shortness of breath, proximal nocturnal dyspnea, orthopnea, pedal edema or urinary symptoms. He is maintained on ARB. His blood pressure has been at goal. He is on Trulicity as well as Lantus. He denies taking nonsteroidal anti-inflammatories. There were no other new complaints at the time of this office visit. [facility] Medical History Atherosclerotic cardiovascular disease CKD (chronic kidney disease) BPH loc w urin obs/LUTS BPH (benign prostatic hyperplasia) Nocturia HIV (human immunodeficiency virus infection) Diabetic polyneuropathy associated with type 2 diabetes mellitus Dyslipidemia Diabetic nephropathy associated with type 2 diabetes mellitus [facility] (current) use of insulin Chronic constipation Hypertension Diabetes type 2, controlled Diabetes type 2, controlled History of renal dialysis IDDM (insulin dependent diabetes mellitus) Asthma Renal failure Surgical History History of colonoscopy History of foot surgery History of appendectomy Family History Son History of diabetes mellitus Social History Household Members: None Housing: Apartment Do you presently have visiting nurse or other home services: No Alcohol intake: never Patient Tobacco Use Status: Former Tobacco user e-Cigarette/Vaping Use: Never Used Second Hand Smoke Exposure: No Advance Directives Date on File: 08/05/20 service: No Current occupational status: retired Vital Signs 01/03/24 13:32 Height 5 ft 6 in Weight 154 lb 4 oz BMI 24.9 BP 110/50 L Blood Pressure Location Rt brachial Position Sitting Pulse 72 Pulse Source Pulse Oximeter Pulse Oximetry (%) 96 Oxygen Delivery Method Room Air Physical Exam Vital Signs: Last Vital Signs Pulse 72 01/03/24 13:32 BP 110/50 L 01/03/24 13:32 Pulse Ox 96 01/03/24 13:32 Oxygen Delivery Method Room Air 01/03/24 13:32 BMI result Body Mass Index 24.9 Const General: comfortable and no acute distress Orientation/consciousness: patient oriented x3 HEENT Head: Yes normocephalic Mouth: Normal oral and palatal mucosa present Eyes EOM: EOMs intact bilaterally Neck Neck: Yes supple Resp Auscultation: clear to auscultation bilaterally Cardio Jugular venous distension: no JVD Rate: regular rate Heart sounds: Murmur heart sound present GI Palpation (GI): Soft to palpation Auscultation: normal bowel sounds General: Yes no CVA tenderness Back/Spine/Pelvis Back: no CVA tenderness Skin General skin exam: no rashes or lesions noted Neuro General: patient oriented x3 and moves all extremities Extrem Other: AVF + General: Yes no pedal edema Assessment & Plan Assessment & Plan (1) Stage 3b chronic kidney disease: Code(s): N18.32 - Chronic kidney disease, stage 3b (2) Hypertension: Code(s): I10 - Essential (primary) hypertension Qualifiers: Hypertension type: primary hypertension Qualified Code(s): I10 - Essential (primary) hypertension Plan Husam was on dialysis for a long time. His GFR recovered and he came off dialysis. He continues to have AV fistula which is functioning. He claims to have good urine output. He is on angiotensin receptor tati and diuretics. His serum creatinine remains high from baseline. So I reduced his losartan to 25 mg daily.. His blood sugar needs to be maintained at goal. His blood pressure needs to be maintained at goal. He should avoid nonsteroidal anti-inflammatories. I explained all these to him and answered all his questions. I did not make any other medication changes today. Follow-up appointment given Orders: Orders Creatinine Today I10 - Essential (primary) hypertension, N18.32 - Chronic kidney disease, stage 3b Blood Urea Nitrogen Today I10 - Essential (primary) hypertension, N18.32 - Chronic kidney disease, stage 3b Calcium Today I10 - Essential (primary) hypertension, N18.32 - Chronic kidney disease, stage 3b Electrolytes Today I10 - Essential (primary) hypertension, N18.32 - Chronic kidney disease, stage 3b Phosphorus Today I10 - Essential (primary) hypertension, N18.32 - Chronic kidney disease, stage 3b Medications: Changed From losartan 50 mg See Protocol PO DAILY 30 tabs 0RF To losartan 25 mg See Protocol PO DAILY 30 tabs 3RF Coding Level of Care Code Est Pt Level 4 (44559) Diagnoses Stage 3b chronic kidney disease N18.32 Primary hypertension I10 Hypertension type: primary hypertension Results Reviewed Nephrology Results: Hgb 13.5 g/dl (14.0-18.0) L 12/25/23 WBC 7.8 X10*3/uL (4.8-10.8) 12/25/23 Plt Count 158 X10*3/uL (160-400) L 12/25/23 Sodium 138 mmol/L (135-145) 12/25/23 Potassium 5.3 mmol/L (3.3-5.1) H 12/25/23 Chloride 101 mmol/L (96-108) 12/25/23 Carbon Dioxide 25 mmol/L (22-29) 12/25/23 BUN 66 mg/dL (9-16) H 12/25/23 Creatinine 2.72 mg/dL (0.5-1.4) H 12/25/23 Calcium 9.3 mg/dL (8.4-10.2) 12/25/23 Phosphorus 7.3 mg/dL (2.7-4.5) H 12/25/23 PTH Intact 427.2 pg/mL (8.7-77.1) H 12/25/23 Urine Creatinine 34.39 mg/dL 10/10/23
[2024-01-03 13:32] VITALS: BP 110/50; PULSE 72; O2SAT 96; BMI 24.9
== END 2024-01-03 13:44 | disposition home or self-care (01) ==
PROVIDERS: PCP Family Medicine; Visit Provider Internal Medicine Nephrology
DX: N18.32 Chronic kidney disease, stage 3b (principal); I10 Essential (primary) hypertension
CPT/HCPCS: 99214

== ENCOUNTER → 2024-01-03 13:25 | Outpatient (BNVA) | payer OTHER, SELFPAY | PROVIDERS: PCP Family Medicine; Visit Provider Internal Medicine Nephrology | DX: I12.9 Hypertensive chronic kidney disease with stage 1 through stage 4 chronic kidney disease, or unspecified chronic kidney disease (principal); N18.32 Chronic kidney disease, stage 3b | CPT/HCPCS: 99212 ==

== ENCOUNTER 2024-01-19 10:49 | Outpatient (REF) | payer OTHER, SELFPAY ==
--- NOTE | ~2024-01-19 | US_ITS ---
EXAMINATION: ULTRASOUND RENAL WITH DOPPLER CLINICAL INFORMATION: Decreasing kidney function, atherosclerosis of renal artery. COMPARISON: None. TECHNIQUE: Real-time grayscale, color Doppler, and duplex Doppler evaluation of the kidneys and renal vasculature was performed. FINDINGS: RENAL MEASUREMENTS: Right: 9.6 x 4.7 x 4.1 cm (Sag x AP x TV) Left: 11.1 x 4.1 x 3.4 cm (Sag x AP x TV) The renal parenchyma appears normal. No hydronephrosis or nephrolithiasis. DOPPLER INTERROGATION: AORTA: Mid aorta: 86 cm/sec RIGHT MAIN RENAL ARTERY: Proximal: 180 cm/sec Mid: 130 cm/sec Distal: 106 cm/sec LEFT MAIN RENAL ARTERY: Proximal: 154 cm/sec Mid: 53 cm/sec Distal: 58 cm/sec RENAL-AORTIC RATIO (RAR): Right: 2.1 Left: 1.8 SEGMENTAL RESISTIVE INDICES: Right: 0.83-0.87 Left: 0.85-0.90 RENAL VEINS: Right: Patent with normal waveform. Left: Patent with normal waveform. US/US renal doppler IMPRESSION: Elevated peak systolic velocity proximal right main renal artery consistent with a less than 60% stenosis. Elevated resistive indices greater than 0.80 in both kidneys consistent with chronic medical renal disease. No hydronephrosis.
--- NOTE | ~2024-01-19 | US_ITS ---
EXAMINATION: ULTRASOUND RENAL WITH DOPPLER CLINICAL INFORMATION: Decreasing kidney function, atherosclerosis of renal artery. COMPARISON: None. TECHNIQUE: Real-time grayscale, color Doppler, and duplex Doppler evaluation of the kidneys and renal vasculature was performed. FINDINGS: RENAL MEASUREMENTS: Right: 9.6 x 4.7 x 4.1 cm (Sag x AP x TV) Left: 11.1 x 4.1 x 3.4 cm (Sag x AP x TV) The renal parenchyma appears normal. No hydronephrosis or nephrolithiasis. DOPPLER INTERROGATION: AORTA: Mid aorta: 86 cm/sec RIGHT MAIN RENAL ARTERY: Proximal: 180 cm/sec Mid: 130 cm/sec Distal: 106 cm/sec LEFT MAIN RENAL ARTERY: Proximal: 154 cm/sec Mid: 53 cm/sec Distal: 58 cm/sec RENAL-AORTIC RATIO (RAR): Right: 2.1 Left: 1.8 SEGMENTAL RESISTIVE INDICES: Right: 0.83-0.87 Left: 0.85-0.90 RENAL VEINS: Right: Patent with normal waveform. Left: Patent with normal waveform. US/US renal BI IMPRESSION: Elevated peak systolic velocity proximal right main renal artery consistent with a less than 60% stenosis. Elevated resistive indices greater than 0.80 in both kidneys consistent with chronic medical renal disease. No hydronephrosis.
== END 2024-01-19 10:50 | disposition home or self-care (01) ==
LOC: HO.US 10:49
PROVIDERS: PCP Family Medicine; Visit Provider Surgery Vascular Surgery
DX: N18.9 Chronic kidney disease, unspecified (principal); I70.1 Atherosclerosis of renal artery
CPT/HCPCS: 76775; 93975

== ENCOUNTER 2024-02-07 12:32 | Outpatient (AMB) | payer OTHER, SELFPAY ==
[2024-02-07 12:45] VITALS: BP 120/52; PULSE 61; BMI 24.5
--- NOTE | 2024-02-07 12:45 | MHC.OFFVIS ---
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: Yes Vice President Diversity Name: Ambika [id number]/[email or web address] Accompanied by: Self / Same As Patient Allergies No Known Allergies [No Known Allergies*] Allergy (Verified 01/03/24 13:34) Medication List - Last Reconciled 02/07/24 by Radhames Flores MD acetaminophen (Tylenol) 650 mg (2 x 325 mg) PO Q6H PRN albuterol sulfate 90 mcg/actuation (Ventolin HFA) 2 puffs inhalation Q4-6H PRN amlodipine 10 mg PO DAILY aspirin 81 mg PO QAM atorvastatin 20 mg PO DAILY blood sugar diagnostic (FreeStyle Lite Strips) As directed blood-glucose meter (FreeStyle Lite Meter kit) As directed cholecalciferol (vitamin D3) 25 mcg PO QAM dapagliflozin propanediol (Farxiga) 10 mg PO DAILY dolutegravir-rilpivirine 50-25 mg (Juluca) 1 tab PO DAILY doxazosin 8 mg PO DAILY 90 days dulaglutide (Trulicity) mg subcut finasteride 5 mg PO DAILY 90 days insulin glargine (Lantus U-100 Insulin) 18 units (0.18 mL) subcut BID 30 days insulin syringe-needle U-100 (BD Insulin Syringe Ultra-Fine) Twice a day lancets (TRUEplus Lancets) As directed losartan 25 mg See Protocol PO DAILY torsemide 40 mg PO DAILY HPI Comments Details: Husam returns for follow-up various cardiac issues. Multiple comorbidities including carotid vascular disease, suspected coronary disease, diabetes, hypertension, dyslipidemia, HIV. He has conduction system disease and was referred to EP. Not entirely clear what happened but it seems that he was transferred some how to [facility] and then underwent inpatient pacemaker placement. No new complaints. He states he is doing fine. 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 Chronic constipation Hypertension Diabetes type 2, controlled Diabetes type 2, controlled History of renal dialysis IDDM (insulin dependent diabetes mellitus) Asthma Renal failure Surgical History History of colonoscopy History of foot surgery History of appendectomy Family History Son History of diabetes mellitus Social History Household Members: None Housing: Apartment Do you presently have visiting nurse or other home services: No Alcohol intake: never Patient Tobacco Use Status: Former Tobacco user e-Cigarette/Vaping Use: Never Used Second Hand Smoke Exposure: No Advance Directives Date on File: 08/05/20 service: No Current occupational status: retired Review of Systems Const Denies chills, Denies fatigue, Denies fever(s), Denies frequent falls, Denies weakness, Denies weight gain and Denies weight loss ENT Denies dizziness Card Denies chest pain, Denies leg edema, Denies lightheadedness, Denies palpitations, Denies dyspnea and Denies dyspnea on exertion Resp Denies cough, Denies dyspnea and Denies dyspnea on exertion GI Denies hematochezia Musc Denies abnormal gait, Denies muscle weakness, Denies numbness, Denies radiating pain into limb and Denies tingling Neuro Denies abnormal gait, Denies dizziness, Denies frequent falls, Denies numbness, Denies tingling and Denies weakness Endo Denies fatigue and Denies palpitations Physical Exam Vital Signs: Last Vital Signs Pulse 61 02/07/24 12:45 BP 120/52 L 02/07/24 12:45 BMI result Body Mass Index 24.5 Const General: comfortable and no acute distress Orientation/consciousness: patient oriented x3 HEENT Other: Unremarkable Head: Yes normal to inspection Neck Neck: Yes normal visual inspection Chest Chest palpation & inspection: normal inspection of the chest Resp Auscultation: clear to auscultation bilaterally Cardio Palpation: normal PMI Heart sounds: S1 normal heart sound present, S2 normal heart sound present, no gallops, Murmur heart sound present systolic II/ and at the right sternal border and no rubs GI Palpation (GI): Soft to palpation Back/Spine/Pelvis Other: unremarkable Skin General skin exam: no rashes or lesions noted Neuro General: patient oriented x3 Extrem General: Yes normal to inspection Psych Mental Status: mental status grossly normal Office Procedures EKG Details: EKG with sinus rhythm at 61/Min; nonspecific intraventricular conduction defect; top normal PA; [place]. [id number], Complete Assessment & Plan Assessment & Plan (1) Atherosclerotic cardiovascular disease: Code(s): I25.10 - Atherosclerotic heart disease of [place] coronary artery without angina pectoris Category: Medical (2) PAD (peripheral artery disease): Code(s): I73.9 - Peripheral vascular disease, unspecified Category: Medical (3) Normally functioning cardiac pacemaker present: Code(s): Z95.0 - Presence of cardiac pacemaker Category: Medical Plan Cardiac studies reviewed Echocardiogram with LVEF 55-60%; basal inferior/inferior septal akinesis. [id number] aortic stenosis. A more recent study from [facility] shows LVEF of 40-50% but wall motion abnormalities not identified. Dobutamine stress MIBI shows mostly fixed inferior/inferior septal defect with slight reversibility in the mid inferior wall. Probable infarct with minimal ischemia. Carotid ultrasound shows moderate hemodynamically significant stenosis in both the right as well as left internal carotid arteries. Overall, multiple vascular risk factors, established vascular disease, conduction system disease, status post recent pacemaker. Will need to arrange for remote pacemaker follow-up. Otherwise, he does not have any overt symptoms and mainly risk factor modification. Also difficult to clarify his medications and he can do the current list which includes aspirin and statins. To be consolidated through his own PCP. In case of any clear-cut anginal-type symptoms, then will need a diagnostic catheterization but he already has CKD as well as history of dialysis and hence need to be very cautious. Discussed using diplomatic interpreter/translator. Coding Level of Care Code Est Pt Level 4 (29391) Diagnoses Atherosclerotic cardiovascular disease I25.10 PAD (peripheral artery disease) I73.9 Normally functioning cardiac pacemaker present Z95.0 CPT Codes EKG - CPT: 06497-[id number], Complete ([id number])
== END 2024-02-07 13:13 | disposition home or self-care (01) ==
PROVIDERS: PCP Family Medicine; Visit Provider Internal Medicine
DX: I25.10 Atherosclerotic heart disease of native coronary artery without angina pectoris (principal); I73.9 Peripheral vascular disease, unspecified; Z95.0 Presence of cardiac pacemaker
CPT/HCPCS: 93010; 99214

== ENCOUNTER → 2024-02-07 12:32 | Outpatient (BNVA) | payer OTHER, SELFPAY | PROVIDERS: PCP Family Medicine; Visit Provider Internal Medicine | DX: I25.10 Atherosclerotic heart disease of native coronary artery without angina pectoris (principal); I10 Essential (primary) hypertension; I73.9 Peripheral vascular disease, unspecified; Z95.0 Presence of cardiac pacemaker | CPT/HCPCS: 93005; 99212 ==

== ENCOUNTER 2024-02-08 12:55 | Outpatient (AMB) | payer OTHER, SELFPAY ==
--- NOTE | 2024-02-08 12:58 | A.OFFVIS_ITS ---
Intake Visit Reasons: Follow Up 01/18 Renal US Intake Note: Patient presents for follow up after having a renal US performed on 01/18. Patient has no complaints. Accompanied by: Self / Same As Patient Allergies No Known Allergies [No Known Allergies*] Allergy (Verified 02/08/24 12:59) [facility] HPI Follow Up 01/18 Renal US: Details: Very pleasant 78-year-old gentleman presents for follow-up regarding his lower extremities. He incidentally had renal Dopplers. He appears to be improving. Actually was being dialyzed through a left upper extremity fistula in his renal function did improve over time. He does have lower extremity claudication and has been following up for that. He did have renal Dopplers but did not have his lower extremity arterial testing. 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 Chronic constipation Hypertension Diabetes type 2, controlled Diabetes type 2, controlled History of renal dialysis IDDM (insulin dependent diabetes mellitus) Asthma Renal failure Surgical History History of colonoscopy History of foot surgery History of appendectomy Family History Son History of diabetes mellitus Social History Household Members: None Housing: Apartment Do you presently have visiting nurse or other home services: No Alcohol intake: never Patient Tobacco Use Status: Former Tobacco user e-Cigarette/Vaping Use: Never Used Second Hand Smoke Exposure: No Advance Directives Date on File: 08/05/20 service: No Current occupational status: retired Review of Systems Const All systems reviewed & are unremarkable except as noted in HPI and below Reports no additional complaints ENT Reports Normal hearing present Card Denies chest pain, Denies chest pain at rest, Denies chest pain with activity and Denies pedal edema Resp Denies cough GI Denies abdominal pain Musc Denies abnormal gait, Denies muscle cramps and Denies radiating pain into limb Skin/Breast Denies skin ulcer and Denies wounds Neuro Reports Normal hearing present and Denies abnormal gait Psych Reports no additional complaints Physical Exam Const General: cooperative, healthy appearing and comfortable Orientation/consciousness: oriented to person, oriented to place and oriented to time HEENT Head: Yes normal to inspection Neck Neck: Yes normal visual inspection Carotids: no bruits Chest Chest palpation & inspection: normal inspection of the chest Resp Effort & Inspection: normal respiratory effort and able to speak in complete sentences Auscultation: clear to auscultation bilaterally, no crackles, no rales, no rhonchi and no wheezes Cardio Other: Bilateral DP signals Rate: regular rate Rhythm: regular rhythm Heart sounds: S1 normal heart sound present and S2 normal heart sound present Bruits: no carotid bruits Peripheral pulses: Peripheral pulses 2+ throughout GI Inspection: Yes normal to inspection Skin Wounds: no wounds Hair: normal Neuro General: oriented to person, oriented to place and oriented to time Cranial nerves: Yes CN's II-XII intact bilaterally and Yes Normal hearing present Cognition (Neuro): normal cognition Motor exam (neuro): 5/5 motor strength present throughout Extrem Other: venous exam: No significant superficial varicosities or spider telangiectasias, minimal edema General: No clubbing, No cyanosis and No edema Psych Appearance: grossly normal Mental Status: mental status grossly normal Speech and movement: Normal speech and movement present Results Reviewed Results Reviewed: Renal ultrasound dated 01/25/2024 demonstrates right-sided renal artery stenosis of less than 50% Assessment & Plan Assessment & Plan (1) PAD (peripheral artery disease): Code(s): I73.9 - Peripheral vascular disease, unspecified Category: Medical Plan: In short patient has a history of claudication. We did discuss routine risk factor modification and he will require repeat lower extremity arterial testing. He did no show in the past. He will should follow up with us after testing. Thank you for allowing us to assist in his care. (2) Renal artery stenosis: Code(s): I70.1 - Atherosclerosis of renal artery Category: Medical Plan: I did review his renal artery testing. It does appear to be relatively stable. Should his blood pressure medication requirements increase will be happy to intervene on the renal artery stenosis. Thank you for allowing us to assist in his care. If there are any questions or concerns please do not hesitate to contact us Orders: Orders US arterial duplex LE BI 1 Week I73.9 - Peripheral vascular disease, unspecified Coding Level of Care Code Est Pt Level 4 (04485) Diagnoses PAD (peripheral artery disease) I73.9 Renal artery stenosis I70.1
== END 2024-02-08 13:27 | disposition home or self-care (01) ==
PROVIDERS: PCP Family Medicine; Visit Provider Surgery Vascular Surgery
DX: I73.9 Peripheral vascular disease, unspecified (principal); I70.1 Atherosclerosis of renal artery
CPT/HCPCS: 99213

== ENCOUNTER → 2024-02-08 12:55 | Outpatient (BNVA) | payer OTHER, SELFPAY | PROVIDERS: PCP Family Medicine; Visit Provider Surgery Vascular Surgery | DX: I73.9 Peripheral vascular disease, unspecified (principal); I70.1 Atherosclerosis of renal artery | CPT/HCPCS: 99212 ==

== ENCOUNTER 2024-02-16 12:36 | Outpatient (REF) | payer OTHER, SELFPAY ==
[2024-02-16 14:36] LABS: Anion Gap 15 (12-20); Blood Urea Nitrogen 62 mg/dL (9-16); Calcium 9.8 mg/dL (8.4-10.2); Carbon Dioxide 27 mmol/L (22-29); Chloride 101 mmol/L (96-108); Estimated Glomerular Filt Rate 19; Phosphorus 5.1 mg/dL (2.7-4.5); Potassium 5.2 mmol/L (3.3-5.1); Sodium 138 mmol/L (135-145)
== END 2024-02-16 12:37 | disposition home or self-care (01) ==
LOC: HO.LAB 12:36
PROVIDERS: PCP Family Medicine; Visit Provider Internal Medicine Nephrology
DX: I10 Essential (primary) hypertension (principal); N18.32 Chronic kidney disease, stage 3b
CPT/HCPCS: 36415; 80051; 82310; 82565; 84100; 84520

== ENCOUNTER 2024-02-23 12:32 | Outpatient (REF) | payer OTHER, SELFPAY ==
--- NOTE | ~2024-02-23 | US_ITS ---
EXAMINATION: NONINVASIVE ASSESSMENT OF THE ARTERIES OF BOTH LOWER EXTREMITIES INCLUDING PVR EXAM AND BILATERAL LOWER EXTREMITY DUPLEX CLINICAL INFORMATION: Peripheral vascular disease COMPARISON: Noninvasive vascular imaging 01/18/2023 TECHNIQUE: Ankle pulse volume recordings, ankle pressure measurements and ankle brachial indices were obtained of the lower extremity arterial system bilaterally in addition to duplex Doppler techniques with wave form analysis and measurement of velocities in the common femoral, profunda femoral, superficial femoral, popliteal, tibial and peroneal arteries. The study was performed only at rest. FINDINGS: RIGHT LEG 1. Right Ankle-Brachial Index: 0.89 (higher of the DP/PT) >0.97-1.25 = normal - no significant arterial disease 0.75-0.96 = mild peripheral arterial disease 0.5-0.74 = moderate peripheral arterial disease <0.50 = severe peripheral arterial disease <0.30 = critical arterial disease 2. Segmental Pressures (mmHg): Brachial: 114 Ankle: PT 64, DP 102 3. PVR Waveforms: Ankle: Normal 4. Direct Duplex: Common femoral artery: 109 cm/s, Multiphasic Profunda femoris artery: 88.3 cm/s, Multiphasic Superficial femoral artery (proximal): 84.8 cm/s, Multiphasic Superficial femoral artery (mid): 134 cm/s, Multiphasic Superficial femoral artery (distal): 103 cm/s, Multiphasic Popliteal artery: 79.2 cm/s, Multiphasic Mid posterior tibial artery: 82.5 cm/s, Multiphasic LEFT LE. Left Ankle-Brachial Index: 0.84 (higher of the DP/PT) >0.97-1.25 = normal - no significant arterial disease 0.75-0.96 = mild peripheral arterial disease 0.5-0.74 = moderate peripheral arterial disease <0.50 = severe peripheral arterial disease <0.30 = critical arterial disease 2. Segmental Pressures: Brachial: Not obtained due to AV fistula Ankle: PT 96, DP 66 3. PVR Waveforms: Ankle: Normal 4. Direct Duplex: Common femoral artery: 102 cm/s, Multiphasic Profunda femoris artery: 96.6 cm/s, Multiphasic Superficial femoral artery (proximal): 97.5 cm/s, Multiphasic Superficial femoral artery (mid): 96.3 cm/s, Multiphasic Superficial femoral artery (distal): 59.7 cm/s, Multiphasic Popliteal artery: 71.2 cm/s, Multiphasic Mid posterior tibial artery: 51.8 cm/s, Multiphasic Arteriovenous fistula observed between the left proximal femoral artery and the left common femoral vein. US/US arterial duplex BI w/ PEG IMPRESSION: 1. Ankle brachial indices consistent with mild peripheral arterial disease bilaterally. 2. Atherosclerotic plaque in the right mid SFA causing mild stenosis by velocity criteria, unchanged from prior. 3. Left femoral artery to common femoral vein AV fistula.
== END 2024-02-23 12:33 | disposition home or self-care (01) ==
LOC: HO.US 12:32
PROVIDERS: PCP Family Medicine; Visit Provider Surgery Vascular Surgery
DX: I73.9 Peripheral vascular disease, unspecified (principal)
CPT/HCPCS: 93922; 93925

== ENCOUNTER 2024-02-28 13:31 | Outpatient (AMB) | payer OTHER, SELFPAY ==
--- NOTE | 2024-02-28 13:33 | HO.NEPHOV_ITS ---
Vital Signs 02/28/24 13:42 Height 5 ft 6 in Weight 152 lb 2 oz BMI 24.6 BP 124/60 Blood Pressure Location Rt brachial Position Sitting Pulse 67 Pulse Source Pulse Oximeter Pulse Oximetry (%) 97 Oxygen Delivery Method Room Air Intake Visit Reasons: CKD/ 2 MO FU/ Conf Intake Note: Fish Cutting Machine Operator services refused, refusal form signed and scanned into chart. Fish Cutting Machine Operator Required: Yes Accompanied by: Self / Same As Patient Allergies No Known Allergies [No Known Allergies*] Allergy (Verified 02/28/24 13:45) HPI Comments Details: I had the privilege of seeing Husam in follow-up of his chronic kidney disease and hypertension. According to him, his HIV viral load has been undetectable and his CD4 has been good. He has not had any medication changes. He continues to have a functioning AV fistula. He claims to have good urine output. He denies nausea, vomiting, diarrhea, chest pain, shortness of breath, proximal nocturnal dyspnea, orthopnea, pedal edema or urinary symptoms. He is maintained on ARB. His blood pressure has been at goal. He is on Trulicity as well as Lantus. He denies taking nonsteroidal anti-inflammatories. His serum creatinine has been marginally worse. There were no other new complaints at the time of this office visit. [facility] Medical History Atherosclerotic cardiovascular disease CKD (chronic kidney disease) BPH loc w urin obs/LUTS BPH (benign prostatic hyperplasia) Nocturia HIV (human immunodeficiency virus infection) Diabetic polyneuropathy associated with type 2 diabetes mellitus Dyslipidemia Diabetic nephropathy associated with type 2 diabetes mellitus FCI (current) use of insulin Chronic constipation Hypertension Diabetes type 2, controlled Diabetes type 2, controlled History of renal dialysis IDDM (insulin dependent diabetes mellitus) Asthma Renal failure Surgical History History of colonoscopy History of foot surgery History of appendectomy Family History Son History of diabetes mellitus Social History Household Members: None Housing: Apartment Do you presently have visiting nurse or other home services: No Alcohol intake: never Patient Tobacco Use Status: Former Tobacco user e-Cigarette/Vaping Use: Never Used Second Hand Smoke Exposure: No Advance Directives Date on File: 08/05/20 service: No Current occupational status: retired Review of Systems Const All systems reviewed & are unremarkable except as noted in HPI and below Physical Exam Vital Signs: Last Vital Signs Pulse 67 02/28/24 13:42 BP 124/60 02/28/24 13:42 Pulse Ox 97 02/28/24 13:42 Oxygen Delivery Method Room Air 02/28/24 13:42 BMI result Body Mass Index 24.6 Const General: comfortable and no acute distress Orientation/consciousness: patient oriented x3 HEENT Head: Yes normocephalic Mouth: Normal oral and palatal mucosa present Eyes EOM: EOMs intact bilaterally Neck Neck: Yes supple Resp Auscultation: clear to auscultation bilaterally Cardio Jugular venous distension: no JVD Rate: regular rate GI Palpation (GI): Soft to palpation Auscultation: normal bowel sounds General: Yes no CVA tenderness Back/Spine/Pelvis Back: no CVA tenderness Skin General skin exam: no rashes or lesions noted Neuro General: patient oriented x3 and moves all extremities Extrem Other: AV fistula present Results Reviewed Nephrology Results: Hgb 13.5 g/dl (14.0-18.0) L 12/25/23 WBC 7.8 X10*3/uL (4.8-10.8) 12/25/23 Plt Count 158 X10*3/uL (160-400) L 12/25/23 Sodium 138 mmol/L (135-145) 02/16/24 Potassium 5.2 mmol/L (3.3-5.1) H 02/16/24 Chloride 101 mmol/L (96-108) 02/16/24 Carbon Dioxide 27 mmol/L (22-29) 02/16/24 BUN 62 mg/dL (9-16) H 02/16/24 Creatinine 3.19 mg/dL (0.5-1.4) H 02/16/24 Calcium 9.8 mg/dL (8.4-10.2) 02/16/24 Phosphorus 5.1 mg/dL (2.7-4.5) H 02/16/24 PTH Intact 427.2 pg/mL (8.7-77.1) H 12/25/23 Renal US 01/19/24 Assessment & Plan Assessment & Plan (1) Stage 3b chronic kidney disease: Code(s): N18.32 - Chronic kidney disease, stage 3b Category: Medical (2) Renal artery stenosis: Code(s): I70.1 - Atherosclerosis of renal artery Category: Medical (3) PAD (peripheral artery disease): Code(s): I73.9 - Peripheral vascular disease, unspecified Category: Medical (4) Hypertension: Code(s): I10 - Essential (primary) hypertension Category: Medical Qualifiers: Hypertension type: primary hypertension Qualified Code(s): I10 - Essential (primary) hypertension Plan Husam was on dialysis for a long time. His GFR recovered and he came off dialysis. He continues to have AV fistula which is functioning. He claims to have good urine output. He is on angiotensin receptor tati and diuretics. His serum creatinine remains high from baseline. So I asked him to hold losartan altogether. I may restart it later. His blood sugar needs to be maintained at goal. His blood pressure needs to be maintained at goal. He should avoid nonsteroidal anti-inflammatories. I explained all these to him and answered all his questions. I did not make any other medication changes today. Follow-up blood work ordered. Answered all questions. Follow-up appointment given Orders: Orders Complete Blood Count Auto Diff Today I10 - Essential (primary) hypertension, I70.1 - Atherosclerosis of renal artery, I73.9 - Peripheral vascular disease, unspecified, N18.32 - Chronic kidney disease, stage 3b Creatinine Today I10 - Essential (primary) hypertension, I70.1 - Atherosclerosis of renal artery, I73.9 - Peripheral vascular disease, unspecified, N18.32 - Chronic kidney disease, stage 3b Blood Urea Nitrogen Today I10 - Essential (primary) hypertension, I70.1 - Atherosclerosis of renal artery, I73.9 - Peripheral vascular disease, unspecified, N18.32 - Chronic kidney disease, stage 3b Electrolytes Today I10 - Essential (primary) hypertension, I70.1 - Atherosclerosis of renal artery, I73.9 - Peripheral vascular disease, unspecified, N18.32 - Chronic kidney disease, stage 3b Calcium Today I10 - Essential (primary) hypertension, I70.1 - Atherosclerosis of renal artery, I73.9 - Peripheral vascular disease, unspecified, N18.32 - Chronic kidney disease, stage 3b Parathyroid Hormone Intact Today I10 - Essential (primary) hypertension, I70.1 - Atherosclerosis of renal artery, I73.9 - Peripheral vascular disease, unspecified, N18.32 - Chronic kidney disease, stage 3b Phosphorus Today I10 - Essential (primary) hypertension, I70.1 - Atherosclerosis of renal artery, I73.9 - Peripheral vascular disease, unspecified, N18.32 - Chronic kidney disease, stage 3b Coding Level of Care Code Est Pt Level 4 (61972) Diagnoses Stage 3b chronic kidney disease N18.32 Renal artery stenosis I70.1 PAD (peripheral artery disease) I73.9 Primary hypertension I10 Hypertension type: primary hypertension
[2024-02-28 13:42] VITALS: BP 124/60; PULSE 67; O2SAT 97; BMI 24.6
== END 2024-02-28 13:53 | disposition home or self-care (01) ==
PROVIDERS: PCP Family Medicine; Visit Provider Internal Medicine Nephrology
DX: N18.32 Chronic kidney disease, stage 3b (principal); I70.1 Atherosclerosis of renal artery; I73.9 Peripheral vascular disease, unspecified; I10 Essential (primary) hypertension
CPT/HCPCS: 99214

== ENCOUNTER → 2024-02-28 13:31 | Outpatient (BNVA) | payer OTHER, SELFPAY | PROVIDERS: PCP Family Medicine; Visit Provider Internal Medicine Nephrology | DX: I11.0 Hypertensive heart disease with heart failure (principal); N18.32 Chronic kidney disease, stage 3b; I70.1 Atherosclerosis of renal artery; I73.9 Peripheral vascular disease, unspecified | CPT/HCPCS: 99212 ==

== ENCOUNTER 2024-03-25 15:27 | Emergency (ER) | payer OTHER, SELFPAY ==
--- NOTE | ~2024-03-25 | XR_ITS ---
EXAMINATION: XR LUMBOSACRAL SPINE CLINICAL INFORMATION: Back pain COMPARISON: None available. TECHNIQUE: Three views of the lumbosacral spine. FINDINGS: The lumbar spine maintains normal alignment. There is a chronic L1 compression fracture. The remainder of the vertebral body heights are maintained. There is multilevel loss of intervertebral disc space with endplate degenerative changes. There is facet arthropathy in the lower lumbar spine. XR/XR lumbar spine 2-3V IMPRESSION: 1. 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 2. Chronic L1 compression fracture.
[2024-03-25 15:59] VITALS: BP 138/58; PULSE 79; O2SAT 97
[2024-03-25 16:00] VITALS: BP 144/56; PULSE 65; RESP 16; TEMP 36.9; O2SAT 97; BMI 24.8
--- NOTE | 2024-03-25 16:54 | ED_ITS ---
HPI - General Adult General Chief complaint: Extremity Problem Stated complaint: BACK PAIN X3 DAYS,NO NEW INJURY PER EMS Time Seen by Provider: 03/25/24 16:35 Source: patient and RN notes reviewed Mode of arrival: ambulatory Limitations: no limitations History of Present Illness ED Provider: Flor Mcmanus PA-C HPI narrative: This is a 78-year-old male, with a history of diabetes, PAD to the emergency department, with a history of chronic kidney disease, who presents to the emergency department with complaints of back pain x3 days. No recent trauma or injury. States that the entire back hurts. Reports movement causes his pain to worsened. He denies taking any medications at home to treat his current symptoms. He denies any fevers, chills, chest pain, shortness of breath, abdomi nal pain, nausea, vomiting or diarrhea. Denies any recent trauma injury or falls. No other complaints or concerns at this time. MD complaint: Back pain Onset (ago): day(s) Radiation: non-radiation Severity: moderate Quality: aching Pain Consistency: constant Relieving factors: none Exacerbating factors: none Associated symptoms: denies other symptoms Treatments prior to arrival: none Related Data Home Medications ?Medication ?Instructions ?Recorded ?Confirmed albuterol sulfate 90 mcg/actuation 2 puff inhalation Q4-6H PRN Pain 09/09/20 02/07/24 aerosol inhaler (Ventolin HFA) aspirin 81 mg tablet,delayed 81 mg PO QAM 07/14/21 02/07/24 release blood sugar diagnostic (FreeStyle #10 ea 07/14/21 11/08/23 Lite Strips) cholecalciferol (vitamin D3) 25 25 mcg PO QAM 07/14/21 02/07/24 mcg (1,000 unit) tablet lancets 33 gauge (TRUEplus Lancets) #100 ea 07/14/21 11/08/23 atorvastatin 20 mg tablet 20 mg PO DAILY 10/27/22 02/07/24 dapagliflozin propanediol 10 mg 10 mg PO DAILY 09/29/23 02/07/24 tablet (Farxiga) dulaglutide 3 mg/0.5 mL mg subcut 09/29/23 02/07/24 subcutaneous pen injector ([facility]) dolutegravir 50 mg-rilpivirine 25 1 tab PO DAILY 11/22/23 02/07/24 mg tablet (Juluca) torsemide 20 mg tablet 40 mg PO DAILY 11/22/23 02/07/24 Previous Rx's ?Medication ?Instructions ?Recorded acetaminophen 325 mg tablet 650 mg (2 x 325 mg) PO Q6H PRN 07/13/20 (Tylenol) fever or pain #14 tabs blood-glucose meter (FreeStyle #1 ea 12/03/21 Lite Meter kit) insulin syringe-needle U-100 0.5 #200 ea 02/02/22 mL 31 gauge x 5/16 (BD Insulin Syringe Ultra-Fine) insulin glargine 100 unit/mL 18 unit (0.18 mL) subcut BID 30 09/07/22 subcutaneous solution (Lantus days #10.8 mL U-100 Insulin) amlodipine 10 mg tablet 10 mg PO DAILY #90 tabs 07/28/23 doxazosin 8 mg tablet 8 mg PO DAILY 90 days #90 tabs 09/29/23 losartan 25 mg tablet 25 mg PO DAILY #30 tabs 01/03/24 finasteride 5 mg tablet 5 mg PO DAILY 90 days #90 tabs 02/14/24 acetaminophen 325 mg tablet 650 mg (2 x 325 mg) PO TID PRN 03/25/24 (Tylenol) pain #30 tabs lidocaine 5 % topical patch 1 patch topical DAILY #30 ea 03/25/24 (Lidoderm) Allergies Allergy/AdvReac Type Severity Reaction Status Date / Time No Known Allergies Allergy Verified 03/25/24 16:02 [No Known Allergies*] Review of Systems Review of Systems: Yes all other systems are reviewed and are negative Constitutional: Constitutional: Reports as per [facility] Past Medical History Medical History Atherosclerotic cardiovascular disease CKD (chronic kidney disease) BPH loc w urin obs/LUTS BPH (benign prostatic hyperplasia) Nocturia HIV (human immunodeficiency virus infection) Diabetic polyneuropathy associated with type 2 diabetes mellitus Dyslipidemia Diabetic nephropathy associated with type 2 diabetes mellitus terminal carman (current) use of insulin Chronic constipation Hypertension Diabetes type 2, controlled Diabetes type 2, controlled History of renal dialysis IDDM (insulin dependent diabetes mellitus) Asthma Renal failure Surgical History History of colonoscopy History of foot surgery History of appendectomy Family History Family History Son History of diabetes mellitus Social History Social History Household Members: None Housing: Apartment Do you presently have visiting nurse or other home services: No Alcohol intake: never Patient Tobacco Use Status: Former Tobacco user e-Cigarette/Vaping Use: Never Used Second Hand Smoke Exposure: No Advance Directives: Yes Advance Directives on File: Yes Advance Directives Date on File: 08/05/20 service: No Current occupational status: retired Physical Exam ED Vital Signs: Vital Signs - 24 hr 03/25/24 16:00 03/25/24 19:39 Temperature 98.5 F 98.5 F Pulse Rate 65 65 Respiratory Rate 16 16 Blood Pressure 144/56 H 144/56 H Pulse Oximetry 97 97 Oxygen Delivery Method Room Air Room Air BMI result Body Mass Index 24.8 Const General: cooperative, comfortable and no acute distress Orientation/consciousness: patient oriented x3 Limitations: no limitations HENMT Head: Yes normal to inspection, Yes normocephalic and Yes atraumatic Ears: hearing grossly normal bilaterally General nose exam: Normal external nose present Face and sinus: Yes normal facial exam Mouth: Normal oral and palatal mucosa present, oropharynx normal and moist mucous membranes Throat: Yes posterior oropharynx normal Eyes General: appearance normal, both eyes and all related structures Eyelids: Yes eyelids normal Conjunctivae: conjunctivae normal Sclerae: sclerae normal Pupils: Equal, round and reactive pupils present EOM: EOMs intact bilaterally Neck Neck: Yes normal visual inspection, Yes full ROM and Yes no lymphadenopathy Lymphatic: no lymphadenopathy noted Chest Chest palpation & inspection: normal inspection of the chest Resp Effort & Inspection: normal respiratory effort and able to speak in complete sentences Auscultation: clear to auscultation bilaterally, no crackles, no rales, no rhonchi and no wheezes Cardio Rate: regular rate Rhythm: regular rhythm Heart sounds: S1 normal heart sound present and S2 normal heart sound present GI Other: Abdomen is soft, nontender, nondistended Inspection: Yes normal to inspection Back/Spine/Pelvis Other: Tenderness palpation along the midline lumbar spine, as well as lumbar paraspinous muscles. Strength 5/5 in lower extremities. No overlying skin changes or warmth. Skin General skin exam: no rashes or lesions noted Trauma: no lacerations or abrasions Wounds: no wounds Neuro General: patient oriented x3 and moves all extremities Cranial nerves: Yes Equal, round and reactive pupils present Extrem General: Yes normal to inspection Right upper extremity: normal to inspection Left upper extremity: normal to inspection Right lower extremity: normal to inspection Left lower extremity: normal to inspection Course Reevaluation(s) Reevaluation #1: X-ray returns, evidence of L1 compression fracture and degenerative changes, discussed findings with patient. Patient is ambulatory in the emergency room. He has no red flag back symptoms therefore patient stable for discharge. He will follow-up with his PCP tomorrow. Discharged with Tylenol and Lidoderm patches. Understands and agrees with plan. Patient stable for discharge. Medications Administered Discontinued Medications Generic Name Dose Route Start Last Admin Trade Name Freq PRN Reason Stop Dose Admin Acetaminophen 650 mg 03/25/24 16:56 03/25/24 17:23 Acetaminophen 325 Mg Tablet PO 03/25/24 16:57 650 mg ONCE ONE Administration Lidocaine 1 patch 03/25/24 18:26 03/25/24 18:31 Lidocaine 4 % Patch Adh..Patch TRANSDERMA 03/25/24 18:27 1 patch ONCE ONE Administration Protocol Medical Decision Making Medical Decision Making MDM Narrative: This is a 78-year-old male, with a history of diabetes, PAD to the emergency department, with a history of chronic kidney disease, who presents to the emergency department with complaints of back pain x3 days. On arrival, patient mildly hypertensive at 144/56. All other vital signs within normal limits. He is ambulatory with steady gait. He is tenderness diffusely throughout the entire spine without any point tenderness. Lungs clear to auscultation bilaterally. Abdomen is soft and nontender. This patient presents with back pain most consistent with lumbago. Differential diagnoses includes lumbago versus musculoskeletal spasm / strain versus sciatica. No back pain red flags on history or physical. Presentation not consistent with malignancy (lack of history of malignancy, lack of B symptoms), fracture (no trauma, no bony tenderness to palpation), cauda equina (no bowel or urinary incontinence/retention, no saddle anesthesia, no distal weakness), pyelonephritis (afebrile, no CVAT, no urinary symptoms). Differential Diagnosis Differential Diagnoses: The differential diagnosis associated with the presentation includes See above Admission/Observation Consideration of admission/observation: Escalation of care including admission/observation considered Escalation of care including admission/observation considered however given workup today not warranted at this time. Radiology Impression Discussion of test interpretation with radiology: I have reviewed the radiologist's reading. Radiologist Impression: XR/XR lumbar spine 2-3V IMPRESSION: 1. 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 2. Chronic L1 compression fracture. Dictated By: Cara Villarreal MD Discharge Plan Discharge Clinical Impression: Back pain, Degenerative joint disease, Compression fracture of L1 vertebra Patient Disposition: Home, Self-Care Instructions: Back Pain (ED) Additional Instructions: You were seen in the emergency department due to back pain. Your x-ray shows a L1 compression fracture. Your back x-ray also shows degenerative disc disease. Placed take Tylenol as prescribed. You may also apply Lidoderm patches to the area. Stress ice can also help with your symptoms. If any new or worsening symptoms occur including but not limited to worsening pain, fevers, chills, chest pain, shortness of breath, please return for re- evaluation. Prescriptions: New acetaminophen [Tylenol] 325 mg tablet 650 mg PO TID PRN (Reason: pain) Qty: 30 0RF lidocaine [Lidoderm] 5 % adhesive patch,medicated 1 patch topical DAILY Qty: 30 0RF Rx Instructions: leave on most painful area for up to 12 hrs No Action (DME) blood-glucose meter [FreeStyle Lite Meter] Kit See Rx Instructions .Route Qty: 1 0RF Rx Instructions: As directed (DME) insulin syringe-needle U-100 [BD Insulin Syringe Ultra-Fine] 0.5 mL 31 gauge x 5/16 syringe See Rx Instructions .ROUTE .MEDSUPPLY Qty: 200 3RF Rx Instructions: Twice a day Lantus U-100 Insulin 100 unit/mL solution 18 unit subcut BID 30 Days Qty: 10.8 0RF Rx Instructions: future refills from pcp finasteride 5 mg tablet 5 mg PO DAILY 90 Days Qty: 90 1RF acetaminophen [Tylenol] 325 mg tablet 650 mg PO Q6H PRN (Reason: fever or pain) Qty: 14 0RF albuterol sulfate [Ventolin HFA] 90 mcg/actuation HFA aerosol inhaler 2 puff inhalation Q4-6H PRN (Reason: Pain) (DME) FreeStyle Lite Strips Strip See Rx Instructions Not Applicable TID Qty: 10 Rx Instructions: As directed aspirin 81 mg tablet,delayed release (DR/EC) 81 mg PO QAM cholecalciferol (vitamin D3) 25 mcg (1,000 unit) tablet 25 mcg PO QAM (DME) lancets [TRUEplus Lancets] 33 gauge misc See Rx Instructions Not Applicable TID Qty: 100 Rx Instructions: As directed atorvastatin 20 mg tablet 20 mg PO DAILY Farxiga 10 mg tablet 10 mg PO DAILY Trulicity 3 mg/0.5 mL pen injector subcut doxazosin 8 mg tablet 8 mg PO DAILY 90 Days Qty: 90 1RF torsemide 20 mg tablet 40 mg PO DAILY amlodipine 10 mg tablet 10 mg PO DAILY Qty: 90 3RF Juluca 50-25 mg tablet 1 tab PO DAILY Rx Instructions: must administer with a meal/food losartan 25 mg tablet 25 mg PO DAILY Qty: 30 3RF Protocol: Hold for SBP< HOLD for SBP < : 90 Interventions: ED Discharge Assessment Last Done: 03/25/24 19:39 Discharge Date/Time: 03/25/24 19:39 Print Language: Persian
[2024-03-25] MEDS: Acetaminophen 325 MG TABLET 650 MG PO (17:23)
[2024-03-25] MEDS: Lidocaine 4 % Patch ADH..PATCH 1 PATCH TRANSDERMA (18:31)
[2024-03-25 19:39] VITALS: BP 144/56; PULSE 65; RESP 16; TEMP 36.9; O2SAT 97
== END 2024-03-25 19:39 | disposition home or self-care (01) ==
PROVIDERS: Emergency Provider Emergency Medicine
DX: M48.56XA Collapsed vertebra, not elsewhere classified, lumbar region, initial encounter for fracture (principal); M47.896 Other spondylosis, lumbar region; M54.50 Low back pain, unspecified; Z87.891 Personal history of nicotine dependence
CPT/HCPCS: 72100; 99283

== ENCOUNTER 2024-04-23 10:12 | Outpatient (REF) | payer OTHER, SELFPAY ==
[2024-04-23 11:19] LABS: MANUAL DIFF FLAG NO
[2024-04-23 11:28] LABS: Basophils Percent Auto 0.3 % (0-2); Eosinophils Absolute Auto 0.2 X10*3/uL (0.0-0.4); Eosinophils Percent Auto 2.3 % (0-4); Hematocrit 40.9 % (42.0-52.0); Imm Gran Abs Auto 0.07 X10*3/uL (0.00-0.03); Imm Gran Pct Auto 0.7 % (0.0-0.4); Lymphocytes Absolute Auto 1.5 X10*3/uL (1.2-4.9); Lymphocytes Percent Auto 15.1 % (20-40); Mean Corpuscular HGB Conc 34.2 g/dl (31.0-36.0); Mean Corpuscular Hemoglobin 30.9 pg (27.0-33.0); Mean Corpuscular Volume 90.3 fL (80.0-98.0); Mean Platelet Volume 10.3 fL (9.4-12.4); Monocytes Absolute Auto 0.7 X10*3/uL (0.1-1.2); Monocytes Percent Auto 6.9 % (2-11); Neutrophils Absolute Auto 7.2 x10*3/uL (2.0-8.3); Neutrophils Percent Auto 74.7 % (45-73); Platelet Count 144 X10*3/uL (160-400); Red Blood Count 4.53 X10*6/uL (4.60-5.80); Red Cell Distribution Width 12.8 % (11.0-16.0); White Blood Count 9.7 X10*3/uL (4.8-10.8)
[2024-04-23 11:44] LABS: Anion Gap 16 (12-20); Blood Urea Nitrogen 39 mg/dL (9-16); Carbon Dioxide 27 mmol/L (22-29); Chloride 102 mmol/L (96-108); Estimated Glomerular Filt Rate 27; Phosphorus 3.2 mg/dL (2.7-4.5); Potassium 4.5 mmol/L (3.3-5.1); Sodium 140 mmol/L (135-145)
[2024-04-23 11:58] LABS: PSA,Total (Free>4and<10) 2.09 ng/mL (0.00-4.00)
[2024-04-23 12:00] LABS: Parathyroid Hormone Intact 180.3 pg/mL (8.7-77.1)
== END 2024-04-23 10:13 | disposition home or self-care (01) ==
LOC: HO.HHCL 10:12
PROVIDERS: Urology; Visit Provider Internal Medicine Nephrology
DX: I70.1 Atherosclerosis of renal artery (principal); N18.32 Chronic kidney disease, stage 3b; I73.9 Peripheral vascular disease, unspecified; I10 Essential (primary) hypertension; R97.20 Elevated prostate specific antigen [PSA]; Z12.5 Encounter for screening for malignant neoplasm of prostate
CPT/HCPCS: 36415; 80051; 82310; 82565; 83970; 84100; 84153; 84520; 85025

== ENCOUNTER 2024-05-01 11:54 | Outpatient (AMB) | payer OTHER, SELFPAY ==
--- NOTE | 2024-05-01 12:20 | HO.NEPHOV_ITS ---
Vital Signs 05/01/24 12:21 Height 5 ft 5 in Weight 150 lb 2 oz BMI 25.0 BP 120/60 Blood Pressure Location Rt brachial Position Sitting Pulse 76 Pulse Source Pulse Oximeter Pulse Oximetry (%) 96 Oxygen Delivery Method Room Air Intake Visit Reasons: CKD/ Conf Retail Sales Director Required: Yes Retail Sales Director Services: Retail Sales Director Offered & Declined (Retail Sales Director services refus ed. Refusal form signed and scanned into chart. ) Accompanied by: Self / Same As Patient Allergies No Known Allergies [No Known Allergies*] Allergy (Verified 05/01/24 12:21) HPI Comments Details: I had the privilege of seeing Husam in follow-up of his chronic kidney disease and hypertension. According to him, his HIV viral load has been undetectable and his CD4 has been good. He has not had any medication changes. He continues to have a functioning AV fistula. He claims to have good urine output. He denies nausea, vomiting, diarrhea, chest pain, shortness of breath, proximal nocturnal dyspnea, orthopnea, pedal edema or urinary symptoms. He is maintained on ARB. His blood pressure has been at goal. He is on Trulicity as well as Lantus. He denies taking nonsteroidal anti-inflammatories. His serum creatinine is better. There were no other new complaints at the time of this office visit. 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 Chronic constipation Hypertension Diabetes type 2, controlled Diabetes type 2, controlled History of renal dialysis IDDM (insulin dependent diabetes mellitus) Asthma Renal failure Surgical History History of colonoscopy History of foot surgery History of appendectomy Family History Son History of diabetes mellitus Social History Household Members: None Housing: Apartment Do you presently have visiting nurse or other home services: No Alcohol intake: never Patient Tobacco Use Status: Former Tobacco user e-Cigarette/Vaping Use: Never Used Second Hand Smoke Exposure: No Advance Directives Date on File: 08/05/20 service: No Current occupational status: retired Review of Systems Const All systems reviewed & are unremarkable except as noted in HPI and below Physical Exam Vital Signs: Last Vital Signs Pulse 76 05/01/24 12:21 BP 120/60 05/01/24 12:21 Pulse Ox 96 05/01/24 12:21 Oxygen Delivery Method Room Air 05/01/24 12:21 BMI result Body Mass Index 25.0 Const General: comfortable and no acute distress Orientation/consciousness: patient oriented x3 HEENT Head: Yes normocephalic Mouth: Normal oral and palatal mucosa present Eyes EOM: EOMs intact bilaterally Neck Neck: Yes supple Resp Auscultation: clear to auscultation bilaterally Cardio Jugular venous distension: no JVD Rate: regular rate GI Palpation (GI): Soft to palpation Auscultation: normal bowel sounds General: Yes no CVA tenderness Back/Spine/Pelvis Back: no CVA tenderness Skin General skin exam: no rashes or lesions noted Neuro General: patient oriented x3 and moves all extremities Extrem Other: L UE AVF General: Yes no pedal edema Results Reviewed Nephrology Results: Hgb 14.0 g/dl (14.0-18.0) 04/23/24 WBC 9.7 X10*3/uL (4.8-10.8) 04/23/24 Plt Count 144 X10*3/uL (160-400) L 04/23/24 Sodium 140 mmol/L (135-145) 04/23/24 Potassium 4.5 mmol/L (3.3-5.1) 04/23/24 Chloride 102 mmol/L (96-108) 04/23/24 Carbon Dioxide 27 mmol/L (22-29) 04/23/24 BUN 39 mg/dL (9-16) H 04/23/24 Creatinine 2.35 mg/dL (0.5-1.4) H 04/23/24 Calcium 10.0 mg/dL (8.4-10.2) 04/23/24 Phosphorus 3.2 mg/dL (2.7-4.5) 04/23/24 PTH Intact 180.3 pg/mL (8.7-77.1) H 04/23/24 Renal US 01/19/24 Assessment & Plan Assessment & Plan (1) Renal artery stenosis: Code(s): I70.1 - Atherosclerosis of renal artery Category: Medical (2) Stage 3b chronic kidney disease: Code(s): N18.32 - Chronic kidney disease, stage 3b Category: Medical (3) Hypertension: Code(s): I10 - Essential (primary) hypertension Category: Medical Qualifiers: Hypertension type: primary hypertension Qualified Code(s): I10 - Essential (primary) hypertension Plan Husam was on dialysis for a long time. His GFR recovered and he came off dialysis. He continues to have AV fistula which is functioning. He claims to have good urine output. His creatinine improved after holding losartan altogether. I may restart it later. His blood sugar needs to be maintained at goal. He is on Farxiga. His blood pressure needs to be maintained at goal. He should avoid nonsteroidal anti-inflammatories. I explained all these to him and answered all his questions. I did not make any other medication changes today. Follow-up blood work ordered. Answered all questions. Follow-up appointment given Orders: Orders Creatinine Today N18.32 - Chronic kidney disease, stage 3b Blood Urea Nitrogen Today N18.32 - Chronic kidney disease, stage 3b Electrolytes Today N18.32 - Chronic kidney disease, stage 3b Coding Level of Care Code Est Pt Level 4 (92942) Diagnoses Renal artery stenosis I70.1 Stage 3b chronic kidney disease N18.32 Primary hypertension I10 Hypertension type: primary hypertension
[2024-05-01 12:21] VITALS: BP 120/60; PULSE 76; O2SAT 96; BMI 25.0
== END 2024-05-01 12:37 | disposition home or self-care (01) ==
PROVIDERS: PCP Family Medicine; Visit Provider Internal Medicine Nephrology
DX: I70.1 Atherosclerosis of renal artery (principal); N18.32 Chronic kidney disease, stage 3b; I10 Essential (primary) hypertension
CPT/HCPCS: 99214

== ENCOUNTER → 2024-05-01 11:54 | Outpatient (BNVA) | payer OTHER, SELFPAY | PROVIDERS: PCP Family Medicine; Visit Provider Internal Medicine Nephrology | DX: I12.9 Hypertensive chronic kidney disease with stage 1 through stage 4 chronic kidney disease, or unspecified chronic kidney disease (principal); N18.32 Chronic kidney disease, stage 3b; B20 Human immunodeficiency virus [HIV] disease; I70.1 Atherosclerosis of renal artery | CPT/HCPCS: 99212 ==

== ENCOUNTER 2024-05-10 12:51 | Outpatient (AMB) | payer OTHER, SELFPAY ==
--- NOTE | 2024-05-10 13:06 | MHC.OFFVIS ---
Intake Visit Reasons: 6M Follow Up-PVR/PSA(set) Intake Note: Patient is Present for 6M Follow Up PVR/PSA Urology Medication: doxazosin Antibiotic Allergies: NKDA Blood Thinners: aspirin PVR: 0 TODAY'S PVR: 0ml's Double End Chucking Machine Operator Required: No Allergies No Known Allergies [No Known Allergies*] Allergy (Verified 05/10/24 13:07) Medication List - Last Reconciled 05/10/24 by Aurelio Foster MD acetaminophen (Tylenol) 650 mg (2 x 325 mg) PO TID PRN albuterol sulfate 90 mcg/actuation (Ventolin HFA) 2 puffs inhalation Q4-6H PRN amlodipine 10 mg PO DAILY aspirin 81 mg PO QAM atorvastatin 20 mg PO DAILY blood sugar diagnostic (FreeStyle Lite Strips) As directed blood-glucose meter (FreeStyle Lite Meter kit) As directed cholecalciferol (vitamin D3) 25 mcg PO QAM dapagliflozin propanediol (Farxiga) 10 mg PO DAILY dolutegravir-rilpivirine 50-25 mg (Juluca) 1 tab PO DAILY doxazosin 8 mg PO DAILY 90 days dulaglutide (Trulicity) mg subcut insulin glargine (Lantus U-100 Insulin) 18 units (0.18 mL) subcut BID 30 days insulin syringe-needle U-100 (BD Insulin Syringe Ultra-Fine) Twice a day lancets (TRUEplus Lancets) As directed lidocaine 5% (Lidoderm) 1 patch topical DAILY mirabegron ER 25 mg PO DAILY 30 days torsemide 40 mg PO DAILY HPI Comments Details: Husam is a pleasant male. He is a patient of . He is seen for the following urologic condition - lower urinary tract symptoms - elevated PSA Venezuelan translation provided by qualified medical claims specialist Good response to finasteride with PSA drop Cystoscopy with grade 1/2 trabeculation, mild trilobar hypertrophy UA today 3+ glucose on Trulicity Has overactive bladder Trial Myrbetriq Lower urinary tract symptoms Longstanding BPH Has nocturia x3 with some frequency Current medications Hytrin 8 mg with finasteride 04/09 Cystoscopy with grade 1/2 trabeculation, mild trilobar hypertrophy Background diabetes with HIV therapy PSA 09/05 2.1, 09/07 3.1, 10/10 5.1 25%Free, 03/10 1.6, 05/11 [facility] Medical History Atherosclerotic cardiovascular disease CKD (chronic kidney disease) BPH loc w urin obs/LUTS BPH (benign prostatic hyperplasia) Nocturia HIV (human immunodeficiency virus infection) Diabetic polyneuropathy associated with type 2 diabetes mellitus Dyslipidemia Diabetic nephropathy associated with type 2 diabetes mellitus 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 Chronic constipation Hypertension Diabetes type 2, controlled Diabetes type 2, controlled History of renal dialysis IDDM (insulin dependent diabetes mellitus) Asthma Renal failure Surgical History History of colonoscopy History of foot surgery History of appendectomy Family History Son History of diabetes mellitus Social History Household Members: None Housing: Apartment Do you presently have visiting nurse or other home services: No Alcohol intake: never Patient Tobacco Use Status: Former Tobacco user e-Cigarette/Vaping Use: Never Used Second Hand Smoke Exposure: No Advance Directives Date on File: 08/05/20 service: No Current occupational status: retired Review of Systems Const Denies chills and Denies fever(s) Card Reports no additional complaints and Denies syncope Resp Denies cough GI Denies abdominal pain and Denies heartburn Reports as per HPI and Denies change in libido Neuro Denies syncope Psych Denies change in libido Endo Denies change in libido Physical Exam Const General: cooperative, healthy appearing, comfortable and no acute distress Orientation/consciousness: patient oriented x3 HEENT Face and sinus: Yes normal facial exam Mouth: moist mucous membranes Neck Neck: Yes normal visual inspection, Yes full ROM and Yes trachea midline Chest Chest palpation & inspection: normal inspection of the chest Resp Effort & Inspection: normal respiratory effort, able to speak in complete sentences and no respiratory distress GI Inspection: Yes normal to inspection Back/Spine/Pelvis Cervical Spine: normal cervical lordosis Thoracic/Lumbar Spine: thoracic and lumbar spine normal to inspection Skin General skin exam: no rashes or lesions noted Neuro General: patient oriented x3, gait normal, tone normal and moves all extremities Extrem General: Yes normal to inspection and Yes capillary refill normal Office Procedures Post Void Residual Post Residual Void Post Void Residual (PVR): 0 [id number] Void Residual by ultrasound Results AMB Urinalysis, Automated UA Leukoctes 0 Candice/uL Last Edit by BJ Patiño on 05/10/24 13:19 UA Nitrite Negative Last Edit by Mercy Walker [facility] on 05/10/24 13:19 UA Urobilinogen 0.2 mg/dL Last Edit by Mercy Walker [facility] on 05/10/24 13:19 UA Protein 30 mg/dL Last Edit by Mercy Walker [facility] on 05/10/24 13:19 UA pH 5.5 Last Edit by Mercy Walker [facility] on 05/10/24 13:19 UA Blood 0 Nakul/uL Last Edit by Mercy Walker [facility] on 05/10/24 13:19 UA Specific Faber 1.015 Last Edit by Mercy Walker [facility] on 05/10/24 13:19 UA Ketone Negative Last Edit by Mercy Walker [facility] on 05/10/24 13:19 UA Bilirubin 0 mg/dL Last Edit by Mercy Walker [facility] on 05/10/24 13:19 UA Glucose 1000 mg/dL Last Edit by Mercy Walker [facility] on 05/10/24 13:19 Results Reviewed Results Reviewed: Laboratory Last Values Urine pH (Auto) 5.5 05/10/24 13:18 Specific Faber (Auto) 1.015 05/10/24 13:18 Urine Protein (Auto) 30 mg/dL 05/10/24 13:18 Glucose (UA)(Auto) 1000 mg/dL 05/10/24 13:18 Urine Ketones (Auto) Negative 05/10/24 13:18 Urine Blood (Auto) 0 Nakul/uL 05/10/24 13:18 Urine Nitrite (Auto) Negative 05/10/24 13:18 Urine Bilirubin (Auto) 0 mg/dL 05/10/24 13:18 Urine Urobilinogen (Auto) 0.2 mg/dL 05/10/24 13:18 Leukocyte Esterase (Auto) 0 Candice/uL 05/10/24 13:18 Assessment & Plan Assessment & Plan (1) Overactive bladder: Code(s): N32.81 - Overactive bladder Category: Medical Plan Two month follow-up phone Orders: Orders AMB Urinalysis Automated Today Z13.9 - Encounter for screening, unspecified Medications: New mirabegron ER 25 mg PO DAILY 30 days 30 tabs 1RF N32.81 - Overactive bladder Patient Instructions: Imaging studies, laboratory and physical exam results were discussed and reviewed in detail. No major barriers to patient understanding were identified. An opportunity to ask questions regarding the treatment plan was provided. All questions were answered. The patient expressed understanding and agreement with the above treatment plan. The patient is aware they should contact our office by phone for worsening of their current condition or the appearance of new urologic symptoms. Compliance is encouraged with any medications and followup testing that is ordered. It is a privilege to participate in the urologic care of your patient. If you have any questions or concerns regarding treatment for the above conditions, or other urologic issues, please do not hesitate to contact me. The office telephone contact is [phone]. This note is constructed using voice recognition software. While every effort has been made to ensure accuracy parachute inspector errors may have been included. Yours sincerely, Dr Aurelio Foster MD, [facility] - Urology Providers of Expert, Compassionate Care for the Genitourinary System Coding Level of Care Code Est Pt Level 4 (32780) Diagnoses Overactive bladder N32.81 CPT Codes Post Residual Void - PVR CPT Code: 65130-Wdbj Void Residual by ultrasound ([id number])
== END 2024-05-10 13:32 | disposition home or self-care (01) ==
LOC: HO.HUSH 12:51
PROVIDERS: PCP Family Medicine; Visit Provider Urology
DX: Z13.9 Encounter for screening, unspecified (principal); N32.81 Overactive bladder
CPT/HCPCS: 99214

== ENCOUNTER → 2024-05-10 12:51 | Outpatient (BNVA) | payer OTHER, SELFPAY | PROVIDERS: PCP Family Medicine; Visit Provider Urology | DX: N40.0 Benign prostatic hyperplasia without lower urinary tract symptoms (principal); N32.81 Overactive bladder; Z79.899 Other long term (current) drug therapy | CPT/HCPCS: 51798; 81003; 99212 ==

== ENCOUNTER 2024-05-14 12:51 | Outpatient (AMB) | payer OTHER, SELFPAY ==
--- NOTE | 2024-05-14 12:58 | MHC.OFFVIS ---
Vital Signs 05/14/24 13:02 Height 5 ft 5 in Weight 152 lb BMI 25.3 Intake Visit Reasons: f/u s/p LE arterial US 02/21/24 Intake Note: Patient presents for follow up arterial US performed on 02/21/24. Patient states his legs feel fine. No complaints. Accompanied by: Self / Same As Patient Allergies No Known Allergies [No Known Allergies*] Allergy (Verified 05/14/24 13:02) HPI HPI f/u s/p LE arterial US 02/21/24: Details: Very pleasant 78-year-old gentleman presents for routine surveillance follow-up regarding peripheral vascular disease. Reports that he is doing fairly well. He is able to walk 1-2 blocks with no significant difficulty. He now presents for routine surveillance follow-up. Of note he has a left upper extremity fistula which appears to be functioning extremely well. 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 Chronic constipation Hypertension Diabetes type 2, controlled Diabetes type 2, controlled History of renal dialysis IDDM (insulin dependent diabetes mellitus) Asthma Renal failure Surgical History History of colonoscopy History of foot surgery History of appendectomy Family History Son History of diabetes mellitus Social History Household Members: None Housing: Apartment Do you presently have visiting nurse or other home services: No Alcohol intake: never Patient Tobacco Use Status: Former Tobacco user e-Cigarette/Vaping Use: Never Used Second Hand Smoke Exposure: No Advance Directives Date on File: 08/05/20 service: No Current occupational status: retired Review of Systems Const All systems reviewed & are unremarkable except as noted in HPI and below Reports no additional complaints ENT Reports Normal hearing present Card Denies chest pain, Denies chest pain at rest, Denies chest pain with activity and Denies pedal edema Resp Denies cough GI Denies abdominal pain Musc Denies abnormal gait, Denies muscle cramps and Denies radiating pain into limb Skin/Breast Denies skin ulcer and Denies wounds Neuro Reports Normal hearing present and Denies abnormal gait Psych Reports no additional complaints Physical Exam Vital Signs: BMI result Body Mass Index 25.3 Const General: cooperative, healthy appearing and comfortable Orientation/consciousness: oriented to person, oriented to place and oriented to time HEENT Head: Yes normal to inspection Neck Neck: Yes normal visual inspection Carotids: no bruits Chest Chest palpation & inspection: normal inspection of the chest Resp Effort & Inspection: normal respiratory effort and able to speak in complete sentences Auscultation: clear to auscultation bilaterally, no crackles, no rales, no rhonchi and no wheezes Cardio Rate: regular rate Rhythm: regular rhythm Heart sounds: S1 normal heart sound present and S2 normal heart sound present Bruits: no carotid bruits Peripheral pulses: Peripheral pulses 2+ throughout GI Inspection: Yes normal to inspection Skin Wounds: no wounds Hair: normal Neuro General: oriented to person, oriented to place and oriented to time Cranial nerves: Yes CN's II-XII intact bilaterally and Yes Normal hearing present Cognition (Neuro): normal cognition Motor exam (neuro): 5/5 motor strength present throughout Extrem Other: venous exam: No significant superficial varicosities or spider telangiectasias, minimal edema General: No clubbing, No cyanosis and No edema Psych Appearance: grossly normal Mental Status: mental status grossly normal Speech and movement: Normal speech and movement present Results Reviewed Results Reviewed: Noninvasive arterial testing dated 02/23/2024 demonstrates PEG on the right of 0.89 and on the left of 0.84. Written report and images were reviewed. Assessment & Plan Assessment & Plan (1) PAD (peripheral artery disease): Code(s): I73.9 - Peripheral vascular disease, unspecified Category: Medical Plan: In short patient has stable claudication. I did review the pathophysiology of peripheral vascular disease with the patient. In addition we did discuss routine conservative measures including a healthy diet and the importance of exercise and ambulation. We did discuss risk factor modification. The patient will continue to to follow-up with surveillance follow-up in approximately 1 year. Thank you for allowing us to participate in this patient's care. If there are any questions or concerns please do not hesitate to contact us. Please note a longitudinal relationship has been created with the patient and we have been following and surveillance this chronic condition. Orders: Orders US arterial duplex LE BI 1 Year I73.9 - Peripheral vascular disease, unspecified Coding Level of Care Code Est Pt Level 4 (06036) Complex EM visit Add On G2211 Diagnoses PAD (peripheral artery disease) I73.9
[2024-05-14 13:02] VITALS: BMI 25.3
== END 2024-05-14 13:09 | disposition home or self-care (01) ==
PROVIDERS: PCP Family Medicine; Visit Provider Surgery Vascular Surgery
DX: I73.9 Peripheral vascular disease, unspecified (principal)
CPT/HCPCS: 99214; G2211

== ENCOUNTER → 2024-05-14 12:51 | Outpatient (BNVA) | payer OTHER, SELFPAY | PROVIDERS: PCP Family Medicine; Visit Provider Surgery Vascular Surgery | DX: I73.9 Peripheral vascular disease, unspecified (principal) | CPT/HCPCS: 99212 ==

== ENCOUNTER 2024-06-04 10:26 | Outpatient (REF) | payer OTHER, SELFPAY ==
[2024-06-04 11:45] LABS: MANUAL DIFF FLAG NO
[2024-06-04 11:58] LABS: Basophils Percent Auto 0.5 % (0-2); Eosinophils Absolute Auto 0.2 X10*3/uL (0.0-0.4); Eosinophils Percent Auto 2.4 % (0-4); Hemoglobin 15.6 g/dl (14.0-18.0); Imm Gran Abs Auto 0.03 X10*3/uL (0.00-0.03); Imm Gran Pct Auto 0.4 % (0.0-0.4); Lymphocytes Percent Auto 25.9 % (20-40); Mean Corpuscular HGB Conc 33.2 g/dl (31.0-36.0); Mean Corpuscular Hemoglobin 30.3 pg (27.0-33.0); Mean Corpuscular Volume 91.3 fL (80.0-98.0); Mean Platelet Volume 10.1 fL (9.4-12.4); Monocytes Absolute Auto 0.6 X10*3/uL (0.1-1.2); Monocytes Percent Auto 7.5 % (2-11); Neutrophils Absolute Auto 4.8 x10*3/uL (2.0-8.3); Neutrophils Percent Auto 63.3 % (45-73); Platelet Count 165 X10*3/uL (160-400); Red Blood Count 5.15 X10*6/uL (4.60-5.80); Red Cell Distribution Width 13.2 % (11.0-16.0); White Blood Count 7.6 X10*3/uL (4.8-10.8)
[2024-06-04 12:08] LABS: Blood Urea Nitrogen 53 mg/dL (9-16)
[2024-06-04 12:25] LABS: Alanine Aminotransferase 23 U/L (0-40); Albumin Level 4.7 g/dL (3.5-5.0); Alkaline Phosphatase 86 U/L (39-117); Anion Gap 16 (12-20); Aspartate Amino Transferase 19 U/L (5-37); Bilirubin Total 0.5 mg/dL (0.0-1.0); Blood Urea Nitrogen 54 mg/dL (9-16); Calcium 10.4 mg/dL (8.4-10.2); Carbon Dioxide 28 mmol/L (22-29); Chloride 102 mmol/L (96-108); Estimated Glomerular Filt Rate 21; Glucose Random 133 mg/dL (60-115); Potassium 4.9 mmol/L (3.3-5.1); Sodium 141 mmol/L (135-145); Total Protein 7.7 g/dL (6.5-8.0)
[2024-06-04 12:29] LABS: Syphilis Screen Nonreactive (Nonreactive)
[2024-06-05 19:09] LABS: HIV RNA PCR Qn Copies 39 copies/mL (NOT DETECTED); HIV RNA PCR Qn Log Copies 1.59 (NOT DETECTED)
[2024-06-07 09:39] LABS: TS Negative Control Passed; TS Panel A 0; TS Panel B 3; TS Positive Control Passed; TSpotTB Negative (Negative)
[2024-06-08 22:07] LABS: Absolute CD3 Count 1398 cells/uL (840-3060); Absolute CD4 Count 534 cells/uL (490-1740); Absolute CD8 Count 839 cells/uL (180-1170); Absolute Lymphocytes 1904 cells/uL (850-3900); CD4 CD8 Ratio 0.64 (0.86-5.00); Percent CD3 Cells 73 % (57-85); Percent CD4 Cells 28 % (30-61); Percent CD8 Cells 44 % (12-42)
== END 2024-06-04 10:27 | disposition home or self-care (01) ==
LOC: HO.HHCL 10:26
PROVIDERS: Internal Medicine Nephrology; Visit Provider Internal Medicine
DX: B20 Human immunodeficiency virus [HIV] disease (principal); N18.32 Chronic kidney disease, stage 3b
CPT/HCPCS: 36415; 80053; 84520; 85025; 86359; 86360; 86481; 86780; 87536

== ENCOUNTER 2024-07-10 12:53 | Outpatient (AMB) | payer OTHER, SELFPAY ==
--- NOTE | 2024-07-10 13:10 | MHC.OFFVIS ---
Intake Visit Reasons: 2 month follow up/ PVR Intake Note: Patient is present for PVR Follow Up Urology Med: Myrbetriq Antibiotic Allergy: None Blood Thinner: Aspirin Last PVR:0ML Todays PVR: 0ml Farm Equipment Engineer Required: Yes Farm Equipment Engineer Language: Helper/Driver Services: Farm Equipment Engineer Present Information Interpreted: clinical only Accompanied by: Self / Same As Patient Allergies No Known Allergies [No Known Allergies*] Allergy (Verified 07/10/24 13:13) Medication List - Last Reconciled 07/10/24 by Aurelio Foster MD acetaminophen (Tylenol) 650 mg (2 x 325 mg) PO TID PRN albuterol sulfate 90 mcg/actuation (Ventolin HFA) 2 puffs inhalation Q4-6H PRN amlodipine 10 mg PO DAILY aspirin 81 mg PO QAM atorvastatin 20 mg PO DAILY blood sugar diagnostic (FreeStyle Lite Strips) As directed blood-glucose meter (FreeStyle Lite Meter kit) As directed cholecalciferol (vitamin D3) 25 mcg PO QAM dapagliflozin propanediol (Farxiga) 10 mg PO DAILY dolutegravir-rilpivirine 50-25 mg (Juluca) 1 tab PO DAILY doxazosin 8 mg PO DAILY 90 days dulaglutide (Trulicity) mg subcut insulin glargine (Lantus U-100 Insulin) 18 units (0.18 mL) subcut BID 30 days insulin syringe-needle U-100 (BD Insulin Syringe Ultra-Fine) Twice a day lancets (TRUEplus Lancets) As directed lidocaine 5% (Lidoderm) 1 patch topical DAILY mirabegron ER 25 mg PO DAILY 90 days torsemide 40 mg PO DAILY HPI Comments Details: Husam is a pleasant male. He is a patient of . He is seen for the following urologic condition - lower urinary tract symptoms - elevated PSA - overactive bladder Mauritian translation provided by qualified medical transcription editor Follow-up Trial from [place] Doing well Six-month follow-up continue with Myrbetriq Good response to finasteride with PSA drop Cystoscopy with grade 1/2 trabeculation, mild trilobar hypertrophy UA today 3+ glucose on Trulicity Lower urinary tract symptoms Longstanding BPH Has nocturia x3 with some frequency Current medications Hytrin 8 mg with finasteride 04/09 Cystoscopy with grade 1/2 trabeculation, mild trilobar hypertrophy Background diabetes with HIV therapy PSA 09/05 2.1, 09/07 3.1, 10/10 5.1 25%Free, 03/10 1.6, 05/11 PFSH Medical History Atherosclerotic cardiovascular disease CKD (chronic kidney disease) BPH loc w urin obs/LUTS BPH (benign prostatic hyperplasia) Nocturia HIV (human immunodeficiency virus infection) Diabetic polyneuropathy associated with type 2 diabetes mellitus Dyslipidemia Diabetic nephropathy associated with type 2 diabetes mellitus 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 Chronic constipation Hypertension Diabetes type 2, controlled Diabetes type 2, controlled History of renal dialysis IDDM (insulin dependent diabetes mellitus) Asthma Renal failure Surgical History History of colonoscopy History of foot surgery History of appendectomy Family History Son History of diabetes mellitus Social History Household Members: None Housing: Apartment Do you presently have visiting nurse or other home services: No Alcohol intake: never Patient Tobacco Use Status: Former Tobacco user e-Cigarette/Vaping Use: Never Used Second Hand Smoke Exposure: No Advance Directives Date on File: 08/05/20 service: No Current occupational status: retired Review of Systems Const Denies chills and Denies fever(s) Card Reports no additional complaints and Denies syncope Resp Denies cough GI Denies abdominal pain and Denies heartburn Reports as per HPI and Denies change in libido Neuro Denies syncope Psych Denies change in libido Endo Denies change in libido Physical Exam Const General: cooperative, healthy appearing, comfortable and no acute distress Orientation/consciousness: patient oriented x3 HEENT Face and sinus: Yes normal facial exam Mouth: moist mucous membranes Neck Neck: Yes normal visual inspection, Yes full ROM and Yes trachea midline Chest Chest palpation & inspection: normal inspection of the chest Resp Effort & Inspection: normal respiratory effort, able to speak in complete sentences and no respiratory distress GI Inspection: Yes normal to inspection Back/Spine/Pelvis Cervical Spine: normal cervical lordosis Thoracic/Lumbar Spine: thoracic and lumbar spine normal to inspection Skin General skin exam: no rashes or lesions noted Neuro General: patient oriented x3, gait normal, tone normal and moves all extremities Extrem General: Yes normal to inspection and Yes capillary refill normal Office Procedures Post Void Residual Post Residual Void Post Void Residual (PVR): 0 [id number] Void Residual by ultrasound Assessment & Plan Assessment & Plan (1) Nocturia: Code(s): R35.1 - Nocturia Category: Medical (2) BPH loc w urin obs/LUTS: Code(s): N40.1 - Benign prostatic hyperplasia with lower urinary tract symptoms Category: Medical (3) Overactive bladder: Code(s): N32.81 - Overactive bladder Category: Medical Plan Continue Myrbetriq Six-month follow-up Orders: Orders AMB Post Void Residual by ultrasound Today N32.81 - Overactive bladder Medications: Changed From mirabegron ER 25 mg PO DAILY 30 days 30 tabs 1RF N32.81 - Overactive bladder To mirabegron ER 25 mg PO DAILY 90 days 90 tabs 1RF N32.81 - Overactive bladder Patient Instructions: Imaging studies, laboratory and physical exam results were discussed and reviewed in detail. No major barriers to patient understanding were identified. An opportunity to ask questions regarding the treatment plan was provided. All questions were answered. The patient expressed understanding and agreement with the above treatment plan. The patient is aware they should contact our office by phone for worsening of their current condition or the appearance of new urologic symptoms. Compliance is encouraged with any medications and followup testing that is ordered. It is a privilege to participate in the urologic care of your patient. If you have any questions or concerns regarding treatment for the above conditions, or other urologic issues, please do not hesitate to contact me. The office telephone contact is [phone]. This note is constructed using voice recognition software. While every effort has been made to ensure accuracy data entry supervisor errors may have been included. Yours sincerely, Dr Aurelio Foster MD, [facility] - Urology Providers of Expert, Compassionate Care for the Genitourinary System Coding Level of Care Code Est Pt Level 3 (03953) Diagnoses Nocturia R35.1 BPH loc w urin obs/LUTS N40.1 Overactive bladder N32.81 CPT Codes Post Residual Void - PVR CPT Code: 73144-Aspt Void Residual by ultrasound ([id number])
== END 2024-07-10 14:06 | disposition home or self-care (01) ==
PROVIDERS: PCP Family Medicine; Visit Provider Urology
DX: N40.1 Benign prostatic hyperplasia with lower urinary tract symptoms (principal); R35.1 Nocturia; N32.81 Overactive bladder
CPT/HCPCS: 99213

== ENCOUNTER → 2024-07-10 12:53 | Outpatient (BNVA) | payer OTHER, SELFPAY | PROVIDERS: PCP Family Medicine; Visit Provider Urology | DX: N40.1 Benign prostatic hyperplasia with lower urinary tract symptoms (principal); R35.1 Nocturia; N32.81 Overactive bladder | CPT/HCPCS: 51798; 99212 ==

== ENCOUNTER 2024-07-25 10:52 | Outpatient (REF) | payer OTHER, SELFPAY ==
[2024-07-25 13:47] LABS: Estimated Glomerular Filt Rate 26
[2024-07-25 13:58] LABS: Cholesterol 117 mg/dL (<200); HDL Cholesterol 43 mg/dL (>40); LDL Cholesterol Calculated 55 mg/dL (<100); Triglycerides 97 mg/dL (<150)
[2024-07-25 14:05] LABS: Anion Gap 15 (12-20); Blood Urea Nitrogen 50 mg/dL (9-16); Carbon Dioxide 24 mmol/L (22-29); Chloride 105 mmol/L (96-108); Estimated Glomerular Filt Rate 28; Potassium 4.3 mmol/L (3.3-5.1); Sodium 140 mmol/L (135-145)
[2024-07-25 14:07] LABS: Reflex LDLD? No
[2024-07-27 07:48] LABS: HIV RNA PCR Qn Copies 34 copies/mL (NOT DETECTED); HIV RNA PCR Qn Log Copies 1.53 (NOT DETECTED)
== END 2024-07-25 10:53 | disposition home or self-care (01) ==
LOC: HO.HHCL 10:52
PROVIDERS: Family Medicine; Internal Medicine; Visit Provider Internal Medicine Nephrology
DX: E11.22 Type 2 diabetes mellitus with diabetic chronic kidney disease (principal); N18.4 Chronic kidney disease, stage 4 (severe); B20 Human immunodeficiency virus [HIV] disease; I25.9 Chronic ischemic heart disease, unspecified; E78.5 Hyperlipidemia, unspecified; Z79.4 Long term (current) use of insulin
CPT/HCPCS: 36415; 80051; 80061; 82565; 84520; 87536

== ENCOUNTER 2024-07-31 12:03 | Outpatient (AMB) | payer OTHER, SELFPAY ==
--- NOTE | 2024-07-31 12:26 | HO.NEPHOV_ITS ---
Vital Signs 07/31/24 12:27 Height 5 ft 5 in Weight 153 lb 4 oz BMI 25.5 BP 132/60 Blood Pressure Location Rt brachial Position Sitting Pulse 74 Pulse Source Pulse Oximeter Pulse Oximetry (%) 95 Oxygen Delivery Method Room Air Intake Visit Reasons: CKD-Conf News Technical Director Required: Yes News Technical Director Language: Accounts Receivable Accountant Services: News Technical Director Offered & Declined ([facility] [place] renewals representative services refused.) Accompanied by: Self / Same As Patient Allergies No Known Allergies [No Known Allergies*] Allergy (Verified 07/31/24 12:26) HPI Comments Details: Husam was seen in follow-up of his chronic kidney disease and hypertension. According to him, his HIV viral load has been undetectable and his CD4 has been good. He has not had any medication changes. He continues to have a functioning AV fistula. He claims to have good urine output. He denies nausea, vomiting, diarrhea, chest pain, shortness of breath, proximal nocturnal dyspnea, orthopnea, pedal edema or urinary symptoms. He is off ARB from the time his serum creatinine has gone up. His blood pressure has been at goal. He is on Trulicity as well as Lantus. He denies taking nonsteroidal anti-inflammatories. His serum creatinine is better. There were no other new complaints at the time of this office visit. [facility] Medical History Atherosclerotic cardiovascular disease CKD (chronic kidney disease) BPH loc w urin obs/LUTS BPH (benign prostatic hyperplasia) Nocturia HIV (human immunodeficiency virus infection) Diabetic polyneuropathy associated with type 2 diabetes mellitus Dyslipidemia Diabetic nephropathy associated with type 2 diabetes mellitus custodial (current) use of insulin Chronic constipation Hypertension Diabetes type 2, controlled Diabetes type 2, controlled History of renal dialysis IDDM (insulin dependent diabetes mellitus) Asthma Renal failure Surgical History History of colonoscopy History of foot surgery History of appendectomy Family History Son History of diabetes mellitus Social History Household Members: None Housing: Apartment Do you presently have visiting nurse or other home services: No Alcohol intake: never Patient Tobacco Use Status: Former Tobacco user e-Cigarette/Vaping Use: Never Used Second Hand Smoke Exposure: No Advance Directives Date on File: 08/05/20 service: No Current occupational status: retired Review of Systems Const All systems reviewed & are unremarkable except as noted in HPI and below Physical Exam Vital Signs: Last Vital Signs Pulse 74 07/31/24 12:27 BP 132/60 07/31/24 12:27 Pulse Ox 95 07/31/24 12:27 Oxygen Delivery Method Room Air 07/31/24 12:27 BMI result Body Mass Index 25.5 Const General: comfortable and no acute distress Orientation/consciousness: patient oriented x3 HEENT Head: Yes normocephalic Mouth: Normal oral and palatal mucosa present Eyes EOM: EOMs intact bilaterally Neck Neck: Yes supple Resp Auscultation: clear to auscultation bilaterally Cardio Jugular venous distension: no JVD Rate: regular rate GI Palpation (GI): Soft to palpation Auscultation: normal bowel sounds General: Yes no CVA tenderness Back/Spine/Pelvis Back: no CVA tenderness Skin General skin exam: no rashes or lesions noted Neuro General: patient oriented x3 and moves all extremities Extrem General: Yes no pedal edema Results Reviewed Nephrology Results: Hgb 15.6 g/dl (14.0-18.0) 06/04/24 WBC 7.6 X10*3/uL (4.8-10.8) 06/04/24 Plt Count 165 X10*3/uL (160-400) 06/04/24 Sodium 140 mmol/L (135-145) 07/25/24 Potassium 4.3 mmol/L (3.3-5.1) 07/25/24 Chloride 105 mmol/L (96-108) 07/25/24 Carbon Dioxide 24 mmol/L (22-29) 07/25/24 BUN 50 mg/dL (9-16) H 07/25/24 Creatinine 2.27 mg/dL (0.5-1.4) H 07/25/24 Calcium 10.4 mg/dL (8.4-10.2) H 06/04/24 Phosphorus 3.2 mg/dL (2.7-4.5) 04/23/24 PTH Intact 180.3 pg/mL (8.7-77.1) H 04/23/24 Assessment & Plan Assessment & Plan (1) Stage 3b chronic kidney disease: Code(s): N18.32 - Chronic kidney disease, stage 3b Category: Medical (2) Renal artery stenosis: Code(s): I70.1 - Atherosclerosis of renal artery Category: Medical (3) Hypertension: Code(s): I10 - Essential (primary) hypertension Category: Medical Qualifiers: Hypertension type: primary hypertension Qualified Code(s): I10 - Essential (primary) hypertension Plan Husam was on dialysis for a long time. His GFR recovered and he came off dialysis. He continues to have AV fistula which is functioning. He claims to have good urine output. His creatinine improved after holding losartan altogether. I may restart it later. His blood sugar needs to be maintained at goal. He is on Farxiga. His blood pressure needs to be maintained at goal. He should avoid nonsteroidal anti-inflammatories. I did not make any other medication changes today. Follow-up blood work ordered. Answered all questions. Follow-up appointment given Orders: Orders Parathyroid Hormone Intact 3 Months N18.32 - Chronic kidney disease, stage 3b Electrolytes 3 Months N18.32 - Chronic kidney disease, stage 3b Calcium 3 Months N18.32 - Chronic kidney disease, stage 3b Creatinine 3 Months N18.32 - Chronic kidney disease, stage 3b Vitamin D 25-OH Total 3 Months N18.32 - Chronic kidney disease, stage 3b Blood Urea Nitrogen 3 Months N18.32 - Chronic kidney disease, stage 3b Phosphorus 3 Months N18.32 - Chronic kidney disease, stage 3b Complete Blood Count Auto Diff 3 Months N18.32 - Chronic kidney disease, stage 3b Coding Level of Care Code Est Pt Level 4 (15973) Diagnoses Stage 3b chronic kidney disease N18.32 Renal artery stenosis I70.1 Primary hypertension I10 Hypertension type: primary hypertension
[2024-07-31 12:27] VITALS: BP 132/60; PULSE 74; O2SAT 95; BMI 25.5
== END 2024-07-31 12:41 | disposition home or self-care (01) ==
PROVIDERS: PCP Family Medicine; Visit Provider Internal Medicine Nephrology
DX: I12.9 Hypertensive chronic kidney disease with stage 1 through stage 4 chronic kidney disease, or unspecified chronic kidney disease (principal); N18.32 Chronic kidney disease, stage 3b; I70.1 Atherosclerosis of renal artery; Z21 Asymptomatic human immunodeficiency virus [HIV] infection status
CPT/HCPCS: 99214

== ENCOUNTER → 2024-07-31 12:03 | Outpatient (BNVA) | payer OTHER, SELFPAY | PROVIDERS: PCP Family Medicine; Visit Provider Internal Medicine Nephrology | DX: I12.9 Hypertensive chronic kidney disease with stage 1 through stage 4 chronic kidney disease, or unspecified chronic kidney disease (principal); I70.1 Atherosclerosis of renal artery; N18.32 Chronic kidney disease, stage 3b | CPT/HCPCS: 99212 ==

== ENCOUNTER 2024-08-26 12:28 | Outpatient (AMB) | payer OTHER, SELFPAY ==
[2024-08-26 13:04] VITALS: BP 132/60; PULSE 74; BMI 25.3
--- NOTE | 2024-08-26 13:04 | A.OFFVIS_ITS ---
Vital Signs 08/26/24 13:04 Height 5 ft 5 in Weight 152 lb 1.903 oz BMI 25.3 BP 132/60 Blood Pressure Location Rt brachial Position Sitting Pulse 74 Pulse Source Pulse Oximeter Intake Visit Reasons: 7 mth f/up w/ [facility] [employer] Dealer Support Technician Required: No Allergies No Known Allergies [No Known Allergies*] Allergy (Verified 08/26/24 13:08) Medication List - Last Reconciled 08/26/24 by Ania Whitehead NP-C acetaminophen (Tylenol) 650 mg (2 x 325 mg) PO TID PRN albuterol sulfate 90 mcg/actuation (Ventolin HFA) 2 puffs inhalation Q4-6H PRN amlodipine 10 mg PO QAM aspirin 81 mg PO QAM atorvastatin 20 mg PO DAILY blood sugar diagnostic (FreeStyle Lite Strips) As directed blood-glucose meter (FreeStyle Lite Meter kit) As directed cholecalciferol (vitamin D3) 25 mcg PO QAM dapagliflozin propanediol (Farxiga) 10 mg PO DAILY dolutegravir-rilpivirine 50-25 mg (Juluca) 1 tab PO DAILY doxazosin 8 mg PO DAILY 90 days dulaglutide (Trulicity) mg subcut finasteride 5 mg PO DAILY insulin glargine (Lantus U-100 Insulin) 18 units (0.18 mL) subcut BID 30 days insulin syringe-needle U-100 (BD Insulin Syringe Ultra-Fine) Twice a day lancets (TRUEplus Lancets) As directed lidocaine 5% (Lidoderm) 1 patch topical DAILY mirabegron ER 25 mg PO DAILY 90 days torsemide 40 mg PO DAILY HPI HPI 7 mth f/up w/ [facility] [employer] c[facility]: Details: Husam is a 78-year-old male with past medical history of hypertension, hyperlipidemia, diabetes, peripheral vascular disease, carotid stenosis, coronary artery disease, aortic valve abnormalities, pacemaker who presents for follow-up. Today he reports he has been doing well since his last visit in January. He denies having any chest discomfort at rest or with activity. No concerning shortness of breath, PND, orthopnea or edema. No lightheadedness, presyncope, syncope, falls. Taking all meds as directed. Has remote monitor at his bedside. [facility] Medical History Atherosclerotic cardiovascular disease CKD (chronic kidney disease) BPH loc w urin obs/LUTS BPH (benign prostatic hyperplasia) Nocturia HIV (human immunodeficiency virus infection) Diabetic polyneuropathy associated with type 2 diabetes mellitus Dyslipidemia Diabetic nephropathy associated with type 2 diabetes mellitus snf (current) use of insulin Chronic constipation Hypertension Diabetes type 2, controlled Diabetes type 2, controlled History of renal dialysis IDDM (insulin dependent diabetes mellitus) Asthma Renal failure Surgical History History of colonoscopy History of foot surgery History of appendectomy Family History Son History of diabetes mellitus Social History Household Members: None Housing: Apartment Do you presently have visiting nurse or other home services: No Alcohol intake: never Patient Tobacco Use Status: Former Tobacco user e-Cigarette/Vaping Use: Never Used Second Hand Smoke Exposure: No Advance Directives Date on File: 08/05/20 service: No Current occupational status: retired Review of Systems Const All systems reviewed & are unremarkable except as noted in HPI and below ENT Denies dizziness Card Denies chest pain, Denies chest pain at rest, Denies chest pain with activity, Denies rapid heart rate, Denies pedal edema, Denies edema, Denies leg edema, Denies lightheadedness, Denies palpitations, Denies dyspnea, Denies dyspnea on exertion and Denies orthopnea Resp Denies cough, Denies dyspnea and Denies dyspnea on exertion GI Denies hematochezia and Denies change in stool character Musc Denies abnormal gait, Denies limited range of motion, Denies muscle cramps, Denies muscle weakness, Denies numbness, Denies radiating pain into limb, Denies stiffness and Denies tingling Neuro Denies abnormal gait, Denies dizziness, Denies numbness and Denies tingling Endo Denies palpitations Physical Exam Vital Signs: Last Vital Signs Pulse 74 08/26/24 13:04 BP 132/60 08/26/24 13:04 BMI result Body Mass Index 25.3 Const General: cooperative, healthy appearing, comfortable and no acute distress Orientation/consciousness: patient oriented x3 Neck Neck: Yes normal visual inspection and Yes no JVD Chest Other: pacer site right upper chest benign Resp Effort & Inspection: normal respiratory effort Auscultation: clear to auscultation bilaterally, no crackles, no rales, no rhonchi and no wheezes Cardio Jugular venous distension: no JVD Rate: regular rate Rhythm: regular rhythm Heart sounds: S1 normal heart sound present, S2 normal heart sound present, no murmurs and no rubs Neuro General: patient oriented x3 Extrem General: Yes normal to inspection and No no pedal edema Psych Appearance: grossly normal Mental Status: mental status grossly normal Speech and movement: Normal speech and movement present Office Procedures Cardiac Device Check Cardiac Device Check Details: Medtronic dual-chamber pacemaker interrogation today, battery 11.9 years, DDD mode, low rate 60, a paced 18.5%, V paced 100%, right atrial threshold 0.5 volts at 0.4 milliseconds, RV threshold 1 volt at 0.4 milliseconds, 1 VT NS, one second [place] 176. [id number] Cardiac Device Check, pacemaker dual lead Procedure code (CPT) selection complete Results Reviewed Results Reviewed: 11/23/22 Carotid ultrasound IMPRESSION: 1. RIGHT: Moderate, hemodynamically significant stenosis of the proximal right internal carotid artery corresponding to a 50-79% stenosis by velocity criteria. Since the prior study, velocities on the right have increased significantly increasing the disease category from 0-49% previously. 2. LEFT: Moderate, hemodynamically significant stenosis of the proximal left internal carotid artery corresponding to a 50-79% stenosis by velocity criteria. Since the prior study, velocities remain about the same and there is no change in the disease category. 10/24/22 Nuclear stress test 1. Myocardial perfusion imaging study shows mostly fixed inferior- inferior septal perfusion defect with slight reversible defect in the mid inferior wall. Could indicate prior infarct with minimal ischemia. Could also have components of diaphragmatic attenuation. 2. Gated LVEF is 64% during stress and rest. 3. Transient ischemic dilatation not present. Assessment & Plan Assessment & Plan (1) Atherosclerotic cardiovascular disease: Code(s): I25.10 - Atherosclerotic heart disease of [place] coronary artery without angina pectoris Category: Medical Plan: Patient with presumed CAD in the setting of multiple cardiac risk factors including hypertension, hyperlipidemia, diabetes, peripheral vascular disease, age. He did have nuclear stress test 10/2022 which was abnormal showing mid inferior wall defect which could be from prior infarct versus diaphragm attenuation. He has been taking aspirin 81 mg daily and atorvastatin 20 mg daily. He has no reports of anginal sounding symptoms. Labs done 07/25/2024 sh owed LDL 55. Signs and symptoms of angina reviewed with him. Emergency care if ever needed for symptoms. Cardiology follow-up 6 months, sooner if needed. (2) Normally functioning cardiac pacemaker present: Code(s): Z95.0 - Presence of cardiac pacemaker Category: Medical Plan: Medtronic dual-chamber pacemaker in place. Interrogation today shows device is functioning normally. Battery 11.9 years. Pacer site benign. Has remote monitoring in use. Next office interrogation due in 6 months. (3) Carotid stenosis: Code(s): I65.29 - Occlusion and stenosis of unspecified carotid artery Category: Medical Plan: History of carotid stenosis. Last carotid ultrasound 11/2022 showing right and left ICA 50 to 79% stenosis. He is on aspirin and statin. He follows with Dr. Monreal for his lower extremity peripheral vascular disease. I will place order for an updated carotid ultrasound at this time. (4) PAD (peripheral artery disease): Code(s): I73.9 - Peripheral vascular disease, unspecified Category: Medical Plan: Follows with Dr. Monreal. Currently no reports of claudication. (5) Hypertension: Code(s): I10 - Essential (primary) hypertension Category: Medical Qualifiers: Hypertension type: primary hypertension Qualified Code(s): I10 - Essential (primary) hypertension Plan: Well controlled at this time. No med changes made. Continue amlodipine and torsemide. Labs done 07/25/2024 showed creatinine 2.44. He has known CKD. (6) Aortic valve disorder: Code(s): I35.9 - Nonrheumatic aortic valve disorder, unspecified Category: Medical Plan: Echocardiogram done [place] [facility] [place]22 showed EF 55-60%, [id number] aortic stenosis, basal inferior, inferior septal akinetic. An echocardiogram was done at [facility] on 09/24/2023 showing EF 40-50%, [id number] LVH, [id number] aortic regurgitation, no aortic stenosis, no regional wall motion abnormalities. Will update echo 1 year from his last and plan to call him with results. Plan Time spent on chart review, documentation, interview and assessment Orders: Orders CA echo transthoracic complete 1 Month I35.9 - Nonrheumatic aortic valve disorder, unspecified US carotid duplex BI Today I65.29 - Occlusion and stenosis of unspecified carotid artery Coding Level of Care Code Est Pt Level 4 (77847) Complex EM visit Add On G2211 Diagnoses Atherosclerotic cardiovascular disease I25.10 Normally functioning cardiac pacemaker present Z95.0 Carotid stenosis I65.29 PAD (peripheral artery disease) I73.9 Primary hypertension I10 Hypertension type: primary hypertension Aortic valve disorder I35.9 CPT Codes Cardiac Device Check - Cardiac Device 2: [id number] Cardiac Device Check, pacemaker dual lead ([id number]) Time Spent (min) 28
== END 2024-08-26 13:23 | disposition home or self-care (01) ==
LOC: HO.HCS 12:28
PROVIDERS: PCP Family Medicine; Visit Provider Nurse Practitioner Family
DX: I25.10 Atherosclerotic heart disease of native coronary artery without angina pectoris (principal); Z95.0 Presence of cardiac pacemaker; I65.29 Occlusion and stenosis of unspecified carotid artery; I73.9 Peripheral vascular disease, unspecified; I10 Essential (primary) hypertension; I35.9 Nonrheumatic aortic valve disorder, unspecified
CPT/HCPCS: 93280; 99214; G2211

== ENCOUNTER → 2024-08-26 12:28 | Outpatient (BNVA) | payer OTHER, SELFPAY | PROVIDERS: PCP Family Medicine; Visit Provider Nurse Practitioner Family | DX: Z45.018 Encounter for adjustment and management of other part of cardiac pacemaker (principal); I25.10 Atherosclerotic heart disease of native coronary artery without angina pectoris; I65.29 Occlusion and stenosis of unspecified carotid artery; I73.9 Peripheral vascular disease, unspecified; I35.9 Nonrheumatic aortic valve disorder, unspecified; I10 Essential (primary) hypertension | CPT/HCPCS: 93280; 99212 ==

== ENCOUNTER → 2024-09-12 23:59 | Outpatient (BNV) | payer OTHER, SELFPAY ==
--- NOTE | 2024-09-21 12:29 | MHC.OFFVIS ---
Intake Visit Reasons: Remote device check- Medtronic Allergies No Known Allergies [No Known Allergies*] Allergy (Verified 08/26/24 13:08) PFSH Medical History Atherosclerotic cardiovascular disease CKD (chronic kidney disease) BPH loc w urin obs/LUTS BPH (benign prostatic hyperplasia) Nocturia HIV (human immunodeficiency virus infection) Diabetic polyneuropathy associated with type 2 diabetes mellitus Dyslipidemia Diabetic nephropathy associated with type 2 diabetes mellitus residential (current) use of insulin Chronic constipation Hypertension Diabetes type 2, controlled Diabetes type 2, controlled History of renal dialysis IDDM (insulin dependent diabetes mellitus) Asthma Renal failure Surgical History History of colonoscopy History of foot surgery History of appendectomy Family History Son History of diabetes mellitus Social History Household Members: None Housing: Apartment Do you presently have visiting nurse or other home services: No Alcohol intake: never Patient Tobacco Use Status: Former Tobacco user e-Cigarette/Vaping Use: Never Used Second Hand Smoke Exposure: No Advance Directives Date on File: 08/05/20 service: No Current occupational status: retired Office Procedures Cardiac Device Check Cardiac Device Check Details: Date of service- 09/12/2024 ; Battery life >11 years; normal lead parameters; AP 4%; ORTHOPEDIC DENTIST 100%; no significant arrhythmias. Overall normal device function. [id number] Cardiac Device Interrogation, pacemaker Procedure code (CPT) selection complete Assessment & Plan Assessment & Plan (1) Normally functioning cardiac pacemaker present: Code(s): Z95.0 - Presence of cardiac pacemaker Category: Medical (2) Heart block atrioventricular: Code(s): I44.30 - Unspecified atrioventricular block Category: Medical Plan x Coding Level of Care Code Procedure Only Diagnoses Normally functioning cardiac pacemaker present Z95.0 Heart block atrioventricular I44.30 CPT Codes Cardiac Device Check - Cardiac Device 12: [id number] Cardiac Device Interrogation, pacemaker ([id number])
== END ==
PROVIDERS: PCP Family Medicine; Visit Provider Internal Medicine
DX: I44.30 Unspecified atrioventricular block (principal); Z95.0 Presence of cardiac pacemaker
CPT/HCPCS: 93294

== ENCOUNTER → 2024-10-09 12:54 | Outpatient (REF) | payer OTHER, SELFPAY ==
--- NOTE | 2024-10-09 12:57 | CA_ITS ---
Transthoracic Echocardiogram Patient (Last, First, Middle): Husam Garcia, Gender: Male Date of : 1945 Age: 78 Procedure Date: 10/09/2024 Procedure Type: Transthoracic Echocardiogram Location: OP Height: 167.64 cm Weight: 74.84 kg BSA: 1.84 m2 Heart Rate: 74 bpm BP: 132 / 60 mmHg Scrubber Operator: NA Referring MD: Ania Whitehead GROUNDS MANAGER-C Parts Casting Machine Operator: Leighton Mata MD Symptoms: I35.9 - Nonrheumatic aortic valve disorder, unspecified Study Quality: Fair ECG Rhythm: Sinus Conclusions: - 1. Normal LV ejection fraction 55-60% with mild LVH with impaired relaxation filling pattern 2. Mild aortic stenosis and regurgitation 3. Normal RV systolic pressure 4. No gross pericardial effusion Findings Procedure Information The quality of the study was technically difficult. The study quality is limited by patients body habitus and lung artifact. Left Ventricle Normal left ventricular size and systolic function. There is mildly increased left ventricular wall thickness. The visually estimated ejection fraction is between 55-60%. Spectral Doppler is indicative of an impaired relaxation filling pattern. E/E prime ratio is between 8 and 15 consistent with indeterminate filling pressures. Right Ventricle Normal right ventricular cavity size and systolic function. Atria The left atrium is normal in size. Interatrial shunt cannot be excluded. The right atrium is normal in size. Aortic Valve There is mild calcification of the aortic valve. There is mild thickening of the aortic valve. There is mild aortic valve stenosis. The peak aortic gradient is 24 mmHg.The mean gradient is 13 mmHg. The aortic valve area is 1.53 cm2. There is mild aortic valve regurgitation. Mitral Valve There is mild anterior and posterior mitral leaflet thickening. There is mild mitral annular calcification. There is trace mitral valve regurgitation. There is no mitral valve stenosis. Pulmonic Valve The pulmonic valve was not well visualized. Tricuspid Valve Likely normal tricuspid valve structure and function. There is trace tricuspid valve regurgitation. The right ventricular systolic pressure is normal. The right ventricular systolic pressure is 25 mmHg. Normal right atrial pressure. There is no evidence of pulmonary hypertension. Great Vessels The pulmonary artery was not well visualized. There is no dilatation of the ascending aorta measuring 3.20 cm. Venous The inferior vena cava is normal in size and collapses greater than 50% with inspiration. Pericardium/Pleural There is no evidence of pericardial effusion. Prior Study Comparison No significant change compared to prior study dated: 09/15/2022. Measurements 2D Linear Measurements IVSd: 1.36 0.6-0.9/0.6-1.0 cm LVIDd: 4.32 3.9-5.3/4.2-5.9 cm LVIDd Index: 2.35 2.4-3.2/2.2-3.1 cm/m2 LVIDs: 2.45 2.0-3.6 cm LVPWd: 1.15 0.7-1.1 cm LA Diam: 3.70 2.7-3.8/3.0-4.0 cm LAIDs Index: 2.01 1.5-2.3 cm/m2 LV Mass: 247.51 67-162/88-224 g LV Mass Index: 134.52 43-95/49-115 g/m2 LVOT Diam: 2.40 3.0+(-)1.3 cm 2D Systolic Function EF 4C: 45.30 >55% EF 2C: 59.50 >55% EF BiP: 54.00 >55% Mitral Valve MV Pk E: 0.57 MV PK A: 0.91 MV Decel Time: 287.00 E/A: 0.60 E'Lateral: 6.31 E'Medial: 3.70 E/E' Med: 15.40 E/E' Lat: 9.00 PHT: 84.00 MVA PHT: 2.62 Decel [place]: 1.99 Aortic Valve AoV Pk Felipe: 2.43 AoV Mn Felipe: 1.69 AoV VTI: 0.53 AoV Pk Grad: 24.00 Aov Mn Grad: 13.00 ANALISA Cont.VTI: 1.53 LVOT LVOT Pk Felipe: 0.76 LVOT Mn Felipe: 0.57 LVOT VTI: 0.18 LVOT Pk Grad: 2.00 LVOT Mn Grad: 1.00 LVOT Diam: 2.40 LVOT Area: 4.52 Diastolic Function MV Pk E: 0.57 MV Pk A: 0.91 E/A: 0.60 E'Medial: 3.70 E/E' Med: 15.40 E' Laterial: 6.31 E/E' Lat: 9.00 Right Ventricle TAPSE (mm): 17.40 TVS' Felipe: 9.60 Tricuspid Valve TR Pk Felipe: 2.33 TR Pk Grad: 22.00 RA Press: 3.00 RVSP: 25.00 Great Vessels Aorta Sinus of Valsalva: 3.30 2.0-3.5 cm Ao Asc: 3.20 2.1-3.4 cm Ao Arch: 3.30 Pulmonary Veins Pulm Vein S/D 1.80 Pulmonary Valve PV Pk Felipe: 1.03 Peak PV Grad: 4.00 Updated in Other Vendor System with Status of Final Leighton Mata MD electronically signed on 10/09/2024 3:32:58 PM with status of Final
--- OUTSIDE RECORDS SUMMARY | 2024-10-09 14:46 | XMS_ITS | Clinical Summary ---
Author Organization [facility] Address [address] [place] [address] Phone Care Team Providers Care J2Ee Java Developer Name Role Phone Jessie Smith MD Primary Care Provider [phone] Allergies No known active allergies Medications aspirin (ST DELFIN) 81 MG EC tablet Take 1 tablet by mouth 1 (one) time each day 05/19/2010 Active Bictegravir-Emtr icitab-Tenofov (Biktarvy) 50-200-25 MG tablet Take 1 tablet by mouth at bed time Active atorvastatin (LIPITOR) 20 MG tablet Take 20 mg by mouth 1 (one) time each day 10/25/2022 Active doxazosin (CARDURA) 4 MG tablet Take 8 mg by mouth at bed time 09/27/2022 Active losartan (COZAAR) 50 MG tablet Take 50 mg by mouth at bed time 10/31/2022 Active Active Problems Problem Noted Date Diagnosed Date Hypertension 10/27/2021 Anemia of chronic renal failure 12/30/2020 Benign hypertensive renal disease 12/30/2020 Chronic ischemic heart disease 12/30/2020 Stage 3b chronic kidney disease 12/30/2020 Hyperkalemia 12/30/2020 Hyperparathyroidism due to renal insufficiency 0 12/30/2020 Renal disorder due to type 2 diabetes mellitus 0 12/30/2020 Immunizations Name Administration Dates Next Due Pneumococcal Polysaccharide 05/13/2014 Family History Medical History Relation Comments Diabetes Child Relation Status Comments Child Father Mother Social History Tobacco Use Types Packs/Day Years Used Date Smoking Tobacco: Never Smokeless Tobacco: Never Tobacco Cessation:Counseling Given: Not Answered Alcohol Use Standard Drinks/Week Comments No 0 (1 standard drink = 0.6 oz pur e alcohol) Sex and Gender Information Value Date Recorded Sex Assigned at Not on file Legal Sex Male 5:02 PM EST Gender Identity Not on file Sexual Orientation Not on file Last Filed Vital Signs Vital Sign Reading Time Taken Comments Blood Pressure 126/60 06/14/2023 2:30 PM EDT Pulse 65 06/14/2023 2:30 PM EDT Temperature - - Respiratory Rate - - Oxygen Saturation 96% 06/14/2023 2:30 PM EDT Inhaled Oxygen Concentration - - Weight 67 kg (147 lb 12.8 oz) 06/14/2023 2:30 PM EDT Height 172.7 cm (5' 8 ) 02/19/2020 12:00 PM EDT Body Mass Index 22.47 02/19/2020 12:00 PM EDT Plan of Treatment Health Maintenance Due Date Last Done Comments Pneumococcal Vaccine: 65+ Ye ars (2 of 2 - PCV) 05/13/2015 05/13/2014 Diabetes: Hemoglobin A1C 2020 Diabetes: Ophthalmology Exam 2020 Diabetes: Pedal Pulse Checked 2020 Diabetes: Sensory Foot Exam 2020 Diabetes: Visual Foot Exam 2020 Influenza Vaccine (#1) 2024 Hepatitis B Vaccine Aged Out No longe r eligible based on patient's age to complete this topic Insurance [facility] ([id number]) [address] [place] [id number] [facility] MCR ([id number]) [place] [id number] Care Teams J2Ee Java Developer Relationship Specialty Start Date End Date Jessie Smith MD PCP - General Family Medicine 12/30/20
== END ==
LOC: HO.CARD 12:54
PROVIDERS: PCP Family Medicine; Visit Provider Nurse Practitioner Family
DX: I35.9 Nonrheumatic aortic valve disorder, unspecified (principal)
CPT/HCPCS: 93306

== ENCOUNTER → 2024-10-09 12:57 | Outpatient (BNV) | payer OTHER, SELFPAY | PROVIDERS: PCP Family Medicine; Visit Provider Internal Medicine Cardiovascular Disease | DX: I35.2 Nonrheumatic aortic (valve) stenosis with insufficiency (principal); I35.8 Other nonrheumatic aortic valve disorders; I34.81 Nonrheumatic mitral (valve) annulus calcification; I51.89 Other ill-defined heart diseases | CPT/HCPCS: 93306 ==

== ENCOUNTER 2024-10-24 13:18 | Outpatient (REF) | payer OTHER, SELFPAY ==
[2024-10-24 15:56] LABS: MANUAL DIFF FLAG NO
[2024-10-24 16:05] LABS: Basophils Percent Auto 0.4 % (0-2); Eosinophils Absolute Auto 0.2 X10*3/uL (0.0-0.4); Eosinophils Percent Auto 1.8 % (0-4); Hematocrit 42.9 % (42.0-52.0); Hemoglobin 14.5 g/dl (14.0-18.0); Imm Gran Abs Auto 0.06 X10*3/uL (0.00-0.03); Imm Gran Pct Auto 0.7 % (0.0-0.4); Mean Corpuscular HGB Conc 33.8 g/dl (31.0-36.0); Mean Corpuscular Volume 88.8 fL (80.0-98.0); Mean Platelet Volume 10.4 fL (9.4-12.4); Monocytes Absolute Auto 0.5 X10*3/uL (0.1-1.2); Monocytes Percent Auto 6.2 % (2-11); Neutrophils Absolute Auto 5.5 x10*3/uL (2.0-8.3); Neutrophils Percent Auto 66.9 % (45-73); Platelet Count 163 X10*3/uL (160-400); Red Blood Count 4.83 X10*6/uL (4.60-5.80); Red Cell Distribution Width 13.3 % (11.0-16.0); White Blood Count 8.2 X10*3/uL (4.8-10.8)
[2024-10-24 16:14] LABS: Anion Gap 18 (12-20); Blood Urea Nitrogen 54 mg/dL (9-16); Calcium 9.9 mg/dL (8.4-10.2); Carbon Dioxide 24 mmol/L (22-29); Chloride 101 mmol/L (96-108); Estimated Glomerular Filt Rate 28; Phosphorus 4.5 mg/dL (2.7-4.5); Potassium 4.5 mmol/L (3.3-5.1); Sodium 138 mmol/L (135-145)
[2024-10-24 16:30] LABS: Vitamin D 25-OH Total 46.9 ng/mL (>30)
[2024-10-24 16:35] LABS: Parathyroid Hormone Intact 248.4 pg/mL (8.7-77.1)
== END 2024-10-24 13:19 | disposition home or self-care (01) ==
LOC: HO.HHCL 13:18
PROVIDERS: Visit Provider Internal Medicine Nephrology
DX: N18.32 Chronic kidney disease, stage 3b (principal)
CPT/HCPCS: 36415; 80051; 82306; 82310; 82565; 83970; 84100; 84520; 85025

== ENCOUNTER 2024-11-01 11:13 | Outpatient (AMB) | payer OTHER, SELFPAY ==
--- NOTE | 2024-11-01 11:20 | HO.NEPHOV_ITS ---
Vital Signs 11/01/24 11:21 Height 5 ft 5 in Weight 150 lb 8 oz BMI 25.0 BP 134/60 Blood Pressure Location Rt brachial Position Sitting Pulse 71 Pulse Source Pulse Oximeter Pulse Oximetry (%) 96 Oxygen Delivery Method Room Air Intake Visit Reasons: 3mon follow up w/labs/ Conf Cancer Spec Required: Yes Cancer Spec Language: [employer]ating [employer] Services: Cancer Spec Offered & Declined ([facility] [place] deaf services refused. ) Accompanied by: Self / Same As Patient Allergies No Known Allergies [No Known Allergies*] Allergy (Verified 11/01/24 11:21) HPI Comments Details: Husam was seen in follow-up of his chronic kidney disease and hypertension. According to him, his HIV viral load has been undetectable and his CD4 has been good. He has not had any medication changes. He continues to have a functioning AV fistula. He claims to have good urine output. He denies nausea, vomiting, diarrhea, chest pain, shortness of breath, proximal nocturnal dyspnea, orthopnea, pedal edema or urinary symptoms. He is off ARB from the time his serum creatinine has gone up. His blood pressure has been at goal. He is on Trulicity as well as Lantus. He denies taking nonsteroidal anti-inflammatories. His serum creatinine is better. There were no other new complaints at the time of this office visit. 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 (current) use of insulin Chronic constipation Hypertension Diabetes type 2, controlled Diabetes type 2, controlled History of renal dialysis IDDM (insulin dependent diabetes mellitus) Asthma Renal failure Surgical History History of colonoscopy History of foot surgery History of appendectomy Family History Son History of diabetes mellitus Social History Household Members: None Housing: Apartment Do you presently have visiting nurse or other home services: No Alcohol intake: never Patient Tobacco Use Status: Former Tobacco user e-Cigarette/Vaping Use: Never Used Second Hand Smoke Exposure: No Advance Directives Date on File: 08/05/20 service: No Current occupational status: retired Review of Systems Const All systems reviewed & are unremarkable except as noted in HPI and below Physical Exam Vital Signs: Last Vital Signs Pulse 71 11/01/24 11:21 BP 134/60 11/01/24 11:21 Pulse Ox 96 11/01/24 11:21 Oxygen Delivery Method Room Air 11/01/24 11:21 BMI result Body Mass Index 25.0 Const General: comfortable and no acute distress Orientation/consciousness: patient oriented x3 HEENT Head: Yes normocephalic Mouth: Normal oral and palatal mucosa present Eyes EOM: EOMs intact bilaterally Neck Neck: Yes supple Resp Auscultation: clear to auscultation bilaterally Cardio Jugular venous distension: no JVD Rate: regular rate GI Palpation (GI): Soft to palpation Auscultation: normal bowel sounds General: Yes no CVA tenderness Back/Spine/Pelvis Back: no CVA tenderness Skin General skin exam: no rashes or lesions noted Neuro General: patient oriented x3 and moves all extremities Extrem General: Yes no pedal edema Results Reviewed Nephrology Results: Hgb 14.5 g/dl (14.0-18.0) 10/24/24 WBC 8.2 X10*3/uL (4.8-10.8) 10/24/24 Plt Count 163 X10*3/uL (160-400) 10/24/24 Sodium 138 mmol/L (135-145) 10/24/24 Potassium 4.5 mmol/L (3.3-5.1) 10/24/24 Chloride 101 mmol/L (96-108) 10/24/24 Carbon Dioxide 24 mmol/L (22-29) 10/24/24 BUN 54 mg/dL (9-16) H 10/24/24 Creatinine 2.24 mg/dL (0.5-1.4) H 10/24/24 Calcium 9.9 mg/dL (8.4-10.2) 10/24/24 Phosphorus 4.5 mg/dL (2.7-4.5) 10/24/24 PTH Intact 248.4 pg/mL (8.7-77.1) H 10/24/24 Assessment & Plan Assessment & Plan (1) Stage 3b chronic kidney disease: Code(s): N18.32 - Chronic kidney disease, stage 3b Category: Medical (2) Renal artery stenosis: Code(s): I70.1 - Atherosclerosis of renal artery Category: Medical (3) Hypertension: Code(s): I10 - Essential (primary) hypertension Category: Medical Qualifiers: Hypertension type: primary hypertension Qualified Code(s): I10 - Essential (primary) hypertension (4) Secondary hyperparathyroidism (of renal origin): Code(s): N25.81 - Secondary hyperparathyroidism of renal origin Category: Medical Plan Husam was on dialysis for a long time. His GFR recovered and he came off dialysis. He continues to have AV fistula which is functioning. He claims to have good urine output. His creatinine improved after holding losartan altogether. I may restart it later. His blood sugar needs to be maintained at goal. He is on Farxiga. His blood pressure needs to be maintained at goal. He should avoid nonsteroidal anti-inflammatories. I started him on calcitriol 0.25 mcg twice a week. did not make any other medication changes today. Follow- up blood work ordered. Answered all questions. Follow-up appointment given Orders: Orders Blood Urea Nitrogen 3 Months I10 - Essential (primary) hypertension, I70.1 - Atherosclerosis of renal artery, N18.32 - Chronic kidney disease, stage 3b, N25.81 - Secondary hyperparathyroidism of renal origin Electrolytes 3 Months I10 - Essential (primary) hypertension, I70.1 - Atherosclerosis of renal artery, N18.32 - Chronic kidney disease, stage 3b, N25.81 - Secondary hyperparathyroidism of renal origin Calcium 3 Months I10 - Essential (primary) hypertension, I70.1 - Atherosclerosis of renal artery, N18.32 - Chronic kidney disease, stage 3b, N25.81 - Secondary hyperparathyroidism of renal origin Creatinine 3 Months I10 - Essential (primary) hypertension, I70.1 - Atherosclerosis of renal artery, N18.32 - Chronic kidney disease, stage 3b, N25.81 - Secondary hyperparathyroidism of renal origin Phosphorus 3 Months I10 - Essential (primary) hypertension, I70.1 - Atherosclerosis of renal artery, N18.32 - Chronic kidney disease, stage 3b, N25.81 - Secondary hyperparathyroidism of renal origin Parathyroid Hormone Intact 3 Months I10 - Essential (primary) hypertension, I70.1 - Atherosclerosis of renal artery, N18.32 - Chronic kidney disease, stage 3b, N25.81 - Secondary hyperparathyroidism of renal origin Medications: New 2 calcitriol 0.25 mcg PO 2XW 10 caps 6RF Coding Level of Care Code Est Pt Level 4 (22570) Diagnoses Stage 3b chronic kidney disease N18.32 Renal artery stenosis I70.1 Primary hypertension I10 Hypertension type: primary hypertension Secondary hyperparathyroidism (of renal origin) N25.81
[2024-11-01 11:21] VITALS: BP 134/60; PULSE 71; O2SAT 96; BMI 25.0
--- OUTSIDE RECORDS SUMMARY | 2024-11-01 12:08 | XMS_ITS | Clinical Summary ---
Author Organization [facility] Address [address] [place] [address] Phone Care Team Providers Care Environmental Systems Coordinator Name Role Phone Jessie Smith MD Primary Care Provider [phone] Allergies No known active allergies Medications aspirin [...] patient's age to complete this topic Insurance [facility] ([id number]) [address] [place] [id number] [facility] MCR ([id number]) [place] [phone] Care Teams Environmental Systems Coordinator Relationship Specialty Start Date End Date Jessie Smith MD PCP - General Family Medicine 12/30/20
== END 2024-11-01 11:36 | disposition home or self-care (01) ==
PROVIDERS: PCP Family Medicine; Visit Provider Internal Medicine Nephrology
DX: N18.32 Chronic kidney disease, stage 3b (principal); I70.1 Atherosclerosis of renal artery; I10 Essential (primary) hypertension; N25.81 Secondary hyperparathyroidism of renal origin
CPT/HCPCS: 99214

== ENCOUNTER → 2024-11-01 11:13 | Outpatient (BNVA) | payer OTHER, SELFPAY | PROVIDERS: PCP Family Medicine; Visit Provider Internal Medicine Nephrology | DX: I12.9 Hypertensive chronic kidney disease with stage 1 through stage 4 chronic kidney disease, or unspecified chronic kidney disease (principal); I70.1 Atherosclerosis of renal artery; I10 Essential (primary) hypertension; N25.81 Secondary hyperparathyroidism of renal origin; N18.32 Chronic kidney disease, stage 3b | CPT/HCPCS: 99212 ==

== ENCOUNTER 2024-12-05 10:15 | Outpatient (REF) | payer OTHER, SELFPAY ==
[2024-12-05 11:22] LABS: MANUAL DIFF FLAG NO
[2024-12-05 11:46] LABS: Basophils Percent Auto 0.5 % (0-2); Eosinophils Absolute Auto 0.2 X10*3/uL (0.0-0.4); Hematocrit 40.5 % (42.0-52.0); Imm Gran Abs Auto 0.08 X10*3/uL (0.00-0.03); Imm Gran Pct Auto 0.9 % (0.0-0.4); Lymphocytes Absolute Auto 1.6 X10*3/uL (1.2-4.9); Lymphocytes Percent Auto 18.9 % (20-40); Mean Corpuscular HGB Conc 34.6 g/dl (31.0-36.0); Mean Corpuscular Hemoglobin 30.4 pg (27.0-33.0); Mean Corpuscular Volume 87.9 fL (80.0-98.0); Mean Platelet Volume 10.2 fL (9.4-12.4); Monocytes Absolute Auto 0.7 X10*3/uL (0.1-1.2); Monocytes Percent Auto 7.6 % (2-11); Neutrophils Percent Auto 70.1 % (45-73); Platelet Count 156 X10*3/uL (160-400); Red Blood Count 4.61 X10*6/uL (4.60-5.80); Red Cell Distribution Width 13.6 % (11.0-16.0); White Blood Count 8.6 X10*3/uL (4.8-10.8)
[2024-12-05 12:10] LABS: Alanine Aminotransferase 34 U/L (0-40); Albumin Level 4.5 g/dL (3.5-5.0); Alkaline Phosphatase 96 U/L (39-117); Anion Gap 13 (12-20); Aspartate Amino Transferase 27 U/L (5-37); Bilirubin Total 0.4 mg/dL (0.0-1.0); Blood Urea Nitrogen 56 mg/dL (9-16); Calcium 9.7 mg/dL (8.4-10.2); Carbon Dioxide 25 mmol/L (22-29); Chloride 106 mmol/L (96-108); Estimated Glomerular Filt Rate 40; Glucose Random 129 mg/dL (60-115); Sodium 140 mmol/L (135-145); Total Protein 7.9 g/dL (6.5-8.0)
[2024-12-05 12:12] LABS: Prostate Specific Antigen Scr 2.49 ng/mL (<0.05-4.0)
[2024-12-06 15:08] LABS: HIV RNA PCR Qn Copies 42 copies/mL (NOT DETECTED); HIV RNA PCR Qn Log Copies 1.62 (NOT DETECTED)
[2024-12-10 13:47] LABS: Absolute CD3 Count 1309 cells/uL (840-3060); Absolute CD4 Count 526 cells/uL (490-1740); Absolute CD8 Count 766 cells/uL (180-1170); Absolute Lymphocytes 1691 cells/uL (850-3900); CD4 CD8 Ratio 0.69 (0.86-5.00); Percent CD3 Cells 77 % (57-85); Percent CD4 Cells 31 % (30-61); Percent CD8 Cells 45 % (12-42)
== END 2024-12-05 10:16 | disposition home or self-care (01) ==
LOC: HO.HHCL 10:15
PROVIDERS: Visit Provider Internal Medicine
DX: Z21 Asymptomatic human immunodeficiency virus [HIV] infection status (principal); N40.1 Benign prostatic hyperplasia with lower urinary tract symptoms; Z12.5 Encounter for screening for malignant neoplasm of prostate
CPT/HCPCS: 36415; 80053; 84153; 85025; 86359; 86360; 87536

== ENCOUNTER → 2024-12-12 23:59 | Outpatient (BNV) | payer OTHER, SELFPAY ==
--- NOTE | 2024-12-22 13:15 | A.OFFVIS_ITS ---
Intake Visit Reasons: remote device check- Medtronic Allergies No Known Allergies [No Known Allergies*] Allergy (Verified 11/01/24 11:21) PFS Medical History Atherosclerotic cardiovascular disease CKD (chronic kidney disease) BPH loc w urin obs/LUTS BPH (benign prostatic hyperplasia) Nocturia HIV (human immunodeficiency virus infection) Diabetic polyneuropathy associated with type 2 diabetes mellitus Dyslipidemia Diabetic nephropathy associated with type 2 diabetes mellitus assisted (current) use of insulin Chronic constipation Hypertension Diabetes type 2, controlled Diabetes type 2, controlled History of renal dialysis IDDM (insulin dependent diabetes mellitus) Asthma Renal failure Surgical History History of colonoscopy History of foot surgery History of appendectomy Family History Son History of diabetes mellitus Social History Household Members: None Housing: Apartment Do you presently have visiting nurse or other home services: No Alcohol intake: never Patient Tobacco Use Status: Former Tobacco user e-Cigarette/Vaping Use: Never Used Second Hand Smoke Exposure: No Advance Directives Date on File: 08/05/20 service: No Current occupational status: retired Office Procedures Cardiac Device Check Cardiac Device Check Details: Date of service- 12/12/2024 ; Battery life >11 years; normal lead parameters; AP 14%; CHECK WRITER SALESPERSON 100%; no significant arrhythmias. Overall normal device function. [id number] Cardiac Device Interrogation, pacemaker Procedure code (CPT) selection complete Assessment & Plan Assessment & Plan (1) Normally functioning cardiac pacemaker present: Code(s): Z95.0 - Presence of cardiac pacemaker Category: Medical (2) Heart block atrioventricular: Code(s): I44.30 - Unspecified atrioventricular block Category: Medical Plan x Coding Level of Care Code Procedure Only Diagnoses Normally functioning cardiac pacemaker present Z95.0 Heart block atrioventricular I44.30 CPT Codes Cardiac Device Check - Cardiac Device 12: [id number] Cardiac Device Interrogation, pacemaker ([id number])
== END ==
PROVIDERS: PCP Family Medicine; Visit Provider Internal Medicine
DX: I44.30 Unspecified atrioventricular block (principal); Z95.0 Presence of cardiac pacemaker
CPT/HCPCS: 93294

== ENCOUNTER 2025-01-08 12:55 | Outpatient (AMB) | payer OTHER, SELFPAY ==
--- NOTE | 2025-01-08 13:01 | A.OFFVIS_ITS ---
Intake Visit Reasons: 6m/PVR Intake Note: Patient is present for 6m/PVR Urology Medication:DOXAZOSIN,FINASTERIDE,MIRABEGRON Antibiotic Allergy:NONE Blood Thinner:ASPIRIN Last PVR:0ML'S Todays PVR:105ML'S Marketing Communications Associate Required: Yes Allergies No Known Allergies [No Known Allergies*] Allergy (Verified 01/08/25 13:03) HPI Comments Details: Husam is a pleasant male. He is a patient of . 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 Indonesian translation provided by qualified internist medical doctor md Six-month follow-up on Myrbetriq PVR 100 cc Continue good response to combination Hytrin with finasteride Cystoscopy with grade 1/2 trabeculation, mild trilobar hypertrophy UA today 3+ glucose on Trulicity Continue six-month surveillance Lower urinary tract symptoms Longstanding BPH Has nocturia x3 with some frequency Current medications Hytrin 8 mg with finasteride 04/09 Cystoscopy with grade 1/2 trabeculation, mild trilobar hypertrophy Background diabetes with HIV therapy PSA 09/05 2.1, 09/07 3.1, 10/10 5.1 25%Free, 03/10 1.6, 05/11, PSA 12/10 2.5 PFSH Medical History Atherosclerotic cardiovascular disease CKD (chronic kidney disease) BPH loc w urin obs/LUTS BPH (benign prostatic hyperplasia) Nocturia HIV (human immunodeficiency virus infection) Diabetic polyneuropathy associated with type 2 diabetes mellitus Dyslipidemia Diabetic nephropathy associated with type 2 diabetes mellitus supervisor intermediates (current) use of insulin Chronic constipation Hypertension Diabetes type 2, controlled Diabetes type 2, controlled History of renal dialysis IDDM (insulin dependent diabetes mellitus) Asthma Renal failure Surgical History History of colonoscopy History of foot surgery History of appendectomy Family History Son History of diabetes mellitus Social History Household Members: None Housing: Apartment Do you presently have visiting nurse or other home services: No Alcohol intake: never Patient Tobacco Use Status: Former Tobacco user e-Cigarette/Vaping Use: Never Used Second Hand Smoke Exposure: No Advance Directives Date on File: 08/05/20 service: No Current occupational status: retired Review of Systems Const Denies chills and Denies fever(s) Card Reports no additional complaints and Denies syncope Resp Denies cough GI Denies abdominal pain and Denies heartburn Reports as per HPI and Denies change in libido Neuro Denies syncope Psych Denies change in libido Endo Denies change in libido Physical Exam Const General: cooperative, healthy appearing, comfortable and no acute distress Orientation/consciousness: patient oriented x3 HEENT Face and sinus: Yes normal facial exam Mouth: moist mucous membranes Neck Neck: Yes normal visual inspection, Yes full ROM and Yes trachea midline Chest Chest palpation & inspection: normal inspection of the chest Resp Effort & Inspection: normal respiratory effort, able to speak in complete sentences and no respiratory distress GI Inspection: Yes normal to inspection Back/Spine/Pelvis Cervical Spine: normal cervical lordosis Thoracic/Lumbar Spine: thoracic and lumbar spine normal to inspection Skin General skin exam: no rashes or lesions noted Neuro General: patient oriented x3, gait normal, tone normal and moves all extremities Extrem General: Yes normal to inspection and Yes capillary refill normal Office Procedures Post Void Residual Post Residual Void Post Void Residual (PVR): 105 [id number] Void Residual by ultrasound Assessment & Plan Assessment & Plan (1) BPH loc w urin obs/LUTS: Code(s): N40.1 - Benign prostatic hyperplasia with lower urinary tract symptoms Category: Medical (2) Elevated PSA: Code(s): R97.20 - Elevated prostate specific antigen [PSA] Category: Medical (3) Overactive bladder: Code(s): N32.81 - Overactive bladder Category: Medical Plan Six-month follow-up office PVR Orders: Orders AMB Urinalysis Automated Today Z13.9 - Encounter for screening, unspecified Patient Instructions: This note is constructed using voice recognition software. While every effort has been made to ensure accuracy log carrier operator errors may have been included. Imaging studies, laboratory and physical exam results were discussed and reviewed in detail. No major barriers to patient understanding were identified. An opportunity to ask questions regarding the treatment plan was provided. All questions were answered. The patient expressed understanding and agreement with the above treatment plan. The patient is aware they should contact our office by phone for worsening of their current condition or the appearance of new urologic symptoms. Compliance is encouraged with any medications and followup testing that is ordered. It is a privilege to participate in the urologic care of your patient. If you have any questions or concerns regarding treatment for the above conditions, or other urologic issues, please do not hesitate to contact me. The office telephone contact is [phone]. Sincerely, Dr Aurelio Foster MD, [facility] - Urology Compassionate Specialist Care for the Genitourinary System Coding Level of Care Code Est Pt Level 3 (53434) Complex EM visit Add On G2211 Diagnoses BPH loc w urin obs/LUTS N40.1 Elevated PSA R97.20 Overactive bladder N32.81 CPT Codes Post Residual Void - PVR CPT Code: 86166-[id number] Void Residual by ultrasound ([id number])
--- OUTSIDE RECORDS SUMMARY | 2025-01-08 15:17 | XMS_ITS | Clinical Summary ---
Author Organization [facility] Address [address] [place] [address] Phone Care Team Providers Care Brusher Hand Name Role Phone Jessie Smith MD Primary Care Provider [phone] Allergies No known active allergies Medications aspirin [...] type 2 diabetes mellitus 0 12/30/2020 Immunizations Immunization Administration Dates Next Due Pneumococcal Polysaccharide 05/13/2014 [...] Due Date Last Done Comments Pneumococcal Vaccine: 50+ Ye ars (2 of 2 - PCV) 05/13/2015 05/13/2014 Diabetes: Hemoglobin A1C 2020 Diabetes: Ophthalmology Exam 2020 Diabetes: Pedal Pulse Checked 2020 Diabetes: Sensory Foot Exam 2020 Diabetes: Visual Foot Exam 2020 Influenza Vaccine (Season Ended) 2025 Pneumococcal Vaccine: Peds ( 0 to 5 Years) and At-Risk Patients (6 to 49 Years) Discontinued 05/13/2014 Hepatitis B Vaccine Aged Out No longe r eligible based on patient's age to complete this topic Insurance [facility] ([id number]) [place] [id number] [place] [id number] [facility] ([id number]) [place] [id number] Care Teams Brusher Hand Relationship Specialty Start Date End Date Jessie Smith MD PCP - General Family Medicine 12/30/20
== END 2025-01-08 13:23 | disposition home or self-care (01) ==
LOC: HO.HUSH 12:56
PROVIDERS: PCP Family Medicine; Visit Provider Urology
DX: N40.1 Benign prostatic hyperplasia with lower urinary tract symptoms (principal); R97.20 Elevated prostate specific antigen [PSA]; N32.81 Overactive bladder; Z13.9 Encounter for screening, unspecified
CPT/HCPCS: 99213; G2211

== ENCOUNTER → 2025-01-08 12:55 | Outpatient (BNVA) | payer OTHER, SELFPAY | PROVIDERS: PCP Family Medicine; Visit Provider Urology | DX: N40.1 Benign prostatic hyperplasia with lower urinary tract symptoms (principal); E11.9 Type 2 diabetes mellitus without complications; R35.1 Nocturia; N32.81 Overactive bladder; R97.20 Elevated prostate specific antigen [PSA] | CPT/HCPCS: 51798; 81003; 99212 ==

== ENCOUNTER 2025-01-28 09:56 | Outpatient (REF) | payer OTHER, SELFPAY ==
--- OUTSIDE RECORDS SUMMARY | 2025-01-28 10:48 | XMS_ITS | Clinical Summary ---
Author Organization [facility] Address [address] [place] [address] Phone Care Team Providers Care Media Center Director School Name Role Phone Jessie Smith MD Primary Care Provider [phone] Allergies No known active allergies Medications aspirin [...] patient's age to complete this topic Insurance [facility] ([id number]) VIVIANE SCHMIDT [id number] [place] [id number] [facility] ([id number]) VIVIANE SCHMIDT [phone] Care Teams Media Center Director School Relationship Specialty Start Date End Date Jessie Smith MD PCP - General Family Medicine 12/30/20
[2025-01-28 13:08] LABS: Anion Gap 18 (12-20); Blood Urea Nitrogen 57 mg/dL (9-16); Calcium 9.9 mg/dL (8.4-10.2); Carbon Dioxide 24 mmol/L (22-29); Chloride 105 mmol/L (96-108); Estimated Glomerular Filt Rate 36; Phosphorus 4.3 mg/dL (2.7-4.5); Potassium 4.7 mmol/L (3.3-5.1); Sodium 142 mmol/L (135-145)
[2025-01-28 15:49] LABS: Parathyroid Hormone Intact 210.4 pg/mL (8.7-77.1)
== END 2025-01-28 09:57 | disposition home or self-care (01) ==
LOC: HO.HHCL 09:56
PROVIDERS: Visit Provider Internal Medicine Nephrology
DX: N25.81 Secondary hyperparathyroidism of renal origin (principal); I70.1 Atherosclerosis of renal artery; N18.32 Chronic kidney disease, stage 3b; I10 Essential (primary) hypertension
CPT/HCPCS: 36415; 80051; 82310; 82565; 83970; 84100; 84520

== ENCOUNTER 2025-02-05 13:39 | Outpatient (AMB) | payer OTHER, SELFPAY ==
--- NOTE | 2025-02-05 13:41 | HO.NEPHOV_ITS ---
Vital Signs 02/05/25 13:43 Height 5 ft 5 in Weight 149 lb 8 oz BMI 24.9 BP 120/60 Blood Pressure Location Rt brachial Position Sitting Pulse 76 Pulse Source Pulse Oximeter Pulse Oximetry (%) 98 Oxygen Delivery Method Room Air Intake Visit Reasons: Hypertension-Conf Hospice Chaplain Required: Yes Hospice Chaplain Language: Utilities Estimator And Drafter Services: Hospice Chaplain Offered & Declined ([facility] hazardous waste remover services refused. ) Accompanied by: Self / Same As Patient Allergies No Known Allergies [No Known Allergies*] Allergy (Verified 02/05/25 13:43) HPI Comments Details: Husam was seen in follow-up of his chronic kidney disease and hypertension. According to him, his HIV viral load has been undetectable and his CD4 has been good. He has not had any medication changes. He continues to have a functioning AV fistula. He claims to have good urine output. He denies nausea, vomiting, diarrhea, chest pain, shortness of breath, proximal nocturnal dyspnea, orthopnea, pedal edema or urinary symptoms. He is off ARB from the time after his serum creatinine has gone up. His blood pressure has been at goal. He is on Trulicity as well as Lantus. He denies taking nonsteroidal anti- inflammatories. His serum creatinine is stable. There were no other new complaints at the time of this office visit [facility] Medical History Atherosclerotic cardiovascular disease CKD (chronic kidney disease) BPH loc w urin obs/LUTS BPH (benign prostatic hyperplasia) Nocturia HIV (human immunodeficiency virus infection) Diabetic polyneuropathy associated with type 2 diabetes mellitus Dyslipidemia Diabetic nephropathy associated with type 2 diabetes mellitus MCC (current) use of insulin Chronic constipation Hypertension Diabetes type 2, controlled Diabetes type 2, controlled History of renal dialysis IDDM (insulin dependent diabetes mellitus) Asthma Renal failure Surgical History History of colonoscopy History of foot surgery History of appendectomy Family History Son History of diabetes mellitus Social History Household Members: None Housing: Apartment Do you presently have visiting nurse or other home services: No Alcohol intake: never Patient Tobacco Use Status: Former Tobacco user e-Cigarette/Vaping Use: Never Used Second Hand Smoke Exposure: No Advance Directives Date on File: 08/05/20 service: No Current occupational status: retired Review of Systems Const All systems reviewed & are unremarkable except as noted in HPI and below Physical Exam Vital Signs: Last Vital Signs Pulse 76 02/05/25 13:43 BP 120/60 02/05/25 13:43 Pulse Ox 98 02/05/25 13:43 Oxygen Delivery Method Room Air 02/05/25 13:43 BMI result Body Mass Index 24.9 Const General: comfortable and no acute distress Orientation/consciousness: patient oriented x3 HEENT Head: Yes normocephalic Mouth: Normal oral and palatal mucosa present Eyes EOM: EOMs intact bilaterally Neck Neck: Yes supple Resp Auscultation: clear to auscultation bilaterally Cardio Jugular venous distension: no JVD Rate: regular rate GI Palpation (GI): Soft to palpation Auscultation: normal bowel sounds General: Yes no CVA tenderness Back/Spine/Pelvis Back: no CVA tenderness Skin General skin exam: no rashes or lesions noted Neuro General: patient oriented x3 and moves all extremities Extrem General: Yes no pedal edema Results Reviewed Nephrology Results: Hgb 14.0 g/dl (14.0-18.0) 12/05/24 WBC 8.6 X10*3/uL (4.8-10.8) 12/05/24 Plt Count 156 X10*3/uL (160-400) L 12/05/24 Sodium 142 mmol/L (135-145) 01/28/25 Potassium 4.7 mmol/L (3.3-5.1) 01/28/25 Chloride 105 mmol/L (96-108) 01/28/25 Carbon Dioxide 24 mmol/L (22-29) 01/28/25 BUN 57 mg/dL (9-16) H 01/28/25 Creatinine 1.84 mg/dL (0.5-1.4) H 01/28/25 Calcium 9.9 mg/dL (8.4-10.2) 01/28/25 Phosphorus 4.3 mg/dL (2.7-4.5) 01/28/25 PTH Intact 210.4 pg/mL (8.7-77.1) H 05/13/25 Assessment & Plan Assessment & Plan (1) Stage 3b chronic kidney disease: Code(s): N18.32 - Chronic kidney disease, stage 3b Category: Medical (2) Renal artery stenosis: Code(s): I70.1 - Atherosclerosis of renal artery Category: Medical (3) Secondary hyperparathyroidism (of renal origin): Code(s): N25.81 - Secondary hyperparathyroidism of renal origin Category: Medical (4) Hypertension: Code(s): I10 - Essential (primary) hypertension Category: Medical Qualifiers: Hypertension type: primary hypertension Qualified Code(s): I10 - Essential (primary) hypertension Plan Husam was on dialysis for a long time. His GFR recovered and he came off dialysis. He continues to have AV fistula which is functioning. He claims to have good urine output. His creatinine improved after holding losartan altogether. I may restart it later. His blood sugar needs to be maintained at goal. He is on Farxiga. His blood pressure needs to be maintained at goal. He s hould avoid nonsteroidal anti-inflammatories. I increased his calcitriol to 0.25 mcg thrice a week. did not make any other medication changes today. Follow-up blood work ordered. Answered all questions. Follow-up appointment given Orders: Orders Parathyroid Hormone Intact 3 Months I70.1 - Atherosclerosis of renal artery, N18.32 - Chronic kidney disease, stage 3b, N25.81 - Secondary hyperparathyroidism of renal origin Vitamin D 25-OH Total 3 Months I70.1 - Atherosclerosis of renal artery, N18.32 - Chronic kidney disease, stage 3b, N25.81 - Secondary hyperparathyroidism of renal origin Phosphorus 3 Months I70.1 - Atherosclerosis of renal artery, N18.32 - Chronic kidney disease, stage 3b, N25.81 - Secondary hyperparathyroidism of renal origin Electrolytes 3 Months I70.1 - Atherosclerosis of renal artery, N18.32 - Chronic kidney disease, stage 3b, N25.81 - Secondary hyperparathyroidism of renal origin Calcium 3 Months I70.1 - Atherosclerosis of renal artery, N18.32 - Chronic kidney disease, stage 3b, N25.81 - Secondary hyperparathyroidism of renal origin Blood Urea Nitrogen 3 Months I70.1 - Atherosclerosis of renal artery, N18.32 - Chronic kidney disease, stage 3b, N25.81 - Secondary hyperparathyroidism of renal origin Creatinine 3 Months I70.1 - Atherosclerosis of renal artery, N18.32 - Chronic kidney disease, stage 3b, N25.81 - Secondary hyperparathyroidism of renal origin Coding Level of Care Code Est Pt Level 4 (41130) Diagnoses Stage 3b chronic kidney disease N18.32 Renal artery stenosis I70.1 Secondary hyperparathyroidism (of renal origin) N25.81 Primary hypertension I10 Hypertension type: primary hypertension
[2025-02-05 13:43] VITALS: BP 120/60; PULSE 76; O2SAT 98; BMI 24.9
--- OUTSIDE RECORDS SUMMARY | 2025-02-05 14:10 | XMS_ITS | Clinical Summary ---
Author Organization [facility] Address [address] [place] [address] Phone Care Team Providers Care Violin Teacher Name Role Phone Jessie Smith MD Primary Care Provider [phone] Allergies No known active allergies Medications aspirin [...] patient's age to complete this topic Insurance [facility] ([id number]) VIVIANE SCHMIDT [id number] [place] [id number] [facility] ([id number]) VIVIANE SCHMIDT [phone] Care Teams Violin Teacher Relationship Specialty Start Date End Date Jessie Smith MD PCP - General Family Medicine 12/30/20
== END 2025-02-05 13:59 | disposition home or self-care (01) ==
PROVIDERS: PCP Family Medicine; Visit Provider Internal Medicine Nephrology
DX: N18.32 Chronic kidney disease, stage 3b (principal); I70.1 Atherosclerosis of renal artery; N25.81 Secondary hyperparathyroidism of renal origin; I10 Essential (primary) hypertension
CPT/HCPCS: 99214

== ENCOUNTER → 2025-02-05 13:39 | Outpatient (BNVA) | payer OTHER, SELFPAY | PROVIDERS: PCP Family Medicine; Visit Provider Internal Medicine Nephrology | DX: I12.9 Hypertensive chronic kidney disease with stage 1 through stage 4 chronic kidney disease, or unspecified chronic kidney disease (principal); N18.32 Chronic kidney disease, stage 3b; N25.81 Secondary hyperparathyroidism of renal origin; I70.1 Atherosclerosis of renal artery | CPT/HCPCS: 99212 ==

== ENCOUNTER → 2025-03-12 23:59 | Outpatient (BNV) | payer OTHER, SELFPAY ==
--- NOTE | 2025-03-16 15:05 | MHC.OFFVIS ---
Intake Visit Reasons: remote device check- [employer] Allergies No Known Allergies (No Known Allergies*) Allergy (Verified 02/05/25 13:43) [facility] Medical History Atherosclerotic cardiovascular disease CKD (chronic kidney disease) BPH loc w urin obs/LUTS BPH (benign prostatic hyperplasia) Nocturia HIV (human immunodeficiency virus infection) Diabetic polyneuropathy associated with type 2 diabetes mellitus Dyslipidemia Diabetic nephropathy associated with type 2 diabetes mellitus prison (current) use of insulin Chronic constipation Hypertension Diabetes type 2, controlled Diabetes type 2, controlled History of renal dialysis IDDM (insulin dependent diabetes mellitus) Asthma Renal failure Surgical History History of colonoscopy History of foot surgery History of appendectomy Family History Son History of diabetes mellitus Social History Household Members: None Housing: Apartment Do you presently have visiting nurse or other home services: No Alcohol intake: never Patient Tobacco Use Status: Former Tobacco user e-Cigarette/Vaping Use: Never Used Second Hand Smoke Exposure: No Advance Directives Date on File: 08/05/20 service: No Current occupational status: retired Office Procedures Cardiac Device Check Cardiac Device Check Details: Date of service- 03/12/2025 ; Battery life >11 years; normal lead parameters; AP 13%; COUTURE ALTERATIONS DRESSMAKER 100%; no significant arrhythmias. Overall normal device function. [id number] Cardiac Device Interrogation, pacemaker Procedure code (CPT) selection complete Assessment & Plan Assessment & Plan (1) Normally functioning cardiac pacemaker present: Code(s): Z95.0 - Presence of cardiac pacemaker Category: Medical (2) Heart block atrioventricular: Code(s): I44.30 - Unspecified atrioventricular block Category: Medical Plan x Coding Level of Care Code Procedure Only Diagnoses Normally functioning cardiac pacemaker present Z95.0 Heart block atrioventricular I44.30 CPT Codes Cardiac Device Check - Cardiac Device 12: [id number] Cardiac Device Interrogation, pacemaker ([id number])
== END ==
PROVIDERS: PCP Family Medicine; Visit Provider Internal Medicine
DX: I44.30 Unspecified atrioventricular block (principal); Z95.0 Presence of cardiac pacemaker
CPT/HCPCS: 93294

== ENCOUNTER 2025-05-02 09:48 | Outpatient (REF) | payer OTHER, SELFPAY ==
--- OUTSIDE RECORDS SUMMARY | 2025-05-02 10:00 | XMS_ITS | Clinical Summary ---
Author Organization [facility] Address [address] [place] [address] Phone Care Team Providers Care Handle Machine Operator Name Role Phone Jessie Smith MD Primary Care Provider [phone] Allergies No known active allergies Medications aspirin [...] Visual Foot Exam 2020 Influenza Vaccine (#1) 2025 Pneumococcal Vaccine: Peds ( 0 to 5 Years) and At-Risk Patients (6 to 49 Years) Discontinued 05/13/2014 Hepatitis B Vaccine Aged Out No longe r eligible based on patient's age to complete this topic Insurance [facility] ([id number]) VIVIANE SCHMIDT [id number] [place] [address] [id number] [facility] ([id number]) VIVIANE SCHMIDT [phone] Care Teams Handle Machine Operator Relationship Specialty Start Date End Date Jessie Smith MD PCP - General Family Medicine 12/30/20
--- OUTSIDE RECORDS SUMMARY | 2025-05-02 10:00 | XMS_ITS | Clinical Summary ---
Author Organization [facility] Address [address] [place] [address] Phone Care Team Providers Care Client Support Associate Name Role Phone Jessie Smith MD Primary Care Provider [phone] Allergies No known active allergies Medications VENTOLIN HFA 90 mcg/actuation inhaler 2 puffs every 4 (four) hours as needed. 3 Active amLODIPine (NORVASC) 10 MG tablet Take 10 mg by mouth every morning. 3 Active aspirin 81 MG EC tablet Take 81 mg by mouth every morning. 3 Active atorvastatin (LIPITOR) 20 MG tablet Take 20 mg by mouth every morning. Active BIKTARVY 50-200-25 mg per tablet Take 1 tablet by mouth nightly at bedtime. at bedtime. Active FREESTYLE LITE Strp strips 4 Active doxazosin (CARDURA) 8 MG tablet Take 8 mg by mouth nightly at bedtime. at bedtime. Active TRULICITY 3 mg/0.5 mL subcutaneous injection 4 Active finasteride (PROSCAR) 5 mg tablet Take 1 tablet by mouth every morning. 3 Active LANTUS U-100 INSULIN 100 unit/mL injection vial 2 (two) times a day. 18 units 4 Active losartan (COZAAR) 50 MG tablet Take 50 mg by mouth nightly at bedtime. Active TRUEPLUS INSULIN 0.5 mL 31 gauge x 5/16 Syrg 2 (two) times a day. 3 Active Active Problems Problem Noted Date Diagnosed Date Complete heart block 09/22/2023 Assessment & Plan (09/22/2023 4:20 PM EST): In view of complete heart block counseled the patient to go to the hospital. Complete heart block progression is unpredictable. Patient will need pacemaker and further evaluation inpatient Hypertension 09/22/2023 Assessment & Plan (09/22/2023 4:20 PM EST): Blood pressure is controlled. Continue medications Social History Tobacco Use Types Packs/Day Years Used Date Smoking Tobacco: Never Assessed Education Answer Date Recorded Are you interested in more education? Not on luther e 08/01/2023 Are you concerned about learning? Not on file 08/01/2023 No 08/01/2023 No 08/01/2023 Digital Access Answer Date Recorded No 08/01/2023 No 08/01/2023 Reliable internet access at home? Not on file 08/01/2023 Device with a working camera? Not on file Sex and Gender Information Value Date Recorded Sex Assigned at Not on file Legal Sex Male 11:00 AM EST Gender Identity Not on file Sexual Orientation Not on file Last Filed Vital Signs Vital Sign Reading Time Taken Comments Blood Pressure 150/40 09/22/2023 1:10 PM EST Pulse 37 09/22/2023 1:10 PM EST Temperature - - Respiratory Rate - - Oxygen Saturation 99% 09/22/2023 1:10 PM EST Inhaled Oxygen Concentration - - Weight 69.4 kg (153 lb) 09/22/2023 1:10 PM EST Height 165.1 cm (5' 5 ) 09/22/2023 1:10 PM EST Body Mass Index 25.46 09/22/2023 1:10 PM EST Plan of Treatment Health Maintenance Due Date Last Done Comments Adult Td,Tdap Booster 1944 CREATININE LEVEL 1944 LIPID PANEL 1944 POTASSIUM LEVEL 1944 DEPRESSION SCREENING 1956 SMOKING Hx and SMOKELESS TOB ACCO SCREENING 1957 PNEUMOCOCCAL VACCINES (50+ y ears) (1 of 1 - PCV) 1994 ZOSTER VACCINES (1 of 2) 1994 RSV VACCINE (1 - 1-dose 75+ series) 2019 BLOOD PRESSURE 03/22/2024 09/22/2023 COVID-19 VACCINE ( - 2023-2 5 season) 2024 HEPATITIS A VACCINES Aged Out No long er eligible based on patient's age to complete this topic HIB VACCINES Aged Out No longer eligi ble based on patient's age to complete this topic MENINGOCOCCAL VACCINES (ACWY) Aged Out No longer eligible based on patient's age to complete this topic MENINGOCOCCAL VACCINES (B) Aged Out N o longer eligible based on patient's age to complete this topic Medical Devices Not on file Insurance [facility] MEDICARE REPLACEMENT VIVIANE SCHMIDT [id number] [facility] MEDICARE REPLACEMENT VIVIANE SCHMIDT [id number] [facility] MEDICARE REPLACEMENT [facility] MEDICARE REPLACEMENT [facility] MEDICARE REPLACEMENT [facility] MEDICARE REPLACEMENT VIVIANE SCHMIDT [id number] Care Teams Client Support Associate Relationship Specialty Start Date End Date Jessie Smith MD [address] [place] [address] PCP - General Family Medicine 07/31/23 Additional Source Comments The information contained in this document represents components of the legal health record. It is not the complete legal health record.[facility]
[2025-05-02 11:44] LABS: Anion Gap 14 (12-20); Blood Urea Nitrogen 45 mg/dL (9-16); Calcium 9.7 mg/dL (8.4-10.2); Carbon Dioxide 24 mmol/L (22-29); Chloride 106 mmol/L (96-108); Estimated Glomerular Filt Rate 34; Potassium 4.3 mmol/L (3.3-5.1); Sodium 140 mmol/L (135-145)
[2025-05-02 12:00] LABS: Parathyroid Hormone Intact 180.7 pg/mL (8.7-77.1)
== END 2025-05-02 09:49 | disposition home or self-care (01) ==
LOC: HO.HHCL 09:48
PROVIDERS: PCP Family Medicine; Visit Provider Internal Medicine Nephrology
DX: N18.32 Chronic kidney disease, stage 3b (principal); N25.81 Secondary hyperparathyroidism of renal origin; I70.1 Atherosclerosis of renal artery
CPT/HCPCS: 36415; 80051; 82306; 82310; 82565; 83970; 84100; 84520

== ENCOUNTER 2025-05-09 13:40 | Outpatient (AMB) | payer OTHER, SELFPAY ==
--- NOTE | 2025-05-09 13:40 | HO.NEPHOV ---
Vital Signs 05/09/25 13:42 Height 5 ft 5 in Weight 150 lb 2 oz BMI 25.0 BP 122/60 Blood Pressure Location Rt brachial Position Sitting Pulse 70 Pulse Source Pulse Oximeter Pulse Oximetry (%) 98 Oxygen Delivery Method Room Air Intake Visit Reasons: 3 MO FU-Conf Commercial Lines Sales Executive Required: Yes Commercial Lines Sales Executive Language: Die Polisher Services: Commercial Lines Sales Executive Offered & Declined ([facility] Commercial Lines Sales Executive services refused ) Accompanied by: Self / Same As Patient Allergies No Known Allergies (No Known Allergies*) Allergy (Verified 05/09/25 13:42) HPI Comments Details: Husam was seen in follow-up of his chronic kidney disease and hypertension. According to him, his HIV viral load has been undetectable and his CD4 has been good. He has not had any medication changes. He continues to have a functioning AV fistula. He claims to have good urine output. He denies nausea, vomiting, diarrhea, chest pain, shortness of breath, proximal nocturnal dyspnea, orthopnea, pedal edema or urinary symptoms. He is off ARB from the time after his serum creatinine has gone up. His blood pressure has been at goal. He is on Trulicity as well as Lantus. He denies taking nonsteroidal anti-inflammatories. His serum creatinine is stable. There were no other new complaints at the time of this office visit [facility] Medical History Atherosclerotic cardiovascular disease CKD (chronic kidney disease) BPH loc w urin obs/LUTS BPH (benign prostatic hyperplasia) Nocturia HIV (human immunodeficiency virus infection) Diabetic polyneuropathy associated with type 2 diabetes mellitus Dyslipidemia Diabetic nephropathy associated with type 2 diabetes mellitus long term care administrator (current) use of insulin Chronic constipation Hypertension Diabetes type 2, controlled Diabetes type 2, controlled History of renal dialysis IDDM (insulin dependent diabetes mellitus) Asthma Renal failure Surgical History History of colonoscopy History of foot surgery History of appendectomy Family History Son History of diabetes mellitus Social History Household Members: None Housing: Apartment Do you presently have visiting nurse or other home services: No Alcohol intake: never Patient Tobacco Use Status: Former Tobacco user e-Cigarette/Vaping Use: Never Used Second Hand Smoke Exposure: No Advance Directives Date on File: 08/05/20 service: No Current occupational status: retired Review of Systems Const All systems reviewed & are unremarkable except as noted in HPI and below Physical Exam Vital Signs: Last Vital Signs Pulse 70 05/09/25 13:42 BP 122/60 05/09/25 13:42 Pulse Ox 98 05/09/25 13:42 Oxygen Delivery Method Room Air 05/09/25 13:42 BMI result Body Mass Index 25.0 Const General: comfortable and no acute distress Orientation/consciousness: patient oriented x3 HEENT Head: Yes normocephalic Mouth: Normal oral and palatal mucosa present Eyes EOM: EOMs intact bilaterally Neck Neck: Yes supple Resp Auscultation: clear to auscultation bilaterally Cardio Jugular venous distension: no JVD Rate: regular rate GI Palpation (GI): Soft to palpation Auscultation: normal bowel sounds General: Yes no CVA tenderness Back/Spine/Pelvis Back: no CVA tenderness Skin General skin exam: no rashes or lesions noted Neuro General: patient oriented x3 and moves all extremities Extrem General: Yes no pedal edema Results Reviewed Nephrology Results: Hgb, (14.0-18.0) 14.0 g/dl 12/05/24 WBC, (4.8-10.8) 8.6 X10*3/uL 12/05/24 Plt Count, (160-400) 156 X10*3/uL L 12/05/24 Sodium, (135-145) 140 mmol/L 05/02/25 Potassium, (3.3-5.1) 4.3 mmol/L 05/02/25 Chloride, (96-108) 106 mmol/L 05/02/25 Carbon Dioxide, (22-29) 24 mmol/L 05/02/25 BUN, (9-16) 45 mg/dL H 05/02/25 Creatinine, (0.5-1.4) 1.92 mg/dL H 05/02/25 Calcium, (8.4-10.2) 9.7 mg/dL 05/02/25 Phosphorus, (2.7-4.5) 4.2 mg/dL 05/02/25 PTH Intact, (8.7-77.1) 180.7 pg/mL H 05/02/25 Renal US 01/19/24 Assessment & Plan Assessment & Plan (1) Hypertension: Code(s): I10 - Essential (primary) hypertension Category: Medical Qualifiers: Hypertension type: primary hypertension Qualified Code(s): I10 - Essential (primary) hypertension (2) Secondary hyperparathyroidism (of renal origin): Code(s): N25.81 - Secondary hyperparathyroidism of renal origin Category: Medical (3) Stage 3b chronic kidney disease: Code(s): N18.32 - Chronic kidney disease, stage 3b Category: Medical Plan Husam was on dialysis for a long time. His GFR recovered and he came off dialysis. He continues to have AV fistula which is functioning. He claims to have good urine output. His creatinine improved after holding losartan altogether. I may restart it later. His blood sugar needs to be maintained at goal. He is on Farxiga. His blood pressure needs to be maintained at goal. He should avoid nonsteroidal anti-inflammatories. He should continue calcitriol 0.25 mcg thrice a week. did not make any other medication changes today. Follow-up blood work ordered. Answered all questions. Follow-up appointment given Orders: Orders Blood Urea Nitrogen 3 Months I10 - Essential (primary) hypertension, N18.32 - Chronic kidney disease, stage 3b, N25.81 - Secondary hyperparathyroidism of renal origin Calcium 3 Months I10 - Essential (primary) hypertension, N18.32 - Chronic kidney disease, stage 3b, N25.81 - Secondary hyperparathyroidism of renal origin Phosphorus 3 Months I10 - Essential (primary) hypertension, N18.32 - Chronic kidney disease, stage 3b, N25.81 - Secondary hyperparathyroidism of renal origin Parathyroid Hormone Intact 3 Months I10 - Essential (primary) hypertension, N18.32 - Chronic kidney disease, stage 3b, N25.81 - Secondary hyperparathyroidism of renal origin Creatinine 3 Months I10 - Essential (primary) hypertension, N18.32 - Chronic kidney disease, stage 3b, N25.81 - Secondary hyperparathyroidism of renal origin Electrolytes 3 Months I10 - Essential (primary) hypertension, N18.32 - Chronic kidney disease, stage 3b, N25.81 - Secondary hyperparathyroidism of renal origin Coding Level of Care Code Est Pt Level 4 (87206) Diagnoses Primary hypertension I10 Hypertension type: primary hypertension Secondary hyperparathyroidism (of renal origin) N25.81 Stage 3b chronic kidney disease N18.32
[2025-05-09 13:42] VITALS: BP 122/60; PULSE 70; O2SAT 98; BMI 25.0
--- OUTSIDE RECORDS SUMMARY | 2025-05-09 13:43 | XMS_ITS | Clinical Summary ---
Author Organization 175 [facility] Address 175 [place] [address] Phone Care Team Providers Care Sap Business Objects Developer Name Role Phone Jessie Smith MD Primary Care Provider Allergies No known active allergies Encounters Date Type Department Care Team Description 03/25/2025 1:00 PM EDT Consult Orthopedic Surgery [facility] [address] [address] Tacho Monaco DPM Controlled type 2 diabetes with neuropathy (CMS/HCC V24, CMS/HCC V28) (Primary Dx); PAD (peripheral artery disease) (CMS/HCC V24); Arthritis of both feet; Pain in toes of both feet; Dermatophytosis, nail from Last 3 Months Social History Tobacco Use Types Packs/Day Years Used Date Smoking Tobacco: Never Assessed Sex and Gender Information Value Date Recorded Sex Assigned at Not on file Legal Sex Male 9:07 AM EDT Gender Identity Not on file Sexual Orientation Not on file Last Filed Vital Signs Vital Sign Reading Time Taken Comments Blood Pressure - - Pulse - - Temperature - - Respiratory Rate - - Oxygen Saturation - - Inhaled Oxygen Concentration - - Weight 69.9 kg (154 lb) 03/25/2025 1:11 PM EDT Height 167.6 cm (5' 6 ) 03/25/2025 1:11 PM EDT Body Mass Index 24.86 03/25/2025 1:11 PM EDT Plan of Treatment Upcoming Encounters Date Type Department Care Team ([facility] Contact Info) Description 06/25/2025 1:00 PM EDT Office Visit Orthopedic Surgery [facility] [address] [address] Tacho Monaco DPM [address] [address] Health Maintenance Due Date Last Done Comments Diabetes: Annual GFR (Glomerular Filtration Rate) 1944 Diabetes: Annual Foot Exam 1954 Diabetes: Annual Retina Eye Exam 1954 Depression Screening 09/18/2024 Cholesterol Screening (Lipid Panel) 01/30/2025 Diabetes: Annual Urine Albumin-Creatinine Ratio (uACR) 01/30/2025 Diabetes: Blood Sugar Control Test (HGBA1C) 01/30/2025 Falls Risk Assessment 01/30/2025 Medicare Annual Wellness Visit 01/30/2025 Social Influencers of Health Screening 01/30/2025 COVID-19 Vaccine ( season) 2025 08/08/2024, 07/05/2023, 06/23/2022, Additional history exists Hypertension/CHF/CAD Annual BMP Blood Test 03/25/2025 Influenza Vaccine (#1) 2025 , 05/31/2023, 06/23/2022, Additional history exists DTaP,Tdap,and Td Vaccines (6 - Td or Tdap) 06/23/2032 06/23/2022, 06/21/2012, 11/21/2005, Additional history exists MMR Vaccines Completed 09/18/1957 Hepatitis A Vaccines Aged Out 10/08/2004, 10/08/2001, 04/05/2001 No longer eligible based on patient's age to complete this topic Varicella Vaccines Aged Out 02/22/2005 No longer eligible based on patient's age to complete this topic Hepatitis B Vaccines Completed 04/17/2014, 02/11/2014, 10/08/2004, Additional history exists Zoster Vaccines Completed 12/07/2021, 03/18, 02/22/2005 RSV Immunization Adult Patients Completed 10/03/2023 Meningococcal ACWY Vaccine Aged Out 01/03, 09/28/2017, 03/09/2017 No longer eligible based on patient's age to complete this topic Pneumococcal Vaccine: 50+ Years Completed 08/08/2024, 05/21/2014, 03/20/2014, Additional history exists HIB Vaccines Aged Out No longer eligi ble based on patient's age to complete this topic HPV Vaccines Aged Out No longer eligi ble based on patient's age to complete this topic IPV Vaccines Aged Out No longer eligi ble based on patient's age to complete this topic Meningococcal B Vaccine Aged Out No l onger eligible based on patient's age to complete this topic RSV Immunization Patients Under 20 months Aged Out No longer eligible based on patient's age to complete this topic Insurance [facility] MEDICARE Member Subscriber Plan / Payer (Ef fective 2020-Present) Name:Husam Morales Relation to Subscriber:Self Name:Husam Garcia Payer ID:[id number] Group ID:[id number] Type:Not on file Address: [place] [address] [address] [id number] Care Teams Sap Business Objects Developer Relationship Specialty Start Date End Date Jessie Smith MD [address] [place] [phone] PCP - General Family Medicine 01/30/25
--- OUTSIDE RECORDS SUMMARY | 2025-05-09 13:43 | XMS_ITS | Clinical Summary ---
Author Organization [facility] Address [address] [place] [address] Phone Care Team Providers Care Spud Grader Name Role Phone Jessie Smith MD Primary Care Provider [phone] Allergies No known active allergies Medications aspirin [...] Insurance [facility] ([id number]) VIV[place]E SCHMIDT [id number] [place] [id number] [facility] ([id number]) [place] [id number] Care Teams Spud Grader Relationship Specialty Start Date End Date Jessie Smith MD PCP - General Family Medicine 12/30/20
== END 2025-05-09 14:01 | disposition home or self-care (01) ==
LOC: HO.HKA 13:41
PROVIDERS: PCP Family Medicine; Visit Provider Internal Medicine Nephrology
DX: I10 Essential (primary) hypertension (principal); N25.81 Secondary hyperparathyroidism of renal origin; N18.32 Chronic kidney disease, stage 3b
CPT/HCPCS: 99214

== ENCOUNTER → 2025-05-09 13:40 | Outpatient (BNVA) | payer OTHER, SELFPAY | PROVIDERS: PCP Family Medicine; Visit Provider Internal Medicine Nephrology | DX: I10 Essential (primary) hypertension (principal); N25.81 Secondary hyperparathyroidism of renal origin; N18.32 Chronic kidney disease, stage 3b | CPT/HCPCS: 99212 ==

== ENCOUNTER 2025-06-04 13:23 | Outpatient (REF) | payer OTHER, SELFPAY ==
--- NOTE | ~2025-06-04 | US_ITS ---
EXAMINATION: Noninvasive assessment of the bilateral lower extremities with ARTERIAL DUPLEX, ANKLE BRACHIAL INDICES (ABIs), and PULSE VOLUME RECORDINGS (PVRs). CLINICAL INFORMATION: Peripheral vascular disease, unspecified. I73.9. TECHNIQUE: Duplex Doppler techniques with waveform analysis and measurement of velocities in the bilateral common femoral, profunda femoris, superficial femoral, popliteal and tibial arteries were performed. Additionally, ankle pulse volume recordings, ankle pressure measurements and ankle brachial indices were obtained of the lower extremity arterial system bilaterally. The study was performed only at rest. COMPARISON: February 23, 2024 reported left femoral artery to common femoral artery vein fistula (AV fistula) FINDINGS: DIRECT DUPLEX DOPPLER FINDINGS: RIGHT LEG: Common femoral artery: 107 cm/s, phasicity: Biphasic Profunda femoris artery: 109 cm/s, phasicity: Biphasic. Superficial femoral artery (proximal): 97 cm/s, phasicity: Biphasic. Superficial femoral artery (mid): 104 cm/s, phasicity: Biphasic. Superficial femoral artery (distal): 81 cm/s, phasicity: Biphasic. Popliteal artery: 88 cm/s, phasicity: Biphasic. Posterior tibial artery: 118 cm/s, phasicity: Monophasic. Spectral broadening. Peroneal artery: 104 cm/s, phasicity: Monophasic. Anterior tibial artery: 360 cm/s, phasicity: Monophasic. Spectral broadening. Dorsalis pedis artery: 73 cm/s, phasicity:Monophasic. LEFT LEG: Common femoral artery: 122 cm/s, phasicity: Triphasic. Profunda femoris artery: 99 cm/s, phasicity: Biphasic. Superficial femoral artery (proximal): 122 cm/s, phasicity: Monophasic Superficial femoral artery (mid): 73 cm/s, phasicity: Biphasic. Superficial femoral artery (distal): 62 cm/s, phasicity: Biphasic. Popliteal artery: 97 cm/s, phasicity: Biphasic. Posterior tibial artery: 211 cm/s, phasicity: Monophasic. Peroneal artery: 64 cm/s, phasicity: Monophasic. Anterior tibial artery: 92 cm/s, phasicity: Monophasic. Spectral broadening. Dorsalis pedis artery: 24 cm/s, phasicity: Monophasic. Spectral broadening. BRACHIAL PRESSURES: Right: 155 Left: Note calculated. ANKLE PRESSURES: Right: PT 82, DP 98 Left: PT 117, DP 105 ANKLE-BRACHIAL INDEX: Right: 0.63 Left: 0.75 ANKLE PVR WAVEFORMS: Right: Normal Left: Normal US/US arterial duplex BI w/ PEG IMPRESSION: Right leg: Severe inflow disease from the posterior tibialis to the dorsalis pedis artery. Probable high degree stenosis, right anterior tibialis artery. Left leg: Moderate to severe inflow disease throughout the interrogated arteries. AV fistula, left femoral artery to left common femoral vein. PEG Reference: - >1.4 = calcified vessels - 0.9 - 1.4 = normal - no significant arterial disease - 0.7 - 0.89 = mild peripheral arterial disease - 0.51 - 0.69 = moderate peripheral arterial disease - 0.50 = severe peripheral arterial disease - < .30 = critical arterial disease Electronically signed by: Donato Arrington MD 06/05/2025 07:42 AM EDT
--- OUTSIDE RECORDS SUMMARY | 2025-06-04 17:16 | XMS_ITS | Clinical Summary ---
Author Organization [facility] Address [address] [place] [address] Phone Care Team Providers Care It Disaster Recovery Manager Name Role Phone Jessie Smith MD Primary Care Provider [phone] Allergies No known active allergies Medications aspirin [...] patient's age to complete this topic Insurance [facility] ([id number]) V[place]E SCHMIDT [id number] [place] [address] [facility] ([id number]) [place] [phone] Care Teams It Disaster Recovery Manager Relationship Specialty Start Date End Date Jessie Smith MD PCP - General Family Medicine 12/30/20
--- OUTSIDE RECORDS SUMMARY | 2025-06-04 17:16 | XMS_ITS | Clinical Summary ---
Author Organization [facility] Address [address] [place] [address] Phone Care Team Providers Care Juice Bar Team Member Name Role Phone Jessie Smith MD Primary Care Provider [phone] Allergies No known active allergies Medications VENTOLIN [...] 75+ series) 2019 BLOOD PRESSURE 03/22/2024 09/22/2023 INFLUENZA VACCINE (#1) 2025 COVID-19 VACCINE (2023-2 5 season) 2025 HEPATITIS A VACCINES Aged Out No long [...] topic Medical Devices Not on file Insurance [facility] MEDICARE REPLACEMENT [place] [id number] [facility] MEDICARE REPLACEMENT [place] [id number] [facility] MEDICARE [place]PL[place] [address] [place] [address] [facility]ARE [facility] VIVIANE SCHMIDT [facility] Care Teams Juice Bar Team Member Relationship Specialty Start Date End Date Jessie Smith MD [address] [place] [id number] PCP - General Family Medicine 07/31/23 Additional Source Comments The information contained in this document represents components of the legal health record. It is not the complete legal health record.[facility]
== END 2025-06-04 13:24 | disposition home or self-care (01) ==
LOC: HO.US 13:23
PROVIDERS: PCP Family Medicine; Visit Provider Surgery Vascular Surgery
DX: I73.9 Peripheral vascular disease, unspecified (principal)
CPT/HCPCS: 93922; 93925

== ENCOUNTER → 2025-06-04 13:25 | Outpatient (BNV) | payer OTHER, SELFPAY | PROVIDERS: PCP Family Medicine; Visit Provider Radiology Diagnostic Radiology | DX: I73.9 Peripheral vascular disease, unspecified (principal) | CPT/HCPCS: 93922; 93925 ==

== ENCOUNTER 2025-06-18 09:24 | Outpatient (REF) | payer OTHER, SELFPAY ==
--- OUTSIDE RECORDS SUMMARY | 2025-06-18 10:14 | XMS_ITS | Clinical Summary ---
Author Organization [facility] Address [address] [place] [address] Phone Care Team Providers Care Facilities Manager Name Role Phone Jessie Smith MD Primary Care Provider [phone] Allergies No known active allergies Medications VENTOLIN [...] topic Medical Devices Not on file Insurance [facility] MEDICARE REPLACEMENT VIV[place]E SCHM[place]T [id number] [facility] MEDICARE REPLACEMENT [place] [id number] [facility] MEDICARE [place] [address] [facility] Member Subscriber Plan / Payer (Ef fective 2020-Present) Name:Husam Garcia Relation to Subscriber:Self Name:Husam Garcia Payer ID:[id number] (NAIC) Group ID:[facility] Type:Medicare Address: [place] [address] [address] [facility] Care Teams Facilities Manager Relationship Specialty Start Date End Date Jessie Smith MD [address] [place] [address] PCP - General Family Medicine 07/31/23 Additional Source Comments The information contained in this document represents components of the legal health record. It is not the complete legal health record.[facility]
--- OUTSIDE RECORDS SUMMARY | 2025-06-18 10:15 | XMS_ITS | Clinical Summary ---
Author Organization 175 [facility] Address 175 [place] [address] Phone Care Team Providers Care Differential Specialist Name Role Phone Jessie Smith MD Primary Care Provider [phone] Allergies No known active allergies Encounters Date Type Department Care Team Description 03/25/2025 1:00 PM EDT Consult Orthopedic Surgery [facility] [address] [address] Tacho Monaco DPM Controlled type [...] Upcoming Encounters Date Type Department Care Team ([facility] Contact Info) Description 06/25/2025 1:00 PM EDT Office Visit Orthopedic Surgery [facility] [address] [address] Tacho Monaco DPM [address] [address] Health Maintenance Due Date Last [...] 01/30/2025 Social Influencers of Health Screening 01/30/2025 Hypertension/CHF/CAD Annual BMP Blood Test 03/25/2025 COVID-19 Vaccine ( season) 2025 08/08/2024, 07/05/2023, 06/23/2022, Additional history exists Influenza Vaccine (#1) 2025 , 05/31/2023, 06/23/2022, [...] patient's age to complete this topic Insurance [facility] MEDICARE Member Subscriber Plan / Payer (Ef fective 2020-Present) Name:Husam Morales Relation to Subscriber:Self Name:Husam Garcia Payer ID:[id number] Group ID:[id number] Type:Not on file Address: [place] [address] [address] [phone] Care Teams Differential Specialist Relationship Specialty Start Date End Date Jessie Smith MD [address] [place] [phone] PCP - General Family Medicine 01/30/25
--- OUTSIDE RECORDS SUMMARY | 2025-06-18 10:15 | XMS_ITS | Clinical Summary ---
Author Organization [facility] Address [address] [place] [address] Phone Care Team Providers Care Jogger Operator Name Role Phone Jessie Smith MD Primary Care Provider [phone] Allergies No known active allergies Medications aspirin [...] patient's age to complete this topic Insurance [facility] ([id number]) [place]T [id number] [place] [address] [facility] ([id number]) [place] [phone] Care Teams Jogger Operator Relationship Specialty Start Date End Date Jessie Smith MD PCP - General Family Medicine 12/30/20
[2025-06-18 11:05] LABS: MANUAL DIFF FLAG NO
[2025-06-18 11:30] LABS: Hematocrit 38.7 % (42.0-52.0); Hemoglobin 13.2 g/dl (14.0-18.0); Imm Gran Abs Auto 0.05 X10*3/uL (0.00-0.03); Imm Gran Pct Auto 0.6 % (0.0-0.4); Lymphocytes Absolute Auto 1.6 X10*3/uL (1.2-4.9); Mean Corpuscular HGB Conc 34.1 g/dl (31.0-36.0); Mean Corpuscular Hemoglobin 29.8 pg (27.0-33.0); Mean Corpuscular Volume 87.4 fL (80.0-98.0); NRBC Abs Auto 0.000 X10*3/uL (0.0-0.012); NRBC Pct Auto 0.0 /100WBC (0.0-0.2); Platelet Count 262 X10*3/uL (160-400); Red Blood Count 4.43 X10*6/uL (4.60-5.80); White Blood Count 8.6 X10*3/uL (4.8-10.8)
[2025-06-18 12:03] LABS: Alanine Aminotransferase 32 U/L (0-40); Albumin Level 4.5 g/dL (3.5-5.0); Alkaline Phosphatase 76 U/L (39-117); Anion Gap 14 (12-20); Aspartate Amino Transferase 29 U/L (5-37); Blood Urea Nitrogen 53 mg/dL (9-16); Calcium 9.4 mg/dL (8.4-10.2); Carbon Dioxide 24 mmol/L (22-29); Chloride 106 mmol/L (96-108); Estimated Glomerular Filt Rate 34; Potassium 4.8 mmol/L (3.3-5.1); Sodium 139 mmol/L (135-145); Total Protein 7.6 g/dL (6.5-8.0)
[2025-06-19 15:29] LABS: HIV RNA PCR Qn Copies NOT DETECTED copies/mL (NOT DETECTED); HIV RNA PCR Qn Log Copies NOT DETECTED (NOT DETECTED)
[2025-06-21 21:03] LABS: Absolute CD3 Count 1251 cells/uL (840-3060); Absolute CD8 Count 655 cells/uL (180-1170); Percent CD3 Cells 81 % (57-85); Percent CD8 Cells 42 % (12-42)
== END 2025-06-18 09:25 | disposition home or self-care (01) ==
LOC: HO.HHCL 09:24
PROVIDERS: PCP Family Medicine; Visit Provider Internal Medicine
DX: Z21 Asymptomatic human immunodeficiency virus [HIV] infection status (principal)
CPT/HCPCS: 36415; 80053; 85025; 86359; 86360; 87536

== ENCOUNTER 2025-07-01 14:33 | Outpatient (AMB) | payer OTHER, SELFPAY ==
--- NOTE | 2025-07-01 14:46 | A.OFFVIS_ITS ---
Vital Signs 07/01/25 14:47 Height 5 ft 5 in Weight 150 lb BMI 25.0 BP 118/52 L Blood Pressure Location Rt brachial Position Sitting Pulse 78 Pulse Source Monitor Intake Visit Reasons: 1 year f/up [employer] device ck Pest Control Chemical Technician Required: Yes Pest Control Chemical Technician Name: Lindsey [phone] [place] Accompanied by: Self / Same As Patient Allergies No Known Allergies (No Known Allergies*) Allergy (Verified 07/01/25 14:49) Medication List - Last Reconciled 07/01/25 by Radhames Flores MD acetaminophen (Tylenol) 650 mg (2 x 325 mg) PO TID PRN albuterol sulfate 90 mcg/actuation (Ventolin HFA) 2 puffs inhalation Q4-6H PRN amlodipine 10 mg PO QAM aspirin 81 mg PO QAM atorvastatin 20 mg PO DAILY blood sugar diagnostic (FreeStyle Lite Strips) As directed blood-glucose meter (FreeStyle Lite Meter kit) As directed calcitriol 0.25 mcg PO 3XW cholecalciferol (vitamin D3) 25 mcg PO QAM dapagliflozin propanediol (Farxiga) 10 mg PO DAILY dolutegravir-rilpivirine 50-25 mg (Juluca) 1 tab PO DAILY doxazosin 8 mg PO DAILY 90 days dulaglutide (Trulicity) mg subcut finasteride 5 mg PO DAILY 90 days insulin glargine (Lantus U-100 Insulin) 18 units (0.18 mL) subcut BID 30 days insulin syringe-needle U-100 (BD Insulin Syringe Ultra-Fine) Twice a day lancets (TRUEplus Lancets) As directed lidocaine 5% (Lidoderm) 1 patch topical DAILY mirabegron ER 25 mg PO DAILY 90 days torsemide 40 mg PO DAILY HPI Comments Details: Husam returns for follow-up various cardiac issues. Multiple comorbidities including carotid vascular disease, suspected coronary disease, diabetes, hy pertension, dyslipidemia, HIV. Has a permanent pacemaker in place. Overall, he states he is feeling good. No cardiac symptoms whatsoever. [facility] Medical History Atherosclerotic cardiovascular disease CKD (chronic kidney disease) BPH loc w urin obs/LUTS BPH (benign prostatic hyperplasia) Nocturia HIV (human immunodeficiency virus infection) Diabetic polyneuropathy associated with type 2 diabetes mellitus Dyslipidemia Diabetic nephropathy associated with type 2 diabetes mellitus skilled nursing (current) use of insulin Chronic constipation Hypertension Diabetes type 2, controlled Diabetes type 2, controlled History of renal dialysis IDDM (insulin dependent diabetes mellitus) Asthma Renal failure Surgical History History of colonoscopy History of foot surgery History of appendectomy Family History Son History of diabetes mellitus Social History Household Members: None Housing: Apartment Do you presently have visiting nurse or other home services: No Alcohol intake: never Patient Tobacco Use Status: Former Tobacco user e-Cigarette/Vaping Use: Never Used Second Hand Smoke Exposure: No Advance Directives Date on File: 08/05/20 service: No Current occupational status: retired Review of Systems Const Denies daytime sleepiness, Denies difficulty sleeping, Denies snoring, Denies stops breathing during sleep and Denies weakness Card Denies chest pain, Denies rapid heart rate, Denies irregular heart rhythm, Denies claudication, Denies leg edema, Denies lightheadedness, Denies palpitations, Denies dyspnea, Denies dyspnea on exertion, Denies orthopnea, Denies paroxysmal nocturnal dyspnea and Denies slow heart rate Resp Denies cough, Denies dyspnea, Denies dyspnea on exertion and Denies snoring GI Reports no additional complaints, Denies hematochezia, Denies change in stool character and Denies dyspepsia Musc Denies abnormal gait, Denies muscle weakness and Denies numbness Neuro Denies abnormal gait, Denies numbness and Denies weakness Endo Denies palpitations Physical Exam Vital Signs: Last Vital Signs Pulse 78 07/01/25 14:47 BP 118/52 L 07/01/25 14:47 BMI result Body Mass Index 25.0 Const General: comfortable and no acute distress Orientation/consciousness: patient oriented x3 HEENT Other: Unremarkable Head: Yes normal to inspection Neck Neck: Yes normal visual inspection Chest Chest palpation & inspection: normal inspection of the chest Resp Auscultation: clear to auscultation bilaterally Cardio Palpation: normal PMI Heart sounds: S1 normal heart sound present, S2 normal heart sound present, no gallops, Murmur heart sound present systolic II/ and at the right sternal border and no rubs GI Palpation (GI): Soft to palpation Back/Spine/Pelvis Other: unremarkable Skin General skin exam: no rashes or lesions noted Neuro General: patient oriented x3 Extrem General: Yes normal to inspection Psych Mental Status: mental status grossly normal Office Procedures Cardiac Device Check Cardiac Device Check Details: Pacemaker interrogated today. Dual-chamber device, programmed DDD mode. Battery status 11.1 years. Normal lead parameters. Atrial pacing 11.2%. Ventricular pacing 100%. Overall, normal device function. [id number]-GP Cardiac Device Check, pacemaker dual lead Procedure code (CPT) selection complete EKG Details: EKG with underlying atrial sensed, ventricular paced rhythm at 78/Min. [id number], Complete Assessment & Plan Assessment & Plan (1) Atherosclerotic cardiovascular disease: Code(s): I25.10 - Atherosclerotic heart disease of [place] coronary artery without angina pectoris Category: Medical (2) PAD (peripheral artery disease): Code(s): I73.9 - Peripheral vascular disease, unspecified Category: Medical (3) Normally functioning cardiac pacemaker present: Code(s): Z95.0 - Presence of cardiac pacemaker Category: Medical Plan Cardiac studies reviewed Echocardiogram from 09/2024-LVEF 55-60%. Mild aortic stenosis/regurgitation. Dobutamine stress MIBI 2022 shows mostly fixed inferior/inferior septal defect with slight reversibility in the mid inferior wall. Probable infarct with minimal ischemia. Carotid ultrasound 2022 shows moderate hemodynamically significant stenosis in both the right as well as left internal carotid arteries. Overall, multiple vascular risk factors, established vascular disease, conduction system disease, status post pacemaker. The pacemaker itself is functioning normally and we can followed remotely. With regard to the vascular disease, he does not have any obvious cardiac symptoms. Hence continue medical management. Continue aspirin and statins. If indeed he gets any angina, then we will need diagnostic catheterization but he does have CKD as well and hence we will plan accordingly. With regard to the carotids, it seems he has seen vascular surgery but there are no recent studies and hence we can repeat that. Discussed using sample room supervisor. Orders: Orders US carotid duplex BI Today I65.23 - Occlusion and stenosis of bilateral carotid arteries Coding Level of Care Code Est Pt Level 4 (20038) Complex EM visit Add On G2211 Diagnoses Atherosclerotic cardiovascular disease I25.10 PAD (peripheral artery disease) I73.9 Normally functioning cardiac pacemaker present Z95.0 CPT Codes Cardiac Device Check - Cardiac Device 2: 98346-BP Cardiac Device Check, pacemaker dual lead ([id number]) EKG - CPT: 32688-[id number], Complete ([id number])
[2025-07-01 14:47] VITALS: BP 118/52; PULSE 78; BMI 25.0
--- OUTSIDE RECORDS SUMMARY | 2025-07-01 17:27 | XMS_ITS | Clinical Summary ---
Author Organization [facility] Address [address] [place] [address] Phone Care Team Providers Care Window Cutter Name Role Phone Jessie Smith MD Primary Care Provider [phone] Allergies No known active allergies Medications VENTOLIN [...] 09/22/2023 INFLUENZA VACCINE (#1) 2025 COVID-19 VACCINE (2024-2 6 season) 2025 HEPATITIS A VACCINES Aged Out [...] topic Medical Devices Not on file Insurance [facility] MEDICARE REPLACEMENT VIVIANE SCHMIDT [id number] [facility] MEDICARE REPLACEMENT VIVIANE SCHMIDT [id number] [facility] MEDICARE [place] [address] [place] [address] MEDICARE [facility]PLACEMENT [facility] VIVIANE SCHMIDT [facility] Care Teams Window Cutter Relationship Specialty Start Date End Date Jessie Smith MD [address] [place] [address] PCP - General Family Medicine 07/31/23 Additional Source Comments The information contained in this document represents components of the legal health record. It is not the complete legal health record.[facility]
== END 2025-07-01 15:10 | disposition home or self-care (01) ==
LOC: HO.HCS 14:34
PROVIDERS: PCP Family Medicine; Visit Provider Internal Medicine
DX: I25.10 Atherosclerotic heart disease of native coronary artery without angina pectoris (principal); I73.9 Peripheral vascular disease, unspecified; Z95.0 Presence of cardiac pacemaker
CPT/HCPCS: 93010; 93280; 99214; G2211

== ENCOUNTER → 2025-07-01 14:33 | Outpatient (BNVA) | payer OTHER, SELFPAY | PROVIDERS: PCP Family Medicine; Visit Provider Internal Medicine | DX: Z45.010 Encounter for checking and testing of cardiac pacemaker pulse generator [battery] (principal); I25.10 Atherosclerotic heart disease of native coronary artery without angina pectoris; I73.9 Peripheral vascular disease, unspecified | CPT/HCPCS: 93005; 93280; 99212 ==

== ENCOUNTER 2025-07-03 13:53 | Outpatient (AMB) | payer OTHER, SELFPAY ==
--- NOTE | 2025-07-03 13:56 | A.OFFVIS_ITS ---
Intake Visit Reasons: follow up Intake Note: Patient presents for follow up s/p 06/04/25 arterial US. Patient has no complaints. Accompanied by: Self / Same As Patient Allergies No Known Allergies (No Known Allergies*) Allergy (Verified 07/03/25 14:00) HPI HPI follow up: Details: The patient is an 79-year-old male presenting for annual arterial surveillance follow-up. He has a history of peripheral artery disease, with an ankle-brachial index (PEG) of 0.63 on the right and 0.75 on the left, as noted in the recent arterial follow-up testing dated 06/04/2025. The patient denies experiencing any pain in his legs and reports being able to walk a block without difficulty. In general appears to be doing relatively well. Reports no wounds or ulcers. 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 Chronic constipation Hypertension Diabetes type 2, controlled Diabetes type 2, controlled History of renal dialysis IDDM (insulin dependent diabetes mellitus) Asthma Renal failure Surgical History History of colonoscopy History of foot surgery History of appendectomy Family History Son History of diabetes mellitus Social History Household Members: None Housing: Apartment Do you presently have visiting nurse or other home services: No Alcohol intake: never Patient Tobacco Use Status: Former Tobacco user e-Cigarette/Vaping Use: Never Used Second Hand Smoke Exposure: No Advance Directives Date on File: 08/05/20 service: No Current occupational status: retired Review of Systems Const All systems reviewed & are unremarkable except as noted in HPI and below Reports no additional complaints ENT Reports Normal hearing present Card Denies chest pain, Denies chest pain at rest, Denies chest pain with activity and Denies pedal edema Resp Denies cough GI Denies abdominal pain Musc Denies abnormal gait, Denies muscle cramps and Denies radiating pain into limb Skin/Breast Denies skin ulcer and Denies wounds Neuro Reports Normal hearing present and Denies abnormal gait Psych Reports no additional complaints Physical Exam Const General: cooperative, healthy appearing and comfortable Orientation/consciousness: oriented to person, oriented to place and oriented to time HEENT Head: Yes normal to inspection Neck Neck: Yes normal visual inspection Carotids: no bruits Chest Chest palpation & inspection: normal inspection of the chest Resp Effort & Inspection: normal respiratory effort and able to speak in complete sentences Auscultation: clear to auscultation bilaterally, no crackles, no rales, no rhonchi and no wheezes Cardio Other: Bilateral DP signals Rate: regular rate Rhythm: regular rhythm Heart sounds: S1 normal heart sound present and S2 normal heart sound present Bruits: no carotid bruits Peripheral pulses: Peripheral pulses 2+ throughout GI Inspection: Yes normal to inspection Skin Wounds: no wounds Hair: normal Neuro General: oriented to person, oriented to place and oriented to time Cranial nerves: Yes CN's II-XII intact bilaterally and Yes Normal hearing present Cognition (Neuro): normal cognition Motor exam (neuro): 5/5 motor strength present throughout Extrem Other: venous exam: No significant superficial varicosities or spider telangiectasias, minimal edema General: No clubbing, No cyanosis and No edema Psych Appearance: grossly normal Mental Status: mental status grossly normal Speech and movement: Normal speech and movement present Results Reviewed Results Reviewed: Noninvasive arterial testing dated 06/04/2025 demonstrates PEG on the right of 0.63 and on the left of 0.75 written report and images were reviewed. Assessment & Plan Assessment & Plan (1) PAD (peripheral artery disease): Code(s): I73.9 - Peripheral vascular disease, unspecified Category: Medical Plan: In short patient has stable claudication. I did review the pathophysiology of peripheral vascular disease with the patient. In addition we did discuss routine conservative measures including a healthy diet and the importance of ex ercise and ambulation. We did discuss risk factor modification. The patient will continue to to follow-up with surveillance follow-up in approximately 1 year. Thank you for allowing us to participate in this patient's care. If there are any questions or concerns please do not hesitate to contact us. Plan Patient was informed and verbally consented to the use of an ambient scribe for clinic note documentation during this visit. Orders: Orders US arterial duplex LE BI 1 Year I73.9 - Peripheral vascular disease, unspecified Patient Instructions: - Continue with annual arterial surveillance as scheduled. - Return for a follow-up ultrasound in one year. Coding Level of Care Code Est Pt Level 4 (95680) Complex EM visit Add On G2211 Diagnoses PAD (peripheral artery disease) I73.9
--- OUTSIDE RECORDS SUMMARY | 2025-07-03 17:44 | XMS_ITS | Clinical Summary ---
Author Organization [facility] Address [address] [place] [address] Phone Care Team Providers Care Eligibility Supervisor Name Role Phone Jessie Smith MD Primary Care Provider [phone] Allergies No known active allergies Medications VENTOLIN [...] topic Medical Devices Not on file Insurance [facility] MEDICARE REPLACEMENT VIVIANE SCHMIDT [id number] [facility] MEDICARE REPLACEMENT VIVIANE SCHMIDT [id number] [facility] MEDICARE REPL[place] [address] MEDICARE REPLACEMENT [facility] MEDIC[facility] REPLACEMENT VIVIANE SCHMIDT [facility] Care Teams Eligibility Supervisor Relationship Specialty Start Date End Date Jessie Smith MD [address] [place] [phone] PCP - General Family Medicine 07/31/23 Additional Source Comments The information contained in this document represents components of the legal health record. It is not the complete legal health record.[facility]
== END 2025-07-03 14:05 | disposition home or self-care (01) ==
LOC: HO.HVS 13:54
PROVIDERS: PCP Family Medicine; Visit Provider Surgery Vascular Surgery
DX: I73.9 Peripheral vascular disease, unspecified (principal)
CPT/HCPCS: 99214; G2211

== ENCOUNTER → 2025-07-03 13:53 | Outpatient (BNVA) | payer OTHER, SELFPAY | PROVIDERS: PCP Family Medicine; Visit Provider Surgery Vascular Surgery | DX: I73.9 Peripheral vascular disease, unspecified (principal) | CPT/HCPCS: 99212 ==

== ENCOUNTER 2025-08-06 10:27 | Outpatient (REF) | payer OTHER, SELFPAY ==
[2025-08-06 13:23] LABS: Parathyroid Hormone Intact 180.1 pg/mL (8.7-77.1)
[2025-08-06 14:00] LABS: Anion Gap 17 (12-20); Blood Urea Nitrogen 62 mg/dL (9-16); Calcium 10.3 mg/dL (8.4-10.2); Carbon Dioxide 26 mmol/L (22-29); Chloride 102 mmol/L (96-108); Cholesterol 122 mg/dL (<200); Estimated Glomerular Filt Rate 29; HDL Cholesterol 46 mg/dL (>40); Potassium 5.1 mmol/L (3.3-5.1); Sodium 140 mmol/L (135-145); Triglycerides 107 mg/dL (<150)
[2025-08-06 14:41] LABS: Microalbum/Creatinine Ratio Ur 125.1 ug/mg cr (<30)
--- OUTSIDE RECORDS SUMMARY | 2025-08-06 20:13 | XMS_ITS | Clinical Summary ---
Author Organization [facility] Address [address] [place] [address] Phone Care Team Providers Care Racecourse Barrier Attendant Name Role Phone Jessie Smith MD Primary Care Provider [phone] Allergies No known active allergies Medications aspirin [...] patient's age to complete this topic Insurance [facility] ([id number]) VIVIANE SCHMIDT [id number] [place] [id number] [facility] ([id number]) VIVIANE SCHMIDT [id number] Care Teams Racecourse Barrier Attendant Relationship Specialty Start Date End Date Jessie Smith MD PCP - General Family Medicine 12/30/20
--- OUTSIDE RECORDS SUMMARY | 2025-08-06 20:13 | XMS_ITS | Clinical Summary ---
Author Organization [address] [place] [address] Address [address] [place] [address] Phone Care Team Providers Care Nuclear Supervising Operator Name Role Phone Jessie Smith MD Primary Care Provider [phone] Allergies No known active allergies Medications No known medications Encounters Date Type Department Care Team Description 06/25/2025 1:00 PM EDT Office Visit Orthopedic Surgery [facility] [address] [address] Tacho Monaco DPM Controlled type [...] Upcoming Encounters Date Type Department Care Team (Late st Contact Info) Description 09/25/2025 1:00 PM EST Office Visit Orthopedic Surgery [facility] [address] [address] Tacho Monaco DPM [address] [address] Health Maintenance Due Date Last Done Comments [...] MMR Vaccines Completed 09/18/1957 Hepatitis A Vaccines Completed 10/08/2004, 10/08/2001, 04/05/2001 Varicella Vaccines Aged Out 02/22/2005 No longer [...] patient's age to complete this topic Insurance [facility] MEDICARE Member Subscriber Plan / Payer (Ef fective 2020-Present) Name:Husam Morales Relation to Subscriber:Self Name:Husam Garcia Payer ID:[id number] Group ID:[id number] Type:Not on file Address: [place] [address] VIVIANE SCHMIDT [id number] Care Teams Nuclear Supervising Operator Relationship Specialty Start Date End Date Jessie Smith MD [address] [place] [phone] PCP - General Family Medicine 01/30/25
--- OUTSIDE RECORDS SUMMARY | 2025-08-06 20:13 | XMS_ITS | Clinical Summary ---
Author Organization [facility] Address [address] [place] [address] Phone Care Team Providers Care Crop Picker Name Role Phone Jessie Smith MD Primary Care Provider [phone] Allergies No known active allergies Medications VENTOLIN [...] topic Medical Devices Not on file Insurance [facility] MEDICARE REPLACEMENT VIVIANE SCHMIDT [id number] [facility] MEDICARE REPLACEMENT VIVIANE SCHMIDT [id number] [facility] MEDICARE [place] [address] MEDICARE REPLACEMENT [facility] VIVIANE SCHMIDT [employer] Care Teams Crop Picker Relationship Specialty Start Date End Date Jessie Smith MD [address] [place] [phone] PCP - General Family Medicine 07/31/23 Additional Source Comments The information contained in this document represents components of the legal health record. It is not the complete legal health record.[facility]
== END 2025-08-06 10:28 | disposition home or self-care (01) ==
LOC: HO.HHCL 10:27
PROVIDERS: PCP Family Medicine; Referring Provider Internal Medicine Nephrology; Visit Provider Family Medicine
DX: I12.9 Hypertensive chronic kidney disease with stage 1 through stage 4 chronic kidney disease, or unspecified chronic kidney disease (principal); N18.32 Chronic kidney disease, stage 3b; E11.22 Type 2 diabetes mellitus with diabetic chronic kidney disease; Z79.4 Long term (current) use of insulin; N25.81 Secondary hyperparathyroidism of renal origin
CPT/HCPCS: 36415; 80051; 80061; 82043; 82310; 82565; 82570; 83970; 84100; 84520

== ENCOUNTER 2025-08-12 12:45 | Outpatient (AMB) | payer OTHER, SELFPAY ==
--- NOTE | 2025-08-12 13:01 | MHC.OFFVIS ---
Intake Visit Reasons: 6m/PVR Intake Note: Patient is present for 6m/PVR Urology Medication:DOXAZOSIN,FINASTERIDE,MIRABEGRON Antibiotic Allergy:NONE Blood Thinner:ASPIRIN Last PVR:105ML'S Todays PVR:30ML'S Spiral Binder Required: Yes Accompanied by: Self / Same As Patient Allergies No Known Allergies (No Known Allergies*) Allergy (Verified 08/12/25 13:02) HPI Comments Details: Husam is a pleasant male. He is a patient of . 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 Bahamian translation provided by qualified medical director/head team physician Six-month follow-up on Myrbetriq PVR 30 cc Continue good response to combination Hytrin with finasteride Cystoscopy with grade 1/2 trabeculation, mild trilobar hypertrophy UA today 3+ glucose on Trulicity Pushed out to yearly evaluation Lower urinary tract symptoms Longstanding BPH Has nocturia x3 with some frequency Current medications Hytrin 8 mg with finasteride 04/09 Cystoscopy with grade 1/2 trabeculation, mild trilobar hypertrophy Background diabetes with HIV therapy PSA 09/05 2.1, 09/07 3.1, 10/10 5.1 25%Free, 03/10 1.6, 05/11, PSA 12/10 2.5 PFSH Medical History Atherosclerotic cardiovascular disease CKD (chronic kidney disease) BPH loc w urin obs/LUTS BPH (benign prostatic hyperplasia) Nocturia HIV (human immunodeficiency virus infection) Diabetic polyneuropathy associated with type 2 diabetes mellitus Dyslipidemia Diabetic nephropathy associated with type 2 diabetes mellitus [facility] (current) use of insulin Chronic constipation Hypertension Diabetes type 2, controlled Diabetes type 2, controlled History of renal dialysis IDDM (insulin dependent diabetes mellitus) Asthma Renal failure Surgical History History of colonoscopy History of foot surgery History of appendectomy Family History Son History of diabetes mellitus Social History Household Members: None Housing: Apartment Do you presently have visiting nurse or other home services: No Alcohol intake: never Patient Tobacco Use Status: Former Tobacco user e-Cigarette/Vaping Use: Never Used Second Hand Smoke Exposure: No Advance Directives Date on File: 08/05/20 service: No Current occupational status: retired Review of Systems Const Denies chills and Denies fever(s) Card Reports no additional complaints and Denies syncope Resp Denies cough GI Denies abdominal pain and Denies heartburn Reports as per HPI and Denies change in libido Neuro Denies syncope Psych Denies change in libido Endo Denies change in libido Physical Exam Const General: cooperative, healthy appearing, comfortable and no acute distress Orientation/consciousness: patient oriented x3 HEENT Face and sinus: Yes normal facial exam Mouth: moist mucous membranes Neck Neck: Yes normal visual inspection, Yes full ROM and Yes trachea midline Chest Chest palpation & inspection: normal inspection of the chest Resp Effort & Inspection: normal respiratory effort, able to speak in complete sentences and no respiratory distress GI Inspection: Yes normal to inspection Back/Spine/Pelvis Cervical Spine: normal cervical lordosis Thoracic/Lumbar Spine: thoracic and lumbar spine normal to inspection Skin General skin exam: no rashes or lesions noted Neuro General: patient oriented x3, gait normal, tone normal and moves all extremities Extrem General: Yes normal to inspection and Yes capillary refill normal Office Procedures Post Void Residual Post Residual Void Post Void Residual (PVR): 30 [address]20-Uhko Void Residual by ultrasound Results AMB Urinalysis, Automated UA Leukoctes 0 Candice/uL Last Edit by Marva Felipe CCM on 08/12/25 13:14 UA Nitrite Negative Last Edit by Marva Felipe [facility] on 08/12/25 13:14 UA Urobilinogen 0.2 mg/dL Last Edit by Marva Felipe [facility] on 08/12/25 13:14 UA Protein 0 mg/dL Last Edit by Marva Felipe [facility] on 08/12/25 13:14 UA pH 6.0 Last Edit by Marva Felipe [facility] on 08/12/25 13:14 UA Blood 0 Nakul/uL Last Edit by Marva Felipe [facility] on 08/12/25 13:14 UA Specific [place] 1.010 Last Edit by Marva Felipe [facility] on 08/12/25 13:14 UA Ketone Negative Last Edit by BJ Martinez on 08/12/25 13:14 UA Bilirubin 0 mg/dL Last Edit by BJ Martinez on 08/12/25 13:14 UA Glucose 500 mg/dL Last Edit by BJ Martinez on 08/12/25 13:14 Results Reviewed Results Reviewed: Laboratory Last Values Urine pH (Auto) 6.0 08/12/25 13:13 Specific [place] (Auto) 1.010 08/12/25 13:13 Urine Protein (Auto) 0 mg/dL 08/12/25 13:13 Glucose (UA)(Auto) 500 mg/dL 08/12/25 13:13 Urine Ketones (Auto) Negative 08/12/25 13:13 Urine Blood (Auto) 0 Nakul/uL 08/12/25 13:13 Urine Nitrite (Auto) Negative 08/12/25 13:13 Urine Bilirubin (Auto) 0 mg/dL 08/12/25 13:13 Urine Urobilinogen (Auto) 0.2 mg/dL 08/12/25 13:13 Leukocyte Esterase (Auto) 0 Candice/uL 08/12/25 13:13 Assessment & Plan Assessment & Plan (1) Nocturia: Code(s): R35.1 - Nocturia Category: Medical (2) Overactive bladder: Code(s): N32.81 - Overactive bladder Category: Medical (3) BPH loc w urin obs/LUTS: Code(s): N40.1 - Benign prostatic hyperplasia with lower urinary tract symptoms Category: Medical Plan Twelve month follow-up Medications: Changed From mirabegron ER 25 mg PO DAILY 90 days 90 tabs 1RF N32.81 - Overactive bladder To mirabegron ER (Myrbetriq) 25 mg PO DAILY 90 tabs 3RF 90 days N32.81 - Overactive bladder Refilled doxazosin 8 mg PO DAILY 90 tabs 3RF 90 days R97.20 - Elevated prostate specific antigen [PSA] finasteride 5 mg PO DAILY 90 tabs 3RF 90 days N32.81 - Overactive bladder Patient Instructions: This note is constructed using voice recognition software. While every effort has been made to ensure accuracy center manager errors may have been included. Imaging studies, laboratory and physical exam results were discussed and reviewed in detail. No major barriers to patient understanding were identified. An opportunity to ask questions regarding the treatment plan was provided. All questions were answered. The patient expressed understanding and agreement with the above treatment plan. The patient is aware they should contact our office by phone for worsening of their current condition or the appearance of new urologic symptoms. Compliance is encouraged with any medications and followup testing that is ordered. It is a privilege to participate in the urologic care of your patient. If you have any questions or concerns regarding treatment for the above conditions, or other urologic issues, please do not hesitate to contact me. The office telephone contact is [phone]. Sincerely, Dr Aurelio Foster MD, [facility] - Urology Compassionate Specialist Care for the Genitourinary System Coding Level of Care Code Complex visit Add On G2211 Diagnoses Nocturia R35.1 Overactive bladder N32.81 BPH loc w urin obs/LUTS N40.1 CPT Codes Post Residual Void - PVR CPT Code: 08293-[id number] Void Residual by ultrasound ([id number])
--- OUTSIDE RECORDS SUMMARY | 2025-08-12 16:25 | XMS_ITS | Clinical Summary ---
Author Organization [facility] Address [address] [place] [address] Phone Care Team Providers Care Solid Die Cutter Name Role Phone Jessie Smith MD Primary Care Provider [phone] Allergies No known active allergies Medications VENTOLIN [...] topic Medical Devices Not on file Insurance [facility] MEDICARE REPLACEMENT VIVIANE SCHMIDT [id number] [facility] MEDICARE REPLACEMENT VIVIANE SCHMIDT [id number] [facility] MEDICARE REPLACEMENT [place] [address] [facility]ARE [facility] Member Subscriber Plan / Payer (Ef fective 2020-Present) Name:Husam Garcia Relation to Subscriber:Self Name:Husam Garcia Payer ID:[id number] (NAIC) Group ID:[id number] [place]:Medicare Address: [place] [address] VIVIANE SCHMIDT [facility] Care Teams Solid Die Cutter Relationship Specialty Start Date End Date Jessie Smith MD [address] [place] [address] PCP - General Family Medicine 07/31/23 Additional Source Comments The information contained in this document represents components of the legal health record. It is not the complete legal health record.[facility]
--- OUTSIDE RECORDS SUMMARY | 2025-08-12 16:25 | XMS_ITS | Clinical Summary ---
Author Organization [address] [place] [address] Address [address] [place] [address] Phone Care Team Providers Care Cardiac Catheterization Technician Name Role Phone Jessie Smith MD Primary Care Provider [phone] Allergies No known active allergies Medications No known medications Encounters Date Type Department Care Team Description 06/25/2025 1:00 PM EDT Office Visit Orthopedic Surgery [facility] [address] [address] Tacho Monaco DPM Controlled type [...] 1:00 PM EST Office Visit Orthopedic Surgery [facility] [address] [address] Tacho Monaco DPM [address] [address] Health Maintenance Due Date Last Done Comments [...] patient's age to complete this topic Insurance [facility] MEDICARE Member Subscriber Plan / Payer (Ef fective 2020-Present) Name:Husam Morales Relation to Subscriber:Self Name:Hsuam Garcia Payer ID:[id number] Group ID:[id number] Type:Not on file Address: [place] [address] VIVIANE SCHM[place]T [id number] Care Teams Cardiac Catheterization Technician Relationship Specialty Start Date End Date Jessie Smith MD [address] [place] [phone] PCP - General Family Medicine 01/30/25
--- OUTSIDE RECORDS SUMMARY | 2025-08-12 16:25 | XMS_ITS | Clinical Summary ---
Author Organization [facility] Address [address] [place] [address] Phone Care Team Providers Care Fashion Consultant Name Role Phone Jessie Smith MD Primary Care Provider [phone] Allergies No known active allergies Medications aspirin [...] patient's age to complete this topic Insurance [facility] ([id number]) VIVIANE SCHMIDT [id number] [place] [id number] [facility] ([id number]) VIVIANE SCHMIDT [id number] Care Teams Fashion Consultant Relationship Specialty Start Date End Date Jessie Smith MD PCP - General Family Medicine 12/30/20
== END 2025-08-12 13:20 | disposition home or self-care (01) ==
LOC: HO.HUSH 12:46
PROVIDERS: PCP Family Medicine; Visit Provider Urology
DX: N40.1 Benign prostatic hyperplasia with lower urinary tract symptoms (principal); R35.1 Nocturia; N32.81 Overactive bladder
CPT/HCPCS: 99214; G2211

== ENCOUNTER → 2025-08-12 12:45 | Outpatient (BNVA) | payer OTHER, SELFPAY | PROVIDERS: PCP Family Medicine; Visit Provider Urology | DX: N40.1 Benign prostatic hyperplasia with lower urinary tract symptoms (principal); R35.1 Nocturia; N32.81 Overactive bladder; N13.8 Other obstructive and reflux uropathy; R97.20 Elevated prostate specific antigen [PSA] | CPT/HCPCS: 51798; 99212 ==

== ENCOUNTER 2025-08-22 13:23 | Outpatient (AMB) | payer OTHER, SELFPAY ==
--- NOTE | 2025-08-22 13:41 | HO.NEPHOV ---
Vital Signs 08/22/25 13:42 Height 5 ft 5 in Weight 149 lb BMI 24.8 BP 130/62 Blood Pressure Location Rt brachial Position Sitting Pulse 69 Pulse Source Pulse Oximeter Pulse Oximetry (%) 98 Oxygen Delivery Method Room Air Intake Visit Reasons: 3mon f/u w/labs Nurse Practitioner Per Diem Required: Yes Nurse Practitioner Per Diem Language: Rating Examiner Services: Nurse Practitioner Per Diem Offered & Declined ([facility] Nurse Practitioner Per Diem services refused ) Accompanied by: Self / Same As Patient Allergies No Known Allergies (No Known Allergies*) Allergy (Verified 08/22/25 13:41) HPI Comments Details: Husam was seen in follow-up of his chronic kidney disease and hypertension. According to him, his HIV viral load has been undetectable and his CD4 has been good. He has not had any medication changes. He continues to have a functioning AV fistula. He claims to have good urine output. He denies nausea, vomiting, diarrhea, chest pain, shortness of breath, proximal nocturnal dyspnea, orthopnea, pedal edema or urinary symptoms. He is off ARB from the time after his serum creatinine has gone up. His blood pressure has been at goal. He is on Trulicity as well as Lantus. He denies taking nonsteroidal anti-inflammatories. His serum creatinine is stable. There were no other new complaints at the time of this office visit [facility] Medical History Atherosclerotic cardiovascular disease CKD (chronic kidney disease) BPH loc w urin obs/LUTS BPH (benign prostatic hyperplasia) Nocturia HIV (human immunodeficiency virus infection) Diabetic polyneuropathy associated with type 2 diabetes mellitus Dyslipidemia Diabetic nephropathy associated with type 2 diabetes mellitus snf (current) use of insulin Chronic constipation Hypertension Diabetes type 2, controlled Diabetes type 2, controlled History of renal dialysis IDDM (insulin dependent diabetes mellitus) Asthma Renal failure Surgical History History of colonoscopy History of foot surgery History of appendectomy Family History Son History of diabetes mellitus Social History Household Members: None Housing: Apartment Do you presently have visiting nurse or other home services: No Alcohol intake: never Patient Tobacco Use Status: Former Tobacco user e-Cigarette/Vaping Use: Never Used Second Hand Smoke Exposure: No Advance Directives Date on File: 08/05/20 service: No Current occupational status: retired Review of Systems Const All systems reviewed & are unremarkable except as noted in HPI and below Physical Exam Vital Signs: Last Vital Signs Pulse 69 08/22/25 13:42 BP 130/62 08/22/25 13:42 Pulse Ox 98 08/22/25 13:42 Oxygen Delivery Method Room Air 08/22/25 13:42 BMI result Body Mass Index 24.8 Const General: comfortable and no acute distress Orientation/consciousness: patient oriented x3 HEENT Head: Yes normocephalic Mouth: Normal oral and palatal mucosa present Eyes EOM: EOMs intact bilaterally Neck Neck: Yes supple Resp Auscultation: clear to auscultation bilaterally Cardio Jugular venous distension: no JVD Rate: regular rate GI Palpation (GI): Soft to palpation Auscultation: normal bowel sounds General: Yes no CVA tenderness Back/Spine/Pelvis Back: no CVA tenderness Skin General skin exam: no rashes or lesions noted Neuro General: patient oriented x3 and moves all extremities Extrem General: Yes no pedal edema Results Reviewed Nephrology Results: Hgb, (14.0-18.0) 13.2 g/dl L 06/18/25 WBC, (4.8-10.8) 8.6 X10*3/uL 06/18/25 Plt Count, (160-400) 262 X10*3/uL Δ 06/18/25 Sodium, (135-145) 140 mmol/L 08/06/25 Potassium, (3.3-5.1) 5.1 mmol/L 08/06/25 Chloride, (96-108) 102 mmol/L 08/06/25 Carbon Dioxide, (22-29) 26 mmol/L 08/06/25 BUN, (9-16) 62 mg/dL H 08/06/25 Creatinine, (0.5-1.4) 2.20 mg/dL H 08/06/25 Calcium, (8.4-10.2) 10.3 mg/dL H Δ 08/06/25 Phosphorus, (2.7-4.5) 4.2 mg/dL 08/06/25 PTH Intact, (8.7-77.1) 180.1 pg/mL H 08/06/25 Urine Creatinine 23.98 mg/dL 08/06/25 Renal US 01/19/24 Assessment & Plan Assessment & Plan (1) Renal artery stenosis: Code(s): I70.1 - Atherosclerosis of renal artery Category: Medical (2) Hypertension: Code(s): I10 - Essential (primary) hypertension Category: Medical Qualifiers: Hypertension type: primary hypertension Qualified Code(s): I10 - Essential (primary) hypertension (3) Secondary hyperparathyroidism (of renal origin): Code(s): N25.81 - Secondary hyperparathyroidism of renal origin Category: Medical (4) Stage 3b chronic kidney disease: Code(s): N18.32 - Chronic kidney disease, stage 3b Category: Medical Plan Husam was on dialysis for a long time. His GFR recovered and he came off dialysis. He continues to have AV fistula which is functioning. He claims to have good urine output. His creatinine improved after holding losartan altogether. I may restart it later. His blood sugar needs to be maintained at goal. He is on Farxiga. His blood pressure needs to be maintained at goal. He should avoid nonsteroidal anti-inflammatories. He should continue calcitriol 0.25 mcg thrice a week. I may back off on torsemide if his creatinine rises. I did not make any other medication changes today. Follow-up blood work ordered. Answered all questions. Follow-up appointment given Orders: Orders Vitamin D 25-OH Total 3 Months I10 - Essential (primary) hypertension, I70.1 - Atherosclerosis of renal artery, N18.32 - Chronic kidney disease, stage 3b, N25.81 - Secondary hyperparathyroidism of renal origin Electrolytes 3 Months I10 - Essential (primary) hypertension, I70.1 - Atherosclerosis of renal artery, N18.32 - Chronic kidney disease, stage 3b, N25.81 - Secondary hyperparathyroidism of renal origin Blood Urea Nitrogen 3 Months I10 - Essential (primary) hypertension, I70.1 - Atherosclerosis of renal artery, N18.32 - Chronic kidney disease, stage 3b, N25.81 - Secondary hyperparathyroidism of renal origin Parathyroid Hormone Intact 3 Months I10 - Essential (primary) hypertension, I70.1 - Atherosclerosis of renal artery, N18.32 - Chronic kidney disease, stage 3b, N25.81 - Secondary hyperparathyroidism of renal origin Phosphorus 3 Months I10 - Essential (primary) hypertension, I70.1 - Atherosclerosis of renal artery, N18.32 - Chronic kidney disease, stage 3b, N25.81 - Secondary hyperparathyroidism of renal origin Calcium 3 Months I10 - Essential (primary) hypertension, I70.1 - Atherosclerosis of renal artery, N18.32 - Chronic kidney disease, stage 3b, N25.81 - Secondary hyperparathyroidism of renal origin Creatinine 3 Months I10 - Essential (primary) hypertension, I70.1 - Atherosclerosis of renal artery, N18.32 - Chronic kidney disease, stage 3b, N25.81 - Secondary hyperparathyroidism of renal origin Coding Level of Care Code Est Pt Level 4 (48907) Diagnoses Renal artery stenosis I70.1 Primary hypertension I10 Hypertension type: primary hypertension Secondary hyperparathyroidism (of renal origin) N25.81 Stage 3b chronic kidney disease N18.32
[2025-08-22 13:42] VITALS: BP 130/62; PULSE 69; O2SAT 98; BMI 24.8
--- OUTSIDE RECORDS SUMMARY | 2025-08-22 17:30 | XMS_ITS | Clinical Summary ---
Author Organization [facility] Address [address] [place] [id number] Phone Care Team Providers Care Nurse First Assist Name Role Phone Jessie Smith MD Primary Care Provider [phone] Allergies No known active allergies Medications VENTOLIN [...] topic Medical Devices Not on file Insurance [facility] MEDICARE REPLACEMENT VIVIANE SCHMIDT [id number] [facility] MEDICARE REPLACEMENT VIVIANE SCHMIDT [id number] [facility] MEDICARE REPLACEMENT [place] [address] MEDICARE REPLACEMENT [facility] MEDIC[facility] REPLACEMENT VIVIANE SCHMIDT [facility] Care Teams Nurse First Assist Relationship Specialty Start Date End Date Jessie Smith MD [address] [place] [phone] PCP - General Family Medicine 07/31/23 Additional Source Comments The information contained in this document represents components of the legal health record. It is not the complete legal health record.[facility]
--- OUTSIDE RECORDS SUMMARY | 2025-08-22 17:30 | XMS_ITS | Clinical Summary ---
Author Organization [address] [place] [address] Address [address] [place] [address] Phone Care Team Providers Care Mechanical Expert Name Role Phone Jessie Smith MD Primary Care Provider [phone] Allergies No known active allergies Medications No known medications Encounters Date Type Department Care Team Description 06/25/2025 1:00 PM EDT Office Visit Orthopedic Surgery [facility] [address] [id number] Tacho Monaco DPM Controlled type [...] 1:00 PM EST Office Visit Orthopedic Surgery [facility] [address] [id number] Tacho Monaco DPM [address] [address] Health Maintenance Due Date Last Done Comments [...] patient's age to complete this topic Insurance [facility] MEDICARE Member Subscriber Plan / Payer (Ef fective 2020-Present) Name:Husam Morales Relation to Subscriber:Self Name:Husam Garcia Payer ID:[id number] Group ID:[id number] Type:Not on file Address: [place] [address] [address] [place] [id number] Care Teams Mechanical Expert Relationship Specialty Start Date End Date Jessie Smith MD [address] [place] [phone] PCP - General Family Medicine 01/30/25
== END 2025-08-22 13:54 | disposition home or self-care (01) ==
LOC: HO.HKA 13:23
PROVIDERS: PCP Family Medicine; Visit Provider Internal Medicine Nephrology
DX: I70.1 Atherosclerosis of renal artery (principal); I10 Essential (primary) hypertension; N25.81 Secondary hyperparathyroidism of renal origin; N18.32 Chronic kidney disease, stage 3b
CPT/HCPCS: 99214

== ENCOUNTER → 2025-08-22 13:23 | Outpatient (BNVA) | payer OTHER, SELFPAY | PROVIDERS: PCP Family Medicine; Visit Provider Internal Medicine Nephrology | DX: I12.9 Hypertensive chronic kidney disease with stage 1 through stage 4 chronic kidney disease, or unspecified chronic kidney disease (principal); N18.32 Chronic kidney disease, stage 3b; I70.1 Atherosclerosis of renal artery; I77.0 Arteriovenous fistula, acquired; N25.81 Secondary hyperparathyroidism of renal origin; E11.22 Type 2 diabetes mellitus with diabetic chronic kidney disease; Z79.899 Other long term (current) drug therapy; Z79.4 Long term (current) use of insulin; Z79.85 Long-term (current) use of injectable non-insulin antidiabetic drugs; Z87.891 Personal history of nicotine dependence | CPT/HCPCS: 99212 ==

== ENCOUNTER 2025-08-28 12:47 | Outpatient (REF) | payer OTHER, SELFPAY ==
--- NOTE | ~2025-08-28 | US_ITS ---
EXAMINATION: US EXTRACRANIAL CAROTID DUPLEX, BILATERAL CLINICAL INFORMATION: Status post left endarterectomy. COMPARISON: November 23, 2022. TECHNIQUE: Real-time ultrasound and Doppler techniques (integrating B-mode 2-D vascular images, Doppler spectral analysis and color-flow Doppler imaging) were utilized to interrogate the extracranial carotid arteries, the vertebral arteries and proximal subclavian arteries bilaterally. The degree of stenosis is determined by criteria similar to NASCET. FINDINGS: Right Side: 1. There is calcified atherosclerotic plaque seen in the bifurcation/proximal ICA region. 2. The common carotid artery PSV proximally is 72 cm/s and distally 54 cm/s. 3. The proximal internal carotid artery velocities are 182 cm/s systolic and 27 cm/s diastolic. Spectral broadening. 4. The proximal external carotid artery PSV is 82 cm/s. 5. The vertebral artery shows antegrade flow. 6. The subclavian artery waveforms are normal. Peak systolic velocity: 233 cm/s. ICA/CCA ratio: 2.3. Left Side: 1. There is no gross atherosclerotic plaque seen in the bifurcation/proximal ICA region. 2. The common carotid artery PSV proximally is 211 cm/s and distally 52 cm/s. 3. The proximal internal carotid artery velocities are 88 cm/s systolic and 17 cm/s diastolic. 4. The proximal external carotid artery PSV is 96 cm/s. 5. The vertebral artery shows antegrade flow. 6. The subclavian artery waveforms are normal. Peak systolic velocity: 321 cm/s with spectral broadening.. ICA/CCA ratio: 0.35. US/US carotid duplex BI IMPRESSION: 1. RIGHT: 50-79% stenosis by ultrasound criteria. Hemodynamically significant stenosis, right subclavian artery. 2. LEFT: 0-49% stenosis by ultrasound criteria. Hemodynamically significant stenosis, left subclavian artery. Electronically signed by: Donato Arrington MD 08/28/2025 01:49 PM EST
== END 2025-08-28 12:48 | disposition home or self-care (01) ==
LOC: HO.US 12:47
PROVIDERS: PCP Family Medicine; Visit Provider Internal Medicine
DX: I65.23 Occlusion and stenosis of bilateral carotid arteries (principal)
CPT/HCPCS: 93880

== ENCOUNTER → 2025-08-28 13:07 | Outpatient (BNV) | payer OTHER, SELFPAY | PROVIDERS: PCP Family Medicine; Visit Provider Radiology Diagnostic Radiology | DX: I65.23 Occlusion and stenosis of bilateral carotid arteries (principal) | CPT/HCPCS: 93880 ==